=== PATIENT | male | born 1950 | race Caucasian/White ===

== ENCOUNTER 2020-10-25 07:12 | Inpatient (IN) | payer OTHER, MEDICARE, SELFPAY ==
[2020-10-25] VITALS (11 sets, daily range): BP systolic 107–147; BP diastolic 69–76; PULSE 81–145; RESP 16–32; TEMP 36.2–37; O2SAT 92–99; BMI 30.8; BMI 29.6
--- NOTE | 2020-10-25 07:25 | CT_ITS ---
STUDY: CT SCAN UPPER EXTREMITY RIGHT REASON FOR EXAM: Male, 70 years old. Patient presents with a history of a dog bite 90s about. Now there is evidence of redness and warmth to touch. Drainage. RADIATION DOSAGE (If Supplied By Facility): CTDIvol = ( 24.58 ) mGy, DLP = ( 2824.99 ) mGycm. Individualized dose optimization techniques were used for this CT.? TECHNIQUE: Multiple axial tomographic images were obtained of the distal arm and forearm following intravenous injection of 100 mL of ISOVUE-300. Sagittal and coronal images were obtained as well. COMPARISON: None. FINDINGS: There is evidence of the thickening of the skin overlying the posterior aspect of the distal humerus. No focal fluid collection or abscess is seen. There is also evidence of a mild degree of skin thickening involving the right forearm. The underlying bony structures are unremarkable. CT/Extremity Upper WITH Contrast IMPRESSION: Skin thickening overlying the distal posterior aspect of the humerus. Soft tissue swelling overlying the proximal right forearm. Electronically Signed: Gómez Phelps MD at 9:02 EDT , Service support ,
--- NOTE | 2020-10-25 07:42 | EDS_ITS ---
HPI History of Present Illness Chief Complaint: Bite Narrative Narrative: Patient presenting for evaluation due to complications from dog bite. Patient states that he was breaking up a fight between his dogs around 9 days ago and suffered bite wounds to his right forearm. Patient states that he has been trying to do generalized normal wound care, but has been developing spreading redness, increased pain, purulent drainage, and subjective fevers and sweats. Pain is moderate. Patient states that pain is mainly with palpation not necessarily with range of motion of the wrist and hand. Patient states that his tetanus status is likely not up-to-date. Review of systems otherwise n egative. [facility] Medical History Depression Diabetes Hypertension Home Medications amlodipine 10 mg PO DAILY 10/25/20 [History Last Taken Unknown] furosemide [Lasix] 40 mg PO BID 10/25/20 [History Last Taken Unknown] glipizide 10 mg PO DAILY 10/25/20 [History Last Taken Unknown] metoprolol succinate 200 mg PO DAILY 10/25/20 [History Last Taken Unknown] niacin 1,000 mg PO QHS 10/25/20 [History Last Taken Unknown] omeprazole 20 mg PO DAILY 10/25/20 [History Last Taken Unknown] paroxetine HCl [Paxil] 40 mg PO DAILY 10/25/20 [History Last Taken Unknown] pentoxifylline 400 mg PO TID 10/25/20 [History Last Taken Unknown] Allergy/AdvReac Type Severity Reaction Status Date / Time No Known Allergies Allergy Verified 10/25/20 07:14 Social History Smoking Status: Unknown if ever smoked ROS [facility] ED Constitutional Constitutional ED: Reports chills and subjective; Denies fever(s) ENT ENT ED: Denies rhinorrhea Cardiovascular Cardiovascular: Denies chest pain Respiratory/Chest Respiratory/Chest: Denies cough or dyspnea Gastrointestinal Gastrointestinal: Denies abdominal pain, diarrhea, nausea or vomiting Genitourinary Genitourinary ED: Denies dysuria or hematuria Musculoskeletal Musculoskeletal: Denies back pain Integumentary Reports abscess and rash Neurologic Neurologic: Denies paresthesias or weakness Psychiatric Psychiatric: Denies depression Endocrine Endocrinology: Denies fatigue Allergic/Immunologic Allergic/Immunologic ED: Denies urticaria EXAM Physical Exam Const Vital Signs: 10/25/20 07:13 Temperature 97.1 F L Temperature Source Temporal Pulse Rate 85 Respiratory Rate 16 Blood Pressure 107/71 Blood Pressure Mean 83 Pulse Ox 99 Oxygen Delivery Method Room Air Positive well nourished and well developed General Appearance ED: well developed and NAD HEENT Reports moist mucous membranes normocephalic and atraumatic Eyes EOMs intact bilaterally Neck no lymphadenopathy, supple and no JVD Chest Wall inspection of chest normal Resp normal respiratory effort and clear to auscultation bilaterally Cardio regular rate, regular rhythm, no murmurs and peripheral pulses 2+ throughout GI normal to inspection, nondistended, normoactive bowel sounds and non-distended Back/Spine normal to inspection Extremity Extremity Narrative: Examination of the patient's right forearm shows multiple proximal abrasions. More distally there are what appear to be some healing lacerations. Over the area of the ulnar styloid there is a eschar with purulent drainage. There is tenderness to palpation. There is no pain with short arc range of motion of the wrist, normal range of motion of the fingers. Normal pulses. Normal capillary refill. Normal sensation. General Extremety ED: Negative for tenderness Neuro oriented x3 and no sensory deficits noted Sensorium / Orientation: alert Motor Exam: strength 5/5 throughout Psych mental status grossly normal Skin no rashes or lesions noted Trauma: abrasion and laceration MDM MDM MDM Narrative Medical decision making narrative: Patient presented secondary to an infected bite wound on his right forearm secondary to a dog bite a little over a week ag o. Patient was reporting constitutional symptoms, he is also diabetic work-up was obtained. Patient was noted to have a leukocytosis of 18.2. He was empirically started on Unasyn. He was given morphine for pain control. Patient was noted to be somewhat hypokalemic at 2.8 he was given oral potassium replacement. Patient does not have pathologic elevation of his CPK or lactic acid. I performed a CT which does not show any discrete abscess formation but does show the patient's cellulitis. Patient does not seem to have a presentation that would be consistent with a septic joint. I do believe that the patient's infection is severe enough that he requires admission. Patient will be discussed with the hospitalist. Lab Data Attestation: I reviewed the patient's lab results. Discharge Plan Triage Chief Complaint: Bite ED Provider: Matt Anne Dx/Rx/DC Orders Clinical Impression: Dog bite, Cellulitis of forearm, right, History of diabetes mellitus, Hypokalemia Prescriptions: No Action furosemide [Lasix] 40 mg Tablet 40 mg PO BID RF: 0 metoprolol succinate 200 mg Tablet Extended Release 24 Hr 200 mg PO DAILY RF: 0 glipizide 10 mg Tablet 10 mg PO DAILY RF: 0 pentoxifylline 400 mg Tablet Extended Release 400 mg PO TID RF: 0 amlodipine 10 mg Tablet 10 mg PO DAILY RF: 0 omeprazole 20 mg Capsule,Delayed Release(Dr/Ec) 20 mg PO DAILY RF: 0 paroxetine HCl [Paxil] 40 mg Tablet 40 mg PO DAILY RF: 0 niacin 1,000 mg Tablet Extended Release 1,000 mg PO QHS RF: 0 [facility] [facility]errals[facility] [Primary Care Provider] -
[2020-10-25] MEDS: Diphth,Pertuss(Acell),Tet Vac 0.5 ML Vial IM (07:53)
[2020-10-25] MEDS: Morphine 4 MG/ML Syringe IV (07:53)
[2020-10-25] MEDS: Ondansetron 4 MG/2 ML Vial IV (07:53)
[2020-10-25 08:09] LABS: Absolute Lymphocyte Count 0.86 X10^3/uL (0.83-4.51); Absolute Neutrophil Count 15.5 X10^3/uL (2.0-7.7); Basophil# 0.04 X10^3/uL; Basophil% 0.2 % (0-1); Eosinophil# 0.05 X10^3/uL; Eosinophils% 0.3 % (0-5); Hematocrit 42.7 % (40-54); Hemoglobin 14.8 g/dL (13.0-16.5); Lymphocyte # 0.86 X10^3/ul (0.83-4.51); Lymphocyte % 4.7 % (19-41); Mean Corp Hgb Conc 34.7 g/dL (32-36); Mean Corpuscular Hgb 31.4 pg (27.0-32.0); Mean Corpuscular Volume 90.7 fL (80-94); Mean Platelet Vol. 9.4 fl (6.2-12.0); Monocyte# 1.47 X10^3/uL; Monocyte% 8.1 % (0-10); NRBC Flagged by Analyzer 0 % (0-5); Neutrophil % 85.3 % (47-70); Platelet Count 252 K/mm3 (150-450); RBC Distribution Width CV 12.4 % (11.6-14.6); RBC Distribution Width SD 41.4 fl (35.1-43.9); Red Blood Count 4.71 M/mm3 (4.6-6.2); White Blood Count 18.2 K/mm3 (4.4-11.0)
--- NOTE | 2020-10-25 08:10 | ED.RN ---
NOTIFIED KAYLYN ROSE PT NEEDS TO BE ADMITTED. ALL PAPERWORK WILL BE FAXED
[2020-10-25 08:11] LABS: ALB/GLOB Ratio 0.5 RATIO (0.9-2.4); AST(SGOT) 34 U/L (15-37); Alanine Aminotransfer ALT/SGPT 24 U/L (16-61); Albumin, Serum 2.5 g/dL (3.2-5.0); Alkaline Phosphatase 189 U/L (45-117); Anion Gap 10 (5-15); BUN 28 mg/dL (7-18); BUN/Creat Ratio 17.1 RATIO (10-20); CPK Total, Creatine Kinase 83 U/L (39-308); Calcium,Total 8.7 mg/dL (8.5-10.1); Chloride 100 mmol/L (98-107); Creatinine, Serum 1.64 mg/dL (0.70-1.30); EST Glomerular Filtration Rate 45 mL/min (>60); Est Glom Filt Rate - Afr Amer 54 mL/min (>60); Estimated Creatinine Clearance 44.51 ml/min; Globulin 4.6 g/dL (2.2-4.2); Glucose 186 mg/dL (74-106); Potassium 2.8 mmol/L (3.5-5.1); Protein, Total 7.1 g/dL (6.4-8.2); Sodium Level 133 mmol/L (136-145)
[2020-10-25 08:25] LABS: Lactic Acid 1.1 mmol/L (0.4-1.9)
[2020-10-25] MEDS: Potassium Chloride Oral Tablet 20 MEQ 60 MEQ PO (08:53)
--- NOTE | 2020-10-25 09:36 | HP.PCM.HOS_ITS ---
HPI - General HPI Narrative DIANA SNYDER, is a 70 M with a PMH as outlined who was admitted via the ED on 10/25/2020 with a complaint of dog bite. He was breaking up a fight between his dogs ~ 9 days prior to admission and suffered bite wounds to his right forearm; he develped worsening redness, increased pain and purulent drainage and subjective fevers and sweats; he had pain with palpation but had good range of motion. Review of systems is otherwise negative. vitals showed temperature of 97.1F, [place] of 85, BP of 107/71 and RR of 16. CBC shwoed wbc of 18.2, with Hb of 14.8 and platelets of 252. Chemistry showed sodium of 133 and K of 2.8 and Cr of 1.64. CT of the RUE showed skin thickening of the skin overlying the posterior aspect of the distal humerus with no focal fluid collection or abscess seen. He is being admitted to be managed for cellulitis of the RUE due to dog bite. [facility] Medical History Depression Diabetes Hypertension Home Medications amlodipine 10 mg PO DAILY 10/25/20 [History Last Taken Unknown] furosemide [Lasix] 40 mg PO BID 10/25/20 [History Last Taken Unknown] glipizide 10 mg PO DAILY 10/25/20 [History Last Taken Unknown] metoprolol succinate 200 mg PO DAILY 10/25/20 [History Last Taken Unknown] niacin 1,000 mg PO QHS 10/25/20 [History Last Taken Unknown] omeprazole 20 mg PO DAILY 10/25/20 [History Last Taken Unknown] paroxetine HCl [Paxil] 40 mg PO DAILY 10/25/20 [History Last Taken Unknown] pentoxifylline 400 mg PO TID 10/25/20 [History Last Taken Unknown] Allergy/AdvReac Type Severity Reaction Status Date / Time No Known Allergies Allergy Verified 10/25/20 07:14 Social History Smoking Status: Unknown if ever smoked ROS Constitutional Constitutional: Denies anorexia, change in weight, chills, fatigue, fever(s), malaise or weakness Eyes Eyes: Denies double vision or erythema ENT HEENT: Denies dysphagia, nasal congestion or nasal discharge Cardiovascular Cardiovascular: Denies chest pain, dyspnea on exertion, edema, lightheadedness, orthopnea, palpitations, paroxysmal nocturnal dyspnea or rapid heart rate Respiratory/Chest Respiratory/Chest: Denies cough, dyspnea, shortness of breath at rest or shortness of breath with exertion Gastrointestinal Gastrointestinal: Denies abdominal pain, constipation, diarrhea, nausea or vomiting Genitourinary Genitourinary: Denies dysuria, urinary frequency or urinary hesitancy Musculoskeletal Musculoskeletal: Reports other Details: pain, redness and swelling over RUE forearm ; Denies arthralgias, back pain, joint pain, joint stiffness, joint swelling or myalgias Neurologic Neurologic: Denies abnormal gait or focal weakness Psychiatric Psychiatric: Denies anxiety or depression Vital Signs Vital Signs Vital Signs: 10/25/20 07:13 10/25/20 08:55 Temperature 97.1 F L Temperature Source Temporal Pulse Rate 85 81 Respiratory Rate 16 16 Blood Pressure 107/71 119/72 Blood Pressure Mean 83 87 Pulse Ox 99 99 Oxygen Delivery Method Room Air Room Air Weight Weight: 215 lb Body Mass Index (BMI) 30.8 Physical Exam Const alert, oriented x3 and no apparent distress General Appearance: cooperative HEENT normocephalic, head/scalp atraumatic, hearing grossly normal bilaterally and moist oral mucous membranes Eyes PERRL, EOMs intact bilaterally and conjunctivae normal Neck no lymphadenopathy, supple and no JVD Resp normal respiratory effort, no retractions, no use of accessory muscles and clear to auscultation bilaterally Cardio regular rate, regular rhythm, S1 normal heart sound, S2 normal heart sound and no murmurs GI normal to inspection, nondistended, normoactive bowel sounds, soft to palpation, non-tender and non-distended Extremity Extremity Narrative: RUE has redness, healing lacerations and eschar with purulent drainage; tender to palpation. Normal range of movements Peripheral Pulses: Yes pulses 2+ throughout Skin Skin Narrative: as under extremity narrative Neuro oriented x3 and moves all extremities Sensorium / Orientation: awake and alert Psych affect normal Results Lab / Micro Data Result Diagrams: 10/25/20 07:35 10/25/20 07:35 Labs: Laboratory Results - last 24 hr 10/25/20 10/25/20 10/25/20 07:35 07:35 07:35 WBC 18.2 H RBC 4.71 Hgb 14.8 Hct 42.7 MCV 90.7 MCH 31.4 MCHC 34.7 RDW Std Deviation 41.4 RDW Coeff of Marquis 12.4 Plt Count 252 MPV 9.4 Immature Gran % (Auto) 1.400 H Neut % (Auto) 85.3 H Lymph % (Auto) 4.7 L [place] % (Auto) 8.1 Eos % (Auto) 0.3 Baso % (Auto) 0.2 Absolute Neuts (auto) 15.5 H Absolute Lymphs (auto) 0.86 Nucleated RBC % 0 Sodium 133 L Potassium 2.8 L Chloride 100 Carbon Dioxide 23.0 Anion Gap 10 BUN 28 H Creatinine 1.64 H Estim Creat Clear Calc 44.51 Est GFR (MDRD) Af Amer 54 L Est GFR (MDRD) Non-Af 45 L BUN/Creatinine Ratio 17.1 Glucose 186 H Lactic Acid 1.1 Calcium 8.7 Total Bilirubin 0.40 AST 34 ALT 24 Alkaline Phosphatase 189 H Total Creatine Kinase 83 Total Protein 7.1 Albumin 2.5 L Globulin 4.6 H Albumin/Globulin Ratio 0.5 L Radiology Impression Upper Extremity CT 10/25/20 07:25 IMPRESSION: Skin thickening overlying the distal posterior aspect of the humerus. Soft tissue swelling overlying the proximal right forearm. Electronically Signed: Gómez Phelps MD at 9:02 EDT , Service support , Assessment & Plan Assessment/Plan (1) Dog bite: (2) Cellulitis of forearm, right: (3) Hypokalemia: PLAN: #RUE cellulitis due to dog bite * admit to med surg * started on IV unasyn, will continue * get blood and wound cultures * consult wound care * #Hypokalemia: K is 2.8. Will replace and trend. Check magnesium #Type 2 diabetes mellitus * on glipizide 10mg daily. ISS. Accuchecks ACHS * #Hypertension; on metoprolol and furosemide DVT prophylaxis: lovenox COde status: full code Charges/Coding Visit Charges Inpatient E&M: 85321 Init Hosp L3
[2020-10-25] MEDS: Morphine 2 MG/ML Syringe IV ×4 (11:51→21:17)
[2020-10-25] MEDS: 0.9% Saline Lock 10 ML Syringe IV ×6 (11:52→21:00)
[2020-10-25 12:06] LABS: Bedside Glucose 204 mg/dL (70-110)
--- NOTE | 2020-10-25 12:19 | NURSING ---
wound photo: right wrist
--- NOTE | 2020-10-25 12:20 | NURSING ---
wound photo: right arm
[2020-10-25] MEDS: Potassium Chloride 10mEq/100mL 10 MEQ/100 ML IV.SOLN. 100 MEQ IV BOLUS ×4 (12:24→19:33)
[2020-10-25] MEDS: Insulin Lispro 100 UNIT/ML INSULN.PEN SC (13:41)
[2020-10-25] MEDS: Pentoxifylline 400 MG Tablet PO ×2 (13:43→21:17)
--- NOTE | 2020-10-25 15:28 | CHAPLAIN ---
Type of Pastoral Visit _x__ Initial Visit ___ Follow-up Visit ___ On-call Visit ___ General Patient Visit ___ Spiritual Assessment ___ Family Conference ___ Bereavement ___ Rapid Response ___ Code Blue ___ Other (describe below) Pastoral Care Referral From _x__ Patient ___ Family ___ Nurse ___ Physician ___ Licensed Bondsman ___ Milk Pickup Driver ___ Other (describe below) Sacrament/Intervention _x__ Active listening ___ Anointing ___ Sabianist ___ Bereavement ___ Communion _x__ Allison exploration ___ _x__ Life review _x__ Prayer ___ Reconciliation ___ Sacrament of Sick _x__ Supportive presence ___ Wedding ___ Other (describe below) Pastoral Comments
[2020-10-25 16:05] LABS: M R Staph aureus DNA By PCR Negative (Negative); Probe Check PASS; Specimen Processing Control PASS; Staph aureus DNA By PCR NEGATIVE (Negative)
[2020-10-25 16:16] LABS: Bedside Glucose 117 mg/dL (70-110)
[2020-10-25] MEDS: Acetaminophen 325 MG Tablet 650 MG PO (16:27)
--- NOTE | 2020-10-25 17:42 | EKG12_ITS ---
Test Reason : AM EKG Blood Pressure : / mmHG Vent. Rate : 079 BPM Atrial Rate : 079 BPM P-R Int : 210 ms QRS Dur : 130 ms QT Int : 420 ms P-R-T Axes : 040 016 011 degrees QTc Int : 481 ms Sinus rhythm with 1st degree A-V block with occasional Premature ventricular complexes and Premature atrial complexes Non-specific intra-ventricular conduction block Inferior infarct , age undetermined Abnormal ECG When compared with ECG of 25-OCT-2020 19:56, MANUAL COMPARISON REQUIRED, DATA IS UNCONFIRMED Confirmed by NIYAH MORA, NEREYDA ([id number]), news editor CAMILLE SULLIVAN ([id number]) on 10/26/2020 1:28:03 PM Referred By: KIMBERLY Confirmed By:NEREYDA LINDER MD
--- NOTE | 2020-10-25 17:44 | NURSING ---
talked w/ Dr. Hyde aWare shes is asking for Dr. Ruiz to come evaluate patient. updated on tachycardia, symptoms, blood glucose,vitals aWaiting EKG results.
[2020-10-25 18:05] LABS: Bedside Glucose 93 mg/dL (70-110)
--- NOTE | 2020-10-25 19:16 | RAD_ITS ---
INDICATION: Dyspnea EXAMINATION/TECHNIQUE: X-RAY - XR Chest 1 View COMPARISON: None. FINDINGS: Slight increase in interstitial markings. Tortuous and calcified thoracic aorta. The heart is not enlarged. Median sternotomy wires present. Left lateral pleural thickening/scarring. Elevation of the left hemidiaphragm. No acute osseous abnormalities. RAD/Chest 1 View (Portable) IMPRESSION: Slight increase in interstitial markings could represent infection and/or edema. Elevation of the left hemidiaphragm with left lateral pleural thickening/scarring. Electronically Signed: Juan Freeman MD at 19:48 EDT Tel , Service support ,
[2020-10-25 19:18] LABS: D-Dimer Quantitative (DVT/PE) 1.24 FEU/ug/m (0.27-0.49)
--- NOTE | 2020-10-25 19:24 | PCM.HOSP.N ---
Hospitalist Note Patient with increased RR, tachycardia. EKG, trop, D-dimer as well as IVF ordered per Dr. Ruiz. D-dimer mildly elevated, but had contrast with imaging on current day of presentation thus will initiate heparin drip, obtain coags, plan CTA chest in AM. Will additionally obtain CXR now and ABG to be cautious. Continued on BSA with CT extremity reviewed, will repeat Lactic acid to be cautious as presentation may be secondary to his current infectious state.
[2020-10-25] MEDS: 0.9% Normal Saline 1,000 ML 100 ML IV (19:31)
--- NOTE | 2020-10-25 19:46 | NURSING ---
report called to Sandra CORONEL in pcu, the receiving
[2020-10-25 19:49] LABS: Troponin-I HS 405.2 pg/mL (3.0-78.5)
--- NOTE | 2020-10-25 19:50 | EKG12_ITS ---
Test Reason : DYSRHYTHMIA Blood Pressure : / mmHG Vent. Rate : 108 BPM Atrial Rate : 108 BPM P-R Int : 212 ms QRS Dur : 122 ms QT Int : 342 ms P-R-T Axes : 048 020 -68 degrees QTc Int : 458 ms Sinus tachycardia with 1st degree A-V block Non-specific intra-ventricular conduction delay T wave abnormality, consider inferior lateral ischemia Abnormal ECG Confirmed by JANA MORA, DEANNA ([id number]), publishing editor CAMILLE SULLIVAN ([id number]) on 10/27/2020 8:33:53 AM Referred By: FEDERICO Confirmed By:DEANNA BATES MD
[2020-10-25] MEDS: Furosemide 100 MG/10 ML Vial 60 MG IV (19:52)
--- NOTE | 2020-10-25 19:52 | NURSING ---
Update given to Viry, stated to her Sandra would be his nurse and she can call PCU any time to get an update.
--- NOTE | 2020-10-25 19:53 | NURSING ---
UPDATED ON TROPONINS. AwARE OF HER ENTERING ORDERS FOR REPEAT EKG NOW, CVS AwARE. PASSED ON TO PCU CHARGE NURSE THIS WELL ORDERS WILL BE FOR HEPARIN, GETTING LASIX X1 NOW, ADDING ECHO, SENSATIVIES SERIES, AND STAT ASPIRIN. LUAN CHARGE NURSE AWARE
--- NOTE | 2020-10-25 20:01 | NURSING ---
PHOTOS OF PREVIOUS AND THIS STAT EKG SENT TO DR. CABALLERO
--- NOTE | 2020-10-25 20:03 | NURSING ---
IMAGES OF EKGS FORWARDED TO DR. BATES AT DR. PATRICIO REQUEST
--- NOTE | 2020-10-25 20:20 | NURSING ---
1999 transferred pt to 108 to [facility]
[2020-10-25] MEDS: Aspirin 325 MG Tablet PO (20:21)
[2020-10-25 20:32] LABS: International Normalized Ratio 1.2; Prothrombin Time (Protime)PT. 14.2 SECONDS (11.7-14.9)
[2020-10-25 20:39] LABS: Magnesium 1.8 mg/dL (1.6-2.6)
[2020-10-25 20:40] LABS: Allen Test Positive; Base Excess -7 mmol/L (-2 to +2); Bicarbonate 17.6 mmol/L (22-26); Blood Gas Specimen Type ART; FI02 21; O2 Delivery Device Room Air; PO2 67 mmHG (75-100); SITE L Radial; SO2 94 % (95-99); Total Carbon Dioxide 19 mmol/L; pCO2 28.2 mmHg (35-45)
[2020-10-25] MEDS: HEPARIN/D5w 25,000 UNITS 25,000 UNITS/250 ML IV.SOLN. 14 UNITS IV (20:40)
[2020-10-25] MEDS: Heparin Injection (Vial) 5,000 UNIT/ML VIAL 7500 UNIT IV (20:42)
[2020-10-25 20:55] LABS: BNP,B-Type NATRIURETIC PEPTIDE 665.7 pg/mL (0-100)
[2020-10-25] MEDS: Ipratropium/Albuterol Sulfate 3 ML AMPUL.NEB INHALATION (21:28)
[2020-10-25 21:30] LABS: Lactic Acid 1.2 mmol/L (0.4-1.9)
[2020-10-25 21:52] LABS: Amphetamine Urine VISTA NEGATIVE (<1000 ng/mL); Barbiturate Urine VISTA NEGATIVE (< 200 ng/mL); Benzodiazepine Urine VISTA NEGATIVE (< 200 ng/mL); Cocaine Urine VISTA NEGATIVE (< 300 ng/mL); Ecstacy Urine VISTA NEGATIVE (< 500 ng/mL); Methadone Urine VISTA NEGATIVE (< 300 ng/mL); PCP Urine VISTA NEGATIVE (< 25 ng/mL); THC Urine VISTA POSITIVE (< 50 ng/mL); Vista UDS pH Range 5
[2020-10-26] VITALS (17 sets, daily range): BP systolic 97–144; BP diastolic 49–81; PULSE 75–137; RESP 15–24; TEMP 36.4–37.2; O2SAT 91–96
[2020-10-26 00:56] LABS: Bedside Glucose 121 mg/dL (70-110)
[2020-10-26 01:07] LABS: Troponin-I HS 519.5 pg/mL (3.0-78.5)
[2020-10-26 02:55] LABS: Absolute Lymphocyte Count 0.63 X10^3/uL (0.83-4.51); Absolute Neutrophil Count 15.8 X10^3/uL (2.0-7.7); Basophil# 0.06 X10^3/uL; Basophil% 0.3 % (0-1); Eosinophil# 1.19 X10^3/uL; Eosinophils% 6.2 % (0-5); Hematocrit 37.4 % (40-54); Hemoglobin 12.9 g/dL (13.0-16.5); Lymphocyte # 0.63 X10^3/ul (0.83-4.51); Lymphocyte % 3.3 % (19-41); Mean Corp Hgb Conc 34.5 g/dL (32-36); Mean Corpuscular Hgb 31.7 pg (27.0-32.0); Mean Corpuscular Volume 91.9 fL (80-94); Mean Platelet Vol. 8.7 fl (6.2-12.0); Monocyte# 1.39 X10^3/uL; Monocyte% 7.2 % (0-10); NRBC Flagged by Analyzer 0 % (0-5); Neutrophil # 15.82 X10^3/uL (2.7-7.7); POSITIVE MORPHOLOGY YES; Platelet Count 253 K/mm3 (150-450); RBC Distribution Width CV 12.6 % (11.6-14.6); RBC Distribution Width SD 42.7 fl (35.1-43.9); Red Blood Count 4.07 M/mm3 (4.6-6.2); White Blood Count 19.3 K/mm3 (4.4-11.0)
[2020-10-26 02:58] LABS: Differential Indicated SCAN CRITERIA MET
[2020-10-26 03:05] LABS: Partial Thromboplast Time 79.6 Seconds (24.1-36.2)
[2020-10-26 03:20] LABS: Anion Gap 14 (5-15); BUN 26 mg/dL (7-18); BUN/Creat Ratio 17.4 RATIO (10-20); Calcium,Total 7.6 mg/dL (8.5-10.1); Chloride 101 mmol/L (98-107); Creatinine, Serum 1.49 mg/dL (0.70-1.30); EST Glomerular Filtration Rate 50 mL/min (>60); Est Glom Filt Rate - Afr Amer 60 mL/min (>60); Estimated Creatinine Clearance 48.99 ml/min; Glucose 182 mg/dL (74-106); Potassium 3.7 mmol/L (3.5-5.1); Sodium Level 135 mmol/L (136-145)
[2020-10-26] MEDS: Morphine 2 MG/ML Syringe IV ×4 (05:12→22:37)
[2020-10-26] MEDS: Pentoxifylline 400 MG Tablet PO ×3 (05:17→21:32)
[2020-10-26] MEDS: 0.9% Saline Lock 10 ML Syringe IV ×3 (05:38→22:40)
--- NOTE | 2020-10-26 05:55 | ECHOCS_ITS ---
Reason For Study: CAD/ASHD Procedure This was a 2D Doppler, Color Flow transthoracic echocardiogram. Technically difficult study, patient in pain and unable to hold still for testing. Contrast injection performed. The study was technically difficult. Contrast injection was performed. Exam performed portable in patient room. Left Ventricle Normal LV size. Moderate concentric left ventricular hypertrophy. Based upon the 2D echocardiographic and contrast enhanced images obtained there appears to be grossly normal left ventricular size, wall motion, and systolic function. The estimated ejection fraction is 55 %. Right Ventricle Normal RV size. Normal systolic function. Atria The left atrium is mildly enlarged. Normal right atrium. No doppler evidence for ASD. Mitral Valve There is no mitral annular calcification. Mild diffuse mitral valve thickening. The mitral valve chordae are thickened and/or calcified. Mild (1+) mitral valve insufficiency. Tricuspid Valve Normal tricuspid valve. Trivial tricuspid valve insufficiency. Unable to estimate RV systolic pressure/pulmonary artery pressure due to technically difficult study. Aortic Valve Trisinus/trileaflet aortic valve. Mild diffuse aortic valve thickening. Moderate focal aortic valve calcification. Aortic valve sclerosis/mild aortic valve stenosis. Pulmonic Valve The pulmonic valve is not well visualized. Mild (1+) pulmonic valve insufficiency. Great Vessels The aortic root is not well visualized. Pericardium/Pleural No pericardial effusion. Medication Diluted definity 4ml given slow IV push to enhance endocardial definition. MMode/2D Measurements & Calculations LVIDd: 5.5 cm IVSd: 1.5 cm LVOT diam: 2.0 cm LVIDs: 4.5 cm LVPWd: 1.5 cm FS: 18.5 % LVOT area: 3.2 cm2 LA dimension: 4.5 cm LAV(MOD-sp4): 71.5 ml LA A4 area: 21.7 cm2 RA A4 area: 18.7 cm2 Time Measurements MV dec time: 0.17 sec Doppler Measurements & Calculations MV E max nic: 118.5 cm/sec Lat Peak E' Nic: 5.2 cm/sec Med Peak E' Nic: 3.9 cm/sec MV A max nic: 64.2 cm/sec E/E' lat: 22.7 E/E' med: 30.1 MV E/A: 1.8 MV V2 max: 132.0 cm/sec MV P1/2t max nic: 132.0 cm/sec Ao V2 max: 144.9 cm/sec MV max P.0 mmHg MV P1/2t: 40.1 msec Ao max P.4 mmHg MV V2 mean: 57.5 cm/sec MV dec slope: 965.2 cm/sec2 Ao V2 mean: 102.2 cm/sec MV mean P.7 mmHg Ao mean P.6 mmHg MV V2 VTI: 22.2 cm MVA(P1/2t): 5.5 cm2 Ao V2 VTI: 29.2 cm MVA(VTI): 2.8 cm2 REZA(I,D): 2.1 cm2 REZA(V,D): 2.0 cm2 LV V1 max: 91.7 cm/sec SV(LVOT): 61.0 ml PA V2 max: 87.6 cm/sec LV V1 max P.4 mmHg LV V1 mean P.8 mmHg LV V1 mean: 63.9 cm/sec LV V1 VTI: 19.0 cm ECHO/Echo Complete W/ Contrast Interpretation Summary The study was technically difficult. Contrast injection was performed. Based upon the 2D echocardiographic and contrast enhanced images obtained there appears to be grossly normal left ventricular size, wall motion, and systolic function. The estimated ejection fraction is 55 %. Moderate concentric left ventricular hypertrophy. The left atrium is mildly enlarged. Mild diffuse mitral valve thickening. The mitral valve chordae are thickened and/or calcified. Mild (1+) mitral valve insufficiency. Trivial tricuspid valve insufficiency. Aortic valve sclerosis/mild aortic valve stenosis. Mild (1+) pulmonic valve insufficiency. Unable to estimate RV systolic pressure/pulmonary artery pressure due to techni ann difficult study. Transmitral diastolic flow velocities suggest diastolic dysfunction (pseudonorm al pattern). Ordering Physician: Benita Shaver Referring Physician: [facility] Performed By: Antione Tate RCS
--- NOTE | 2020-10-26 05:55 | EKG12_ITS ---
Test Reason : TACHYCARDIA Blood Pressure : / mmHG Vent. Rate : 120 BPM Atrial Rate : 120 BPM P-R Int : 204 ms QRS Dur : 126 ms QT Int : 302 ms P-R-T Axes : 034 028 -68 degrees QTc Int : 426 ms Sinus rhythm with PVC's Non-specific intra-ventricular conduction block T wave abnormality, consider inferolateral ischemia Abnormal ECG Confirmed by JANA MORA, DEANNA ([id number]), editorial intern CAMILLE SULLIVAN ([id number]) on 10/27/2020 8:35:32 AM Referred By: KIMBERLY Confirmed By:DEANNA BATES MD
--- NOTE | 2020-10-26 05:55 | CT_ITS ---
STUDY: CTA CHEST REASON FOR EXAM: Male, 70 years old. Suspected pulmonary embolus. Dogbite to right forearm. Cellulitis. RADIATION DOSAGE (If Supplied By Facility): CTDIvol = ( 13.85 ) mGy, DLP = ( 540.65 ) mGycm TECHNIQUE: The examination was performed with the intravenous administration of IV 100mL Isovue-370. Post-processing of the angiographic images was performed, with multiplanar reformation and maximum intensity projections.. Individualized dose optimization techniques were used for this CT. COMPARISON: Chest x-ray October 25, 2020. FINDINGS: Normal enhancement of the main pulmonary artery and right and left pulmonary arteries. Normal enhancement of the bilateral peripheral pulmonary arteries. There is no demonstrated pulmonary embolism. Scattered atherosclerotic calcification of the thoracic aorta. There is no demonstrated aortic dissection. Mild cardiomegaly. Coronary artery calcifications. No pericardial effusion. Sternal wires. Normal mediastinum. Normal hilar regions. Normal visualized trachea and bronchi. Small bilateral pleural effusions right greater than left. Left lower lobe subsegmental atelectasis. No pneumothorax. Normal chest wall structures. Mild anterior wedging of mid thoracic spine which appears old. Degenerative changes of the thoracic spine. Minimal cholelithiasis. CT/CTA Chest W/WO Contrast IMPRESSION: No pulmonary embolus or thoracic aortic dissection. Mild cardiomegaly. Coronary artery calcifications. Small bilateral pleural effusions. Minimal cholelithiasis. Electronically Signed: Papito Patel MD at 7:09 EDT , Service support ,
[2020-10-26] MEDS: Acetaminophen 325 MG Tablet 650 MG PO (06:01)
[2020-10-26] MEDS: Insulin Lispro 100 UNIT/ML INSULN.PEN SC ×4 (06:38→21:32)
[2020-10-26] MEDS: glipiZIDE 10 MG Tablet PO (06:38)
[2020-10-26 06:45] LABS: Bedside Glucose 195 mg/dL (70-110)
--- NOTE | 2020-10-26 08:51 | CON.PCM.CA_ITS ---
Assessment & Plan Assessment/Plan (1) Abnormal cardiac enzyme level: PLAN: The patient does have abnormal cardiac enzymes. The etiology is unclear at this time whether this is truly related to an underlying primary cardiovascular event such as a type I non-ST segment elevation VA versus a secondary cardiovascular event such as a type II non-ST segment elevation VA secondary to noncardiovascular issues including his underlying acute infectious disease related issue. At the present time he appears to be without ongoing acute symptoms or hemodynamic instability. He will continue to be monitored. An attempt will be made to retrieve his [facility] records for continuity of care. He will be having an echocardiogram to assess his left ventricular wall motion and systolic function. He will continue medical therapy as deemed appropriate in the interim. Depending upon his clinical course he may or may not need further cardiac diagnostic studies in the way of noninvasive or invasive studies, etc. (2) CAD (coronary artery disease): QUALIFIERS: Coronary Disease-Associated Artery/Lesion type: cheesh-na artery [place] vs. transplanted heart: cheesh-na heart PLAN: He does have a history of CAD. The details are unknown. At the present time he will continue evaluation care as noted above. (3) S/P CABG (coronary artery bypass graft): PLAN: He does have a history of a remote CABG at a young age. This was performed through the [facility] system. An attempt is being made to locate his [facility] records for continuity of care. (4) HLD (hyperlipidemia): QUALIFIERS: Hyperlipidemia type: unspecified Qualified Code(s): E78.5 - Hyperlipidemia, unspecified PLAN: He will continue risk factor evaluation and care as deemed appr opriate. (5) Benign essential HTN: PLAN: He should continue medical therapy with adjustment as needed. (6) History of diabetes mellitus: PLAN: He will continue evaluation care per internal medicine. (7) Cellulitis of forearm, right: PLAN: He was diagnosed with a right upper extremity cellulitis. He will continue evaluation care per internal medicine. Addt'l Comments The above was discussed and reviewed with the patient. He was agreeable to this approach. This note was generated using a voice recognition system and there may be incorrect words, spelling or punctuation that were not noted when reviewing the office note prior to saving. HPI Consult Data Date of Consult: 10/26/20 HPI Narrative HPI Narrative: DIANA SNYDER, is a 70 year old white male who presents for cardiovascular consultation based upon concerns of a history of CAD, CABG, hyperlipidemia, hypertension, superimposed upon diabetes mellitus, now undergoing evaluation for right upper extremity animal bite with associated cellulitis, who is been found to have abnormal high-sensitivity troponin I levels. He states his previous cardiovascular evaluation and therapy occurred at the [facility] center in [place] when he was approximately 56 years old. He states he has been followed via the [facility] since that time but does not recall undergoing additional cardiovascular testing. He states he takes his medications. He denies any recent episodes of chest discomfort or difficulty breathing. There has been no obvious orthopnea or PND or peripheral pitting edema. He denies near syncope or syncope. He notes that recently he was in an altercation with his dogs. He ended up with a dog bite to the right forearm. He presented to the hospital and was diagnosed with cellulitis. He was placed in the hospital for further evaluation care including antibiotic therapy. As part of his evaluation he did undergo a CT scan of the upper extremity. Following his evaluation initiation of therapy he states he felt somewhat short of breath. He was evaluated by the internal medicine staff. There was concern of potential excess volume and he was treated with IV diuretic therapy. During that time a high-sensitivity troponin I level was obtained which was reported as abnormal. It has trended up. He had ECGs performed which demonstrated sinus rhythm with a nonspecific IVCD with PVCs with nonspecific T wave [id number] myocardial ischemia as well as an inferior VA pattern of indeterminate age cannot be excluded. He had a chest x-ray performed which suggested the possibility of increased pulmonary vascularity. His [facility] cardiovascular records are unavailable for review. At the present time he states that he does not have any ongoing chest discomfort. He notes his sensation of shortness of breath and dyspnea past. He slept in the supine position without any difficulty breathing. He denies any other acute symptoms or adverse events. He states that he has not yet establ ished follow-up care with the [facility] in [place]. [facility] Medical History (Updated 10/26/20 @ 09:[address] Jaren Tejada MD) Abnormal cardiac enzyme level Benign essential HTN CAD (coronary artery disease) Chronic pain Congestive heart failure (CHF) Depression Diabetes HLD (hyperlipidemia) Hypertension Myocardial infarct Substance abuse Home Medications amlodipine 10 mg PO DAILY 10/25/20 [History Last Taken Unknown] furosemide [Lasix] 40 mg PO BID 10/25/20 [History Last Taken Unknown] glipizide 10 mg PO DAILY 10/25/20 [History Last Taken Unknown] metoprolol succinate 200 mg PO DAILY 10/25/20 [History Last Taken Unknown] niacin 1,000 mg PO QHS 10/25/20 [History Last Taken Unknown] omeprazole 20 mg PO DAILY 10/25/20 [History Last Taken Unknown] paroxetine HCl [Paxil] 40 mg PO DAILY 10/25/20 [History Last Taken Unknown] pentoxifylline 400 mg PO TID 10/25/20 [History Last Taken Unknown] Allergy/AdvReac Type Severity Reaction Status Date / Time No Known Allergies Allergy Verified 10/25/20 07:14 Family History (Updated 10/26/20 @ 08:[address] Jaren Tejada MD) Brother CAD (coronary artery disease) Age of CAD diagnosis: 50s Surgical History (Updated 10/26/20 @ 08:[address] Jaren Tejada MD) History of appendectomy Hx of CABG S/P CABG (coronary artery bypass graft) Social History (Updated 10/26/20 @ 08:[address] Jaren Tejada MD) Smoking Status: Former smoker how long ago did patient quit smoking: approximately 15 years ago ROS Constitutional Constitutional: Reports as per HPI Eyes Eyes: Reports as per HPI ENT HEENT: Reports as per HPI Cardiovascular Cardiovascular: Reports dyspnea Respiratory/Chest Respiratory/Chest: Reports dyspnea Gastrointestinal Gastrointestinal: Reports as per HPI Genitourinary Genitourinary: Reports as per HPI Musculoskeletal Musculoskeletal: Reports as per HPI Integumentary Integumentary: Reports as per HPI Neurologic Neurologic: Reports as per HPI Physical Exam Const alert, oriented x3 and no apparent distress Orientation / Consciousness: awake HEENT normocephalic, head/scalp atraumatic and hearing grossly normal bilaterally Eyes PERRL and EOMs intact bilaterally Neck full ROM, supple and no JVD Chest Chest: midline sternotomy incision Resp clear to auscultation bilaterally Cardio regular rate, regular rhythm, S1 normal heart sound and S2 normal heart sound GI normal to inspection, nondistended, normoactive bowel sounds Extremity Extremity Narrative: Right forearm: Currently in an Alfa wrap Neuro oriented x3, moves all extremities, no focal motor deficits and no sensory deficits noted Psych mental status grossly normal Procedure Criteria Type of Procedure Procedure Type: Elective Elective Risks - COVID COVID Risk Discussion: The surgeon/proceduralist and patient have discussed in detail the risk of exposure to and/or potential harm posed by the COVID-19 virus with having a surgery/procedure at this time versus the risk of delaying the surgery/procedure. It is not possible to know either the risk of delaying the surgery or procedure or chance of getting an infection with perfect accuracy, but a joint decision was made between the patient and the surgeon/proceduralist to proceed at this time with the scheduled surgery/procedure as indicated on the consent form. Objective Data Vital Signs: Vital Signs Temp Pulse Resp BP Pulse Ox 97.9 F 80 18 113/50 L 95 10/26/20 02:12 10/26/20 07:10 10/26/20 02:12 10/26/20 02:12 10/26/20 07:56 Oxygen Flow Rate (L/min) 2 Oxygen Delivery Method Room Air Weight: 206 lb 9.17 oz Body Mass Index (BMI) 29.6 Intake & Output: Intake and Output for Last 24 Hours 10/24/20 10/25/20 10/26/20 23:59 23:59 23:59 Intake Total 1154.33 / 1154.33 509.17 / 509.17 Output Total 400 / 400 425 / 425 Balance 754.33 / 754.33 84.17 / 84.17 Lab / Micro Data Result Diagrams: 10/26/20 02:45 10/26/20 02:45 Labs: Laboratory Results - last 24 hr 10/25/20 10/25/20 10/25/20 07:35 07:45 11:33 WBC RBC Hgb Hct MCV MCH MCHC RDW Std Deviation RDW Coeff of Marquis Plt Count MPV Immature Gran % (Auto) Neut % (Auto) Lymph % (Auto) Grand % (Auto) Eos % (Auto) Baso % (Auto) Absolute Neuts (auto) Absolute Lymphs (auto) Nucleated RBC % PT INR APTT D-Dimer Quant (PE/DVT) Sodium Potassium Chloride Carbon Dioxide Anion Gap BUN Creatinine Estim Creat Clear Calc Est GFR (MDRD) Af Amer Est GFR (MDRD) Non-Af BUN/Creatinine Ratio Glucose Lactic Acid Calcium Magnesium 2.0 Troponin I High Sens B-Natriuretic Peptide 665.7 H Urine Opiates Screen Urine Methadone Screen Ur Barbiturates Screen Ur Phencyclidine Scrn Ur Amphetamines Screen U Methamphetamin-MDMA U Benzodiazepines Scrn Urine Cocaine Screen U Cannabinoids Screen Ur Drug Screen Comment S.aureus Protein A PCR MRSA (PCR) POC Glucose 204 H 10/25/20 10/25/20 10/25/20 11:55 16:07 17:35 WBC RBC Hgb Hct MCV MCH MCHC RDW Std Deviation RDW Coeff of Marquis Plt Count MPV Immature Gran % (Auto) Neut % (Auto) Lymph % (Auto) Grand % (Auto) Eos % (Auto) Baso % (Auto) Absolute Neuts (auto) Absolute Lymphs (auto) Nucleated RBC % PT INR APTT D-Dimer Quant (PE/DVT) Sodium Potassium Chloride Carbon Dioxide Anion Gap BUN Creatinine Estim Creat Clear Calc Est GFR (MDRD) Af Amer Est GFR (MDRD) Non-Af BUN/Creatinine Ratio Glucose Lactic Acid Calcium Magnesium Troponin I High Sens B-Natriuretic Peptide Urine Opiates Screen Urine Methadone Screen Ur Barbiturates Screen Ur Phencyclidine Scrn Ur Amphetamines Screen U Methamphetamin-MDMA U Benzodiazepines Scrn Urine Cocaine Screen U Cannabinoids Screen Ur Drug Screen Comment S.aureus Protein A PCR NEGATIVE MRSA (PCR) Negative POC Glucose 117 H 93 10/25/20 10/25/20 10/25/20 18:22 18:22 18:22 WBC RBC Hgb Hct MCV MCH MCHC RDW Std Deviation RDW Coeff of Marquis Plt Count MPV Immature Gran % (Auto) Neut % (Auto) Lymph % (Auto) Grand % (Auto) Eos % (Auto) Baso % (Auto) Absolute Neuts (auto) Absolute Lymphs (auto) Nucleated RBC % PT 14.2 INR 1.2 APTT 48.0 H D-Dimer Quant (PE/DVT) 1.24 H* Sodium Potassium Chloride Carbon Dioxide Anion Gap BUN Creatinine Estim Creat Clear Calc Est GFR (MDRD) Af Amer Est GFR (MDRD) Non-Af BUN/Creatinine Ratio Glucose Lactic Acid Calcium Magnesium Troponin I High Sens 405.2 H* B-Natriuretic Peptide Urine Opiates Screen Urine Methadone Screen Ur Barbiturates Screen Ur Phencyclidine Scrn Ur Amphetamines Screen U Methamphetamin-MDMA U Benzodiazepines Scrn Urine Cocaine Screen U Cannabinoids Screen Ur Drug Screen Comment S.aureus Protein A PCR MRSA (PCR) POC Glucose 10/25/20 10/25/20 10/25/20 18:22 20:50 20:50 WBC RBC Hgb Hct MCV MCH MCHC RDW Std Deviation RDW Coeff of Marquis Plt Count MPV Immature Gran % (Auto) Neut % (Auto) Lymph % (Auto) Grand % (Auto) Eos % (Auto) Baso % (Auto) Absolute Neuts (auto) Absolute Lymphs (auto) Nucleated RBC % PT INR APTT D-Dimer Quant (PE/DVT) Sodium Potassium Chloride Carbon Dioxide Anion Gap BUN Creatinine Estim Creat Clear Calc Est GFR (MDRD) Af Amer Est GFR (MDRD) Non-Af BUN/Creatinine Ratio Glucose Lactic Acid 1.2 Calcium Magnesium 1.8 Troponin I High Sens 429.0 H* B-Natriuretic Peptide Urine Opiates Screen Urine Methadone Screen Ur Barbiturates Screen Ur Phencyclidine Scrn Ur Amphetamines Screen U Methamphetamin-MDMA U Benzodiazepines Scrn Urine Cocaine Screen U Cannabinoids Screen Ur Drug Screen Comment S.aureus Protein A PCR MRSA (PCR) POC Glucose 10/25/20 10/25/20 10/26/20 21:24 21:30 00:20 WBC RBC Hgb Hct MCV MCH MCHC RDW Std Deviation RDW Coeff of Marquis Plt Count MPV Immature Gran % (Auto) Neut % (Auto) Lymph % (Auto) Grand % (Auto) Eos % (Auto) Baso % (Auto) Absolute Neuts (auto) Absolute Lymphs (auto) Nucleated RBC % PT INR APTT D-Dimer Quant (PE/DVT) Sodium Potassium Chloride Carbon Dioxide Anion Gap BUN Creatinine Estim Creat Clear Calc Est GFR (MDRD) Af Amer Est GFR (MDRD) Non-Af BUN/Creatinine Ratio Glucose Lactic Acid Calcium Magnesium Troponin I High Sens 519.5 H* B-Natriuretic Peptide Urine Opiates Screen POSITIVE H Urine Methadone Screen NEGATIVE Ur Barbiturates Screen NEGATIVE Ur Phencyclidine Scrn NEGATIVE Ur Amphetamines Screen NEGATIVE U Methamphetamin-MDMA NEGATIVE U Benzodiazepines Scrn NEGATIVE Urine Cocaine Screen NEGATIVE U Cannabinoids Screen POSITIVE H Ur Drug Screen Comment S.aureus Protein A PCR MRSA (PCR) POC Glucose 121 H 10/26/20 10/26/20 10/26/20 02:45 02:45 02:45 WBC 19.3 H RBC 4.07 L Hgb 12.9 L Hct 37.4 L MCV 91.9 MCH 31.7 MCHC 34.5 RDW Std Deviation 42.7 RDW Coeff of Marquis 12.6 Plt Count 253 MPV 8.7 Immature Gran % (Auto) 1.000 H Neut % (Auto) 82.0 H Lymph % (Auto) 3.3 L Grand % (Auto) 7.2 Eos % (Auto) 6.2 H Baso % (Auto) 0.3 Absolute Neuts (auto) 15.8 H Absolute Lymphs (auto) 0.63 L Nucleated RBC % 0 PT INR APTT 79.6 H D-Dimer Quant (PE/DVT) Sodium 135 L Potassium 3.7 Chloride 101 Carbon Dioxide 20.0 L Anion Gap 14 BUN 26 H Creatinine 1.49 H Estim Creat Clear Calc 48.99 Est GFR (MDRD) Af Amer 60 Est GFR (MDRD) Non-Af 50 L BUN/Creatinine Ratio 17.4 Glucose 182 H Lactic Acid Calcium 7.6 L Magnesium Troponin I High Sens B-Natriuretic Peptide Urine Opiates Screen Urine Methadone Screen Ur Barbiturates Screen Ur Phencyclidine Scrn Ur Amphetamines Screen U Methamphetamin-MDMA U Benzodiazepines Scrn Urine Cocaine Screen U Cannabinoids Screen Ur Drug Screen Comment S.aureus Protein A PCR MRSA (PCR) POC Glucose 10/26/20 06:36 WBC RBC Hgb Hct MCV MCH MCHC RDW Std Deviation RDW Coeff of Marquis Plt Count MPV Immature Gran % (Auto) Neut % (Auto) Lymph % (Auto) Grand % (Auto) Eos % (Auto) Baso % (Auto) Absolute Neuts (auto) Absolute Lymphs (auto) Nucleated RBC % PT INR APTT D-Dimer Quant (PE/DVT) Sodium Potassium Chloride Carbon Dioxide Anion Gap BUN Creatinine Estim Creat Clear Calc Est GFR (MDRD) Af Amer Est GFR (MDRD) Non-Af BUN/Creatinine Ratio Glucose Lactic Acid Calcium Magnesium Troponin I High Sens B-Natriuretic Peptide Urine Opiates Screen Urine Methadone Screen Ur Barbiturates Screen Ur Phencyclidine Scrn Ur Amphetamines Screen U Methamphetamin-MDMA U Benzodiazepines Scrn Urine Cocaine Screen U Cannabinoids Screen Ur Drug Screen Comment S.aureus Protein A PCR MRSA (PCR) POC Glucose 195 H ABG Data ABG results: ABG 10/25/20 20:37 Specimen Type ART Sample Site L Radial pH 7.40 Bicarbonate Actual 17.6 L Total CO2 19 Base Excess -7 L O2 Saturation 94 L O2 % 21 ABG pCO2 28.2 L ABG pO2 67 L Vasquez Test Positive O2 Delivery Device Room Air Cardiology Labs/Tests 10/25/20 07:35: B-Natriuretic Peptide 665.7 H 10/25/20 07:45: Magnesium 2.0 10/25/20 18:22: D-Dimer Quant (PE/DVT) 1.24 H* 10/25/20 18:22: PT 14.2, INR 1.2, APTT 48.0 H 10/25/20 18:22: Magnesium 1.8 10/25/20 20:37: pH 7.40, Bicarbonate Actual 17.6 L, Base Excess -7 L, O2 Saturation 94 L, ABG pCO2 28.2 L, ABG pO2 67 L, Vasquez Test Positive 10/25/20 20:50: Lactic Acid 1.2 10/26/20 02:45: WBC 19.3 H, RBC 4.07 L, Hgb 12.9 L, Hct 37.4 L, MCV 91.9, MCH 31.7, MCHC 34.5, Plt Count 253, MPV 8.7, Immature Gran % (Auto) 1.000 H, Neut % (Auto) 82.0 H, Lymph % (Auto) 3.3 L, Grand % (Auto) 7.2, Eos % (Auto) 6.2 H, Baso % (Auto) 0.3, Absolute Neuts (auto) 15.8 H, Nucleated RBC % 0 10/26/20 02:45: Sodium 135 L, Potassium 3.7, Chloride 101, Carbon Dioxide 20.0 L , Anion Gap 14, BUN 26 H, Creatinine 1.49 H, Est GFR (MDRD) Af Amer 60, Est GFR (MDRD) Non-Af 50 L, BUN/Creatinine Ratio 17.4, Glucose 182 H, Calcium 7.6 L 10/26/20 02:45: APTT 79.6 H Rhythm: Sinus rhythm EKG: As noted above ECHO: Pending Radiography Diagnostic Testing: Radiology Impression Upper Extremity CT 10/25/20 07:25 IMPRESSION: Skin thickening overlying the distal posterior aspect of the humerus. Soft tissue swelling overlying the proximal right forearm. Electronically Signed: Gómez Phelps MD at 9:02 EDT , Service support , Chest X-Ray 10/25/20 19:16 IMPRESSION: Slight increase in interstitial markings could represent infection and/or edema. Elevation of the left hemidiaphragm with left lateral pleural thickening/scarring. Electronically Signed: Juan Freeman MD at 19:48 EDT Tel , Service support , Chest CTA 10/26/20 05:55 IMPRESSION: No pulmonary embolus or thoracic aortic dissection. Mild cardiomegaly. Coronary artery calcifications. Small bilateral pleural effusions. Minimal cholelithiasis. Electronically Signed: Papito Patel MD at 7:09 EDT , Service support ,
[2020-10-26 09:33] LABS: Partial Thromboplast Time 54.3 Seconds (24.1-36.2)
--- NOTE | 2020-10-26 10:22 | CASEMGMT ---
HOMER YOUSIF assessment: Face to Face with patient for initial transition planning/care coordination assessment. HOMER YOUSIF introduced self and role at [facility], pt voices understanding and consents to assessment. Pt is sitting up in chair in no distress. Pt's sig other is at bedside. Pt is A/Ox4 and answers all questions appropriately. Care providers, pharmacy, and demographics verified. Presentation: Pt c/o dog bite 9 days ago with redness, swelling, pain Admitting dx: Cellulitis RUE, hypokalemia PCP: KAYLYN Galvan-pt has not seen them yet as he recently moved from [place] Specialists: No current specialists in [place]. Preferred Pharmacy: [facility] Insurance: [facility] A/B Prescription Benefit: [facility] A[facility]B Living Will/HPOA: Pt states does not have LW/HPOA and declines AD info. LNOK: Viry Goff, sig other Living Arrangements: Pt states lives with sig other in 1 story home with no steps in and states no concerns at home. Pt is independent with ADL's. Transportation: Pt states sig other drives and states no transportation concerns. DME/HHC: Pt states no current DME or need for any. Pt states no hx of HHC or SNF. Pt states no concerns with going home at time of discharge. Pt is retired. Pt states does not smoke cigarettes or drink ETOH. Pt states no further concerns/needs. CM to follow for any further discharge planning/needs. Advised pt to ask for CM if any further questions/concerns/needs arise, voices understanding. Pt Goal: Home Plan[place] HOMER YOUSIF
--- NOTE | 2020-10-26 10:47 | NURSING ---
In to reassess the right arm. removed the EMMANUEL wrap and dressing. minimal drainage noted on the old dressing. pt still quite painful and not able to move the wrist much at all. there is moderate edema and redness noted. was able to express a moderate amount of purulent drainage from the right lateral wrist/lower forearm. there is an area of fluctuance noted medially, but unable to express drainage from this site. Discussed pt with Dr Hyde who plans to consult Dr William. dressing reapplied as ordered. pt tolerated well. will continue to monitor closely.
[2020-10-26] MEDS: Furosemide 40 MG/4 ML Vial IV ×3 (10:58→19:05)
[2020-10-26] MEDS: Aspirin 81 MG TAB.CHEW PO (10:58)
[2020-10-26] MEDS: amLODIPine 10 MG Tablet PO (10:59)
[2020-10-26] MEDS: Paroxetine 20 MG Tablet 40 MG PO (10:59)
[2020-10-26] MEDS: Pantoprazole Sodium 20 MG Tablet PO (11:00)
[2020-10-26] MEDS: Metoprolol(XL)Succ 200 MG Tablet PO (11:00)
[2020-10-26 11:10] LABS: Bedside Glucose 168 mg/dL (70-110)
[2020-10-26] MEDS: Heparin Injection (Vial) 5,000 UNIT/ML VIAL IV (11:13)
--- NOTE | 2020-10-26 11:18 | PN.HOSP_ITS ---
Subjective Subjective Patient seen and examined. He still complains of pain in his right upper extremity at the site of the cellulitis though he said he is able to make a better fist today. Of note, patient became acutely tachycardic and tachypneic yesterday and so had to be transferred to the PCU. Troponins done were elevated in the 400s and D-dimer was also elevated. He was started on heparin drip and has had a CTA of the chest done this morning which was negative for PE. 2D echo is pending. Review of symptoms otherwise negative. He is also being diuresed with IV Lasix. WBC has trended down to 19. Objective Data Objective Data Vital Signs: Vital Signs Temp Pulse Resp BP Pulse Ox 97.6 F L 81 16 117/72 93 10/26/20 08:52 10/26/20 11:00 10/26/20 08:52 10/26/20 08:52 10/26/20 08:52 Oxygen Flow Rate (L/min) 2 Oxygen Delivery Method Room Air Weight: 206 lb 9.17 oz Body Mass Index (BMI) 29.6 Intake & Output: Intake and Output for Last 24 Hours 10/24/20 10/25/20 10/26/20 23:59 23:59 23:59 Intake Total 1154.33 / 1154.33 628.40 / 628.40 Output Total 400 / 400 425 / 425 Balance 754.33 / 754.33 203.40 / 203.40 Lab / Micro Data Result Diagrams: 10/26/20 02:45 10/26/20 02:45 Labs: Laboratory Results - last 24 hr 10/25/20 10/25/20 10/25/20 07:35 11:33 11:55 WBC RBC Hgb Hct MCV MCH MCHC RDW Std Deviation RDW Coeff of Marquis Plt Count MPV Immature Gran % (Auto) Neut % (Auto) Lymph % (Auto) [place] % (Auto) Eos % (Auto) Baso % (Auto) Absolute Neuts (auto) Absolute Lymphs (auto) Nucleated RBC % PT INR APTT D-Dimer Quant (PE/DVT) Sodium Potassium Chloride Carbon Dioxide Anion Gap BUN Creatinine Estim Creat Clear Calc Est GFR (MDRD) Af Amer Est GFR (MDRD) Non-Af BUN/Creatinine Ratio Glucose Lactic Acid Calcium Magnesium Troponin I High Sens B-Natriuretic Peptide 665.7 H Urine Opiates Screen Urine Methadone Screen Ur Barbiturates Screen Ur Phencyclidine Scrn Ur Amphetamines Screen U Methamphetamin-MDMA U Benzodiazepines Scrn Urine Cocaine Screen U Cannabinoids Screen Ur Drug Screen Comment S.aureus Protein A PCR NEGATIVE MRSA (PCR) Negative POC Glucose 204 H 10/25/20 10/25/20 10/25/20 16:07 17:35 18:22 WBC RBC Hgb Hct MCV MCH MCHC RDW Std Deviation RDW Coeff of Marquis Plt Count MPV Immature Gran % (Auto) Neut % (Auto) Lymph % (Auto) [place] % (Auto) Eos % (Auto) Baso % (Auto) Absolute Neuts (auto) Absolute Lymphs (auto) Nucleated RBC % PT INR APTT D-Dimer Quant (PE/DVT) Sodium Potassium Chloride Carbon Dioxide Anion Gap BUN Creatinine Estim Creat Clear Calc Est GFR (MDRD) Af Amer Est GFR (MDRD) Non-Af BUN/Creatinine Ratio Glucose Lactic Acid Calcium Magnesium Troponin I High Sens 405.2 H* B-Natriuretic Peptide Urine Opiates Screen Urine Methadone Screen Ur Barbiturates Screen Ur Phencyclidine Scrn Ur Amphetamines Screen U Methamphetamin-MDMA U Benzodiazepines Scrn Urine Cocaine Screen U Cannabinoids Screen Ur Drug Screen Comment S.aureus Protein A PCR MRSA (PCR) POC Glucose 117 H 93 10/25/20 10/25/20 10/25/20 18:22 18:22 18:22 WBC RBC Hgb Hct MCV MCH MCHC RDW Std Deviation RDW Coeff of Marquis Plt Count MPV Immature Gran % (Auto) Neut % (Auto) Lymph % (Auto) [place] % (Auto) Eos % (Auto) Baso % (Auto) Absolute Neuts (auto) Absolute Lymphs (auto) Nucleated RBC % PT 14.2 INR 1.2 APTT 48.0 H D-Dimer Quant (PE/DVT) 1.24 H* Sodium Potassium Chloride Carbon Dioxide Anion Gap BUN Creatinine Estim Creat Clear Calc Est GFR (MDRD) Af Amer Est GFR (MDRD) Non-Af BUN/Creatinine Ratio Glucose Lactic Acid Calcium Magnesium 1.8 Troponin I High Sens B-Natriuretic Peptide Urine Opiates Screen Urine Methadone Screen Ur Barbiturates Screen Ur Phencyclidine Scrn Ur Amphetamines Screen U Methamphetamin-MDMA U Benzodiazepines Scrn Urine Cocaine Screen U Cannabinoids Screen Ur Drug Screen Comment S.aureus Protein A PCR MRSA (PCR) POC Glucose 10/25/20 10/25/20 10/25/20 20:50 20:50 21:24 WBC RBC Hgb Hct MCV MCH MCHC RDW Std Deviation RDW Coeff of Marquis Plt Count MPV Immature Gran % (Auto) Neut % (Auto) Lymph % (Auto) [place] % (Auto) Eos % (Auto) Baso % (Auto) Absolute Neuts (auto) Absolute Lymphs (auto) Nucleated RBC % PT INR APTT D-Dimer Quant (PE/DVT) Sodium Potassium Chloride Carbon Dioxide Anion Gap BUN Creatinine Estim Creat Clear Calc Est GFR (MDRD) Af Amer Est GFR (MDRD) Non-Af BUN/Creatinine Ratio Glucose Lactic Acid 1.2 Calcium Magnesium Troponin I High Sens 429.0 H* B-Natriuretic Peptide Urine Opiates Screen Urine Methadone Screen Ur Barbiturates Screen Ur Phencyclidine Scrn Ur Amphetamines Screen U Methamphetamin-MDMA U Benzodiazepines Scrn Urine Cocaine Screen U Cannabinoids Screen Ur Drug Screen Comment S.aureus Protein A PCR MRSA (PCR) POC Glucose 121 H 10/25/20 10/26/20 10/26/20 21:30 00:20 02:45 WBC 19.3 H RBC 4.07 L Hgb 12.9 L Hct 37.4 L MCV 91.9 MCH 31.7 MCHC 34.5 RDW Std Deviation 42.7 RDW Coeff of Marquis 12.6 Plt Count 253 MPV 8.7 Immature Gran % (Auto) 1.000 H Neut % (Auto) 82.0 H Lymph % (Auto) 3.3 L [place] % (Auto) 7.2 Eos % (Auto) 6.2 H Baso % (Auto) 0.3 Absolute Neuts (auto) 15.8 H Absolute Lymphs (auto) 0.63 L Nucleated RBC % 0 PT INR APTT D-Dimer Quant (PE/DVT) Sodium Potassium Chloride Carbon Dioxide Anion Gap BUN Creatinine Estim Creat Clear Calc Est GFR (MDRD) Af Amer Est GFR (MDRD) Non-Af BUN/Creatinine Ratio Glucose Lactic Acid Calcium Magnesium Troponin I High Sens 519.5 H* B-Natriuretic Peptide Urine Opiates Screen POSITIVE H Urine Methadone Screen NEGATIVE Ur Barbiturates Screen NEGATIVE Ur Phencyclidine Scrn NEGATIVE Ur Amphetamines Screen NEGATIVE U Methamphetamin-MDMA NEGATIVE U Benzodiazepines Scrn NEGATIVE Urine Cocaine Screen NEGATIVE U Cannabinoids Screen POSITIVE H Ur Drug Screen Comment S.aureus Protein A PCR MRSA (PCR) POC Glucose 10/26/20 10/26/20 10/26/20 02:45 02:45 06:36 WBC RBC Hgb Hct MCV MCH MCHC RDW Std Deviation RDW Coeff of Marquis Plt Count MPV Immature Gran % (Auto) Neut % (Auto) Lymph % (Auto) [place] % (Auto) Eos % (Auto) Baso % (Auto) Absolute Neuts (auto) Absolute Lymphs (auto) Nucleated RBC % PT INR APTT 79.6 H D-Dimer Quant (PE/DVT) Sodium 135 L Potassium 3.7 Chloride 101 Carbon Dioxide 20.0 L Anion Gap 14 BUN 26 H Creatinine 1.49 H Estim Creat Clear Calc 48.99 Est GFR (MDRD) Af Amer 60 Est GFR (MDRD) Non-Af 50 L BUN/Creatinine Ratio 17.4 Glucose 182 H Lactic Acid Calcium 7.6 L Magnesium Troponin I High Sens B-Natriuretic Peptide Urine Opiates Screen Urine Methadone Screen Ur Barbiturates Screen Ur Phencyclidine Scrn Ur Amphetamines Screen U Methamphetamin-MDMA U Benzodiazepines Scrn Urine Cocaine Screen U Cannabinoids Screen Ur Drug Screen Comment S.aureus Protein A PCR MRSA (PCR) POC Glucose 195 H 10/26/20 10/26/20 09:00 11:04 WBC RBC Hgb Hct MCV MCH MCHC RDW Std Deviation RDW Coeff of Marquis Plt Count MPV Immature Gran % (Auto) Neut % (Auto) Lymph % (Auto) [place] % (Auto) Eos % (Auto) Baso % (Auto) Absolute Neuts (auto) Absolute Lymphs (auto) Nucleated RBC % PT INR APTT 54.3 H D-Dimer Quant (PE/DVT) Sodium Potassium Chloride Carbon Dioxide Anion Gap BUN Creatinine Estim Creat Clear Calc Est GFR (MDRD) Af Amer Est GFR (MDRD) Non-Af BUN/Creatinine Ratio Glucose Lactic Acid Calcium Magnesium Troponin I High Sens B-Natriuretic Peptide Urine Opiates Screen Urine Methadone Screen Ur Barbiturates Screen Ur Phencyclidine Scrn Ur Amphetamines Screen U Methamphetamin-MDMA U Benzodiazepines Scrn Urine Cocaine Screen U Cannabinoids Screen Ur Drug Screen Comment S.aureus Protein A PCR MRSA (PCR) POC Glucose 168 H ABG Data ABG results: ABG 10/25/20 20:37 Specimen Type ART Sample Site L Radial pH 7.40 Bicarbonate Actual 17.6 L Total CO2 19 Base Excess -7 L O2 Saturation 94 L O2 % 21 ABG pCO2 28.2 L ABG pO2 67 L Vasquez Test Positive O2 Delivery Device Room Air Radiography Diagnostic Testing: Radiology Impression Chest X-Ray 10/25/20 19:16 IMPRESSION: Slight increase in interstitial markings could represent infection and/or edema. Elevation of the left hemidiaphragm with left lateral pleural thickening/scarring. Electronically Signed: Juan Freeman MD at 19:48 EDT Tel , Service support , Chest CTA 10/26/20 05:55 IMPRESSION: No pulmonary embolus or thoracic aortic dissection. Mild cardiomegaly. Coronary artery calcifications. Small bilateral pleural effusions. Minimal cholelithiasis. Electronically Signed: Papito Patel MD at 7:09 EDT , Service support , Physical Exam Const alert, oriented x3 and no apparent distress General Appearance: cooperative Exam Limitations: no limitations HEENT normocephalic, head/scalp atraumatic, hearing grossly normal bilaterally and moist oral mucous membranes Head and Scalp: normocephalic Eyes PERRL, EOMs intact bilaterally and conjunctivae normal Neck no lymphadenopathy, supple and no JVD Resp Resp Narrative: Diminished breath sounds bibasilarly. No wheezes or crackles. On room air. Cardio regular rate, regular rhythm, S1 normal heart sound, S2 normal heart sound and no murmurs GI normal to inspection, nondistended, normoactive bowel sounds, soft to palpation, non-tender and non-distended Extremity Extremity Narrative: RUE wrapped in bandage; able to make a fist. Peripheral Pulses: Yes pulses 2+ throughout Skin Skin Narrative: as under extremity narrative Neuro oriented x3 and moves all extremities Sensorium / Orientation: awake and alert Psych affect normal Assessment & Plan Assessment/Plan (1) Dog bite: (2) Cellulitis of forearm, right: (3) Hypokalemia: PLAN: #nonstemi * Patient became acutely short of breath and tachycardic yesterday. BNP was elevated at over 600 and high-sensitivity troponin was also elevated at over 40 currently. * Currently on heparin drip. On high intensity statin and aspirin. * Cardiology consulted. 2D echo pending. * #Acute heart failure of unknown EF * BNP was over 600. * Been diuresed with IV Lasix. 2D echo pending. * Monitor intake and output. Fluid restriction 1500 cc daily. * #Elevated D-dimer: CTA is negative for PE. #RUE cellulitis due to dog bite * on IV unasyn. Pain is improving, and he is able to make a fist now * consult plastic surgery as patient appears to have an abscess over the cellulitic area also * started on IV unasyn, will continue * get blood and wound cultures * consult wound care * #Hypokalemia: resolved. K is 3.7 today. #Type 2 diabetes mellitus * on glipizide 10mg daily. ISS. Accuchisabelles ACHS * #Hypertension; on metoprolol and furosemide DVT prophylaxis: lovenox Code status: full code Charges/Coding Visit Charges Inpatient E&M: 28077 Subs Hosp L3
[2020-10-26 12:44] LABS: Troponin-I HS 1101.7 pg/mL (3.0-78.5)
[2020-10-26 13:47] LABS: Troponin-I HS 994.6 pg/mL (3.0-78.5)
[2020-10-26] MEDS: HEPARIN/D5w 25,000 UNITS 25,000 UNITS/250 ML IV.SOLN. 15 UNITS IV (14:54)
--- NOTE | 2020-10-26 15:09 | CON.PCM_ITS ---
Assessment & Plan Assessment/Plan (1) Dog bite: (2) Open wound of right forearm due to dog bite: (3) Open wound of right wrist due to dog bite: (4) Cellulitis of forearm, right: (5) Abscess of right forearm: (6) Abscess of skin of right wrist: (7) Diabetes: (8) Former smoker: PLAN: CT RUE reviewed. Patient has infected dog bite wounds with associated purulent drainage right forearm and wrist. Continue IV Unasyn for these infected dog bite wounds right forearm and wrist. Recommended to the patient to proceed with operative intervention with surgical preparation of these multiple dog bite wounds with incision and drainage and excisional debridement. Tissue will be sent to Pathology for analysis and to Microbiology for culture. A positive culture will necessitate antibiotic therapy. If the dog bite infection extends down to the wrist joint, then a partial ostectomy for osteomyelitis will be done. Will leave the wounds open and proceed with postoperative wound care with the VAC or daily Silver dressing changes. After surgery will encourage range of motion exercises to minimize stiffness. If necessary can set up OT for evaluation for range of motion exercises, strengthening, and edema management. Complicating his course are cardiorespiratory issues with increased troponins. I talked to Dr. Tejada from Cardiology who is [facility]. Based on those records, he is considering a nuclear stress test or a catheterization. Initially I was going to proceed with surgery tomorrow but will hold off until Saturday to allow the Cardiology evaluation to continue. Also to help decrease cardiac risk for the surgery, we can proceed with a Domenica Block instead of general anesthesia. Patient was informed of the risks and complications of the procedure including alternatives to surgery. These were discussed with the patient personally. Patient voices understanding and wishes to proceed. With his diabetes mellitus, infections can have increased severity. After the surgery, if he develops suboptimal healing that may require revision surgery in the future, his HgbA1c will need to be less than 8. After discharge, [facility]. We discussed the current risks associated with COVID-19. While it is understood that there is a community spread of COVID-19, the risk of lm COVID-19 while at [facility] ([facility]) is very low; however, the risk cannot be completely mitigated because of the community spread of the disease. We discussed in detail the risk of exposure to and/or potential harm posed by the COVID-19 virus with having a surgery/procedure at this time versus the risk of delaying the surgery/procedure. It is not possible to know either the risk of delaying the surgery or procedure or chance of getting an infection with perfect accuracy, but a joint decision was made to proceed at this time with the scheduled surgery/procedure as indicated on the consent form. Patient was notified that we will need to comply with any screening or testing [facility] wishes to perform or that surgery may be delayed for any positive results. COVID Risk Discussion: The surgeon/proceduralist and patient have discussed in detail the risk of exposure to and/or potential harm posed by the COVID-19 virus with having a surgery/procedure at this time versus the risk of delaying the surgery/procedure.? It is not possible to know either the risk of delaying the surgery or procedure or chance of getting an infection with perfect accuracy, but a joint decision was made between the patient and the surgeon/proceduralist to proceed at this time with the scheduled surgery/procedure as indicated on the consent form. HPI Consult Data Date of Consult: 10/26/20 Attending Care Provider: Dr. Evi Hyde MD RN PL[facility]MA [facility]ENTER: Dr. William. HPI Narrative Reason for Consultation: Dog bite infection right forearm and wrist. HPI Narrative: DIANA SNYDER, is a 70 M with a history of diabetes mellitus was admitted via the ED on 10/25/2020 with increasing redness, pain, swelling, and purulent drainage from a recent dog bite to his right forearm and wrist. The dog was his own that he has had for several years. He was breaking up a fight between his dogs 10 days prior to admission and suffered bite wounds to his right forearm and wrist. Initial WBC was 18.2. Today it is 19.3. He was started on Unasyn. CT of the RUE was done. It showed evidence of the thickening of the skin overlying the posterior aspect of the distal humerus. No focal fluid collection or abscess is seen. There is also evidence of a mild degree of skin thickening involving the right forearm. The underlying bony structures are unremarkable. Also during this admission, he developed some cardiorespiratory issues with an elevated troponin and is being evaluated by Cardiology. I was asked to evaluate this patient for surgical options for treatment. [facility] Medical History Abnormal cardiac enzyme level Abscess of right forearm Abscess of skin of right wrist Atrial fibrillation Benign essential HTN CAD (coronary artery disease) Cellulitis of forearm, right CHF (congestive heart failure) Chronic pain Congestive heart failure (CHF) Depression Diabetes Former smoker HLD (hyperlipidemia) Hypertension Myocardial infarct Open wound of right forearm due to dog bite Open wound of right wrist due to dog bite Substance abuse Home Medications amlodipine 10 mg PO DAILY 10/25/20 [History Last Taken Unknown] furosemide [Lasix] 40 mg PO BID 10/25/20 [History Last Taken Unknown] glipizide 10 mg PO DAILY 10/25/20 [History Last Taken Unknown] metoprolol succinate 200 mg PO DAILY 10/25/20 [History Last Taken Unknown] niacin 1,000 mg PO QHS 10/25/20 [History Last Taken Unknown] omeprazole 20 mg PO DAILY 10/25/20 [History Last Taken Unknown] paroxetine HCl [Paxil] 40 mg PO DAILY 10/25/20 [History Last Taken Unknown] pentoxifylline 400 mg PO TID 10/25/20 [History Last Taken Unknown] Allergy/AdvReac Type Severity Reaction Status Date / Time No Known Allergies Allergy Verified 10/25/20 07:14 Family History Brother CAD (coronary artery disease) Age of CAD diagnosis: 50s Surgical History History of appendectomy Hx of CABG S/P CABG (coronary artery bypass graft) Social History Smoking Status: Former smoker how long ago did patient quit smoking: approximately 15 years ago ROS ROS Narrative REVIEW OF SYSTEMS General - Denies fever, fatigue, and weight loss. Eyes - Denies cataracts and glaucoma. ENT - Denies nasal congestion and sore throat. Endocrine - Denies excessive thirst and urination. Skin - Denies suspicious lesions and skin cancer. Musculoskeletal - Denies joint pain, joint stiffness, weakness of muscles and joints, back pain, and arthritis. Neuro - Denies headaches. Cardiovascular - Denies chest pain, fatigue, and shortness of breath with exertion. Psych - Denies anxiety and depression. Respiratory - Denies chronic cough and shortness of breath. Gastrointestinal - Denies nausea, vomiting, diarrhea, and constipation. Hematologic - Denies abnormal bruising and bleeding. Genitourinary - Denies hematuria and urinary frequency. Physical Exam Narrative PHYSICAL EXAMINATION General - Alert and Oriented HEENT - PERRL. EOMI. Throat is clear. Neck - Supple and nontender. No cervical adenopathy. Lungs - Clear to auscultation. Heart - Regular rate and rhythm. Abdomen - Soft and nondistended. Extremities - FROM left upper extremity. There are multiple dog bite wounds right forearm and wrist with associated redness and swelling and tenderness to palpation and some purulent drainage. He is able to flex and extend his fingers but not all the way secondary to pain and swelling. He has tenderness to wrist extension and flexion. There are dog bite wounds on the dorsal aspect mid right forearm and distal ulnar aspect right forearm. There are dog bite wounds cluster on the dorsal ulnar aspect right wrist. No axillary adenopathy. Radial pulses are palpable. Neuro - CN II-XII grossly intact. Psych - Normal mood and affect. Lab / Micro Data Attestation: I reviewed the patient's lab results. Result Diagrams: 10/27/20 05:50 10/27/20 05:50 Labs: Laboratory Results - last 24 hr 10/25/20 10/25/20 10/25/20 07:35 11:55 16:07 WBC RBC Hgb Hct MCV MCH MCHC RDW Std Deviation RDW Coeff of Marquis Plt Count MPV Immature Gran % (Auto) Neut % (Auto) Lymph % (Auto) [place] % (Auto) Eos % (Auto) Baso % (Auto) Absolute Neuts (auto) Absolute Lymphs (auto) Nucleated RBC % PT INR APTT D-Dimer Quant (PE/DVT) Sodium Potassium Chloride Carbon Dioxide Anion Gap BUN Creatinine Estim Creat Clear Calc Est GFR (MDRD) Af Amer Est GFR (MDRD) Non-Af BUN/Creatinine Ratio Glucose Lactic Acid Calcium Magnesium Troponin I High Sens B-Natriuretic Peptide 665.7 H Urine Opiates Screen Urine Methadone Screen Ur Barbiturates Screen Ur Phencyclidine Scrn Ur Amphetamines Screen U Methamphetamin-MDMA U Benzodiazepines Scrn Urine Cocaine Screen U Cannabinoids Screen Ur Drug Screen Comment S.aureus Protein A PCR NEGATIVE MRSA (PCR) Negative POC Glucose 117 H 10/25/20 10/25/20 10/25/20 17:35 18:22 18:22 WBC RBC Hgb Hct MCV MCH MCHC RDW Std Deviation RDW Coeff of Marquis Plt Count MPV Immature Gran % (Auto) Neut % (Auto) Lymph % (Auto) [place] % (Auto) Eos % (Auto) Baso % (Auto) Absolute Neuts (auto) Absolute Lymphs (auto) Nucleated RBC % PT INR APTT D-Dimer Quant (PE/DVT) 1.24 H* Sodium Potassium Chloride Carbon Dioxide Anion Gap BUN Creatinine Estim Creat Clear Calc Est GFR (MDRD) Af Amer Est GFR (MDRD) Non-Af BUN/Creatinine Ratio Glucose Lactic Acid Calcium Magnesium Troponin I High Sens 405.2 H* B-Natriuretic Peptide Urine Opiates Screen Urine Methadone Screen Ur Barbiturates Screen Ur Phencyclidine Scrn Ur Amphetamines Screen U Methamphetamin-MDMA U Benzodiazepines Scrn Urine Cocaine Screen U Cannabinoids Screen Ur Drug Screen Comment S.aureus Protein A PCR MRSA (PCR) POC Glucose 93 10/25/20 10/25/20 10/25/20 18:22 18:22 20:50 WBC RBC Hgb Hct MCV MCH MCHC RDW Std Deviation RDW Coeff of Marquis Plt Count MPV Immature Gran % (Auto) Neut % (Auto) Lymph % (Auto) [place] % (Auto) Eos % (Auto) Baso % (Auto) Absolute Neuts (auto) Absolute Lymphs (auto) Nucleated RBC % PT 14.2 INR 1.2 APTT 48.0 H D-Dimer Quant (PE/DVT) Sodium Potassium Chloride Carbon Dioxide Anion Gap BUN Creatinine Estim Creat Clear Calc Est GFR (MDRD) Af Amer Est GFR (MDRD) Non-Af BUN/Creatinine Ratio Glucose Lactic Acid 1.2 Calcium Magnesium 1.8 Troponin I High Sens B-Natriuretic Peptide Urine Opiates Screen Urine Methadone Screen Ur Barbiturates Screen Ur Phencyclidine Scrn Ur Amphetamines Screen U Methamphetamin-MDMA U Benzodiazepines Scrn Urine Cocaine Screen U Cannabinoids Screen Ur Drug Screen Comment S.aureus Protein A PCR MRSA (PCR) POC Glucose 10/25/20 10/25/20 10/25/20 20:50 21:24 21:30 WBC RBC Hgb Hct MCV MCH MCHC RDW Std Deviation RDW Coeff of Marquis Plt Count MPV Immature Gran % (Auto) Neut % (Auto) Lymph % (Auto) [place] % (Auto) Eos % (Auto) Baso % (Auto) Absolute Neuts (auto) Absolute Lymphs (auto) Nucleated RBC % PT INR APTT D-Dimer Quant (PE/DVT) Sodium Potassium Chloride Carbon Dioxide Anion Gap BUN Creatinine Estim Creat Clear Calc Est GFR (MDRD) Af Amer Est GFR (MDRD) Non-Af BUN/Creatinine Ratio Glucose Lactic Acid Calcium Magnesium Troponin I High Sens 429.0 H* B-Natriuretic Peptide Urine Opiates Screen POSITIVE H Urine Methadone Screen NEGATIVE Ur Barbiturates Screen NEGATIVE Ur Phencyclidine Scrn NEGATIVE Ur Amphetamines Screen NEGATIVE U Methamphetamin-MDMA NEGATIVE U Benzodiazepines Scrn NEGATIVE Urine Cocaine Screen NEGATIVE U Cannabinoids Screen POSITIVE H Ur Drug Screen Comment S.aureus Protein A PCR MRSA (PCR) POC Glucose 121 H 10/26/20 10/26/20 10/26/20 00:20 02:45 02:45 WBC 19.3 H RBC 4.07 L Hgb 12.9 L Hct 37.4 L MCV 91.9 MCH 31.7 MCHC 34.5 RDW Std Deviation 42.7 RDW Coeff of Marquis 12.6 Plt Count 253 MPV 8.7 Immature Gran % (Auto) 1.000 H Neut % (Auto) 82.0 H Lymph % (Auto) 3.3 L [place] % (Auto) 7.2 Eos % (Auto) 6.2 H Baso % (Auto) 0.3 Absolute Neuts (auto) 15.8 H Absolute Lymphs (auto) 0.63 L Nucleated RBC % 0 PT INR APTT D-Dimer Quant (PE/DVT) Sodium 135 L Potassium 3.7 Chloride 101 Carbon Dioxide 20.0 L Anion Gap 14 BUN 26 H Creatinine 1.49 H Estim Creat Clear Calc 48.99 Est GFR (MDRD) Af Amer 60 Est GFR (MDRD) Non-Af 50 L BUN/Creatinine Ratio 17.4 Glucose 182 H Lactic Acid Calcium 7.6 L Magnesium Troponin I High Sens 519.5 H* B-Natriuretic Peptide Urine Opiates Screen Urine Methadone Screen Ur Barbiturates Screen Ur Phencyclidine Scrn Ur Amphetamines Screen U Methamphetamin-MDMA U Benzodiazepines Scrn Urine Cocaine Screen U Cannabinoids Screen Ur Drug Screen Comment S.aureus Protein A PCR MRSA (PCR) POC Glucose 10/26/20 10/26/20 10/26/20 02:45 06:36 09:00 WBC RBC Hgb Hct MCV MCH MCHC RDW Std Deviation RDW Coeff of Marquis Plt Count MPV Immature Gran % (Auto) Neut % (Auto) Lymph % (Auto) [place] % (Auto) Eos % (Auto) Baso % (Auto) Absolute Neuts (auto) Absolute Lymphs (auto) Nucleated RBC % PT INR APTT 79.6 H 54.3 H D-Dimer Quant (PE/DVT) Sodium Potassium Chloride Carbon Dioxide Anion Gap BUN Creatinine Estim Creat Clear Calc Est GFR (MDRD) Af Amer Est GFR (MDRD) Non-Af BUN/Creatinine Ratio Glucose Lactic Acid Calcium Magnesium Troponin I High Sens B-Natriuretic Peptide Urine Opiates Screen Urine Methadone Screen Ur Barbiturates Screen Ur Phencyclidine Scrn Ur Amphetamines Screen U Methamphetamin-MDMA U Benzodiazepines Scrn Urine Cocaine Screen U Cannabinoids Screen Ur Drug Screen Comment S.aureus Protein A PCR MRSA (PCR) POC Glucose 195 H 10/26/20 10/26/20 10/26/20 11:04 12:03 13:21 WBC RBC Hgb Hct MCV MCH MCHC RDW Std Deviation RDW Coeff of Marquis Plt Count MPV Immature Gran % (Auto) Neut % (Auto) Lymph % (Auto) [place] % (Auto) Eos % (Auto) Baso % (Auto) Absolute Neuts (auto) Absolute Lymphs (auto) Nucleated RBC % PT INR APTT D-Dimer Quant (PE/DVT) Sodium Potassium Chloride Carbon Dioxide Anion Gap BUN Creatinine Estim Creat Clear Calc Est GFR (MDRD) Af Amer Est GFR (MDRD) Non-Af BUN/Creatinine Ratio Glucose Lactic Acid Calcium Magnesium Troponin I High Sens 1101.7 H* 994.6 H* B-Natriuretic Peptide Urine Opiates Screen Urine Methadone Screen Ur Barbiturates Screen Ur Phencyclidine Scrn Ur Amphetamines Screen U Methamphetamin-MDMA U Benzodiazepines Scrn Urine Cocaine Screen U Cannabinoids Screen Ur Drug Screen Comment S.aureus Protein A PCR MRSA (PCR) POC Glucose 168 H Micro: Microbiology 10/25/20 07:30 Gram Stain - Final Bite - Arm Wound Culture - Preliminary Gram negative cocco bacillus ABG Data ABG results: ABG 10/25/20 20:37 Specimen Type ART Sample Site L Radial pH 7.40 Bicarbonate Actual 17.6 L Total CO2 19 Base Excess -7 L O2 Saturation 94 L O2 % 21 ABG pCO2 28.2 L ABG pO2 67 L Vasquez Test Positive O2 Delivery Device Room Air Radiology Impression Chest X-Ray 10/25/20 19:16 IMPRESSION: Slight increase in interstitial markings could represent infection and/or edema. Elevation of the left hemidiaphragm with left lateral pleural thickening/scarring. Electronically Signed: Juan Freeman MD at 19:48 EDT Tel , Service support , CT/Extremity Upper WITH Contrast FINDINGS: There is evidence of the thickening of the skin overlying the posterior aspect of the distal humerus. No focal fluid collection or abscess is seen. There is also evidence of a mild degree of skin thickening involving the right forearm. The underlying bony structures are unremarkable. IMPRESSION: Skin thickening overlying the distal posterior aspect of the humerus. Soft tissue swelling overlying the proximal right forearm. Electronically Signed: Gómez Phelps MD at 9:02 EDT , Service support , Chest CTA 10/26/20 05:55 IMPRESSION: No pulmonary embolus or thoracic aortic dissection. Mild cardiomegaly. Coronary artery calcifications. Small bilateral pleural effusions. Minimal cholelithiasis. Electronically Signed: Papito Patel MD at 7:09 EDT , Service support , Charges/Coding Visit Charges Inpatient E&M: 01709 Init Hosp L2 (ICD-10 - W54.0xxA, S51.851A, S61.551A, L03.113, L02.413, E11.9, Z87.891)
[2020-10-26 16:25] LABS: Magnesium 1.9 mg/dL (1.6-2.6)
[2020-10-26 16:31] LABS: Troponin-I HS 984.8 pg/mL (3.0-78.5)
[2020-10-26 16:46] LABS: Bedside Glucose 217 mg/dL (70-110)
[2020-10-26 17:58] LABS: Partial Thromboplast Time 57.1 Seconds (24.1-36.2)
[2020-10-26] MEDS: Ipratropium/Albuterol Sulfate 3 ML AMPUL.NEB INHALATION ×2 (18:45→22:49)
[2020-10-26 21:34] LABS: Troponin-I HS 494.5 pg/mL (3.0-78.5)
[2020-10-26 21:55] LABS: Bedside Glucose 235 mg/dL (70-110)
[2020-10-27] VITALS (38 sets, daily range): BP systolic 85–148; BP diastolic 28–104; PULSE 77–120; RESP 16–30; TEMP 36.7–37.2; O2SAT 92–100
--- NOTE | 2020-10-27 05:00 | EKG12_ITS ---
Test Reason : AM EKG Blood Pressure : / mmHG Vent. Rate : 109 BPM Atrial Rate : 105 BPM P-R Int : 000 ms QRS Dur : 130 ms QT Int : 350 ms P-R-T Axes : 000 015 258 degrees QTc Int : 471 ms Atrial fibrillation with premature ventricular or aberrantly conducted complexes Non-specific intra-ventricular conduction block T wave abnormality, consider inferior ischemia Abnormal ECG When compared with ECG of 26-OCT-2020 05:01, Atrial fibrillation has replaced Sinus rhythm Confirmed by JUAN MORA, JUAN ANTONIO ([id number]), photo editor CAMILLE SULLIVAN ([id number]) on 10/27/2020 12:57:33 PM Referred By: KIMBERLY Confirmed By:RICKEY MARTINEZ MD
[2020-10-27] MEDS: Aspirin 81 MG TAB.CHEW PO (05:52)
[2020-10-27 06:06] LABS: Absolute Lymphocyte Count 0.84 X10^3/uL (0.83-4.51); Absolute Neutrophil Count 13.6 X10^3/uL (2.0-7.7); Basophil# 0.08 X10^3/uL; Basophil% 0.5 % (0-1); Hematocrit 44.5 % (40-54); Hemoglobin 14.6 g/dL (13.0-16.5); Lymphocyte # 0.84 X10^3/ul (0.83-4.51); Lymphocyte % 5.3 % (19-41); Mean Corp Hgb Conc 32.8 g/dL (32-36); Mean Corpuscular Hgb 31.3 pg (27.0-32.0); Mean Corpuscular Volume 95.5 fL (80-94); Mean Platelet Vol. 8.6 fl (6.2-12.0); Monocyte# 1.16 X10^3/uL; Monocyte% 7.3 % (0-10); NRBC Flagged by Analyzer 0 % (0-5); Neutrophil # 13.57 X10^3/uL (2.7-7.7); Neutrophil % 85.8 % (47-70); Platelet Count 282 K/mm3 (150-450); RBC Distribution Width CV 12.8 % (11.6-14.6); RBC Distribution Width SD 45.1 fl (35.1-43.9); Red Blood Count 4.66 M/mm3 (4.6-6.2); White Blood Count 15.8 K/mm3 (4.4-11.0)
[2020-10-27 06:25] LABS: Partial Thromboplast Time 37.2 Seconds (24.1-36.2)
[2020-10-27 06:40] LABS: Anion Gap 11 (5-15); BUN 26 mg/dL (7-18); BUN/Creat Ratio 16.2 RATIO (10-20); Calcium,Total 8.4 mg/dL (8.5-10.1); Chloride 101 mmol/L (98-107); EST Glomerular Filtration Rate 46 mL/min (>60); Est Glom Filt Rate - Afr Amer 56 mL/min (>60); Estimated Creatinine Clearance 45.63 ml/min; Glucose 210 mg/dL (74-106); Potassium 3.3 mmol/L (3.5-5.1); Sodium Level 134 mmol/L (136-145)
[2020-10-27 06:45] LABS: Bedside Glucose 210 mg/dL (70-110)
[2020-10-27] MEDS: amLODIPine 10 MG Tablet PO (06:47)
[2020-10-27] MEDS: Metoprolol(XL)Succ 200 MG Tablet PO (06:47)
[2020-10-27] MEDS: Morphine 2 MG/ML Syringe IV ×3 (06:53→21:14)
[2020-10-27] MEDS: Amiodarone 360 MG in Dextrose 5% Viaflo Bag 192.8 ML 33.3 MG CONT INF (07:06)
--- NOTE | 2020-10-27 07:30 | NURSING ---
to scientific laboratory supervisor per bed, friend @ bedside
--- NOTE | 2020-10-27 07:37 | PN.CARD_ITS ---
Subjective Subjective The patient states he felt somewhat more short of breath yesterday evening. After he received additional IV diuretics and an aerosol treatment his breathing improved. He reported resting comfortably through the night. Earlier this morning on cardiac parts sales advisor he was noted to develop atrial fibrillation. He does not report sensing any change in his rate or rhythm. Objective Data Vital Signs: Vital Signs Temp Pulse Resp BP Pulse Ox 98.7 F 104 H 16 123/104 H 96 10/27/20 02:13 10/27/20 07:34 10/27/20 02:13 10/27/20 07:06 10/27/20 02:13 Oxygen Flow Rate (L/min) 2 Oxygen Delivery Method Nasal Cannula Weight: 206 lb 9.17 oz Body Mass Index (BMI) 29.6 Intake & Output: Intake and Output for Last 24 Hours 10/25/20 10/26/20 10/27/20 23:59 23:59 23:59 Intake Total 1154.33 / 1154.33 1658.00 / 1658.00 512.25 / 512.25 Output Total 400 / 400 1075 / 1675 900 / 900 Balance 754.33 / 754.33 583.00 / -17.00 -387.75 / -387.75 Lab / Micro Data Result Diagrams: 10/27/20 05:50 10/27/20 05:50 Labs: Laboratory Results - last 24 hr 10/26/20 10/26/20 10/26/20 09:00 11:04 12:03 WBC RBC Hgb Hct MCV MCH MCHC RDW Std Deviation RDW Coeff of [place]quis Plt Count MPV Immature Gran % (Auto) Neut % (Auto) Lymph % (Auto) [place] % (Auto) Eos % (Auto) Baso % (Auto) Absolute Neuts (auto) Absolute Lymphs (auto) Nucleated RBC % APTT 54.3 H Sodium Potassium Chloride Carbon Dioxide Anion Gap BUN Creatinine Estim Creat Clear Calc Est GFR (MDRD) Af Amer Est GFR (MDRD) Non-Af BUN/Creatinine Ratio Glucose Calcium Magnesium Troponin I High Sens 1101.7 H* POC Glucose 168 H 10/26/20 10/26/20 10/26/20 13:21 15:44 16:23 WBC RBC Hgb Hct MCV MCH MCHC RDW Std Deviation RDW Coeff of [place] Plt Count MPV Immature Gran % (Auto) Neut % (Auto) Lymph % (Auto) [place] % (Auto) Eos % (Auto) Baso % (Auto) Absolute Neuts (auto) Absolute Lymphs (auto) Nucleated RBC % APTT Sodium Potassium Chloride Carbon Dioxide Anion Gap BUN Creatinine Estim Creat Clear Calc Est GFR (MDRD) Af Amer Est GFR (MDRD) Non-Af BUN/Creatinine Ratio Glucose Calcium Magnesium Troponin I High Sens 994.6 H* 984.8 H* POC Glucose 217 H 10/26/20 10/26/20 10/26/20 17:20 20:00 21:30 WBC RBC Hgb Hct MCV MCH MCHC RDW Std Deviation RDW Coeff of [place]quis Plt Count MPV Immature Gran % (Auto) Neut % (Auto) Lymph % (Auto) [place] % (Auto) Eos % (Auto) Baso % (Auto) Absolute Neuts (auto) Absolute Lymphs (auto) Nucleated RBC % APTT 57.1 H Sodium Potassium Chloride Carbon Dioxide Anion Gap BUN Creatinine Estim Creat Clear Calc Est GFR (MDRD) Af Amer Est GFR (MDRD) Non-Af BUN/Creatinine Ratio Glucose Calcium Magnesium Troponin I High Sens 494.5 H* POC Glucose 235 H 10/26/20 10/26/20 10/27/20 23:20 Unknown 05:50 WBC 15.8 H RBC 4.66 Hgb 14.6 Hct 44.5 MCV 95.5 H MCH 31.3 MCHC 32.8 RDW Std Deviation 45.1 H RDW Coeff of Marquis 12.8 Plt Count 282 MPV 8.6 Immature Gran % (Auto) 1.100 H Neut % (Auto) 85.8 H Lymph % (Auto) 5.3 L [place] % (Auto) 7.3 Eos % (Auto) 0.0 Baso % (Auto) 0.5 Absolute Neuts (auto) 13.6 H Absolute Lymphs (auto) 0.84 Nucleated RBC % 0 APTT 55.0 H Sodium Potassium Chloride Carbon Dioxide Anion Gap BUN Creatinine Estim Creat Clear Calc Est GFR (MDRD) Af Amer Est GFR (MDRD) Non-Af BUN/Creatinine Ratio Glucose Calcium Magnesium 1.9 Troponin I High Sens POC Glucose 10/27/20 10/27/20 10/27/20 05:50 05:50 06:35 WBC RBC Hgb Hct MCV MCH MCHC RDW Std Deviation RDW Coeff of [place]quis Plt Count MPV Immature Gran % (Auto) Neut % (Auto) Lymph % (Auto) [place] % (Auto) Eos % (Auto) Baso % (Auto) Absolute Neuts (auto) Absolute Lymphs (auto) Nucleated RBC % APTT 37.2 H Sodium 134 L Potassium 3.3 L Chloride 101 Carbon Dioxide 22.0 Anion Gap 11 BUN 26 H Creatinine 1.60 H Estim Creat Clear Calc 45.63 Est GFR (MDRD) Af Amer 56 L Est GFR (MDRD) Non-Af 46 L BUN/Creatinine Ratio 16.2 Glucose 210 H Calcium 8.4 L Magnesium Troponin I High Sens POC Glucose 210 H Micro: Microbiology 10/25/20 07:30 Bite - Arm Gram Stain - Final 10/25/20 07:30 Bite - Arm Wound Culture - Preliminary Gram negative cocco bacillus Cardiology Labs/Tests 10/26/20 09:00: APTT 54.3 H 10/26/20 17:20: APTT 57.1 H 10/26/20 23:20: APTT 55.0 H 10/26/20 : Magnesium 1.9 10/27/20 05:50: WBC 15.8 H, RBC 4.66, Hgb 14.6, Hct 44.5, MCV 95.5 H, MCH 31.3, MCHC 32.8, Plt Count 282, MPV 8.6, Immature Gran % (Auto) 1.100 H, Neut % (Auto) 85.8 H, Lymph % (Auto) 5.3 L, [place] % (Auto) 7.3, Eos % (Auto) 0.0, Baso % (Auto) 0.5, Absolute Neuts (auto) 13.6 H, Nucleated RBC % 0 10/27/20 05:50: Sodium 134 L, Potassium 3.3 L, Chloride 101, Carbon Dioxide 22.0, Anion Gap 11, BUN 26 H, Creatinine 1.60 H, Est GFR (MDRD) Af Amer 56 L, Est GFR (MDRD) Non-Af 46 L, BUN/Creatinine Ratio 16.2, Glucose 210 H, Calcium 8.4 L 10/27/20 05:50: APTT 37.2 H Rhythm: Atrial fibrillation EKG: Atrial fibrillation; PVCs: Nonspecific IVCD; inferior my of indeterminate age cannot be excluded; T wave abnormality: Consider myocardial ischemia: Inferior Cardiac Cath: [facility]: 05-21-2005 Per the information received it appears the patient has a history of CAD demonstrating high-grade stenosis in the LAD system, LCx system, and occlusion of the RCA system, and a THRASHER graft to the LAD, and SVG to OM1, and an SVG to OM 2. CT Surgery: [facility]: 2005: THRASHER to LAD SVG to OM1 SVG to OM 2 Physical Exam Const alert, oriented x3 and no apparent distress Orientation / Consciousness: awake HEENT normocephalic, head/scalp atraumatic and hearing grossly normal bilaterally Eyes PERRL and EOMs intact bilaterally Neck full ROM, supple and no JVD Chest Chest: midline sternotomy incision Resp clear to auscultation bilaterally Cardio S1 normal heart sound and S2 normal heart sound Rhythm: abnormal rhythm irregularly irregular GI normal to inspection, nondistended, normoactive bowel sounds Extremity Extremity Narrative: Right forearm: Currently in an Alfa wrap Neuro oriented x3, moves all extremities, no focal motor deficits and no sensory deficits noted Psych mental status grossly normal Assessment & Plan Assessment/Plan (1) Abnormal cardiac enzyme level: PLAN: The patient does have abnormal cardiac enzymes. The etiology is unclear at this time whether this is truly related to an underlying primary cardiovascular event such as a type I non-ST segment elevation AK versus a secondary cardiovascular event such as a type II non-ST segment elevation AK secondary to noncardiovascular issues including his underlying acute infectious disease related issue. At the present time he appears to be without ongoing acute symptoms or hemodynamic instability. He will continue to be monitored. His [facility] records were received and reviewed. He did have an echocardiogram performed as previously noted. It was a technica lly difficult study. He appeared to have grossly normal left ventricular wall motion and systolic function. Based upon his clinical course and the need for upcoming right upper extremity surgery per Dr. William is been recommended the patient be considered for further definitive evaluation of his coronary/graft anatomy with a diagnostic cardiac catheterization. The procedure and risks were discussed with him. He was agreeable to this approach. (2) CAD (coronary artery disease): QUALIFIERS: Coronary Disease-Associated Artery/Lesion type: wr[place] artery [place] vs. transplanted heart: wrangell heart PLAN: He does have a history of CAD. The details are as per his [facility] report. At the present time he will continue evaluation care as noted above. (3) S/P CABG (coronary artery bypass graft): PLAN: He does have a history of a remote CABG at a young age. This was performed through the [facility] system. It appears he received a THRASHER to the LAD, and SVG to OM1, and an SVG to OM 2. 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 Based upon his [facility] studies and his current studies there is concern that this may be systolic mediated. He does appear to be improved with medical adjustment including diuresis. (5) Atrial fibrillation: QUALIFIERS: Atrial fibrillation type: unspecified Qualified Co de(s): I48.91 - Unspecified atrial fibrillation PLAN: The patient has demonstrated findings compatible with atrial fibrillation. He will need to continue rate control therapy, and be considered for an attempt at regaining sinus rhythm with antiarrhythmic therapy such as IV amiodarone, and continue anticoagulant therapy as deemed appropriate in and around the time of his other cardiac and noncardiac procedures. (6) HLD (hyperlipidemia): QUALIFIERS: Hyperlipidemia type: unspecified Qualified Code(s): E78.5 - Hyperlipidemia, unspecified PLAN: He will continue risk factor evaluation and care as deemed appropriate. (7) Benign essential HTN: PLAN: He should continue medical therapy with adjustment as needed. (8) Cellulitis of forearm, right: PLAN: He was diagnosed with a right upper extremity cellulitis. He will continue evaluation care per internal medicine. He has also been evaluated by Dr. William of plastic surgery. Based upon a telephone conversation with Dr. William he is recommended right upper extremity/forearm surgery to assist with his infectious disease process. In anticipation for that the patient will continue cardiovascular evaluation care as described above. (9) History of diabetes mellitus: PLAN: He will continue evaluation care per internal medicine. Addt'l Comments The above was discussed and reviewed with the patient. He was agreeable to this approach. This note was generated using a voice recognition system and there may be incorrect words, spelling or punctuation that were not noted when reviewing the office note prior to saving. Procedure Criteria Type of Procedure Procedure Type: Elective Elective Risks - COVID COVID Risk Discussion: The surgeon/proceduralist and patient have discussed in detail the risk of exposure to and/or potential harm posed by the COVID-19 virus with having a surgery/procedure at this time versus the risk of delaying the surgery/procedure. It is not possible to know either the risk of delaying the surgery or procedure or chance of getting an infection with perfect accuracy, but a joint decision was made between the patient and the surgeon/proceduralist to proceed at this time with the scheduled surgery/procedure as indicated on the consent form.
--- NOTE | 2020-10-27 09:19 | CL.D_ITS ---
Patient Name: DIANA SNYDER Study Date: 10/27/2020 Performing: Jaren Tejada MD Ht: 70.07 inches 178 cm : 1950 Wt: 207.23 lbs 94 kg Age: 70 Gender: male BSA: 2.12 PROCEDURE(S) PERFORMED [id number]/COR/LV/CABG CLINICAL PROFILE AND INDICATIONS Indications: Suspected CAD, Pre-Operative Evaluation Heart Failure: NYHA Class: 3, Newly Diagnosed: No, Heart Failure Type: Systolic Stress/Imaging Stress/Image Study Performed: No Angina Classification Anginal Classification w/in 2 Weeks: Anginal Equivalent Dyspnea CAD Presentations: Other: dyspnea Non-STEMI. CONCLUSIONS Elevated Left Ventricular End Diastolic Pressure Segmented LV systolic dysfunction- Mild to Moderate LVEF: by LV gram 40 % [place] Multivessel CAD THRASHER to LAD: patent SVG to OM1: occluded SVG to OM2: occluded Left to Right collateral flow Left to Left collateral flow RECOMMENDATIONS Risk factor modification Medical therapy Case discussed / reviewed with Dr. Mireles of interventional cardiology DESCRIPTION OF PROCEDURE The patient arrived to the procedure lab. The risks and benefits of the procedure as well as a full d escription of our services here and current unavailability of surgical backup were fully explained to the patient and/or their significant other prior to the catheterization. The Timeout was completed, verifying the correct patient and procedure. The patient's procedural site was prepped and draped in the usual fashion. Local anesthetic was given subcutaneously to right groin region with Lidocaine 2%. Using a modified Seldinger technique, arterial access was obtained via the right femoral artery, a 4 Fr sheath was inserted Left Coronary Artery selective angiography was performed in multiple views us ing a 4 Fr. JL5 catheter. Right Coronary Artery selective angiography was then performed in multiple views using a 4 Fr. 3DRC catheter. Left internal mammary artery graft to the LAD selective angiograph y was performed in multiple views using a 4 Fr. JR4 catheter. Left internal mammary artery graft to the LAD selective angiography was performed in multiple views using a 4 Fr. 3DRC catheter. L eft Ventriculography was performed in CONCEPCION projection using a 4 Fr. Pigtail catheter. LV to AO pullbac k pressures were then recorded.The arterial sheath was pulled and manual compression applied until he mostasis is achieved. CORONARY ANGIOGRAPHY DOMINANCE: Right Dominant LEFT HEART ASSESSMENT Left Ventricular Ejection Fraction: by LV Gram 40 % Inferior Basal Akinesis. Inferior Mid Hypokinesis - Severe. Inferior Apical Hypokinesis - Severe Elevated Left Ventricular End Diastolic Pressure LVEDP: 27 mmHg LEFT MAIN: Mild luminal irregularities, distal: 50 % Stenosis LEFT ANTERIOR DESCENDING ARTERY: PROX LAD: Moderate calcification, diffuse: 50 - 75 % Stenosis MID LAD: is occluded DISTAL LAD: small caliber vessel: subtotally occluded DIAGONAL 1: Proximal - small caliber vessel: diffuse: 85 % Stenosis DIAGONAL 2: Proximal - is occluded with the remainder of the vessel being a small caliber vessel and filling partially by left to left collateral flow CIRCUMFLEX ARTERY: PROX CIRC: Mild calcification, diffuse: 85 % Stenosis MID CIRC: is occluded DISTAL CIRC: filling late and partially from left to left collateral flow RIGHT CORONARY ARTERY: PROX RCA: is occluded DISTAL RCA: fills late and partially from left to right collateral flow GRAFTS: THRASHER graft to the Mid LAD is patent Saphenous Vein graft to the 1st OM is totally occluded Saphenous Vein graft to the 2nd OM is totally occluded COLLATERAL FLOW: Collateral flow from Left to Right Collateral flow from Left to Left AORTIC ROOT: Angiographically normal COMPLICATIONS No Complications PROCEDURE MEDICATIONS Versed 1 mg IV Fentanyl 50 mcg IV Oxygen: 2 L/min via nasal cannula Amiodarone drip when entering the operations label clerk. ^FreeText^ @ 10/27/2020 07:34:57 SUMMARY OF HEMODYNAMIC DATA Time AIR REST ECG 07:33:52 AO 117/81 (98) SA 07:54:05 LV 141/0, 32 08:42:58 LV 143/-4, 27 08:43:04 LV 142/2, 33 08:44:12 LV 140/0, 27 08:44:18 LVp 139/-2, 26 08:44:22 AOp 145/77 (102) 08:44:28 RM AIR REST 09:10:41 Signed By Jaren Tejada MD On 10/27/2020 9:18:47 AM Jaren Tejada MD
[2020-10-27] MEDS: 0.9% Normal Saline 1,000 ML 75 ML IV (10:01)
[2020-10-27 11:05] LABS: Bedside Glucose 218 mg/dL (70-110)
[2020-10-27] MEDS: Ipratropium/Albuterol Sulfate 3 ML AMPUL.NEB INHALATION ×4 (11:09→21:49)
--- NOTE | 2020-10-27 11:16 | NURSING ---
wound photo: right lateral wrist/arm
--- NOTE | 2020-10-27 11:16 | NURSING ---
wound photo: right forearm
[2020-10-27] MEDS: glipiZIDE 10 MG Tablet PO (12:08)
[2020-10-27] MEDS: Insulin Lispro 100 UNIT/ML INSULN.PEN SC ×3 (12:08→21:34)
[2020-10-27] MEDS: Pentoxifylline 400 MG Tablet PO ×2 (12:08→21:33)
[2020-10-27] MEDS: Furosemide 40 MG/4 ML Vial IV ×2 (12:08→18:01)
[2020-10-27] MEDS: Pantoprazole Sodium 20 MG Tablet PO (12:08)
[2020-10-27] MEDS: Amiodarone 360 MG in Dextrose 5% Viaflo Bag 192.8 ML 16.7 MG CONT INF (14:09)
[2020-10-27 16:21] LABS: Bedside Glucose 240 mg/dL (70-110)
--- NOTE | 2020-10-27 17:19 | PN.HOSP_ITS ---
Subjective Subjective Patient seen and examined. He had no complaints and was resting calmly. Review of symptoms otherwise negative. He had cardiac cath today which showed elevated left ventricular end-diastolic pressure and mild to moderate left ventricular systolic dysfunction with EF of 40% and [place] multivessel CAD with THRASHER to the LAD patent and occluded grafts to of the obtuse marginal arteries with left to right collateral flows and left to left collateral flows. Plastic surgery is planning for debridement tomorrow. He has remained hemodynamically stable. WBC is down to 15.8. Objective Data Objective Data Vital Signs: Vital Signs Temp Pulse Resp BP Pulse Ox 98.7 F 100 16 119/57 L 94 10/27/20 02:13 10/27/20 14:09 10/27/20 14:00 10/27/20 14:09 10/27/20 14:00 Oxygen Flow Rate (L/min) 4 Oxygen Delivery Method Nasal Cannula Weight: 206 lb 9.17 oz Body Mass Index (BMI) 29.6 Intake & Output: Intake and Output for Last 24 Hours 10/25/20 10/26/20 10/27/20 23:59 23:59 23:59 Intake Total 1154.33 / 1154.33 1658.00 / 1658.00 1140.50 / 1140.50 Output Total 400 / 400 1075 / 1675 900 / 900 Balance 754.33 / 754.33 583.00 / -17.00 240.50 / 240.50 Lab / Micro Data Result Diagrams: 10/27/20 05:50 10/27/20 05:50 Labs: Laboratory Results - last 24 hr 10/26/20 10/26/20 10/26/20 17:20 20:00 21:30 WBC RBC Hgb Hct MCV MCH MCHC RDW Std Deviation RDW Coeff of Marquis Plt Count MPV Immature Gran % (Auto) Neut % (Auto) Lymph % (Auto) [place] % (Auto) Eos % (Auto) Baso % (Auto) Absolute Neuts (auto) Absolute Lymphs (auto) Nucleated RBC % APTT 57.1 H Sodium Potassium Chloride Carbon Dioxide Anion Gap BUN Creatinine Estim Creat Clear Calc Est GFR (MDRD) Af Amer Est GFR (MDRD) Non-Af BUN/Creatinine Ratio Glucose Calcium Troponin I High Sens 494.5 H* POC Glucose 235 H 10/26/20 10/27/20 10/27/20 23:20 05:50 05:50 WBC 15.8 H RBC 4.66 Hgb 14.6 Hct 44.5 MCV 95.5 H MCH 31.3 MCHC 32.8 RDW Std Deviation 45.1 H RDW Coeff of Marquis 12.8 Plt Count 282 MPV 8.6 Immature Gran % (Auto) 1.100 H Neut % (Auto) 85.8 H Lymph % (Auto) 5.3 L [place] % (Auto) 7.3 Eos % (Auto) 0.0 Baso % (Auto) 0.5 Absolute Neuts (auto) 13.6 H Absolute Lymphs (auto) 0.84 Nucleated RBC % 0 APTT 55.0 H Sodium 134 L Potassium 3.3 L Chloride 101 Carbon Dioxide 22.0 Anion Gap 11 BUN 26 H Creatinine 1.60 H Estim Creat Clear Calc 45.63 Est GFR (MDRD) Af Amer 56 L Est GFR (MDRD) Non-Af 46 L BUN/Creatinine Ratio 16.2 Glucose 210 H Calcium 8.4 L Troponin I High Sens POC Glucose 10/27/20 10/27/20 10/27/20 05:50 06:35 10:56 WBC RBC Hgb Hct MCV MCH MCHC RDW Std Deviation RDW Coeff of Marquis Plt Count MPV Immature Gran % (Auto) Neut % (Auto) Lymph % (Auto) [place] % (Auto) Eos % (Auto) Baso % (Auto) Absolute Neuts (auto) Absolute Lymphs (auto) Nucleated RBC % APTT 37.2 H Sodium Potassium Chloride Carbon Dioxide Anion Gap BUN Creatinine Estim Creat Clear Calc Est GFR (MDRD) Af Amer Est GFR (MDRD) Non-Af BUN/Creatinine Ratio Glucose Calcium Troponin I High Sens POC Glucose 210 H 218 H 10/27/20 16:13 WBC RBC Hgb Hct MCV MCH MCHC RDW Std Deviation RDW Coeff of Marquis Plt Count MPV Immature Gran % (Auto) Neut % (Auto) Lymph % (Auto) [place] % (Auto) Eos % (Auto) Baso % (Auto) Absolute Neuts (auto) Absolute Lymphs (auto) Nucleated RBC % APTT Sodium Potassium Chloride Carbon Dioxide Anion Gap BUN Creatinine Estim Creat Clear Calc Est GFR (MDRD) Af Amer Est GFR (MDRD) Non-Af BUN/Creatinine Ratio Glucose Calcium Troponin I High Sens POC Glucose 240 H Micro: Microbiology 10/25/20 07:30 Bite - Arm Gram Stain - Final 10/25/20 07:30 Bite - Arm Wound Culture - Preliminary Pasteurella canis Staphylococcus species 10/25/20 07:45 Blood Culture (Wb) - Left Wrist Blood Culture - Preliminary No growth in 48 hours. 10/25/20 07:35 Blood Culture (Wb) - Anticubital Left Blood Culture - Preliminary No growth in 48 hours. Physical Exam Const alert, oriented x3 and no apparent distress General Appearance: cooperative Exam Limitations: no limitations HEENT normocephalic, head/scalp atraumatic, hearing grossly normal bilaterally and m oist oral mucous membranes Head and Scalp: normocephalic Eyes PERRL, EOMs intact bilaterally and conjunctivae normal Neck no lymphadenopathy, supple and no JVD Resp Resp Narrative: Diminished breath sounds bibasilally. No wheezes or crackles. On room air. Cardio regular rate, regular rhythm, S1 normal heart sound, S2 normal heart sound and no murmurs GI normal to inspection, nondistended, normoactive bowel sounds, soft to palpation, non-tender and non-distended Extremity Extremity Narrative: RUE wrapped in bandage; able to make a fist. swelling of right hand has improved. Peripheral Pulses: Yes pulses 2+ throughout Skin Skin Narrative: as under extremity narrative Neuro oriented x3 and moves all extremities Sensorium / Orientation: awake and alert Psych affect normal Assessment & Plan Assessment/Plan (1) Dog bite: (2) Cellulitis of forearm, right: (3) Hypokalemia: PLAN: #nonstemi * s/p cardiac cath today which showed elevated left ventricular end-diastolic pressure and mild to moderate left ventricular systolic dysfunction with EF of 40% and [place] multivessel CAD with THRASHER to the LAD patent and occluded grafts to of the obtuse marginal arteries with left to right collateral flows and left to left collateral flows. * cardiology on board. medical management advised * 2D echo: EF of 55% * #Afib * patient noted to have developed afib on the telemetry early this morning * he was started on amiodarone drip * cardiology on board * on heparin drip * #Acute heart failure of unknown EF * BNP was over 600. * Been diuresed with IV Lasix. 2D echo pending. * Monitor intake and output. Fluid restriction 1500 cc daily. * #Elevated D-dimer: CTA is negative for PE. #RUE cellulitis due to dog bite * on IV unasyn. * plastic surgery on board * wound cultures growing Pasteurella amd Staphylococcus species. which is rare * blood cultures show no growth ovr 48 hours. * will switch antibiotics to IV cefazolin based on culture results. * wound care on board * for debridement by plastic surgery tomorrow * * * #Hypokalemia: resolved. K is 3.3 today. Will replace and trend. #Type 2 diabetes mellitus * on glipizide 10mg daily. ISS. Accuchecks ACHS * #CKD stage 3: Cr is 1.6/ Was 1.46 on admission, baseline not known. Will trend #Hypertension; on metoprolol and furosemide DVT prophylaxis: lovenox Code status: full code Charges/Coding Visit Charges Inpatient E&M: 34829 Subs Hosp L3
[2020-10-27] MEDS: Cefazolin 2 GM in 0.9% Normal Saline 100 ML IV (21:37)
[2020-10-27] MEDS: 0.9% Saline Lock 10 ML Syringe IV (21:38)
[2020-10-27 21:46] LABS: Bedside Glucose 246 mg/dL (70-110)
[2020-10-27] MEDS: LORazepam 0.5 MG Tablet PO (22:34)
[2020-10-28] VITALS (36 sets, daily range): BP systolic 91–154; BP diastolic 64–97; PULSE 90–130; RESP 16–38; TEMP 35.8–36.7; O2SAT 90–98; BMI 29.6
--- NOTE | 2020-10-28 01:41 | RAD_ITS ---
STUDY: X-RAY CHEST REASON FOR EXAM: Male, 70 years old. dyspnea TECHNIQUE: Single AP portable view of the chest. COMPARISON: 10/25/2020. FINDINGS: The lungs are underexpanded with mild bilateral pleural effusions, right larger than left. Right basilar consolidation which may indicate pneumonia. There is left mid upper lung field scarring. Midline sternotomy wires. Normal mediastinum and stephen. Normal visualized pulmonary arteries. There is atherosclerotic calcification of the aortic arch with tortuosity. There are diffuse degenerative changes of the visualized thoracic spine. There is degenerative osteoarthritis of the bilateral shoulders. There is no demonstrated abnormality of the visualized soft tissue structures of the upper abdomen. RAD/Chest 1 View (Portable) IMPRESSION: Bilateral pleural effusions, right larger than left and new in the interval on the right. Right lower lobe patchy densities concerning for pneumonia. Clinical correlation recommended. Electronically Signed: Lawanda Rosario MD at 2:50 EDT , Service support ,
[2020-10-28] MEDS: Amiodarone 360 MG in Dextrose 5% Viaflo Bag 192.8 ML 16.7 MG CONT INF (02:04)
[2020-10-28] MEDS: 0.9% Saline Lock 10 ML Syringe IV ×5 (02:57→22:07)
[2020-10-28] MEDS: Metoprolol Tartrate 5 MG/5 ML Vial IV ×2 (02:57→05:06)
[2020-10-28] MEDS: Furosemide 40 MG/4 ML Vial IV ×3 (03:55→09:23)
[2020-10-28 04:45] LABS: Absolute Neutrophil Count 22.5 X10^3/uL (2.0-7.7); Basophil# 0.09 X10^3/uL; Basophil% 0.4 % (0-1); Hematocrit 40.1 % (40-54); Hemoglobin 13.8 g/dL (13.0-16.5); Lymphocyte % 1.2 % (19-41); Mean Corp Hgb Conc 34.4 g/dL (32-36); Mean Corpuscular Hgb 31.1 pg (27.0-32.0); Mean Corpuscular Volume 90.3 fL (80-94); Mean Platelet Vol. 8.6 fl (6.2-12.0); Monocyte# 1.33 X10^3/uL; Monocyte% 5.4 % (0-10); NRBC Flagged by Analyzer 0 % (0-5); Neutrophil # 22.47 X10^3/uL (2.7-7.7); Neutrophil % 91.3 % (47-70); POSITIVE DIFFERENTIAL YES; Platelet Count 323 K/mm3 (150-450); RBC Distribution Width CV 12.3 % (11.6-14.6); RBC Distribution Width SD 40.9 fl (35.1-43.9); Red Blood Count 4.44 M/mm3 (4.6-6.2); White Blood Count 24.6 K/mm3 (4.4-11.0)
[2020-10-28 05:03] LABS: Differential Indicated SCAN CRITERIA MET
[2020-10-28 05:06] LABS: Anion Gap 12 (5-15); BUN 31 mg/dL (7-18); BUN/Creat Ratio 18.2 RATIO (10-20); Calcium,Total 8.6 mg/dL (8.5-10.1); Chloride 99 mmol/L (98-107); EST Glomerular Filtration Rate 43 mL/min (>60); Est Glom Filt Rate - Afr Amer 52 mL/min (>60); Estimated Creatinine Clearance 42.94 ml/min; Glucose 270 mg/dL (74-106); Sodium Level 133 mmol/L (136-145)
[2020-10-28] MEDS: Cefazolin 2 GM in 0.9% Normal Saline 100 ML IV ×2 (05:13→14:46)
--- NOTE | 2020-10-28 05:55 | EKG12_ITS ---
Test Reason : AM EKG Blood Pressure : / mmHG Vent. Rate : 105 BPM Atrial Rate : 102 BPM P-R Int : 000 ms QRS Dur : 130 ms QT Int : 364 ms P-R-T Axes : 000 -02 215 degrees QTc Int : 481 ms Atrial fibrillation Non-specific intra-ventricular conduction block T wave abnormality, consider inferior ischemia Abnormal ECG When compared with ECG of 27-OCT-2020 05:46, No significant change was found Confirmed by NIYAH MORA, NEREYDA ([id number]), film editor supervisor ESA CUEVAS ([id number]) on 11/02/2020 2:29:53 PM Referred By: KIMBERLY Confirmed By:NEREYDA LINDER MD
[2020-10-28 06:35] LABS: Bedside Glucose 258 mg/dL (70-110)
[2020-10-28] MEDS: Potassium Chloride Oral Tablet 20 MEQ 60 MEQ PO (08:09)
[2020-10-28] MEDS: Aspirin 81 MG TAB.CHEW PO (08:09)
[2020-10-28] MEDS: Metoprolol(XL)Succ 200 MG Tablet PO (08:10)
[2020-10-28] MEDS: Paroxetine 20 MG Tablet 40 MG PO (08:10)
[2020-10-28] MEDS: Pantoprazole Sodium 20 MG Tablet PO (08:10)
--- NOTE | 2020-10-28 08:15 | PN.CARD_ITS ---
Subjective Subjective The patient is awake and alert. He denies any ongoing chest discomfort. He states he has chronic shortness of breath and dyspnea which is waxed and waned. He denies any ongoing palpitations or rapid rates. Objective Data Vital Signs: Vital Signs Temp Pulse Resp BP Pulse Ox 97.6 F L 100 26 H 151/93 H 96 10/28/20 06:00 10/28/20 08:10 10/28/20 06:00 10/28/20 06:00 10/28/20 06:00 Oxygen Flow Rate (L/min) 6 Oxygen Delivery Method Nasal Cannula Weight: 206 lb 9.17 oz Body Mass Index (BMI) 29.6 Intake & Output: Intake and Output for Last 24 Hours 10/26/20 10/27/20 10/28/20 23:59 23:59 23:59 Intake Total 1658.00 / 1658.00 2176.80 / 2193.50 276.90 / 276.90 Output Total 1075 / 1675 1750 / 1750 250 / 250 Balance 583.00 / -17.00 426.80 / 443.50 26.90 / 26.90 Lab / Micro Data Result Diagrams: 10/28/20 04:30 10/28/20 04:30 Labs: Laboratory Results - last 24 hr 10/27/20 10/27/20 10/27/20 10:56 16:13 21:30 WBC RBC Hgb Hct MCV MCH MCHC RDW Std Deviation RDW Coeff of Marquis Plt Count MPV Immature Gran % (Auto) Neut % (Auto) Lymph % (Auto) [place] % (Auto) Eos % (Auto) Baso % (Auto) Absolute Neuts (auto) Absolute Lymphs (auto) Nucleated RBC % Sodium Potassium Chloride Carbon Dioxide Anion Gap BUN Creatinine Estim Creat Clear Calc Est GFR (MDRD) Af Amer Est GFR (MDRD) Non-Af BUN/Creatinine Ratio Glucose Calcium POC Glucose 218 H 240 H 246 H 10/28/20 10/28/20 10/28/20 04:30 04:30 06:33 WBC 24.6 H RBC 4.44 L Hgb 13.8 Hct 40.1 MCV 90.3 D MCH 31.1 MCHC 34.4 RDW Std Deviation 40.9 RDW Coeff of [place]quis 12.3 Plt Count 323 MPV 8.6 Immature Gran % (Auto) 1.700 H Neut % (Auto) 91.3 H Lymph % (Auto) 1.2 L [place] % (Auto) 5.4 Eos % (Auto) 0.0 Baso % (Auto) 0.4 Absolute Neuts (auto) 22.5 H Absolute Lymphs (auto) 0.30 L Nucleated RBC % 0 Sodium 133 L Potassium 3.0 L Chloride 99 Carbon Dioxide 22.0 Anion Gap 12 BUN 31 H Creatinine 1.70 H Estim Creat Clear Calc 42.94 Est GFR (MDRD) Af Amer 52 L Est GFR (MDRD) Non-Af 43 L BUN/Creatinine Ratio 18.2 Glucose 270 H Calcium 8.6 POC Glucose 258 H Micro: Microbiology 10/25/20 07:30 Bite - Arm Gram Stain - Final 10/25/20 07:30 Bite - Arm Wound Culture - Preliminary Pasteurella canis Staphylococcus species 10/27/20 18:00 Mucosa - Nose SARS-CoV-2 Antigen (Rapid) - Final 10/25/20 07:45 Blood Culture (Wb) - Left Wrist Blood Culture - Preliminary No growth in 48 hours. 10/25/20 07:35 Blood Culture (Wb) - Anticubital Left Blood Culture - Preliminary No growth in 48 hours. Cardiology Labs/Tests 10/28/20 04:30: WBC 24.6 H, RBC 4.44 L, Hgb 13.8, Hct 40.1, MCV 90.3 D, MCH 31.1, MCHC 34.4, Plt Count 323, MPV 8.6, Immature Gran % (Auto) 1.700 H, Neut % (Auto) 91.3 H, Lymph % (Auto) 1.2 L, [place] % (Auto) 5.4, Eos % (Auto) 0.0, Baso % (Auto) 0.4, Absolute Neuts (auto) 22.5 H, Nucleated RBC % 0 10/28/20 04:30: Sodium 133 L, Potassium 3.0 L, Chloride 99, Carbon Dioxide 22.0, Anion Gap 12, BUN 31 H, Creatinine 1.70 H, Est GFR (MDRD) Af Amer 52 L, Est GFR (MDRD) Non-Af 43 L, BUN/Creatinine Ratio 18.2, Glucose 270 H, Calcium 8.6 Rhythm: Sinus rhythm with episodes of paroxysmal atrial fibrillation Cardiac Cath: CONCLUSIONS Elevated Left Ventricular End Diastolic Pressure Segmented LV systolic dysfunction- Mild to Moderate LVEF: by LV gram 40 % [place] Multivessel CAD THRASHER to LAD: patent SVG to OM1: occluded SVG to OM2: occluded Left to Right collateral flow Left to Left collateral flow RECOMMENDATIONS Risk factor modification Medical therapy Case discussed / reviewed with Dr. Mireles of interventional cardiology DESCRIPTION OF PROCEDURE The patient arrived to the procedure lab. The risks and benefits of the procedu re as well as a full description of our services here and current unavailability of surgical backup were fully explained to the patient and/or their significant other prior to the catheterization. The Timeout was completed, verifying the correct patient and procedure. The patient's procedural site was prepped and draped in the usual fashion. Local anesthetic was given subcutaneously to right groin region with Lidocaine 2%. Using a modified Seldinger technique, arterial access was obtained via the right femoral artery, a 4Fr sheath was inserted Left Coronary Artery selective angiography was performed in multiple views using a 4 Fr. JL5 catheter. Right Coronary Artery selective angiography was then performed in multiple views using a 4 Fr. 3DRC catheter. Left internal mammary artery graft to the LAD selective angiography was performed in multiple views using a 4 Fr. JR4 catheter. Left internal mammary artery graft to the LAD selective angiography was performed in multiple views using a 4 Fr. 3DRC catheter. Left Ventriculography was performed in [place]CE[place]ION projection using a 4 Fr. Pigtail catheter. LV to AO pullback pressures were then recorded.The arterial sheath was pulled and manual compression applied until hemostasis is achieved. CORONARY ANGIOGRAPHY DOMINANCE: Right Dominant LEFT HEART ASSESSMENT Left Ventricular Ejection Fraction: by LV Gram 40 % Inferior Basal Akinesis. Inferior Mid Hypokinesis - Severe. Inferior Apical Hypokinesis - Severe Elevated Left Ventricular End Diastolic Pressure LVEDP: 27 mmHg LEFT MAIN: Mild luminal irregularities, distal: 50 % Stenosis LEFT ANTERIOR DESCENDING ARTERY: PROX LAD: Moderate calcification, diffuse: 50 - 75 % Stenosis MID LAD: is occluded DISTAL LAD: small caliber vessel: subtotally occluded DIAGONAL 1: Proximal - small caliber vessel: diffuse: 85 % Stenosis DIAGONAL 2: Proximal - is occluded with the remainder of the vessel being a small caliber vessel and filling partially by left to left collateral flow CIRCUMFLEX ARTERY: PROX CIRC: Mild calcification, diffuse: 85 % Stenosis MID CIRC: is occluded DISTAL CIRC: filling late and partially from left to left collateral flow RIGHT CORONARY ARTERY: PROX RCA: is occluded DISTAL RCA: fills late and partially from left to right collateral flow GRAFTS: THRASHER graft to the Mid LAD is patent Saphenous Vein graft to the 1st OM is totally occluded Saphenous Vein graft to the 2nd OM is totally occluded COLLATERAL FLOW: Collateral flow from Left to Right Collateral flow from Left to Left AORTIC ROOT: Angiographically normal Radiography Diagnostic Testing: Radiology Impression Chest X-Ray 10/28/20 01:41 IMPRESSION: Bilateral pleural effusions, right larger than left and new in the interval on the right. Right lower lobe patchy densities concerning for pneumonia. Clinical correlation recommended. Electronically Signed: Lawanda Rosario MD at 2:50 EDT , Service support , Physical Exam Const alert, oriented x3 and no apparent distress Orientation / Consciousness: awake HEENT normocephalic, head/scalp atraumatic and hearing grossly normal bilaterally Eyes PERRL and EOMs intact bilaterally Neck full ROM, supple and no JVD Chest Chest: midline sternotomy incision Resp Auscultation: diminished lung sounds bilateral lower (minimal) Cardio regular rate, S1 normal heart sound and S2 normal heart sound GI normal to inspection, nondistended, normoactive bowel sounds Extremity Extremity Narrative: Right forearm: Currently in an Alfa wrap Peripheral Pulses: Yes femoral pulses present right 2+ Neuro oriented x3, moves all extremities, no focal motor deficits and no sensory deficits noted Psych mental status grossly normal Assessment & Plan Assessment/Plan (1) Abnormal cardiac enzyme level: PLAN: The patient does have abnormal cardiac enzymes. At the present time, based upon the patient's cardiovascular evaluation, it appears his cardiac enzymes are compatible with a non-STEMI considered a type II event secondary to supply demand mismatch. He will continue medical management. (2) CAD (coronary artery disease): QUALIFIERS: Coronary Disease-Associated Artery/Lesion type: [place] artery [place] vs. transplanted heart: [place] heart PLAN: He does have a history of CAD. The details are as per his [facility] report. His cardiac catheterization is as noted. He does have diffuse [place] vessel disease as well as a patent THRASHER to the LAD system and an occluded SVG to OM1 a nd an occluded SVG to OM 2. He was not thought to be a candidate for additional percutaneous or surgical based revascularization therapy. He will continue medical management. (3) S/P CABG (coronary artery bypass graft): PLAN: He does have a history of a remote CABG at a young age. This was performed through the [facility] system. It appears he received a THRASHER to the LAD, and SVG to OM1, and an SVG to OM 2. As noted above, based upon his cardiac catheterization report, his THRASHER to the LAD is patent however his SVG to OM1 and his SVG to OM 2 are occluded. (4) CHF (congestive heart failure): QUALIFIERS: Heart failure type: systolic Heart failure chronicity: acute on chronic Qualified Code(s): I50.23 - Acute on chronic syst olic (congestive) heart failure PLAN: The patient has demonstrated findings potentially compatible with CHF secondary to ischemic mediated cardiomyopathy. Based upon his [facility] studies and his cardiac catheterization findings this would appear to be acute on chronic systolic mediated CHF. He does appear to be improved with medical adjustment including diuresis. (5) Atrial fibrillation: QUALIFIERS: Atrial fibrillation type: unspecified Qualified Code(s): I48.91 - Unspecified atrial fibrillation PLAN: The patient has demonstrated findings compatible with atrial fibrillation. At the present time he will continue rate control therapy, antiarrhythmic therapy, and when he is able he should be considered for systemic oral anticoagulant therapy. (6) HLD (hyperlipidemia): QUALIFIERS: Hyperlipidemia type: unspecified Qualified Code(s): E78.5 - Hyperlipidemia, unspecified PLAN: He will continue risk factor evaluation and care as deemed appropriate. (7) Benign essential HTN: PLAN: He should continue medical therapy with adjustment as needed. (8) Cellulitis of forearm, right: PLAN: He was diagnosed with a right upper extremity cellulitis. He will continue evaluation care per internal medicine. He has also been evaluated by Dr. William of plastic surgery. Based upon a telephone conversation with Dr. William he is recommended right upper extremity/forearm surgery to assist with his infectious disease process. He should have close monitoring of his cardiac rate, rhythm, and blood pressure during and following his surgical procedure. An attempt should be made to avoid significant fluctuations in his vital signs as well as to avoid IV volume overload during and following his procedure. (9) History of diabetes mellitus: PLAN: He will continue evaluation care per internal medicine. Addt'l Comments The above information has been discussed with the patient and previously conveyed to Dr. Hyde and Dr. William. This note was generated using a voice recognition system and there may be incorrect words, spelling or punctuation that were not noted when reviewing the office note prior to saving.
[2020-10-28 08:37] LABS: Hemoglobin A1c 7.7 % (3.8-5.6)
--- NOTE | 2020-10-28 09:35 | CPS ---
Called to give pt PRN aerosol rx. Upon entering pt's room and doing pt's assessment it was determined that the aerosol rx not be given. Pt's HR was 128 and BS were diminished and clear. Pt's nurse was informed of the above.
--- NOTE | 2020-10-28 10:53 | CASEMGMT ---
This RN CM received message to call from Reanna at [facility] and message left for Reanna to call this RN CM back. SStaten RN CM
[2020-10-28 10:56] LABS: Bedside Glucose 267 mg/dL (70-110)
[2020-10-28] MEDS: Insulin Lispro 100 UNIT/ML INSULN.PEN SC ×3 (10:58→21:47)
[2020-10-28 12:04] LABS: Potassium 3.3 mmol/L (3.5-5.1)
--- NOTE | 2020-10-28 12:04 | NURSING ---
Pt going for surgery today. left wrap and dressing in place to the right arm. pt appears quite SOB today.
--- NOTE | 2020-10-28 12:04 | NURSING ---
pt transferred to PACU on monitor, report given [id number] to SENIOR TRAINER.
--- NOTE | 2020-10-28 12:23 | PN.HOSP_ITS ---
Subjective Subjective Patient seen and examined. Complaint of feeling more short of breath this morning. He was being given another dose of Lasix this morning. Patient has been refusing his breathing treatments. Heart rate was also up today. Objective Data Objective Data Vital Signs: Vital Signs Temp Pulse Resp BP Pulse Ox 98.0 F 122 H 18 129/93 H 98 10/28/20 11:00 10/28/20 12:07 10/28/20 12:07 10/28/20 12:07 10/28/20 12:07 Oxygen Flow Rate (L/min) 5 Oxygen Delivery Method Nasal Cannula Weight: 206 lb 9.17 oz Body Mass Index (BMI) 29.6 Intake & Output: Intake and Output for Last 24 Hours 10/26/20 10/27/20 10/28/20 23:59 23:59 23:59 Intake Total 1658.00 / 1658.00 2176.80 / 2193.50 276.90 / 276.90 Output Total 1075 / 1675 1750 / 1750 750 / 750 Balance 583.00 / -17.00 426.80 / 443.50 -473.10 / -473.10 Lab / Micro Data Result Diagrams: 10/28/20 04:30 10/28/20 11:47 Labs: Laboratory Results - last 24 hr 10/27/20 10/27/20 10/28/20 16:13 21:30 04:30 WBC 24.6 H RBC 4.44 L Hgb 13.8 Hct 40.1 MCV 90.3 D MCH 31.1 MCHC 34.4 RDW Std Deviation 40.9 RDW Coeff of Marquis 12.3 Plt Count 323 MPV 8.6 Immature Gran % (Auto) 1.700 H Neut % (Auto) 91.3 H Lymph % (Auto) 1.2 L [place] % (Auto) 5.4 Eos % (Auto) 0.0 Baso % (Auto) 0.4 Absolute Neuts (auto) 22.5 H Absolute Lymphs (auto) 0.30 L Nucleated RBC % 0 Sodium Potassium Chloride Carbon Dioxide Anion Gap BUN Creatinine Estim Creat Clear Calc Est GFR (MDRD) Af Amer Est GFR (MDRD) Non-Af BUN/Creatinine Ratio Glucose Hemoglobin A1c Calcium POC Glucose 240 H 246 H 10/28/20 10/28/20 10/28/20 04:30 04:30 06:33 WBC RBC Hgb Hct MCV MCH MCHC RDW Std Deviation RDW Coeff of Marquis Plt Count MPV Immature Gran % (Auto) Neut % (Auto) Lymph % (Auto) [place] % (Auto) Eos % (Auto) Baso % (Auto) Absolute Neuts (auto) Absolute Lymphs (auto) Nucleated RBC % Sodium 133 L Potassium 3.0 L Chloride 99 Carbon Dioxide 22.0 Anion Gap 12 BUN 31 H Creatinine 1.70 H Estim Creat Clear Calc 42.94 Est GFR (MDRD) Af Amer 52 L Est GFR (MDRD) Non-Af 43 L BUN/Creatinine Ratio 18.2 Glucose 270 H Hemoglobin A1c 7.7 H Calcium 8.6 POC Glucose 258 H 10/28/20 10/28/20 10:50 11:47 WBC RBC Hgb Hct MCV MCH MCHC RDW Std Deviation RDW Coeff of Marquis Plt Count MPV Immature Gran % (Auto) Neut % (Auto) Lymph % (Auto) [place] % (Auto) Eos % (Auto) Baso % (Auto) Absolute Neuts (auto) Absolute Lymphs (auto) Nucleated RBC % Sodium Potassium 3.3 L Chloride Carbon Dioxide Anion Gap BUN Creatinine Estim Creat Clear Calc Est GFR (MDRD) Af Amer Est GFR (MDRD) Non-Af BUN/Creatinine Ratio Glucose Hemoglobin A1c Calcium POC Glucose 267 H Micro: Microbiology 10/25/20 07:30 Bite - Arm Gram Stain - Final 10/25/20 07:30 Bite - Arm Wound Culture - Preliminary Pasteurella canis Staphylococcus species 10/27/20 18:00 Mucosa - Nose SARS-CoV-2 Antigen (Rapid) - Final 10/25/20 07:45 Blood Culture (Wb) - Left Wrist Blood Culture - Preliminary No growth in 48 hours. 10/25/20 07:35 Blood Culture (Wb) - Anticubital Left Blood Culture - Preliminary No growth in 48 hours. Radiography Diagnostic Testing: Radiology Impression Chest X-Ray 10/28/20 01:41 IMPRESSION: Bilateral pleural effusions, right larger than left and new in the interval on the right. Right lower lobe patchy densities concerning for pneumonia. Clinical correlation recommended. Electronically Signed: Lawanda Rosario MD at 2:50 EDT , Service support , Physical Exam Const alert, oriented x3 and no apparent distress General Appearance: cooperative Exam Limitations: no limitations HEENT normocephalic, head/scalp atraumatic, hearing grossly normal bilaterally and moist oral mucous membranes Head and Scalp: normocephalic Eyes PERRL, EOMs intact bilaterally and conjunctivae normal Neck no lymphadenopathy, supple and no JVD Resp Resp Narrative: Diminished breath sounds bibasilally. No wheezes or crackles. On 5L of oxygen Cardio regular rate, regular rhythm, S1 normal heart sound, S2 normal heart sound and no murmurs GI normal to inspection, nondistended, normoactive bowel sounds, soft to palpation, non-tender and non-distended Extremity Extremity Narrative: RUE wrapped in bandage Skin Skin Narrative: as under extremity narrative Neuro oriented x3 and moves all extremities Sensorium / Orientation: awake and alert Psych affect normal Assessment & Plan Assessment/Plan (1) Dog bite: (2) Cellulitis of forearm, right: (3) Hypokalemia: PLAN: #nonstemi * s/p cardiac cath which showed elevated left ventricular end-diastolic pressure and mild to moderate left ventricular systolic dysfunction with EF of 40% and [place] multivessel CAD with THRASHER to the LAD patent and occluded grafts to of the obtuse marginal arteries with left to right collateral flows and left to left collateral flows. * cardiology on board. medical management advised * 2D echo: EF of 55% * * #Afib * still remains tachycardic * per cardiology, to be weaned off amiodarone drip and transitioned to PO amiodarone today * on heparin drip * Cardiology on board. * #Acute heart failure with reduced EF * BNP was over 600. * Been diuresed with IV Lasix. 2D echo pending. * Cardiac cath showed EF of 40% * Monitor intake and output. Fluid restriction 1500 cc daily. * Patient counseled to use his breathing treatments as needed. * #Acute respiratory failure due to heart failure non-STEMI * As above. Patient currently on 5 L of oxygen. Titrate oxygen to maintain saturation above 90%. * On breathing treatments of bronchodilators. #RUE cellulitis due to dog bite * on IV cefazolin. * plastic surgery on board * wound cultures growing Pasteurella amd Staphylococcus species. which is rare * blood cultures show no growth ovr 48 hours. * wound care on board * for debridement by plastic surgery today * wbc elevated today at 24.6 * * #Hypokalemia: resolved. K is 3.3 today. Will replace and trend. #Type 2 diabetes mellitus * on glipizide 10mg daily. ISS. Accuchecks ACHS * #CKD stage 3: Cr is 1.6/ Was 1.46 on admission, baseline not known. Will trend #Hypertension; on metoprolol and furosemide DVT prophylaxis: lovenox Code status: full code Charges/Coding Visit Charges Inpatient E&M: 69403 Subs Hosp L3
--- NOTE | 2020-10-28 12:30 | DEB_PTH ---
PATIENT: DIANA SNYDER LOC: ICU U#:[id number] AGE/SX: 70/M ROOM: ICU06 RE10/25/[address]: Dr. Alberto Zheng DO : 1950 BED: 1 DIS: 11/12/2020 SPEC #: [id number] RECD: 11/01/20 08:04 STATUS: CAROLINE RE #: [id number] JAIRO: 10/28/20 12:[address]: Diana William DEPT: SURGICAL PATHOLOGY RECD BY: Jillian Cramer ENTERED: 11/01/20 08:35 SP TYPE: MIKKI TISS OTHR DR: MD Dr. Jakub Roberson MD Dr. Nana Yaa Koram, MD Dr. Nicholas F Kotsonis, MD Dr. Paul Moodispaw, MD [facility] Tissues: Soft tissues, NOS Procedures: Surgery Specimen Level IV Comments: @ Ordering doctor for SUIII edited from to @ by JI at 11/01/20 0951 @ Submitting doctor edited from to @ by SANDEROD at 11/01/20 0951 HEADER OPERATION: Incision, drainage, debridement, dog bite infection, forearm PRE-OP DIAGNOSIS: Dog bite, open wound right forearm and wrist, Cellulitis right forearm TISSUE SUBMITTED: Infected debrided tissue right arm MICROSCOPIC DIAGNOSIS Skin and tissue of right arm, excision: Ulceration with associated acute and chronic inflammation, granulation and abscess formation. AM:kayla 11/02/2020 MICROSCOPIC DESCRIPTION Slides are reviewed. GROSS DESCRIPTION Received in fixative is one container labeled with the patient's name and designated infected tissue right arm. The specimen consists of multiple irregular fragments of light cobian skin and soft tissue that in aggregate measure 6 x 5 x 0.5 cm. Rn Appeals sections are submitted in two cassettes. / AM:kayla 11/01/20 TC:2 CPT: 10899
[2020-10-28] MEDS: Lidocaine 1% /Epi 1:100 (20ml) 20 ML Vial (14:06)
--- NOTE | 2020-10-28 14:15 | OP.PCM_ITS ---
Report of Operation Date of Procedure: 10/28/20 Pre-Operative Diagnosis: (1) Dog bite: (2) Open wound of right forearm due to dog bite: (3) Open wound of right wrist due to dog bite: (4) Cellulitis of forearm, right: (5) Abscess of right forearm: (6) Abscess of skin of right wrist: (7) Diabetes: Post-Operative Diagnosis: (1) Dog bite: (2) Open wound of right forearm due to dog bite: (3) Open wound of right wrist due to dog bite: (4) Cellulitis of forearm, right: (5) Necrotizing abscess of right forearm: (6) Necrotizing abscess of skin of right wrist: (7) Diabetes (8) Suppurative extensor tenosynovitis compartment II right wrist (extensor carpi radialis longus tendon and extensor carpi radialis brevis tendon). (9) Suppurative extensor tenosynovitis compartment III right wrist (extensor pollicis longus tendon). (10) Deep necrotizing abscess Parona space right forearm. Surgery/Procedure Performed:: 1. Surgical preparation dorsal aspect right forearm, volar aspect right forearm, and dorsal ulnar aspect right wrist with incision and drainage and excisional debridement dog bite wound infection abscess with involvement of Parona space. 2. Extensor tenosynovectomy for suppurative tenosynovitis compartment II right wrist (extensor carpi radialis longus tendon and extensor carpi radialis brevis tendon). 3. Extensor tenosynovectomy for suppurative tenosynovitis compartment III right wrist (extensor pollicis longus tendon). Description of Surgical Findings:: DIANA SNYDER, is a 70 M with a history of diabetes mellitus was admitted via the ED on 10/25/2020 with increasing redness, pain, swelling, and purulent drainage from a recent dog bite to his right forearm and wrist. The dog was his own that he has had for several years. He was breaking up a fight between his dogs 10 days prior to admission and suffered bite wounds to his right forearm and wrist. Initial WBC was 18.2. He was started on Unasyn. CT of the RUE was done. It showed evidence of the thickening of the skin overlying the posterior aspect of the distal humerus. No focal fluid collection or abscess is seen. There is also evidence of a mild degree of skin thickening involving the right forearm. The underlying bony structures are unremarkable. Also during this admission, he developed some cardiorespiratory issues with an elevated troponin and is being evaluated by Cardiology. I was asked to evaluate this patient for surgical options for treatment. Patient was informed of the risks and complications of the procedure including alternatives to surgery. These were discussed with the patient personally. Patient voices understanding and wishes to proceed. Some of the risks and complications that were discussed included but were not inclusive of failure to diagnose including symptom relief, pain, infection, numbness, stiffness, loss of digit, RSD (CRPS), need for further surgery, contracture, and wound healing problems. Total tourniquet time - 55 minutes. Size of wound dorsal aspect right forearm extending onto wrist - 17 x 4.5 cm. Size of wound volar aspect right forearm - 12.5 x 3 cm. Size of wound dorsal ulnar aspect right wrist - 5.5 x 2 cm. Surgeon: Diana William sales project manager: None Type of Anesthesia: Block,[place] Specimen's removed: Dog bite wound infection abscess right forearm and wrist to Pathology and Microbiology. Drains: None. Estimated Blood Loss (mL): 50. Description of Procedure: Patient was taken to OR in supine position and was given IV sedation. The right upper extremity was prepped and draped in the usual fashion. SCD's were placed for DVT prophylaxis. Perioperative anti biotics were given intravenously. Due to breathing problems, his head was elevated during the procedure, and a Domenica Block was administered. The tourniquet was elevated to 250 mmHg. Under loupe magnification, I proceeded with incision and drainage of the dog bite wound on the mid dorsal forearm. Copious pus was seen. It was brownish in color and very malodorous. It was surrounding the muscles and tendons, mostly involving compartment II and compartment III. Further dissection deep to the muscle encountered more pus in the deep space of Parona between the flexor tendons and the pronator q uadratus muscle. A lot of fat necrosis was seen which was excised and debrided. Purulent exudate covered the muscles and tendons and a curette was used to excise and debride the exudate. The muscles and tendons looked more viable after the debridement. The overlying skin on the mid dorsal forearm was compromised from the pressure from the abscess and the skin surrounding the dog bite was excised and debrided. I extended the wound in a zig zag fashion both proximally toward the antecubital area and distally toward the wrist. I stopped extending the wound when no more pus was seen in the wound. Because the pus extended deep toward the volar surface, a counter incision was made in a longitudinal zig zag fashion. The volar forearm muscles looked viable. I then address the dog bite wound on the dorsal ulnar wrist. There was some necrotic skin that was excised and debrided. A lot of fat necrosis was seen. This area communicated with the longitudinal dorsal wound and any fat necrosis was excised and debrided. There did not appear to be involvement of the wrist joint as the underlying fascia and compartment (extensor carpi ulnaris) appeared viable without evidence of purulence. There was evidence of suppurative extensor tenosynovitis involving the extensor carpi radialis longus and extensor carpi radialis brevis in compartment II and the extensor pollicis longus in compartment III. Extensor tenosynovectomy was performed on these tendons of compartment II and III. I incised the dorsal retinaculum over these compartments and some pus was seen. I extensively irrigated both compartments with saline until clear. Some of the dorsal retinaculum appeared nonviable and was debrided. I then copiously irrigated all three wounds (dorsal forearm, volar forearm, and dorsal ulnar at the wrist) with saline in a pulsatile fashion. I used 3000 ml saline. The tourniquet was released after 55 minutes. Some bleeding was seen on the muscle that was cauterized. The muscles appeared much improved after the saline irrigation and the release of the tourniquet. No active bleeding was noted. The skin showed good vascularization extending to the fingers. After the saline irrigation, no further evidence of purulence was seen at this time. I infiltrated xylocaine and epinephrine into the wounds for postoperative pain relief. The size of the wound dorsal aspect right forearm extending onto wrist was 17 x 4.5 cm. The size of the wound volar aspect right forearm was 12.5 x 3 cm. The size of the wound dorsal ulnar aspect right wrist was 5.5 x 2 cm. The wounds were dressed with Betadine and Kerlix followed by dry Kerlix gauze and ABD pads followed by compression javier wrap. Due to the extensive and infiltrative nature of this infection, I anticipate periodic returns to the operating room for further incision and drainage and irrigation of the wounds. After discharge, he will need intensive OT for range of motion exercises, strengthening and edema management. Patient tolerated the procedure well and was sent to PACU in satisfactory condition. Patient will be sent upstairs for continued postop care. Initially he will need IV analgesia for the dressing changes. Due to the very strong odor and the brownish color of the pus and surrounding necrotizing process, will broaden his antibiotics to include anaerobic coverage with Zosyn. Grafts/Implants Used: None. Complications None. Admit VTE Documentation VTE Present on Admission: No VTE Mechan Device Prophylaxis: SCD's VTE Pharm Prophylaxis ordered?: Yes Addendum Addendum: Surgery Charges CPT - 23417 ICD-10 - W54.0xxA, S61.551A, S51.851A, M71.031, L02.413, M65.831, M79.89, E11.9, Z87.891 29666 W54.0xxA, M71.031, L02.413, M79.89, M65.831, S61.551A, S51.851A, E11.9, Z87.891 [id number] W54.0xxA, M65.831, M71.031, L02.413, M79.89, S61.551A, S51.851A, E11.9, Z87.891 [id number] W54.0xxA, M65.831, M71.031, L02.413, M79.89, S61.551A, S51.851A, E11.9, Z87.891
[2020-10-28] MEDS: Ipratropium/Albuterol Sulfate 3 ML AMPUL.NEB INHALATION (14:41)
[2020-10-28] MEDS: 0.9% Normal Saline 1,000 ML 15 ML IV (14:46)
[2020-10-28] MEDS: Amiodarone 200 MG Tablet PO ×2 (15:55→21:44)
[2020-10-28] MEDS: Pentoxifylline 400 MG Tablet PO ×2 (15:56→21:44)
[2020-10-28 16:20] LABS: Bedside Glucose 198 mg/dL (70-110)
[2020-10-28] MEDS: Morphine 2 MG/ML Syringe IV (16:34)
--- NOTE | 2020-10-28 19:20 | NURSING ---
called into patient room by respiratory therapist, concerned for right arm. Right surgical dressing saturated in sanguineous fluid, on to pillow case and gown, pt in pain 10/10, facial grimacing, grasping site, restless, moves all 5 digits on right hand, good circulation noted, right hand is edematous. Rupertoam notified, will change pain med order. Stewart notified- see physician notification.
[2020-10-28] MEDS: HYDROmorphone 1 MG/ML Syringe IV ×2 (19:33→22:06)
--- NOTE | 2020-10-28 19:48 | NURSING ---
in room with ros Escobedo RN. Medicated for pain, EMMANUEL wrap loosened, applied ABD and kerlex around right arm, elevated on 2 pillows, report given to HOMER Escobedo.
[2020-10-28 20:27] LABS: Hematocrit 40.2 % (40-54); Hemoglobin 14.1 g/dL (13.0-16.5)
[2020-10-28 22:11] LABS: Lactic Acid 1.5 mmol/L (0.4-1.9)
--- NOTE | 2020-10-28 23:09 | PCM.PN.BLA ---
Progress Note Came in to see patient because of concerns about some oozing from the operative dressing. He was resting comfortably. He was afebrile. BP 131/85. Pulse 93. Recent postoperative Hgb was 14.1. On exam, there was some blood staining on the volar aspect of the dressing. The outer dressing was removed and replaced with dry Kerlix. The operative Betadine dressing was left intact. No active bleeding was noted. Continue compression dressing. Continue right upper extremity elevation. Recheck Hgb in the morning. Will do a Betadine dressing change in the morning.
[2020-10-28 23:46] LABS: Bedside Glucose 265 mg/dL (70-110)
[2020-10-29] VITALS (24 sets, daily range): BP systolic 103–135; BP diastolic 69–85; PULSE 83–96; RESP 16–28; TEMP 35.8–36.9; O2SAT 95–99
[2020-10-29] MEDS: HYDROmorphone 1 MG/ML Syringe IV ×6 (02:21→22:12)
[2020-10-29] MEDS: 0.9% Saline Lock 10 ML Syringe IV ×6 (02:22→22:21)
[2020-10-29] MEDS: Amiodarone 200 MG Tablet PO ×3 (05:32→22:08)
[2020-10-29] MEDS: Pentoxifylline 400 MG Tablet PO ×3 (05:32→22:08)
[2020-10-29 06:14] LABS: Absolute Lymphocyte Count 0.76 X10^3/uL (0.83-4.51); Absolute Neutrophil Count 24.2 X10^3/uL (2.0-7.7); Basophil# 0.07 X10^3/uL; Basophil% 0.3 % (0-1); Hematocrit 38.4 % (40-54); Hemoglobin 13.1 g/dL (13.0-16.5); Lymphocyte # 0.76 X10^3/ul (0.83-4.51); Lymphocyte % 2.8 % (19-41); Mean Corp Hgb Conc 34.1 g/dL (32-36); Mean Corpuscular Hgb 31.4 pg (27.0-32.0); Mean Corpuscular Volume 92.1 fL (80-94); Mean Platelet Vol. 8.8 fl (6.2-12.0); Monocyte# 1.98 X10^3/uL; Monocyte% 7.2 % (0-10); NRBC Flagged by Analyzer 0 % (0-5); Neutrophil # 24.18 X10^3/uL (2.7-7.7); Neutrophil % 87.9 % (47-70); POSITIVE DIFFERENTIAL YES; Platelet Count 327 K/mm3 (150-450); RBC Distribution Width CV 12.6 % (11.6-14.6); RBC Distribution Width SD 42.5 fl (35.1-43.9); Red Blood Count 4.17 M/mm3 (4.6-6.2); White Blood Count 27.5 K/mm3 (4.4-11.0)
[2020-10-29 06:17] LABS: Differential Indicated SCAN CRITERIA MET
[2020-10-29 06:37] LABS: Anion Gap 9 (5-15); BUN 28 mg/dL (7-18); BUN/Creat Ratio 16.5 RATIO (10-20); Calcium,Total 8.6 mg/dL (8.5-10.1); Chloride 100 mmol/L (98-107); EST Glomerular Filtration Rate 43 mL/min (>60); Est Glom Filt Rate - Afr Amer 52 mL/min (>60); Estimated Creatinine Clearance 42.94 ml/min; Glucose 157 mg/dL (74-106); Potassium 3.8 mmol/L (3.5-5.1); Prealbumin 8.8 mg/dL (20.0-40.0); Sodium Level 135 mmol/L (136-145)
[2020-10-29] MEDS: glipiZIDE 10 MG Tablet PO (06:37)
[2020-10-29] MEDS: Insulin Lispro 100 UNIT/ML INSULN.PEN SC ×4 (06:37→22:11)
[2020-10-29 06:45] LABS: Bedside Glucose 181 mg/dL (70-110)
[2020-10-29] MEDS: Ipratropium/Albuterol Sulfate 3 ML AMPUL.NEB INHALATION ×4 (07:04→19:05)
[2020-10-29] MEDS: Paroxetine 20 MG Tablet 40 MG PO (09:13)
[2020-10-29] MEDS: amLODIPine 10 MG Tablet PO (09:14)
[2020-10-29] MEDS: Metoprolol(XL)Succ 200 MG Tablet PO (09:14)
[2020-10-29] MEDS: Aspirin 81 MG TAB.CHEW PO (09:14)
[2020-10-29] MEDS: Furosemide 40 MG/4 ML Vial IV (09:14)
[2020-10-29] MEDS: Pantoprazole Sodium 20 MG Tablet PO (09:15)
--- NOTE | 2020-10-29 09:28 | PN.SURG_ITS ---
Subjective Subjective Postop #1 Patient is resting comfortably in the chair. A Betadine dressing was done today which was quite painful. Objective Data Objective Data Vital Signs: Vital Signs Temp Pulse Resp BP Pulse Ox 97.4 F L 87 20 H 124/75 H 97 10/29/20 09:02 10/29/20 09:14 10/29/20 09:02 10/29/20 09:02 10/29/20 09:02 Oxygen Flow Rate (L/min) 3 Oxygen Delivery Method Nasal Cannula Weight: 206 lb 9.17 oz Body Mass Index (BMI) 29.6 Intake & Output: Intake and Output for Last 24 Hours 10/27/20 10/28/20 10/29/20 23:59 23:59 23:59 Intake Total 2176.80 / 2193.50 802.21 / 802.21 170 / 170 Output Total 1750 / 1750 1150 / 1150 325 / 325 Balance 426.80 / 443.50 -347.79 / -347.79 -155 / -155 Lab / Micro Data Attestation: I reviewed the patient's lab results. Result Diagrams: 10/30/20 04:55 10/30/20 04:55 Labs: Laboratory Results - last 24 hr 10/28/20 10/28/20 10/28/20 10:50 11:47 16:15 WBC RBC Hgb Hct MCV MCH MCHC RDW Std Deviation RDW Coeff of Marquis Plt Count MPV Immature Gran % (Auto) Neut % (Auto) Lymph % (Auto) [place] % (Auto) Eos % (Auto) Baso % (Auto) Absolute Neuts (auto) Absolute Lymphs (auto) Nucleated RBC % Diff Path Review Sodium Potassium 3.3 L Chloride Carbon Dioxide Anion Gap BUN Creatinine Estim Creat Clear Calc Est GFR (MDRD) Af Amer Est GFR (MDRD) Non-Af BUN/Creatinine Ratio Glucose Lactic Acid Calcium Prealbumin POC Glucose 267 H 198 H 10/28/20 10/28/20 10/28/20 20:13 21:35 21:46 WBC RBC Hgb 14.1 Hct 40.2 MCV MCH MCHC RDW Std Deviation RDW Coeff of Marquis Plt Count MPV Immature Gran % (Auto) Neut % (Auto) Lymph % (Auto) [place]lor % (Auto) Eos % (Auto) Baso % (Auto) Absolute Neuts (auto) Absolute Lymphs (auto) Nucleated RBC % Diff Path Review Sodium Potassium Chloride Carbon Dioxide Anion Gap BUN Creatinine Estim Creat Clear Calc Est GFR (MDRD) Af Amer Est GFR (MDRD) Non-Af BUN/Creatinine Ratio Glucose Lactic Acid 1.5 Calcium Prealbumin POC Glucose 265 H 10/29/20 10/29/20 10/29/20 05:38 05:38 06:34 WBC 27.5 H RBC 4.17 L Hgb 13.1 Hct 38.4 L MCV 92.1 MCH 31.4 MCHC 34.1 RDW Std Deviation 42.5 RDW Coeff of Marquis 12.6 Plt Count 327 MPV 8.8 Immature Gran % (Auto) 1.800 H Neut % (Auto) 87.9 H Lymph % (Auto) 2.8 L [place]lor % (Auto) 7.2 Eos % (Auto) 0.0 Baso % (Auto) 0.3 Absolute Neuts (auto) 24.2 H Absolute Lymphs (auto) 0.76 L Nucleated RBC % 0 [address] Review May foll Sodium 135 L Potassium 3.8 Chloride 100 Carbon Dioxide 26.0 Anion Gap 9 BUN 28 H Creatinine 1.70 H Estim Creat Clear Calc 42.94 Est GFR (MDRD) Af Amer 52 L Est GFR (MDRD) Non-Af 43 L BUN/Creatinine Ratio 16.5 Glucose 157 H Lactic Acid Calcium 8.6 Prealbumin 8.8 L POC Glucose 181 H Micro: Microbiology 10/25/20 07:30 Bite - Arm Gram Stain - Final 10/25/20 07:30 Bite - Arm Wound Culture - Preliminary Pasteurella canis Staphylococcus species 10/27/20 18:00 Mucosa - Nose SARS-CoV-2 Antigen (Rapid) - Final 10/25/20 07:45 Blood Culture (Wb) - Left Wrist Blood Culture - Preliminary No growth in 48 hours. 10/25/20 07:35 Blood Culture (Wb) - Anticubital Left Blood Culture - Preliminary No growth in 48 hours. Radiography Diagnostic Testing: Radiology Impression Echocardiogram 10/26/20 05:55 Interpretation Summary The study was technically difficult. Contrast injection was performed. Based upon the 2D echocardiographic and contrast enhanced images obtained there appears to be grossly normal left ventricular size, wall motion, and systolic function. The estimated ejection fraction is 55 %. Moderate concentric left ventricular hypertrophy. The left atrium is mildly enlarged. Mild diffuse mitral valve thickening. The mitral valve chordae are thickened and/or calcified. Mild (1+) mitral valve insufficiency. Trivial tricuspid valve insufficiency. Aortic valve sclerosis/mild aortic valve stenosis. Mild (1+) pulmonic valve insufficiency. Unable to estimate RV systolic pressure/pulmonary artery pressure due to technically difficult study. Transmitral diastolic flow velocities suggest diastolic dysfunction (pseudonormal pattern). Ordering Physician: Benita Shaver Referring Physician: [facility] Performed By: Antione Tate RCS Physical Exam Narrative PHYSICAL EXAMINATION General - Alert and Oriented. HEENT - PERRL. EOMI. Extremities - FROM left upper extremity. No axillary adenopathy. Radial pulses are palpable. Right forearm and wrist wounds are stable. No active bleeding noted. Muscles are viable. No evidence of persistent purulent drainage noted. Mild finger swelling. The wounds are tender to palpation. The Betadine dressing change was quite painful. Neuro - CN II-XII grossly intact. Psych - Normal mood and affect. Assessment & Plan Assessment/Plan (1) Dog bite: (2) Abscess of skin of right wrist: (3) Abscess of bursa of right forearm: (4) Extensor tenosynovitis of right wrist: (5) Diabetes: (6) Former smoker: (7) Open wound of right forearm due to dog bite: (8) Open wound of right wrist due to dog bite: PLAN: Betadine dressing change was quite painful. Wounds were clean with no further evidence of purulence. Muscles appear viable. No active bleeding seen. There was dried blood on the dressing. Hgb is 13.1. Patient is on Zosyn. Operative cultures are pending. Will add Neurontin for the burning nerve pain. There is exposed irritated muscle. Will add Valium as needed for muscle spasm. Will add a Duragesic Patch to aid in pain control. The dressing changes will be difficult at home initially. Discussed with the patient about going to an ECF for short term until the dressing changes can be tolerated at home. He was in agreement. Prealbumin was 8.8. Encourage nutritional supplementation with protein to help the healing process. Encourage range of motion exercises to minimize stiffness. He is at risk for developing stiffness. Will need OT after discharge for range of motion exercises, strengthening, and edema management.
[2020-10-29] MEDS: Gabapentin 300 MG Capsule PO ×2 (11:44→17:11)
[2020-10-29 12:31] LABS: Bedside Glucose 155 mg/dL (70-110)
--- NOTE | 2020-10-29 13:22 | PN.HOSP_ITS ---
Subjective Subjective Feels little better today, arm is still sore and it was just recently dressed by plastic surgery. Objective Data Objective Data Vital Signs: Vital Signs Temp Pulse Resp BP Pulse Ox 97.6 F L 89 24 H 127/84 H 98 10/29/20 11:40 10/29/20 11:40 10/29/20 11:40 10/29/20 11:40 10/29/20 11:40 Oxygen Flow Rate (L/min) 2 Oxygen Delivery Method Nasal Cannula Weight: 206 lb 9.17 oz Body Mass Index (BMI) 29.6 Intake & Output: Intake and Output for Last 24 Hours 10/28/20 10/29/20 10/30/20 03:59 03:59 03:59 Intake Total 1946.63 / 1963.05 785.13 / 785.13 410 / 410 Output Total 1150 / 1150 1150 / 1150 825 / 825 Balance 796.63 / 813.05 -364.87 / -364.87 -415 / -415 Lab / Micro Data Result Diagrams: 10/29/20 05:38 10/29/20 05:38 Labs: Laboratory Results - last 24 hr 10/28/20 10/28/20 10/28/20 16:15 20:13 21:35 WBC RBC Hgb 14.1 Hct 40.2 MCV MCH MCHC RDW Std Deviation RDW Coeff of Marquis Plt Count MPV Immature Gran % (Auto) Neut % (Auto) Lymph % (Auto) [place] % (Auto) Eos % (Auto) Baso % (Auto) Absolute Neuts (auto) Absolute Lymphs (auto) Nucleated RBC % Diff Path Review Sodium Potassium Chloride Carbon Dioxide Anion Gap BUN Creatinine Estim Creat Clear Calc Est GFR (MDRD) Af Amer Est GFR (MDRD) Non-Af BUN/Creatinine Ratio Glucose Lactic Acid 1.5 Calcium Prealbumin POC Glucose 198 H 10/28/20 10/29/20 10/29/20 21:46 05:38 05:38 WBC 27.5 H RBC 4.17 L Hgb 13.1 Hct 38.4 L MCV 92.1 MCH 31.4 MCHC 34.1 RDW Std Deviation 42.5 RDW Coeff of Marquis 12.6 Plt Count 327 MPV 8.8 Immature Gran % (Auto) 1.800 H Neut % (Auto) 87.9 H Lymph % (Auto) 2.8 L [place] % (Auto) 7.2 Eos % (Auto) 0.0 Baso % (Auto) 0.3 Absolute Neuts (auto) 24.2 H Absolute Lymphs (auto) 0.76 L Nucleated RBC % [address] Review May foll Sodium 135 L Potassium 3.8 Chloride 100 Carbon Dioxide 26.0 Anion Gap 9 BUN 28 H Creatinine 1.70 H Estim Creat Clear Calc 42.94 Est GFR (MDRD) Af Amer 52 L Est GFR (MDRD) Non-Af 43 L BUN/Creatinine Ratio 16.5 Glucose 157 H Lactic Acid Calcium 8.6 Prealbumin 8.8 L POC Glucose 265 H 10/29/20 10/29/20 06:34 11:35 WBC RBC Hgb Hct MCV MCH MCHC RDW Std Deviation RDW Coeff of Marquis Plt Count MPV Immature Gran % (Auto) Neut % (Auto) Lymph % (Auto) [place] % (Auto) Eos % (Auto) Baso % (Auto) Absolute Neuts (auto) Absolute Lymphs (auto) Nucleated RBC % Diff Path Review Sodium Potassium Chloride Carbon Dioxide Anion Gap BUN Creatinine Estim Creat Clear Calc Est GFR (MDRD) Af Amer Est GFR (MDRD) Non-Af BUN/Creatinine Ratio Glucose Lactic Acid Calcium Prealbumin POC Glucose 181 H 155 H Micro: Microbiology 10/28/20 14:20 Tissue - Arm Gram Stain - Final 10/28/20 14:20 Tissue - Arm Wound Culture - Preliminary No growth-Final to follow 10/25/20 07:30 Bite - Arm Gram Stain - Final 10/25/20 07:30 Bite - Arm Wound Culture - Preliminary Pasteurella canis Staphylococcus species 10/27/20 18:00 Mucosa - Nose SARS-CoV-2 Antigen (Rapid) - Final 10/25/20 07:45 Blood Culture (Wb) - Left Wrist Blood Culture - Preliminary No growth in 48 hours. 10/25/20 07:35 Blood Culture (Wb) - Anticubital Left Blood Culture - Preliminary No growth in 48 hours. Physical Exam Const alert, oriented x3 and no apparent distress General Appearance: cooperative Exam Limitations: no limitations HEENT normocephalic and moist oral mucous membranes Eyes PERRL, EOMs intact bilaterally and conjunctivae normal Neck supple and no JVD Resp normal respiratory effort, no retractions, no use of accessory muscles and clear to auscultation bilaterally Resp Narrative: Diminished breath sounds bibasilally. No wheezes or crackles. On 5L of oxygen Auscultation: diminished lung sounds; Negative for crackles, rales, rhonchi or wheezes Cardio regular rate, regular rhythm, S1 normal heart sound, S2 normal heart sound and no murmurs GI soft to palpation, non-tender and non-distended; Negative for hepatosplenomegaly Extremity no clubbing, cyanosis or edema Extremity Narrative: RUE wrapped in bandage Skin Skin Narrative: Right upper extremity wrapped Neuro no focal motor deficits and no sensory deficits noted Sensorium / Orientation: awake and alert Psych affect normal Appearance: appropriate Assessment & Plan Assessment/Plan (1) Dog bite: (2) Cellulitis of forearm, right: (3) Hypokalemia: PLAN: #nonstemi * s/p cardiac cath which showed elevated left ventricular end-diastolic pressure and mild to moderate left ventricular systolic dysfunction with EF of 40% and [place] multivessel CAD with THRASHER to the LAD patent and occluded grafts to of the obtuse marginal arteries with left to right collateral flows and left to left collateral flows. * cardiology on board. medical management advised * 2D echo: EF of 55% * 10/29/2020: Remains stable #Afib * still remains tachycardic * per cardiology, to be weaned off amiodarone drip and transitioned to PO a miodarone today * on heparin drip * Cardiology on board. * 10/29/2020: With A. fib continue with beta-blockers and amiodarone was been transitioned to p.o. #Acute heart failure with reduced EF * BNP was over 600. * Been diuresed with IV Lasix. 2D echo pending. * Cardiac cath showed EF of 40% * Monitor intake and output. Fluid restriction 1500 cc daily. * Patient counseled to use his breathing treatments as needed. * 10/29/2020: Down to 2 to 3 L nasal cannula continue with fluid restriction #Acute respiratory failure due to heart failure non-STEMI * As above. Patient currently on 5 L of oxygen. Titrate oxygen to maintain saturation above 90%. * On breathing treatments of bronchodilators. #RUE cellulitis due to dog bite * on IV cefazolin. * plastic surgery on board * wound cultures growing Pasteurella amd Staphylococcus species. which is rare * blood cultures show no growth ovr 48 hours. * wound care on board * for debridement by plastic surgery today * wbc elevated today at 24.6 * 10/29/2020: For some reason was discontinued from his Ancef and placed on Zosyn however his white count continued to climb therefore we will do both in consult infectious disease on Saturday #Hypokalemia: resolved. K is 3.3 today. Will replace and trend. #Type 2 diabetes mellitus * on glipizide 10mg daily. ISS. Accuchecks ACHS * #CKD stage 3: Cr is 1.7/ Was 1.46 on admission, baseline not known. Will trend #Hypertension; on metoprolol and furosemide DVT: SCDs Charges/Coding Visit Charges Inpatient E&M: 75184 Subs Hosp L2
--- NOTE | 2020-10-29 14:49 | PN.CARD_ITS ---
Subjective Subjective Seen today and discussed cardiac care plan with the nursing staff No symptoms of chest pain reported Objective Data Vital Signs: Vital Signs Temp Pulse Resp BP Pulse Ox 97.6 F L 89 24 H 127/84 H 98 10/29/20 11:40 10/29/20 11:40 10/29/20 11:40 10/29/20 11:40 10/29/20 11:40 Oxygen Flow Rate (L/min) 2 Oxygen Delivery Method Nasal Cannula Weight: 206 lb 9.17 oz Body Mass Index (BMI) 29.6 Intake & Output: Intake and Output for Last 24 Hours 10/27/20 10/28/20 10/29/20 23:59 23:59 23:59 Intake Total 2176.80 / 2193.50 802.21 / 802.21 460 / 460 Output Total 1750 / 1750 1150 / 1150 825 / 825 Balance 426.80 / 443.50 -347.79 / -347.79 -365 / -365 Lab / Micro Data Result Diagrams: 10/29/20 05:38 10/29/20 05:38 Labs: Laboratory Results - last 24 hr 10/28/20 10/28/20 10/28/20 16:15 20:13 21:35 WBC RBC Hgb 14.1 Hct 40.2 MCV MCH MCHC RDW Std Deviation RDW Coeff of Marquis Plt Count MPV Immature Gran % (Auto) Neut % (Auto) Lymph % (Auto) [place] % (Auto) Eos % (Auto) Baso % (Auto) Absolute Neuts (auto) Absolute Lymphs (auto) Nucleated RBC % Diff Path Review Sodium Potassium Chloride Carbon Dioxide Anion Gap BUN Creatinine Estim Creat Clear Calc Est GFR (MDRD) Af Amer Est GFR (MDRD) Non-Af BUN/Creatinine Ratio Glucose Lactic Acid 1.5 Calcium Prealbumin POC Glucose 198 H 10/28/20 10/29/20 10/29/20 21:46 05:38 05:38 WBC 27.5 H RBC 4.17 L Hgb 13.1 Hct 38.4 L MCV 92.1 MCH 31.4 MCHC 34.1 RDW Std Deviation 42.5 RDW Coeff of Marquis 12.6 Plt Count 327 MPV 8.8 Immature Gran % (Auto) 1.800 H Neut % (Auto) 87.9 H Lymph % (Auto) 2.8 L [place] % (Auto) 7.2 Eos % (Auto) 0.0 Baso % (Auto) 0.3 Absolute Neuts (auto) 24.2 H Absolute Lymphs (auto) 0.76 L Nucleated RBC % 0 Diff Path Review May foll Sodium 135 L Potassium 3.8 Chloride 100 Carbon Dioxide 26.0 Anion Gap 9 BUN 28 H Creatinine 1.70 H Estim Creat Clear Calc 42.94 Est GFR (MDRD) Af Amer 52 L Est GFR (MDRD) Non-Af 43 L BUN/Creatinine Ratio 16.5 Glucose 157 H Lactic Acid Calcium 8.6 Prealbumin 8.8 L POC Glucose 265 H 10/29/20 10/29/20 06:34 11:35 WBC RBC Hgb Hct MCV MCH MCHC RDW Std Deviation RDW Coeff of Marquis Plt Count MPV Immature Gran % (Auto) Neut % (Auto) Lymph % (Auto) [place] % (Auto) Eos % (Auto) Baso % (Auto) Absolute Neuts (auto) Absolute Lymphs (auto) Nucleated RBC % Diff Path Review Sodium Potassium Chloride Carbon Dioxide Anion Gap BUN Creatinine Estim Creat Clear Calc Est GFR (MDRD) Af Amer Est GFR (MDRD) Non-Af BUN/Creatinine Ratio Glucose Lactic Acid Calcium Prealbumin POC Glucose 181 H 155 H Micro: Microbiology 10/28/20 14:20 Tissue - Arm Gram Stain - Final 10/28/20 14:20 Tissue - Arm Wound Culture - Preliminary No growth-Final to follow 10/25/20 07:30 Bite - Arm Gram Stain - Final 10/25/20 07:30 Bite - Arm Wound Culture - Preliminary Pasteurella canis Staphylococcus species 10/27/20 18:00 Mucosa - Nose SARS-CoV-2 Antigen (Rapid) - Final 10/25/20 07:45 Blood Culture (Wb) - Left Wrist Blood Culture - Preliminary No growth in 48 hours. 10/25/20 07:35 Blood Culture (Wb) - Anticubital Left Blood Culture - Preliminary No growth in 48 hours. Cardiology Labs/Tests 10/28/20 20:13: Hgb 14.1, Hct 40.2 10/28/20 21:35: Lactic Acid 1.5 10/29/20 05:38: WBC 27.5 H, RBC 4.17 L, Hgb 13.1, Hct 38.4 L, MCV 92.1, MCH 31.4, MCHC 34.1, Plt Count 327, MPV 8.8, Immature Gran % (Auto) 1.800 H, Neut % (Auto) 87.9 H, Lymph % (Auto) 2.8 L, [place] % (Auto) 7.2, Eos % (Auto) 0.0, Baso % (Auto) 0.3, Absolute Neuts (auto) 24.2 H, Nucleated RBC % 0 10/29/20 05:38: Sodium 135 L, Potassium 3.8, Chloride 100, Carbon Dioxide 26.0, Anion Gap 9, BUN 28 H, Creatinine 1.70 H, Est GFR (MDRD) Af Amer 52 L, Est GFR ( MDRD) Non-Af 43 L, BUN/Creatinine Ratio 16.5, Glucose 157 H, Calcium 8.6 Rhythm normal sinus rhythm Physical Exam Narrative Alert orientated Cardiac rhythm on telemetry normal sinus rhythm Cardiac examination S1-S2 regular no murmur Chest examination clear to auscultation. Assessment & Plan Assessment/Plan (1) Extensor tenosynovitis of right wrist: (2) Abscess of bursa of right forearm: (3) Atherosclerotic heart disease of [place] coronary artery without angina pectoris: PLAN: 70-year-old patient who have a cellulitis of the right forearm with the dog bite Patient had coronary atherosclerosis with coronary artery bypass surgery Underwent cardiac catheterization by his primary workers compensation examiner Dr. Tejada Which revealed severe [place] coronary atherosclerosis with patent THRASHER to LAD, occluded SVG to OM1 and occluded SVG to OM 2 and [id number] collateral With reduced ejection fraction by cardiac catheterization from 40% currently on medical treatment As well patient had paroxysmal atrial fibrillation converted to normal sinus rhythm and currently on amiodarone p.o. as well as a beta-alma delia He had cellulitis and bleeding at the right forearm and he is not on any anticoagulation due to risk of bleed and We will continue to monitor and follow-up clinically and will discuss the need of anticoagulation to prevent stroke as he is a very high risk patient This can be set up once there is no current indication of bleeding. (4) Cellulitis of forearm, right: (5) CHF (congestive heart failure): QUALIFIERS: Heart failure type: systolic Heart failure chronicity: acute on chronic Qualified Code(s): I50.23 - Acute on chronic systolic (congestive) heart failure (6) Atrial fibrillation: QUALIFIERS: Atrial fibrillation type: unspecified Qualified Code(s): I48.91 - Unspecified atrial fibrillation (7) S/P CABG (coronary artery bypass graft): (8) Dog bite: (9) History of diabetes mellitus: (10) Hypokalemia:
[2020-10-29] MEDS: Cefazolin 2 GM in 0.9% Normal Saline 100 ML IV ×2 (17:00→22:09)
[2020-10-29 17:16] LABS: Bedside Glucose 208 mg/dL (70-110)
--- NOTE | 2020-10-29 17:23 | PN_ITS ---
Progress Note Came in to see patient because of concerns about oozing from the operative dressing. He was resting comfortably. He was afebrile. BP 115/76. Pulse 88. Hgb this morning was 13.1. On exam, there was some blood staining on the volar aspect and dorsal ulnar aspect of the dressing. The dressing was removed. More tolerated than earlier in the day. No active bleeding was seen. The areas of blood staining were clotted. Redressed with Betadine dressing and Kerlix gauze followed by dry Kerlix gauze and ABD pads and javier wrap compression. Continue right upper extremity elevation. Recheck Hgb daily. Will continue to monitor. Anticipate some blood staining on the dressing because of the patient being on a heparin drip for his atrial fibri llation.. Thus far no active bleeding seen during the dressing changes.
[2020-10-29 22:40] LABS: Bedside Glucose 206 mg/dL (70-110)
[2020-10-30] VITALS (16 sets, daily range): BP systolic 97–131; BP diastolic 49–87; PULSE 79–107; RESP 16–20; TEMP 36.6–36.8; O2SAT 96–100
[2020-10-30] MEDS: HYDROmorphone 1 MG/ML Syringe IV ×7 (02:25→22:03)
[2020-10-30] MEDS: 0.9% Saline Lock 10 ML Syringe IV ×7 (02:28→22:03)
[2020-10-30] MEDS: Cefazolin 2 GM in 0.9% Normal Saline 100 ML IV ×3 (05:20→22:03)
[2020-10-30] MEDS: Amiodarone 200 MG Tablet PO ×3 (05:20→22:01)
[2020-10-30] MEDS: Pentoxifylline 400 MG Tablet PO ×3 (05:20→22:01)
[2020-10-30 05:51] LABS: Absolute Lymphocyte Count 0.87 X10^3/uL (0.83-4.51); Absolute Neutrophil Count 20.4 X10^3/uL (2.0-7.7); Basophil# 0.05 X10^3/uL; Basophil% 0.2 % (0-1); Eosinophil# 0.04 X10^3/uL; Eosinophils% 0.2 % (0-5); Hematocrit 29.5 % (40-54); Hemoglobin 9.9 g/dL (13.0-16.5); Lymphocyte # 0.87 X10^3/ul (0.83-4.51); Lymphocyte % 3.7 % (19-41); Mean Corp Hgb Conc 33.6 g/dL (32-36); Mean Corpuscular Volume 92.5 fL (80-94); Mean Platelet Vol. 9.1 fl (6.2-12.0); Monocyte# 1.49 X10^3/uL; Monocyte% 6.4 % (0-10); NRBC Flagged by Analyzer 0 % (0-5); Neutrophil # 20.44 X10^3/uL (2.7-7.7); Neutrophil % 87.6 % (47-70); POSITIVE DIFFERENTIAL YES; Platelet Count 269 K/mm3 (150-450); RBC Distribution Width CV 12.6 % (11.6-14.6); RBC Distribution Width SD 42.3 fl (35.1-43.9); Red Blood Count 3.19 M/mm3 (4.6-6.2); White Blood Count 23.3 K/mm3 (4.4-11.0)
[2020-10-30 06:08] LABS: Differential Indicated SCAN CRITERIA MET
[2020-10-30 06:26] LABS: Anion Gap 11 (5-15); BUN 31 mg/dL (7-18); Calcium,Total 8.1 mg/dL (8.5-10.1); Chloride 101 mmol/L (98-107); Creatinine, Serum 1.63 mg/dL (0.70-1.30); EST Glomerular Filtration Rate 45 mL/min (>60); Est Glom Filt Rate - Afr Amer 54 mL/min (>60); Estimated Creatinine Clearance 44.79 ml/min; Glucose 191 mg/dL (74-106); Potassium 3.4 mmol/L (3.5-5.1); Sodium Level 137 mmol/L (136-145)
[2020-10-30] MEDS: Insulin Lispro 100 UNIT/ML INSULN.PEN SC ×4 (06:34→22:02)
[2020-10-30 06:41] LABS: Bedside Glucose 177 mg/dL (70-110)
[2020-10-30] MEDS: Ipratropium/Albuterol Sulfate 3 ML AMPUL.NEB INHALATION ×4 (06:53→18:46)
[2020-10-30] MEDS: amLODIPine 10 MG Tablet PO (10:18)
[2020-10-30] MEDS: Pantoprazole Sodium 20 MG Tablet PO (10:18)
[2020-10-30] MEDS: Metoprolol(XL)Succ 200 MG Tablet PO (10:18)
[2020-10-30] MEDS: Aspirin 81 MG TAB.CHEW PO (10:19)
[2020-10-30] MEDS: Paroxetine 20 MG Tablet 40 MG PO (10:19)
[2020-10-30] MEDS: Furosemide 40 MG/4 ML Vial IV (10:20)
[2020-10-30] MEDS: Gabapentin 300 MG Capsule PO ×3 (10:24→17:21)
--- NOTE | 2020-10-30 10:45 | PN.HOSP_ITS ---
Subjective Subjective See paper chart for billing and note Objective Data Objective Data Vital Signs: Vital Signs Temp Pulse Resp BP Pulse Ox 98.3 F 85 20 H 118/75 100 10/30/20 10:00 10/30/20 10:18 10/30/20 10:00 10/30/20 10:00 10/30/20 10:00 Oxygen Flow Rate (L/min) 2 Oxygen Delivery Method Nasal Cannula Weight: 206 lb 9.17 oz Body Mass Index (BMI) 29.6 Intake & Output: Intake and Output for Last 24 Hours 10/29/20 10/30/20 10/31/20 03:59 03:59 03:59 Intake Total 785.13 / 785.13 970 / 970 110 / 110 Output Total 1150 / 1150 825 / 825 Balance -364.87 / -364.87 145 / 145 110 / 110 Lab / Micro Data Result Diagrams: 10/30/20 15:30 10/30/20 04:55 Labs: Laboratory Results - last 24 hr 10/29/20 10/29/20 10/29/20 11:35 17:02 21:46 WBC RBC Hgb Hct MCV MCH MCHC RDW Std Deviation RDW Coeff of Marquis Plt Count MPV Immature Gran % (Auto) Neut % (Auto) Lymph % (Auto) [place] % (Auto) Eos % (Auto) Baso % (Auto) Absolute Neuts (auto) Absolute Lymphs (auto) Nucleated RBC % Sodium Potassium Chloride Carbon Dioxide Anion Gap BUN Creatinine Estim Creat Clear Calc Est GFR (MDRD) Af Amer Est GFR (MDRD) Non-Af BUN/Creatinine Ratio Glucose Calcium POC Glucose 155 H 208 H 206 H 10/30/20 10/30/20 10/30/20 04:55 04:55 06:30 WBC 23.3 H RBC 3.19 L Hgb 9.9 L Hct 29.5 L MCV 92.5 MCH 31.0 MCHC 33.6 RDW Std Deviation 42.3 RDW Coeff of Marquis 12.6 Plt Count 269 MPV 9.1 Immature Gran % (Auto) 1.900 H Neut % (Auto) 87.6 H Lymph % (Auto) 3.7 L [place] % (Auto) 6.4 Eos % (Auto) 0.2 Baso % (Auto) 0.2 Absolute Neuts (auto) 20.4 H Absolute Lymphs (auto) 0.87 Nucleated RBC % 0 Sodium 137 Potassium 3.4 L Chloride 101 Carbon Dioxide 25.0 Anion Gap 11 BUN 31 H Creatinine 1.63 H Estim Creat Clear Calc 44.79 Est GFR (MDRD) Af Amer 54 L Est GFR (MDRD) Non-Af 45 L BUN/Creatinine Ratio 19.0 Glucose 191 H Calcium 8.1 L POC Glucose 177 H Micro: Microbiology 10/28/20 14:20 Tissue - Arm Gram Stain - Final 10/28/20 14:20 Tissue - Arm Wound Culture - Preliminary No growth-Final to follow 10/28/20 14:20 Tissue - Arm Anaerobic Culture - Preliminary Checking for anaerobes, further studies to follow. 10/25/20 07:35 Blood Culture (Wb) - Anticubital Left Blood Culture - Final No growth in 5 days. 10/25/20 07:45 Blood Culture (Wb) - Left Wrist Blood Culture - Final No growth in 5 days. 10/25/20 07:30 Bite - Arm Gram Stain - Final 10/25/20 07:30 Bite - Arm Wound Culture - Final Pasteurella canis Staphylococcus aureus 10/27/20 18:00 Mucosa - Nose SARS-CoV-2 Antigen (Rapid) - Final
[2020-10-30 12:40] LABS: Bedside Glucose 211 mg/dL (70-110)
[2020-10-30 15:41] LABS: Hematocrit 25.5 % (40-54); Hemoglobin 8.7 g/dL (13.0-16.5)
[2020-10-30 17:56] LABS: Bedside Glucose 216 mg/dL (70-110)
[2020-10-30] MEDS: Potassium Chloride Oral Tablet 20 MEQ 40 MEQ PO (18:54)
--- NOTE | 2020-10-30 19:48 | PCM.PN.SRG ---
Subjective Subjective Postop #2 Patient is resting comfortably. Tolerating the dressing change a little easier. Still very painful. Still needs IV analgesia. Blood staining on the dressing stable. No active bleeding seen with the dressing change. Objective Data Objective Data Vital Signs: Vital Signs Temp Pulse Resp BP Pulse Ox 97.8 F 100 20 H 97/49 L 97 10/30/20 19:11 10/30/20 19:11 10/30/20 19:11 10/30/20 19:11 10/30/20 19:11 Oxygen Flow Rate (L/min) 2 Oxygen Delivery Method Room Air Weight: 206 lb 9.17 oz Body Mass Index (BMI) 29.6 Intake & Output: Intake and Output for Last 24 Hours 10/28/20 10/29/20 10/30/20 23:59 23:59 23:59 Intake Total 802.21 / 802.21 970 / 970 850 / 850 Output Total 1150 / 1150 825 / 825 600 / 600 Balance -347.79 / -347.79 145 / 145 250 / 250 Lab / Micro Data Attestation: I reviewed the patient's lab results. Result Diagrams: 10/31/20 05:24 10/31/20 05:24 Labs: Laboratory Results - last 24 hr 10/29/20 10/30/20 10/30/20 21:46 04:55 04:55 WBC 23.3 H RBC 3.19 L Hgb 9.9 L Hct 29.5 L MCV 92.5 MCH 31.0 MCHC 33.6 RDW Std Deviation 42.3 RDW Coeff of Marquis 12.6 Plt Count 269 MPV 9.1 Immature Gran % (Auto) 1.900 H Neut % (Auto) 87.6 H Lymph % (Auto) 3.7 L [place] % (Auto) 6.4 Eos % (Auto) 0.2 Baso % (Auto) 0.2 Absolute Neuts (auto) 20.4 H Absolute Lymphs (auto) 0.87 Nucleated RBC % 0 Sodium 137 Potassium 3.4 L Chloride 101 Carbon Dioxide 25.0 Anion Gap 11 BUN 31 H Creatinine 1.63 H Estim Creat Clear Calc 44.79 Est GFR (MDRD) Af Amer 54 L Est GFR (MDRD) Non-Af 45 L BUN/Creatinine Ratio 19.0 Glucose 191 H Calcium 8.1 L POC Glucose 206 H 10/30/20 10/30/20 10/30/20 06:30 12:32 15:30 WBC RBC Hgb 8.7 L Hct 25.5 L MCV MCH MCHC RDW Std Deviation RDW Coeff of Marquis Plt Count MPV Immature Gran % (Auto) Neut % (Auto) Lymph % (Auto) [place] % (Auto) Eos % (Auto) Baso % (Auto) Absolute Neuts (auto) Absolute Lymphs (auto) Nucleated RBC % Sodium Potassium Chloride Carbon Dioxide Anion Gap BUN Creatinine Estim Creat Clear Calc Est GFR (MDRD) Af Amer Est GFR (MDRD) Non-Af BUN/Creatinine Ratio Glucose Calcium POC Glucose 177 H 211 H 10/30/20 17:18 WBC RBC Hgb Hct MCV MCH MCHC RDW Std Deviation RDW Coeff of Marquis Plt Count MPV Immature Gran % (Auto) Neut % (Auto) Lymph % (Auto) [place] % (Auto) Eos % (Auto) Baso % (Auto) Absolute Neuts (auto) Absolute Lymphs (auto) Nucleated RBC % Sodium Potassium Chloride Carbon Dioxide Anion Gap BUN Creatinine Estim Creat Clear Calc Est GFR (MDRD) Af Amer Est GFR (MDRD) Non-Af BUN/Creatinine Ratio Glucose Calcium POC Glucose 216 H Micro: Microbiology 10/28/20 14:20 Tissue - Arm Gram Stain - Final 10/28/20 14:20 Tissue - Arm Wound Culture - Preliminary No growth-Final to follow 10/28/20 14:20 Tissue - Arm Anaerobic Culture - Preliminary Checking for anaerobes, further studies to follow. 10/25/20 07:35 Blood Culture (Wb) - Anticubital Left Blood Culture - Final No growth in 5 days. 10/25/20 07:45 Blood Culture (Wb) - Left Wrist Blood Culture - Final No growth in 5 days. 10/25/20 07:30 Bite - Arm Gram Stain - Final 10/25/20 07:30 Bite - Arm Wound Culture - Final Pasteurella canis Staphylococcus aureus 10/27/20 18:00 Mucosa - Nose SARS-CoV-2 Antigen (Rapid) - Final Physical Exam Narrative General - Alert and Oriented. HEENT - PERRL. EOMI. Extremities - FROM left upper extremity. No axillary adenopathy. Radial pulses are palpable. Right forearm and wrist wounds are stable. No active bleeding noted. Muscles are viable. No evidence of persistent purulent drainage noted. Mild finger swelling. The wounds are tender to palpation. The Betadine dressing change was was a little better but still painful. He still needs IV analgesia. Neuro - CN II-XII grossly intact. Psych - Normal mood and affect. Assessment & Plan Assessment/Plan (1) Dog bite: (2) Abscess of bursa of right forearm: (3) Abscess of skin of right wrist: (4) Extensor tenosynovitis of right wrist: (5) Open wound of right forearm due to dog bite: (6) Open wound of right wrist due to dog bite: (7) Diabetes: (8) Former smoker: PLAN: Betadine dressing change was a little easier but still painful. Still needs IV analgesia. Wounds were clean with no further evidence of purulence. Muscles appear viable. No active bleeding seen. There was dried blood on the dressing. Hgb was 9.9 in the morning and 8.7 in the afternoon. He has acute postoperative anemia from expected blood loss. From the dressing changes, I anticipate approximately half a unit since surgery. Patient is also on a heparin drip for his atrial fibrillation. Patient is on Zosyn. Operative cultures are pending. The dressing changes will be difficult at home initially. Discussed with the patient about going to an ECF for short term until the dressing changes can be tolerated at home. He was in agreement. Prealbumin was 8.8. Encourage nutritional supplementation with protein to help the healing process. Encourage range of motion exercises to minimize stiffness. He is at risk for developing stiffness. Will need OT after discharge for range of motion exercises, strengthening, and edema management. His WBC is slowly coming down. Would benefit from another incision and drainage and irrigation of his wounds on Saturday unless the WBC continues to improve.
[2020-10-30 22:21] LABS: Bedside Glucose 273 mg/dL (70-110)
[2020-10-31] VITALS (16 sets, daily range): BP systolic 80–125; BP diastolic 50–104; PULSE 66–112; RESP 16–20; TEMP 35.6–36.9; O2SAT 90–96
[2020-10-31] MEDS: HYDROmorphone 1 MG/ML Syringe IV ×6 (02:45→18:19)
[2020-10-31] MEDS: 0.9% Saline Lock 10 ML Syringe IV ×7 (02:46→18:20)
[2020-10-31 05:49] LABS: Absolute Lymphocyte Count 1.13 X10^3/uL (0.83-4.51); Absolute Neutrophil Count 17.4 X10^3/uL (2.0-7.7); Basophil# 0.04 X10^3/uL; Basophil% 0.2 % (0-1); Eosinophil# 0.09 X10^3/uL; Eosinophils% 0.4 % (0-5); Hematocrit 25.4 % (40-54); Hemoglobin 8.6 g/dL (13.0-16.5); Lymphocyte # 1.13 X10^3/ul (0.83-4.51); Lymphocyte % 5.5 % (19-41); Mean Corp Hgb Conc 33.9 g/dL (32-36); Mean Corpuscular Hgb 31.3 pg (27.0-32.0); Mean Corpuscular Volume 92.4 fL (80-94); Mean Platelet Vol. 9.1 fl (6.2-12.0); Monocyte# 1.31 X10^3/uL; Monocyte% 6.4 % (0-10); NRBC Flagged by Analyzer 0 % (0-5); Neutrophil # 17.39 X10^3/uL (2.7-7.7); Neutrophil % 85.4 % (47-70); Platelet Count 304 K/mm3 (150-450); RBC Distribution Width SD 43.2 fl (35.1-43.9); Red Blood Count 2.75 M/mm3 (4.6-6.2); White Blood Count 20.4 K/mm3 (4.4-11.0)
[2020-10-31 06:13] LABS: Anion Gap 11 (5-15); BUN 33 mg/dL (7-18); Calcium,Total 7.9 mg/dL (8.5-10.1); Chloride 103 mmol/L (98-107); Creatinine, Serum 1.83 mg/dL (0.70-1.30); EST Glomerular Filtration Rate 39 mL/min (>60); Est Glom Filt Rate - Afr Amer 48 mL/min (>60); Estimated Creatinine Clearance 39.89 ml/min; Glucose 207 mg/dL (74-106); Potassium 3.3 mmol/L (3.5-5.1); Sodium Level 137 mmol/L (136-145)
[2020-10-31] MEDS: Amiodarone 200 MG Tablet PO ×3 (06:13→22:19)
[2020-10-31] MEDS: Pentoxifylline 400 MG Tablet PO ×3 (06:13→21:26)
[2020-10-31] MEDS: Cefazolin 2 GM in 0.9% Normal Saline 100 ML IV ×3 (06:13→21:21)
[2020-10-31] MEDS: Insulin Lispro 100 UNIT/ML INSULN.PEN SC ×4 (06:24→21:21)
[2020-10-31 06:35] LABS: Bedside Glucose 217 mg/dL (70-110)
[2020-10-31] MEDS: Ipratropium/Albuterol Sulfate 3 ML AMPUL.NEB INHALATION ×4 (07:01→20:23)
[2020-10-31] MEDS: Paroxetine 20 MG Tablet 40 MG PO (09:17)
[2020-10-31] MEDS: Pantoprazole Sodium 20 MG Tablet PO (09:17)
[2020-10-31] MEDS: Metoprolol(XL)Succ 200 MG Tablet PO (09:17)
[2020-10-31] MEDS: amLODIPine 10 MG Tablet PO (09:17)
[2020-10-31] MEDS: Aspirin 81 MG TAB.CHEW PO (09:17)
[2020-10-31] MEDS: Gabapentin 300 MG Capsule PO ×3 (09:17→16:45)
[2020-10-31] MEDS: Acetaminophen 325 MG Tablet 650 MG PO ×3 (09:18→21:48)
[2020-10-31] MEDS: Iron Polysaccharide Complex 150 MG CAPSULE PO (10:49)
--- NOTE | 2020-10-31 11:41 | PN_ITS ---
Progress Note Doing well, no issues overnight. It does appear that the bleeding from his arm has stopped and he is feeling much better with the addition of Ancef to his Zosyn. Assessment/Plan (1) Dog bite: (2) Cellulitis of forearm, right: (3) Hypokalemia: PLAN: #nonstemi s/p cardiac cath which showed elevated left ventricular end-diastolic pressure and mild to moderate left ventricular systolic dysfunction with EF of 40% and nez perce multivessel CAD with THRASHER to the LAD patent and occluded grafts to of the obtuse marginal arteries with left to right collateral flows and left to left collateral flows. cardiology on board. medical management advised 2D echo: EF of 55% 10/29/2020: Remains stable #Afib still remains tachycardic per cardiology, to be weaned off amiodarone drip and transitioned to PO amiodarone today on heparin drip Cardiology on board. 10/29/2020: With A. fib continue with beta-blockers and amiodarone was been transitioned to p.o. 10/31/2020: Remains stable #Acute heart failure with reduced EF BNP was over 600. Been diuresed with IV Lasix. 2D echo pending. Cardiac cath showed EF of 40% Monitor intake and output. Fluid restriction 1500 cc daily. Patient counseled to use his breathing treatments as needed. 10/29/2020: Down to 2 to 3 L nasal cannula continue with fluid restriction 10/31/2020: Oxygen stable on room air continue with fluid restriction and Lasix #Acute respiratory failure due to heart failure non-STEMI As above. Patient currently on 5 L of oxygen. Titrate oxygen to maintain saturation above 90%. On breathing treatments of bronchodilators. #RUE cellulitis due to dog bite on IV cefazolin. plastic surgery on board wound cultures growing Pasteurella amd Staphylococcus species. which is rare blood cultures show no growth ovr 48 hours. wound care on board for debridement by plastic surgery today wbc elevated today at 24.6 10/29/2020: For some reason was discontinued from his Ancef and placed on Zosyn however his white count continued to climb therefore we will do both in consult infectious disease on Saturday10/31/2020: White count is improving now that he is on Ancef and Zosyn, will plan for ID tomorrow. He did have significant blood loss from a hemoglobin of 13.1- 9.9 down to 8.7 yesterday. It does appear to have been stabilized with reinforce dressings. #Type 2 diabetes mellitus on glipizide 10mg daily. ISSJen LOPEZ #CKD stage 3: Cr is 1.7/ Was 1.46 on admission, baseline not known. Will trend 10/31/2020: Creatinine up to 1.83, will continue with Lasix and monitor closely if continues to rise we will discontinue his Lasix #Hypertension; on metoprolol and furosemide DVT: SCDs Physical Exam Const alert, oriented x3 and no apparent distress General Appearance: cooperative HEENT normocephalic and moist oral mucous membranes Eyes PERRL, EOMs intact bilaterally and conjunctivae normal Neck supple and no JVD Resp normal respiratory effort, normal air movement, no retractions, no use of accessory muscles and clear to auscultation bilaterally Auscultation: Negative for crackles, rales, rhonchi or wheezes Cardio regular rate, regular rhythm, S1 normal heart sound, S2 normal heart sound and no murmurs GI soft to palpation, non-tender and non-distended; Negative for hepatosplenomegaly Extremity no clubbing, cyanosis or edema Extremity Narrative: RUE wrapped in bandage Skin no rashes or lesions noted Neuro no focal motor deficits and no sensory deficits noted Psych affect normal Appearance: appropriate Visit Charges Inpatient E&M: 31180 Subs Hosp L2
--- NOTE | 2020-10-31 11:43 | PCM.PN.SRG ---
Subjective Subjective Postop #3 Patient is resting comfortably. Betadine dressing change slightly better but still painful. Still needs IV analgesia. Minimal blood staining seen on the dressing. Objective Data Objective Data Vital Signs: Vital Signs Temp Pulse Resp BP Pulse Ox 96.1 F L 90 18 111/72 91 10/31/20 09:15 10/31/20 11:03 10/31/20 11:03 10/31/20 10:55 10/31/20 11:03 Oxygen Flow Rate (L/min) 2 Oxygen Delivery Method Room Air Weight: 206 lb 9.17 oz Body Mass Index (BMI) 29.6 Intake & Output: Intake and Output for Last 24 Hours 10/29/20 10/30/20 10/31/20 23:59 23:59 23:59 Intake Total 970 / 970 1360 / 1360 410 / 410 Output Total 825 / 825 600 / 600 Balance 145 / 145 760 / 760 410 / 410 Lab / Micro Data Attestation: I reviewed the patient's lab results. Result Diagrams: 10/31/20 05:24 10/31/20 05:24 Labs: Laboratory Results - last 24 hr 10/30/20 10/30/20 10/30/20 12:32 15:30 17:18 WBC RBC Hgb 8.7 L Hct 25.5 L MCV MCH MCHC RDW Std Deviation RDW Coeff of Marquis Plt Count MPV Immature Gran % (Auto) Neut % (Auto) Lymph % (Auto) [place] % (Auto) Eos % (Auto) Baso % (Auto) Absolute Neuts (auto) Absolute Lymphs (auto) Nucleated RBC % Sodium Potassium Chloride Carbon Dioxide Anion Gap BUN Creatinine Estim Creat Clear Calc Est GFR (MDRD) Af Amer Est GFR (MDRD) Non-Af BUN/Creatinine Ratio Glucose Calcium POC Glucose 211 H 216 H 10/30/20 10/31/20 10/31/20 21:57 05:24 05:24 WBC 20.4 H RBC 2.75 L Hgb 8.6 L Hct 25.4 L MCV 92.4 MCH 31.3 MCHC 33.9 RDW Std Deviation 43.2 RDW Coeff of Marquis 13.0 Plt Count 304 MPV 9.1 Immature Gran % (Auto) 2.100 H Neut % (Auto) 85.4 H Lymph % (Auto) 5.5 L [place] % (Auto) 6.4 Eos % (Auto) 0.4 Baso % (Auto) 0.2 Absolute Neuts (auto) 17.4 H Absolute Lymphs (auto) 1.13 Nucleated RBC % 0 Sodium 137 Potassium 3.3 L Chloride 103 Carbon Dioxide 23.0 Anion Gap 11 BUN 33 H Creatinine 1.83 H Estim Creat Clear Calc 39.89 Est GFR (MDRD) Af Amer 48 L Est GFR (MDRD) Non-Af 39 L BUN/Creatinine Ratio 18.0 Glucose 207 H Calcium 7.9 L POC Glucose 273 H 10/31/20 06:22 WBC RBC Hgb Hct MCV MCH MCHC RDW Std Deviation RDW Coeff of Marquis Plt Count MPV Immature Gran % (Auto) Neut % (Auto) Lymph % (Auto) [place] % (Auto) Eos % (Auto) Baso % (Auto) Absolute Neuts (auto) Absolute Lymphs (auto) Nucleated RBC % Sodium Potassium Chloride Carbon Dioxide Anion Gap BUN Creatinine Estim Creat Clear Calc Est GFR (MDRD) Af Amer Est GFR (MDRD) Non-Af BUN/Creatinine Ratio Glucose Calcium POC Glucose 217 H Micro: Microbiology 10/28/20 14:20 Tissue - Arm Gram Stain - Final 10/28/20 14:20 Tissue - Arm Wound Culture - Preliminary No growth-Final to follow 10/28/20 14:20 Tissue - Arm Anaerobic Culture - Preliminary Checking for anaerobes, further studies to follow. 10/25/20 07:35 Blood Culture (Wb) - Anticubital Left Blood Culture - Final No growth in 5 days. 10/25/20 07:45 Blood Culture (Wb) - Left Wrist Blood Culture - Final No growth in 5 days. 10/25/20 07:30 Bite - Arm Gram Stain - Final 10/25/20 07:30 Bite - Arm Wound Culture - Final Pasteurella canis Staphylococcus aureus 10/27/20 18:00 Mucosa - Nose SARS-CoV-2 Antigen (Rapid) - Final Physical Exam Narrative General - Alert and Oriented. HEENT - PERRL. EOMI. Extremities - FROM left upper extremity. No axillary adenopathy. Radial pulses are palpable. Right forearm and wrist wounds are stable. No active bleeding noted. Muscles are viable. No evidence of persistent purulent drainage noted. Mild finger swelling. The wounds are tender to palpation. The Betadine dressing change was was a little better but still painful. He still needs IV analgesia. Neuro - CN II-XII grossly intact. Psych - Normal mood and affect. Assessment & Plan Assessment/Plan (1) Dog bite: (2) Abscess of bursa of right forearm: (3) Abscess of skin of right wrist: (4) Extensor tenosynovitis of right wrist: (5) Open wound of right forearm due to dog bite: (6) Open wound of right wrist due to dog bite: (7) Diabetes: (8) Former smoker: PLAN: Betadine dressing change was a little easier but still painful. Still needs IV analgesia. Wounds were clean with no further evidence of purulence. Muscles appear viable. No active bleeding seen. There was minimal dried blood on the dressing. Hgb was 8.6 this morning and yesterday it was 8.7. Iron supplementation was started. He has acute postoperative anemia from expected blood loss. From the dressing changes, I anticipate approximately half a unit since surgery. Patient is also on a heparin drip for his atrial fibrillation. Patient is on Zosyn. Operative cultures are pending. The dressing changes will be difficult at home initially. Discussed with the patient about going to an ECF for short term until the dressing changes can be tolerated at home. He was in agreement. Prealbumin was 8.8. Encourage nutritional supplementation with protein to help the healing process. Encourage range of motion exercises to minimize stiffness. He is at risk for developing stiffness. Will need OT after discharge for range of motion exercises, strengthening, and edema management. Instructed the patient on range of motion exercises. He will start with flexing the MP joints as close to 90 degrees as possible. He will have to use his other hand to assist in this endeavor. Told him it will take several days to improve. His WBC is slowly coming down. It has gone from 27 down to 20. Would benefit from another incision and drainage and irrigation of his wounds tomorrow. WBC continues to improve, but would like to see it continue to drop into the teens. Another I&D and irrigation should help the healing process.
[2020-10-31 12:25] LABS: Bedside Glucose 221 mg/dL (70-110)
--- NOTE | 2020-10-31 14:24 | PN.CARD_ITS ---
Subjective Subjective The patient is awake, alert. He states he is feeling better overall. He has no new acute complaints of chest discomfort or difficulty breathing. He notes at this time his main concern is his right upper extremity. Objective Data Vital Signs: Vital Signs Temp Pulse Resp BP Pulse Ox 96.1 F L 90 18 111/72 91 10/31/20 09:15 10/31/20 11:03 10/31/20 11:03 10/31/20 10:55 10/31/20 11:03 Oxygen Flow Rate (L/min) 2 Oxygen Delivery Method Room Air Weight: 206 lb 9.17 oz Body Mass Index (BMI) 29.6 Intake & Output: Intake and Output for Last 24 Hours 10/29/20 10/30/20 10/31/20 23:59 23:59 23:59 Intake Total 970 / 970 1360 / 1360 910 / 910 Output Total 825 / 825 600 / 600 325 / 325 Balance 145 / 145 760 / 760 585 / 585 Lab / Micro Data Result Diagrams: 10/31/20 05:24 10/31/20 05:24 Labs: Laboratory Results - last 24 hr 10/30/20 10/30/20 10/30/20 15:30 17:18 21:57 WBC RBC Hgb 8.7 L Hct 25.5 L MCV MCH MCHC RDW Std Deviation RDW Coeff of Marquis Plt Count MPV Immature Gran % (Auto) Neut % (Auto) Lymph % (Auto) [place] % (Auto) Eos % (Auto) Baso % (Auto) Absolute Neuts (auto) Absolute Lymphs (auto) Nucleated RBC % Sodium Potassium Chloride Carbon Dioxide Anion Gap BUN Creatinine Estim Creat Clear Calc Est GFR (MDRD) Af Amer Est GFR (MDRD) Non-Af BUN/Creatinine Ratio Glucose Calcium POC Glucose 216 H 273 H 10/31/20 10/31/20 10/31/20 05:24 05:24 06:22 WBC 20.4 H RBC 2.75 L Hgb 8.6 L Hct 25.4 L MCV 92.4 MCH 31.3 MCHC 33.9 RDW Std Deviation 43.2 RDW Coeff of Marquis 13.0 Plt Count 304 MPV 9.1 Immature Gran % (Auto) 2.100 H Neut % (Auto) 85.4 H Lymph % (Auto) 5.5 L [place] % (Auto) 6.4 Eos % (Auto) 0.4 Baso % (Auto) 0.2 Absolute Neuts (auto) 17.4 H Absolute Lymphs (auto) 1.13 Nucleated RBC % 0 Sodium 137 Potassium 3.3 L Chloride 103 Carbon Dioxide 23.0 Anion Gap 11 BUN 33 H Creatinine 1.83 H Estim Creat Clear Calc 39.89 Est GFR (MDRD) Af Amer 48 L Est GFR (MDRD) Non-Af 39 L BUN/Creatinine Ratio 18.0 Glucose 207 H Calcium 7.9 L POC Glucose 217 H 10/31/20 11:59 WBC RBC Hgb Hct MCV MCH MCHC RDW Std Deviation RDW Coeff of Marquis Plt Count MPV Immature Gran % (Auto) Neut % (Auto) Lymph % (Auto) [place] % (Auto) Eos % (Auto) Baso % (Auto) Absolute Neuts (auto) Absolute Lymphs (auto) Nucleated RBC % Sodium Potassium Chloride Carbon Dioxide Anion Gap BUN Creatinine Estim Creat Clear Calc Est GFR (MDRD) Af Amer Est GFR (MDRD) Non-Af BUN/Creatinine Ratio Glucose Calcium POC Glucose 221 H Micro: Microbiology 10/28/20 14:20 Tissue - Arm Gram Stain - Final 10/28/20 14:20 Tissue - Arm Wound Culture - Preliminary No growth-Final to follow 10/28/20 14:20 Tissue - Arm Anaerobic Culture - Preliminary Checking for anaerobes, further studies to follow. 10/25/20 07:35 Blood Culture (Wb) - Anticubital Left Blood Culture - Final No growth in 5 days. 10/25/20 07:45 Blood Culture (Wb) - Left Wrist Blood Culture - Final No growth in 5 days. 10/25/20 07:30 Bite - Arm Gram Stain - Final 10/25/20 07:30 Bite - Arm Wound Culture - Final Pasteurella canis Staphylococcus aureus 10/27/20 18:00 Mucosa - Nose SARS-CoV-2 Antigen (Rapid) - Final Cardiology Labs/Tests 10/30/20 15:30: Hgb 8.7 L, Hct 25.5 L 10/31/20 05:24: WBC 20.4 H, RBC 2.75 L, Hgb 8.6 L, Hct 25.4 L, MCV 92.4, MCH 31.3, MCHC 33.9, Plt Count 304, MPV 9.1, Immature Gran % (Auto) 2.100 H, Neut % (Auto) 85.4 H, Lymph % (Auto) 5.5 L, [place] % (Auto) 6.4, Eos % (Auto) 0.4, Baso % (Auto) 0.2, Absolute Neuts (auto) 17.4 H, Nucleated RBC % 0 10/31/20 05:24: Sodium 137, Potassium 3.3 L, Chloride 103, Carbon Dioxide 23.0, Anion Gap 11, BUN 33 H, Creatinine 1.83 H, Est GFR (MDRD) Af Amer 48 L, Est GFR (MDRD) Non-Af 39 L, BUN/Creatinine Ratio 18.0, Glucose 207 H, Calcium 7.9 L Rhythm: Atrial fibrillation Physical Exam Const alert, oriented x3 and no apparent distress Orientation / Consciousness: awake HEENT normocephalic, head/scalp atraumatic and hearing grossly normal bilaterally Eyes PERRL, EOMs intact bilaterally and conjunctivae normal Neck no JVD Chest Chest: midline sternotomy incision Resp clear to auscultation bilaterally Cardio Rhythm: abnormal rhythm irregularly irregular Heart Sounds: S1 normal and S2 normal GI normal to inspection, nondistended, normoactive bowel sounds Extremity no pedal edema Extremity Narrative: Right upper extremity: Positive surgical dressing/Alfa wrap Psych mental status grossly normal
[2020-10-31 16:51] LABS: Bedside Glucose 216 mg/dL (70-110)
--- NOTE | 2020-10-31 22:00 | NURSING ---
Addendum entered by Cindy Lin 10/31/20 22:53: PT BP was 70/40, retook for 80/50, then 95/59. 02 on RA was 84%, placed on 3L NC. 96%. This nurse stepped out to get tylenol for pt, returned to room around 2 minutes later, had fixed stare, looking at ceiling, required sternal rub for stimulation. Came to and looked at nurse. Has confusion. Notified Dr. Buchanan. Recevied orders to DC valium and dilaudid. Fentanyl patch is on patients left arm. Gave tylenol to manage pain. Placed on stepdown monitor to monitor VS Q15 minutes. Afib on the tele monitor. Original Note: PT BP was 70/40, retook for 80/50, then 95/59. 02 on RA was 84%, placed on 3L NC. 96%. This nurse stepped out to get tylenol for pt, returned to room around 2 minutes later, has fixed stare at ceiling,
--- NOTE | 2020-10-31 22:07 | PN_ITS ---
Progress Note Nurse reports hypotension and drowsiness and requiring sternal rub for stimulation. Patient on a fentanyl; gabapentin; diazepam and Dilaudid. We di scontinue diazepam and Dilaudid at this time. Amiodarone PO for A. fib continued.
[2020-10-31 22:30] LABS: Bedside Glucose 287 mg/dL (70-110)
--- NOTE | 2020-10-31 22:40 | NURSING ---
Gave amiodarone 200 mg as scheduled per Dr. Buchanan
--- NOTE | 2020-10-31 22:59 | PCM.PN.BLA ---
Progress Note Due to persistence hypertension we will give normal saline 500 mL bolus. Of note patient had diagnosis of acute on chronic heart failure. We will stop metoprolol; Lasix and p.o. fentanyl at this time. Check CBC and lactic acid. Continue current antibiotics.
--- NOTE | 2020-10-31 23:15 | NURSING ---
Fentanyl patch removed per orders
[2020-11-01] VITALS (35 sets, daily range): BP systolic 89–125; BP diastolic 56–97; PULSE 69–109; RESP 15–24; TEMP 36.1–36.6; O2SAT 93–100; BMI 29.6
--- NOTE | 2020-11-01 | ABS_PTH ---
PATIENT: DIANA SNYDER LOC: ICU U#:[id number] AGE/SX: 70/M ROOM: ICU06 RE10/25/[address]: Dr. Alberto Zheng DO : 1950 BED: 1 DIS: 11/12/2020 SPEC #: [id number] RECD: 11/02/20 07:21 STATUS: CAROLINE REQ #: [id number] JAIRO: 11/01/20 00:[address]: Diana William DEPT: SURGICAL PATHOLOGY RECD BY: Wilder Márquez ENTERED: 11/02/20 09:04 SP TYPE: Abscess OTHR DR: MD Dr. Jakub Roberson MD Dr. Nana Yaa Koram, MD Dr. Nicholas F Kotsonis, MD Dr. Paul Moodispaw, MD [facility] Tissues: Forearm, NOS Procedures: Surgery Specimen Level III Comments: @ Ordering doctor for SUIII edited from to @ by JI at 11/02/20 1308 @ Submitting doctor edited from to @ by RGOOD at 11/02/20 1308 HEADER OPERATION: Incision, drainage, irrigation, dog bite abscess, forearm PRE-OP DIAGNOSIS: Cellulitis of RUE, hypokalemia TISSUE SUBMITTED: Tissue right forearm MICROSCOPIC DIAGNOSIS Tissue of right forearm, biopsy: Acute and chronic inflammation, fat necrosis, fibrosis and abscess formation. AM:kayla 11/03/2020 MICROSCOPIC DESCRIPTION Slides are reviewed. GROSS DESCRIPTION Received in fixative is one container labeled with the patient's name and designated tissue right upper extremity forearm. The specimen consists of multiple irregular fragments of light to dark cobian soft tissue that in aggregate measure 5.5 x 2.5 x 0.2 cm. The specimen is totally submitted in two cassettes. / AM:kayla 11/02/20 TC:2 CPT: 13984
[2020-11-01 00:13] LABS: Absolute Lymphocyte Count 1.31 X10^3/uL (0.83-4.51); Absolute Neutrophil Count 16.8 X10^3/uL (2.0-7.7); Basophil# 0.03 X10^3/uL; Basophil% 0.1 % (0-1); Eosinophil# 0.21 X10^3/uL; Hematocrit 22.3 % (40-54); Hemoglobin 7.7 g/dL (13.0-16.5); Lymphocyte # 1.31 X10^3/ul (0.83-4.51); Lymphocyte % 6.5 % (19-41); Mean Corp Hgb Conc 34.5 g/dL (32-36); Mean Corpuscular Hgb 32.1 pg (27.0-32.0); Mean Corpuscular Volume 92.9 fL (80-94); Mean Platelet Vol. 9.2 fl (6.2-12.0); Monocyte# 1.27 X10^3/uL; Monocyte% 6.3 % (0-10); NRBC Flagged by Analyzer 0 % (0-5); Neutrophil # 16.78 X10^3/uL (2.7-7.7); Neutrophil % 82.9 % (47-70); Platelet Count 317 K/mm3 (150-450); RBC Distribution Width SD 43.8 fl (35.1-43.9); White Blood Count 20.3 K/mm3 (4.4-11.0)
--- NOTE | 2020-11-01 00:23 | NURSING ---
Dr. Buchanan aware of hemoglobin 7.7. In to see patient at this time. NNO
[2020-11-01 00:33] LABS: Lactic Acid 2.4 mmol/L (0.4-1.9)
[2020-11-01 03:21] LABS: Reflex Lactate? Y
[2020-11-01] MEDS: Acetaminophen 325 MG Tablet 650 MG PO ×2 (03:50→12:28)
[2020-11-01 04:03] LABS: Absolute Lymphocyte Count 1.24 X10^3/uL (0.83-4.51); Absolute Neutrophil Count 18.5 X10^3/uL (2.0-7.7); Basophil# 0.07 X10^3/uL; Basophil% 0.3 % (0-1); Eosinophil# 0.22 X10^3/uL; Hematocrit 23.9 % (40-54); Lymphocyte # 1.24 X10^3/ul (0.83-4.51); Lymphocyte % 5.6 % (19-41); Mean Corp Hgb Conc 33.5 g/dL (32-36); Mean Corpuscular Hgb 31.7 pg (27.0-32.0); Mean Corpuscular Volume 94.8 fL (80-94); Mean Platelet Vol. 9.3 fl (6.2-12.0); Monocyte# 1.15 X10^3/uL; Monocyte% 5.2 % (0-10); NRBC Flagged by Analyzer 0 % (0-5); Neutrophil % 84.2 % (47-70); Platelet Count 336 K/mm3 (150-450); RBC Distribution Width SD 44.5 fl (35.1-43.9); Red Blood Count 2.52 M/mm3 (4.6-6.2)
[2020-11-01 04:22] LABS: Anion Gap 10 (5-15); BUN 37 mg/dL (7-18); Calcium,Total 7.9 mg/dL (8.5-10.1); Chloride 104 mmol/L (98-107); Creatinine, Serum 2.06 mg/dL (0.70-1.30); EST Glomerular Filtration Rate 34 mL/min (>60); Est Glom Filt Rate - Afr Amer 41 mL/min (>60); Estimated Creatinine Clearance 35.44 ml/min; Glucose 149 mg/dL (74-106); Potassium 3.3 mmol/L (3.5-5.1); Sodium Level 137 mmol/L (136-145)
[2020-11-01 04:25] LABS: Lactic Acid 1.6 mmol/L (0.4-1.9)
[2020-11-01] MEDS: Cefazolin 2 GM in 0.9% Normal Saline 100 ML IV (05:20)
[2020-11-01] MEDS: Amiodarone 200 MG Tablet PO ×2 (06:38→21:20)
[2020-11-01] MEDS: Pentoxifylline 400 MG Tablet PO ×2 (06:38→21:20)
[2020-11-01] MEDS: Insulin Lispro 100 UNIT/ML INSULN.PEN SC ×3 (06:38→21:19)
[2020-11-01 06:46] LABS: Bedside Glucose 183 mg/dL (70-110)
--- NOTE | 2020-11-01 06:49 | NURSING ---
Pt blood pressure remains soft. On step down monitor, cycling every [address] Buchanan aware of VS and hg of 8.0, WBC of 22.0. NNO
[2020-11-01] MEDS: Ipratropium/Albuterol Sulfate 3 ML AMPUL.NEB INHALATION ×3 (07:08→18:38)
--- NOTE | 2020-11-01 08:16 | PN.CARD_ITS ---
Subjective Subjective The patient is awake and alert. He denies ongoing chest discomfort or difficulty breathing at this time. He states his main concern continues to revolve around his right upper extremity. Objective Data Vital Signs: Vital Signs Temp Pulse Resp BP Pulse Ox 97.8 F 74 22 H 100/66 97 11/01/20 07:03 11/01/20 07:06 11/01/20 07:03 11/01/20 07:03 11/01/20 07:03 Oxygen Flow Rate (L/min) 4 Oxygen Delivery Method Nasal Cannula Weight: 206 lb 9.17 oz Body Mass Index (BMI) 29.6 Intake & Output: Intake and Output for Last 24 Hours 10/30/20 10/31/20 11/01/20 23:59 23:59 23:59 Intake Total 1360 / 1360 1780 / 1780 660 / 660 Output Total 600 / 600 765 / 765 375 / 375 Balance 760 / 760 1015 / 1015 285 / 285 Lab / Micro Data Result Diagrams: 11/01/20 03:30 11/01/20 03:30 Labs: Laboratory Results - last 24 hr 10/31/20 10/31/20 10/31/20 11:59 16:43 21:20 WBC RBC Hgb Hct MCV MCH MCHC RDW Std Deviation RDW Coeff of Marquis Plt Count MPV Immature Gran % (Auto) Neut % (Auto) Lymph % (Auto) [place] % (Auto) Eos % (Auto) Baso % (Auto) Absolute Neuts (auto) Absolute Lymphs (auto) Nucleated RBC % Sodium Potassium Chloride Carbon Dioxide Anion Gap BUN Creatinine Estim Creat Clear Calc Est GFR (MDRD) Af Amer Est GFR (MDRD) Non-Af BUN/Creatinine Ratio Glucose Lactic Acid Calcium POC Glucose 221 H 216 H 287 H 10/31/20 10/31/20 11/01/20 23:15 23:15 03:30 WBC 20.3 H 22.0 H RBC 2.40 L 2.52 L Hgb 7.7 L 8.0 L Hct 22.3 L 23.9 L MCV 92.9 94.8 H MCH 32.1 H 31.7 MCHC 34.5 33.5 RDW Std Deviation 43.8 44.5 H RDW Coeff of Marquis 13.0 13.0 Plt Count 317 336 MPV 9.2 9.3 Immature Gran % (Auto) 3.200 H 3.700 H Neut % (Auto) 82.9 H 84.2 H Lymph % (Auto) 6.5 L 5.6 L [place] % (Auto) 6.3 5.2 Eos % (Auto) 1.0 1.0 Baso % (Auto) 0.1 0.3 Absolute Neuts (auto) 16.8 H 18.5 H Absolute Lymphs (auto) 1.31 1.24 Nucleated RBC % 0 0 Sodium Potassium Chloride Carbon Dioxide Anion Gap BUN Creatinine Estim Creat Clear Calc Est GFR (MDRD) Af Amer Est GFR (MDRD) Non-Af BUN/Creatinine Ratio Glucose Lactic Acid 2.4 H* Calcium POC Glucose 11/01/20 11/01/20 11/01/20 03:30 03:30 06:37 WBC RBC Hgb Hct MCV MCH MCHC RDW Std Deviation RDW Coeff of Marquis Plt Count MPV Immature Gran % (Auto) Neut % (Auto) Lymph % (Auto) [place] % (Auto) Eos % (Auto) Baso % (Auto) Absolute Neuts (auto) Absolute Lymphs (auto) Nucleated RBC % Sodium 137 Potassium 3.3 L Chloride 104 Carbon Dioxide 23.0 Anion Gap 10 BUN 37 H Creatinine 2.06 H Estim Creat Clear Calc 35.44 Est GFR (MDRD) Af Amer 41 L Est GFR (MDRD) Non-Af 34 L BUN/Creatinine Ratio 18.0 Glucose 149 H Lactic Acid 1.6 Calcium 7.9 L POC Glucose 183 H Micro: Microbiology 10/28/20 14:20 Tissue - Arm Gram Stain - Final 10/28/20 14:20 Tissue - Arm Wound Culture - Preliminary No growth-Final to follow 10/28/20 14:20 Tissue - Arm Anaerobic Culture - Preliminary Checking for anaerobes, further studies to follow. 10/25/20 07:35 Blood Culture (Wb) - Anticubital Left Blood Culture - Final No growth in 5 days. 10/25/20 07:45 Blood Culture (Wb) - Left Wrist Blood Culture - Final No growth in 5 days. 10/25/20 07:30 Bite - Arm Gram Stain - Final 10/25/20 07:30 Bite - Arm Wound Culture - Final Pasteurella canis Staphylococcus aureus 10/27/20 18:00 Mucosa - Nose SARS-CoV-2 Antigen (Rapid) - Final Cardiology Labs/Tests 10/31/20 23:15: WBC 20.3 H, RBC 2.40 L, Hgb 7.7 L, Hct 22.3 L, MCV 92.9, MCH 32.1 H, MCHC 34.5, Plt Count 317, MPV 9.2, Immature Gran % (Auto) 3.200 H, Neut % (Auto) 82.9 H, Lymph % (Auto) 6.5 L, [place] % (Auto) 6.3, Eos % (Auto) 1.0, Baso % (Auto) 0.1, Absolute Neuts (auto) 16.8 H, Nucleated RBC % 0 10/31/20 23:15: Lactic Acid 2.4 H* 11/01/20 03:30: WBC 22.0 H, RBC 2.52 L, Hgb 8.0 L, Hct 23.9 L, MCV 94.8 H, MCH 31.7, MCHC 33.5, Plt Count 336, MPV 9.3, Immature Gran % (Auto) 3.700 H, Neut % (Auto) 84.2 H, Lymph % (Auto) 5.6 L, [place] % (Auto) 5.2, Eos % (Auto) 1.0, Baso % (Auto) 0.3, Absolute Neuts (auto) 18.5 H, Nucleated RBC % 0 11/01/20 03:30: Sodium 137, Potassium 3.3 L, Chloride 104, Carbon Dioxide 23.0, Anion Gap 10, BUN 37 H, Creatinine 2.06 H, Est GFR (MDRD) Af Amer 41 L, Est GFR (MDRD) Non-Af 34 L, BUN/Creatinine Ratio 18.0, Glucose 149 H, Calcium 7.9 L 11/01/20 03:30: Lactic Acid 1.6 Rhythm: Sinus rhythm Physical Exam Const alert, oriented x3 and no apparent distress Orientation / Consciousness: awake HEENT normocephalic, head/scalp atraumatic and hearing grossly normal bilaterally Eyes PERRL, EOMs intact bilaterally and conjunctivae normal Neck full ROM, supple and no JVD Chest Chest: midline sternotomy incision Resp clear to auscultation bilaterally Cardio regular rate, S1 normal heart sound and S2 normal heart sound Rhythm: abnormal rhythm irregularly irregular Heart Sounds: S1 normal and S2 normal GI normal to inspection, nondistended, normoactive bowel sounds Extremity no pedal edema Extremity Narrative: Right upper extremity: Positive surgical dressing and Alfa wrap Neuro oriented x3, moves all extremities, no focal motor deficits and no sensory deficits noted Psych mental status grossly normal Assessment & Plan Assessment/Plan (1) Atherosclerotic heart disease of [place] coronary artery without angina pectoris: PLAN: At the present time the patient appears to be without any acute symptoms or adverse events. He will continue medical management with adjustment as needed. As noted before he is not considered a candidate for further percutaneous or surgical based revascularization therapy. (2) S/P CABG (coronary artery bypass graft): PLAN: The patient did undergo evaluation in the cardiac catheterization laboratory as previously noted. He has extensive [place] vessel disease with a patent THRASHER to the LAD and an occluded SVG to OM1 and SVG to OM 2. He will continue medical management. (3) CHF (congestive heart failure): QUALIFIERS: Heart failure type: systolic Heart failure chronicity: acute on chronic Qualified Code(s): I50.23 - Acute on chronic systolic (congestive) heart failure PLAN: The patient does have findings compatible with an underlying ischemic mediated cardiomyopathy based upon his left ventriculogram with an estimated LVEF 40%. At the present time he does not appear to have acute on chronic systolic CHF mediated symptoms. He will need to continue to be monitored especially now that his diuretic therapy is on hold for any obvious recurrence of volume overload. (4) Atrial fibrillation: QUALIFIERS: Atrial fibrillation type: unspecified Qualified Code(s): I48.91 - Unspecified atrial fibrillation PLAN: The patient's cardiac rate and rhythm will be monitored. He will continue rate control therapy as tolerated (presently on hold secondary to concerns of low blood pressure), antiarrhythmic therapy, and eventually when stable from his right upper extremity surgical site anticoagulant therapy. (5) HLD (hyperlipidemia): QUALIFIERS: Hyperlipidemia type: unspecified Qualified Code(s): E78.5 - Hyperlipidemia, unspecified PLAN: The patient should continue risk factor evaluation care as tolerated. (6) Benign essential HTN: PLAN: The patient's blood pressure has been noted to be low recently. His medications have been adjusted. He did receive some additional IV fluids. His blood pressure will need to be monitored with further adjustment of his medications as deemed appropriate. Of note he also has to be monitored, not only from changes in his cardiovascular meds for any obvious evidence, based upon his infectious disease issues, of an underlying sepsis event. (7) Hypokalemia: PLAN: His electrolytes will need to be followed and supplemented medical Cris. (8) Cellulitis of forearm, right: PLAN: He has been requested to have further evaluation with infectious disease consultation and he may be having additional cold based procedures today as well. Addt'l Comments The above was discussed and reviewed with the patient. Thank you for allowing me to participate in the care of your patient. Please don't hesitate to call if any issues arise.
[2020-11-01] MEDS: 0.9% Normal Saline 1,000 ML 75 ML IV (08:30)
[2020-11-01] MEDS: Potassium Chloride Oral Tablet 20 MEQ 40 MEQ PO (08:36)
[2020-11-01] MEDS: Iron Polysaccharide Complex 150 MG CAPSULE PO (08:36)
[2020-11-01] MEDS: Pantoprazole Sodium 20 MG Tablet PO (08:37)
[2020-11-01] MEDS: Paroxetine 20 MG Tablet 40 MG PO (08:37)
--- NOTE | 2020-11-01 09:50 | PCM.PN.HOSP ---
Subjective Subjective Says that he is doing well today, still has some arm pain. Overnight he did have an unresponsive episode that did require him being sternal rub and his blood pressures have been soft. He did have a repeat hemoglobin of 7.7 which did correct 8.0 however he has dropped from 13 around the day of admission this is all losses due to his arm surgery. Objective Data Objective Data Vital Signs: Vital Signs Temp Pulse Resp BP Pulse Ox 97.4 F L 72 22 H 104/56 L 98 11/01/20 08:00 11/01/20 08:00 11/01/20 08:00 11/01/20 08:00 11/01/20 08:00 Oxygen Flow Rate (L/min) 2 Oxygen Delivery Method Nasal Cannula Weight: 206 lb 9.17 oz Body Mass Index (BMI) 29.6 Intake & Output: Intake and Output for Last 24 Hours 10/31/20 11/01/20 11/02/20 03:59 03:59 03:59 Intake Total 1360 / 1360 2280 / 2280 110 / 110 Output Total 600 / 600 765 / 765 375 / 375 Balance 760 / 760 1515 / 1515 -265 / -265 Lab / Micro Data Result Diagrams: 11/01/20 03:30 11/01/20 03:30 Labs: Laboratory Results - last 24 hr 10/31/20 10/31/20 10/31/20 11:59 16:43 21:20 WBC RBC Hgb Hct MCV MCH MCHC RDW Std Deviation RDW Coeff of Marquis Plt Count MPV Immature Gran % (Auto) Neut % (Auto) Lymph % (Auto) [place] % (Auto) Eos % (Auto) Baso % (Auto) Absolute Neuts (auto) Absolute Lymphs (auto) Nucleated RBC % Sodium Potassium Chloride Carbon Dioxide Anion Gap BUN Creatinine Estim Creat Clear Calc Est GFR (MDRD) Af Amer Est GFR (MDRD) Non-Af BUN/Creatinine Ratio Glucose Lactic Acid Calcium POC Glucose 221 H 216 H 287 H 10/31/20 10/31/20 11/01/20 23:15 23:15 03:30 WBC 20.3 H 22.0 H RBC 2.40 L 2.52 L Hgb 7.7 L 8.0 L Hct 22.3 L 23.9 L MCV 92.9 94.8 H MCH 32.1 H 31.7 MCHC 34.5 33.5 RDW Std Deviation 43.8 44.5 H RDW Coeff of Marquis 13.0 13.0 Plt Count 317 336 MPV 9.2 9.3 Immature Gran % (Auto) 3.200 H 3.700 H Neut % (Auto) 82.9 H 84.2 H Lymph % (Auto) 6.5 L 5.6 L [place] % (Auto) 6.3 5.2 Eos % (Auto) 1.0 1.0 Baso % (Auto) 0.1 0.3 Absolute Neuts (auto) 16.8 H 18.5 H Absolute Lymphs (auto) 1.31 1.24 Nucleated RBC % 0 0 Sodium Potassium Chloride Carbon Dioxide Anion Gap BUN Creatinine Estim Creat Clear Calc Est GFR (MDRD) Af Amer Est GFR (MDRD) Non-Af BUN/Creatinine Ratio Glucose Lactic Acid 2.4 H* Calcium POC Glucose 11/01/20 11/01/20 11/01/20 03:30 03:30 06:37 WBC RBC Hgb Hct MCV MCH MCHC RDW Std Deviation RDW Coeff of Marquis Plt Count MPV Immature Gran % (Auto) Neut % (Auto) Lymph % (Auto) [place] % (Auto) Eos % (Auto) Baso % (Auto) Absolute Neuts (auto) Absolute Lymphs (auto) Nucleated RBC % Sodium 137 Potassium 3.3 L Chloride 104 Carbon Dioxide 23.0 Anion Gap 10 BUN 37 H Creatinine 2.06 H Estim Creat Clear Calc 35.44 Est GFR (MDRD) Af Amer 41 L Est GFR (MDRD) Non-Af 34 L BUN/Creatinine Ratio 18.0 Glucose 149 H Lactic Acid 1.6 Calcium 7.9 L POC Glucose 183 H Micro: Microbiology 10/28/20 14:20 Tissue - Arm Gram Stain - Final 10/28/20 14:20 Tissue - Arm Wound Culture - Final No growth aerobically. 10/28/20 14:20 Tissue - Arm Anaerobic Culture - Preliminary Checking for anaerobes, further studies to follow. 10/25/20 07:35 Blood Culture (Wb) - Anticubital Left Blood Culture - Final No growth in 5 days. 10/25/20 07:45 Blood Culture (Wb) - Left Wrist Blood Culture - Final No growth in 5 days. 10/25/20 07:30 Bite - Arm Gram Stain - Final 10/25/20 07:30 Bite - Arm Wound Culture - Final Pasteurella canis Staphylococcus aureus 10/27/20 18:00 Mucosa - Nose SARS-CoV-2 Antigen (Rapid) - Final Physical Exam Const alert, oriented x3 and no apparent distress General Appearance: cooperative Exam Limitations: no limitations HEENT normocephalic and moist oral mucous membranes Eyes PERRL, EOMs intact bilaterally and conjunctivae normal Neck supple and no JVD Resp normal respiratory effort, normal air movement, no retractions, no use of accessory muscles and clear to auscultation bilaterally Resp Narrative: Diminished breath sounds bibasilally. No wheezes or crackles. On 5L of oxygen Auscultation: diminished lung sounds; Negative for crackles, rales, rhonchi or wheezes Cardio regular rate, regular rhythm, S1 normal heart sound, S2 normal heart sound and no murmurs GI soft to palpation, non-tender and non-distended; Negative for hepatosplenomegaly Extremity no clubbing, cyanosis or edema Extremity Narrative: RUE wrapped in bandage Skin no rashes or lesions noted Skin Narrative: Right upper extremity wrapped Neuro no focal motor deficits and no sensory deficits noted Psych affect normal Appearance: appropriate Assessment & Plan Assessment/Plan (1) Dog bite: QUALIFIERS: Encounter type: initial encounter Qualified Code(s): W54.0XXA - Bitten by dog, initial encounter (2) Cellulitis of forearm, right: (3) Open wound of right wrist due to dog bite: (4) Non-STEMI (non-ST elevated myocardial infarction): (5) CHF (congestive heart failure): QUALIFIERS: Heart failure type: systolic Heart failure chronicity: acute on chronic Qualified Code(s): I50.23 - Acute on chronic systolic (congestive) heart failure (6) Acute respiratory failure: QUALIFIERS: Respiratory failure complication: hypoxia Qualified Code(s): J96.01 - Acute respiratory failure with hypoxia (7) Acute blood loss anemia: PLAN: #nonstemi s/p cardiac cath which showed elevated left ventricular end-diastolic pressure and mild to moderate left ventricular systolic dysfunction with EF of 40% and [place] multivessel CAD with THRASHER to the LAD patent and occluded grafts to of the obtuse marginal arteries with left to right collateral flows and left to left collateral flows. cardiology on board. medical management advised 2D echo: EF of 55% 10/29/2020: Remains stable #Afib still remains tachycardic per cardiology, to be weaned off amiodarone drip and transitioned to PO amiodarone today on heparin drip Cardiology on board. 10/29/2020: With A. fib continue with beta-blockers and amiodarone was been transitioned to p.o. 10/31/2020: Remains stable 11/01/2020: He did have an unresponsive episode as well as hypotension overnight. He was given some IV fluids likely due to his acute blood loss anemia, will be transfused 2 units and may need to be given Lasix in between. Metoprolol and Lasix have been discontinued #Acute heart failure with reduced EF BNP was over 600. Been diuresed with IV Lasix. 2D echo pending. Cardiac cath showed EF of 40% Monitor intake and output. Fluid restriction 1500 cc daily. Patient counseled to use his breathing treatments as needed. 10/29/2020: Down to 2 to 3 L nasal cannula continue with fluid restriction 10/31/2020: Oxygen stable on room air continue with fluid restriction and Lasix 11/01/2020: Lasix has been discontinued secondary to his worsening creatinine as well as his unresponsive episode and hypotension overnight. #Acute respiratory failure due to heart failure non-STEMI As above. Patient currently on 5 L of oxygen. Titrate oxygen to maintain saturation above 90%. On breathing treatments of bronchodilators. #RUE cellulitis due to dog bite/acute blood loss anemia on IV cefazolin. plastic surgery on board wound cultures growing Pasteurella amd Staphylococcus species. which is rare blood cultures show no growth ovr 48 hours. wound care on board for debridement by plastic surgery today wbc elevated today at 24.6 10/29/2020: For some reason was discontinued from his Ancef and placed on Zosyn however his white count continued to climb therefore we will do both in consult infectious disease on Saturday10/31/2020: White count is improving now that he is on Ancef and Zosyn, will plan for ID tomorrow. He did have significant blood loss from a hemoglobin of 13.1-9.9 down to 8.7 yesterday. It does appear to have been stabilized with reinforce dressings. 11/01/2020: Hemoglobin is continued to drop down to 7.7 overnight. We will transfuse 2 units given his cardiac history as well as the fact that he needs surgery today. #Type 2 diabetes mellitus on glipizide 10mg daily. ISS. Accjaciel MARCANOS #CKD stage 3a: Cr is 1.7/ Was 1.46 on admission, baseline not known. Will trend 10/31/2020: Creatinine up to 1.83, will continue with Lasix and monitor closely if continues to rise we will discontinue his Lasix 11/01/2020: Creatinine jumped to over 2, his Ancef dose was decreased by 50% this is potentially due to his acute blood loss anemia which will be transfused. #Hypertension; on metoprolol and furosemide Charges/Coding Visit Charges Inpatient E&M: 05550 Subs Hosp L2
[2020-11-01 11:10] LABS: Bedside Glucose 155 mg/dL (70-110)
[2020-11-01 12:07] LABS: Pathologist Review Reviewed
[2020-11-01] MEDS: Lidocaine 1%/Epi 1:200 (30ml) 30 ML AMPUL (16:10)
--- NOTE | 2020-11-01 16:30 | OP.PCM_ITS ---
Report of Operation Date of Procedure: 11/01/20 Pre-Operative Diagnosis: (1) Dog bite: (2) Open wound of right forearm due to dog bite: (3) Open wound of right wrist due to dog bite: (4) Necrotizing abscess of right forearm: (5) Necrotizing abscess of skin of right wrist: (6) Suppurative extensor tenosynovitis compartment II right wrist (extensor carpi radialis longus tendon and extensor carpi radialis brevis tendon). (7) Suppurative extensor tenosynovitis compartment III right wrist (extensor pollicis longus tendon). (8) Deep necrotizing abscess Parona space right forearm. (9) Diabetes mellitus. Post-Operative Diagnosis: (1) Dog bite: (2) Open wound of right forearm due to dog bite: (3) Open wound of right wrist due to dog bite: (4) Necrotizing abscess of right forearm: (5) Necrotizing abscess of skin of right wrist: (6) Extensor tenosynovitis compartment I right wrist (abductor pollicis longus tendon and extensor pollicis brevis tendon). (7) Extensor tenoysnovitis compartment right wrist (extensor carpi ulnaris tendon). (8) Suppurative extensor tenosynovitis compartment II right wrist (extensor carpi radialis longus tendon and extensor carpi radialis brevis tendon). (9) Suppurative extensor tenosynovitis compartment III right wrist (extensor pollicis longus tendon). (10) Deep necrotizing abscess Parona space right forearm. (11) Diabetes mellitus. Surgery/Procedure Performed:: 1. Incision and drainage and excisional debridement and irrigation dog bite wound infection abscess with involvement of Parona space right forearm. 2. Extensor tenosynovectomy for tenosynovitis compartment I right wrist (abductor pollicis longus tendon and extensor pollicis brevis tendon) 3. Extensor tenosynovectomy for tenosynovitis compartment right wrist (extensor carpi ulnaris tendon). Description of Surgical Findings:: DIANA SNYDER, is a 70 M with a history of diabetes mellitus was admitted via the ED on 10/25/2020 with increasing redness, pain, swelling, and purulent drainage from a recent dog bite to his right forearm and wrist. The dog was his own that he has had for several years. He was breaking up a fight between his dogs 10 days prior to admission and suffered bite wounds to his right forearm and wrist. He went to surgery on 10/28/20 where he underwent surgical preparation dorsal aspect right forearm, volar aspect right forearm, and dorsal ulnar aspect right wrist with incision and drainage and excisional debridement dog bite wound infection abscess with involvement of Parona space and extensor tenosynovectomy for suppurative tenosynovitis compartment II right wrist (extensor carpi radialis longus tendon and extensor carpi radialis brevis tendon) and extensor tenosynovectomy for suppurative tenosynovitis compartment III right wrist (extensor pollicis longus tendon). Postoperatively he had increased pain with the daily dressing changes. His WBC slowly decreased from 27 down to 20. This morning it increased to 22. Further operative intervention was recommended with incision and drainage and debridement of the right forearm dog bite wound abscesses. He also needed PRBC today because of a Hgb drop over the last several days from 13 down to 8. Patient was informed of the risks and complications of the procedure including alternatives to surgery. These were discussed with the patient personally. Patient voices understanding and wishes to proceed. Some of the risks and complications that were discussed included but were not inclusive of failure to diagnose including symptom relief, pain, infection, numbness, stiffness, loss of digit, RSD (CRPS), need for further surgery, contracture, and wound healing problems. Total tourniquet time - 3 minutes. Surgeon: Diana William monogram technician: None Type of Anesthesia: Local MAC (xylocaine with epinephrine and IV sedation.) Specimen's removed: Dog bite abscess right forearm extending to wrist to P athology and Microbiology. Drains: None. Estimated Blood Loss (mL): 50. Description of Procedure: Patient was taken to OR in supine position and was given IV sedation. The right upper extremity was prepped and draped in the usual fashion. SCD's were placed for DVT prophylaxis. Perioperative antibiotics were given intravenously. Due to breathing problems, his head was elevated during the procedure. A tourniquet was placed on the right arm. There was some brownish color to the ECRL and ECRB tendons. There was some nonviable muscle involving the APL and EPB muscle. I used a curette and sharply excised and debrided the nonviable tissue. Good muscular bleeding was noted. I noted some brownish fluid at the wrist involving compartment I (abductor pollicis longus tendon and extensor pollicis brevis tendon). I extended the incision onto the wrist and incised the dorsal retinaculum to compartment I and copiously irrigated the tendon sheaths until clear. The volar wound shows good healing and viable muscle. The dorsal ulnar wound shows some darkened tissue at the level of the dorsal retinaculum to compartment (extensor carpi ulnaris tendon). I sharply excised and debrided the nonviable tissue and some brownish fluid was noted at the wrist involving compartment . I incised the dorsal r etinaculum to compartment and copiously irrigated the tendon sheath until clear. I manually explored the dorsal forearm wound down into the space of Parona as well as ulnarly to the extensor digitorum communis muscle. There was no more evidence of purulence noted. I then copiously irrigated out the forearm wounds with saline in a pulsatile fashion using 3000 ml saline. The brownish color to the ECRL and ECRB tendons improved suggesting the discoloration was related to the Betadine dressings. The exposed muscles are pink and viable after the irrigation. I infiltrated the wound with xylocaine with epinephrine to help with postoperative pain relief. There was some oozing from the muscles that were controlled with electrocautery and gauze compression. No active arterial bleeding was noted. Tissue that was excised and debrided was sent to Pathology for analysis and to Microbiology for culture. The wounds were dressed with Mepitel nonadherent dressing in the space of Parona followed by Betadine and Kerlix followed by dry Kerlix gauze and ABD pads followed by compression javier wrap. The tourniquet was elevated for 3 minutes during the application of the dressing. Due to the extensive and infiltrative nature of this infection, I anticipate periodic returns to the operating room for further incision and drainage and irrigation of the wounds. I will tentatively schedule him for another incision and drainage and irrigation procedure later in the week. After discharge, he will need intensive OT for range of motion exercises, strengthening and edema management. Patient tolerated the procedure well and was sent to PACU in satisfactory condition. Patient will be sent upstairs for continued postop care. Tomorrow will start Dhruv's dressing changes. Grafts/Implants Used: None. Complications None. Admit VTE Documentation VTE Present on Admission: No (has been on heparin drip for atrial fibrillation.) VTE Mechan Device Prophylaxis: SCD's VTE Pharm Prophylaxis ordered?: Yes Addendum Addendum: Surgery Charges CPT - 38101-00 ICD-10 - W54.0xxA, M71.031, L02.413, M79.89, M65.831, S61.551A, S51.851A, E11.9, Z87.891 [id number] W54.0xxA, M65.831, M71.031, L02.413, M79.89, S61.551A, S51.851A, E11.9, Z87.891 [id number] W54.0xxA, M65.831, M71.031, L02.413, M79.89, S61.551A, S51.851A, E11.9, Z87.891
[2020-11-01 18:10] LABS: Bedside Glucose 161 mg/dL (70-110)
[2020-11-01] MEDS: Cefazolin 1 GM/50 ML BAG IV (21:02)
[2020-11-01] MEDS: 0.9% Saline Lock 10 ML Syringe IV (21:19)
[2020-11-01 22:16] LABS: Bedside Glucose 173 mg/dL (70-110)
[2020-11-02] VITALS (15 sets, daily range): BP systolic 113–131; BP diastolic 69–78; PULSE 77–91; RESP 15–20; TEMP 36.6–36.9; O2SAT 93–97; BMI 29.6
[2020-11-02] MEDS: Cefazolin 1 GM/50 ML BAG IV (05:00)
[2020-11-02] MEDS: Pentoxifylline 400 MG Tablet PO ×3 (06:19→21:30)
[2020-11-02] MEDS: Amiodarone 200 MG Tablet PO ×3 (06:19→21:31)
[2020-11-02] MEDS: Insulin Lispro 100 UNIT/ML INSULN.PEN SC ×4 (06:23→21:38)
[2020-11-02 06:45] LABS: Bedside Glucose 171 mg/dL (70-110)
[2020-11-02] MEDS: Ipratropium/Albuterol Sulfate 3 ML AMPUL.NEB INHALATION ×4 (07:03→19:02)
[2020-11-02 07:05] LABS: Absolute Lymphocyte Count 1.19 X10^3/uL (0.83-4.51); Absolute Neutrophil Count 19.3 X10^3/uL (2.0-7.7); Basophil% 0.4 % (0-1); Eosinophil# 0.13 X10^3/uL; Eosinophils% 0.6 % (0-5); Hematocrit 27.5 % (40-54); Hemoglobin 9.4 g/dL (13.0-16.5); Lymphocyte # 1.19 X10^3/ul (0.83-4.51); Lymphocyte % 5.2 % (19-41); Mean Corp Hgb Conc 34.2 g/dL (32-36); Mean Corpuscular Hgb 31.3 pg (27.0-32.0); Mean Corpuscular Volume 91.7 fL (80-94); Mean Platelet Vol. 8.8 fl (6.2-12.0); Monocyte# 1.18 X10^3/uL; Monocyte% 5.2 % (0-10); NRBC Flagged by Analyzer 0.1 % (0-5); Neutrophil # 19.26 X10^3/uL (2.7-7.7); Neutrophil % 84.9 % (47-70); Platelet Count 372 K/mm3 (150-450); RBC Distribution Width CV 13.7 % (11.6-14.6); RBC Distribution Width SD 45.2 fl (35.1-43.9); White Blood Count 22.7 K/mm3 (4.4-11.0)
[2020-11-02 07:45] LABS: Anion Gap 10 (5-15); BUN 33 mg/dL (7-18); BUN/Creat Ratio 17.8 RATIO (10-20); Calcium,Total 7.9 mg/dL (8.5-10.1); Chloride 106 mmol/L (98-107); Creatinine, Serum 1.85 mg/dL (0.70-1.30); EST Glomerular Filtration Rate 39 mL/min (>60); Est Glom Filt Rate - Afr Amer 47 mL/min (>60); Estimated Creatinine Clearance 39.46 ml/min; Glucose 72 mg/dL (74-106); Potassium 3.7 mmol/L (3.5-5.1); Sodium Level 137 mmol/L (136-145)
--- NOTE | 2020-11-02 08:35 | PN.CARD_ITS ---
Subjective Subjective The patient appears to be resting comfortably. He has had no new cardiac complaints since his additional surgical procedure. Objective Data Vital Signs: Vital Signs Temp Pulse Resp BP Pulse Ox 97.8 F 84 20 H 121/69 H 95 11/02/20 08:10 11/02/20 08:10 11/02/20 08:10 11/02/20 08:10 11/02/20 08:10 Oxygen Flow Rate (L/min) 2 Oxygen Delivery Method Room Air Weight: 206 lb 9.17 oz Body Mass Index (BMI) 29.6 Intake & Output: Intake and Output for Last 24 Hours 10/31/20 11/01/20 11/02/20 23:59 23:59 23:59 Intake Total 1780 / 1780 1838.75 / 1838.75 286.25 / 286.25 Output Total 765 / 765 375 / 600 525 / 525 Balance 1015 / 1015 1463.75 / 1238.75 -238.75 / -238.75 Lab / Micro Data Result Diagrams: 11/02/20 05:50 11/02/20 05:50 Labs: Laboratory Results - last 24 hr 10/29/20 11/01/20 11/01/20 05:38 10:01 11:04 WBC RBC Hgb Hct MCV MCH MCHC RDW Std Deviation RDW Coeff of Marquis Plt Count MPV Immature Gran % (Auto) Neut % (Auto) Lymph % (Auto) [place] % (Auto) Eos % (Auto) Baso % (Auto) Absolute Neuts (auto) Absolute Lymphs (auto) Nucleated RBC % Diff Path Review Reviewed Sodium Potassium Chloride Carbon Dioxide Anion Gap BUN Creatinine Estim Creat Clear Calc Est GFR (MDRD) Af Amer Est GFR (MDRD) Non-Af BUN/Creatinine Ratio Glucose Calcium POC Glucose 155 H Blood Type O POSITIVE Antibody Screen NEGATIVE Crossmatch See Detail 11/01/20 11/01/20 11/02/20 18:03 21:18 05:50 WBC 22.7 H RBC 3.00 L Hgb 9.4 L Hct 27.5 L MCV 91.7 MCH 31.3 MCHC 34.2 RDW Std Deviation 45.2 H RDW Coeff of Marquis 13.7 Plt Count 372 MPV 8.8 Immature Gran % (Auto) 3.700 H Neut % (Auto) 84.9 H Lymph % (Auto) 5.2 L [place] % (Auto) 5.2 Eos % (Auto) 0.6 Baso % (Auto) 0.4 Absolute Neuts (auto) 19.3 H Absolute Lymphs (auto) 1.19 Nucleated RBC % 0.1 [address] Review Sodium Potassium Chloride Carbon Dioxide Anion Gap BUN Creatinine Estim Creat Clear Calc Est GFR (MDRD) Af Amer Est GFR (MDRD) Non-Af BUN/Creatinine Ratio Glucose Calcium POC Glucose 161 H 173 H Blood Type Antibody Screen Crossmatch 11/02/20 11/02/20 05:50 06:22 WBC RBC Hgb Hct MCV MCH MCHC RDW Std Deviation RDW Coeff of Marquis Plt Count MPV Immature Gran % (Auto) Neut % (Auto) Lymph % (Auto) [place] % (Auto) Eos % (Auto) Baso % (Auto) Absolute Neuts (auto) Absolute Lymphs (auto) Nucleated RBC % Diff Path Review Sodium 137 Potassium 3.7 Chloride 106 Carbon Dioxide 21.0 Anion Gap 10 BUN 33 H Creatinine 1.85 H Estim Creat Clear Calc 39.46 Est GFR (MDRD) Af Amer 47 L Est GFR (MDRD) Non-Af 39 L BUN/Creatinine Ratio 17.8 Glucose 72 L Calcium 7.9 L POC Glucose 171 H Blood Type Antibody Screen Crossmatch Micro: Microbiology 10/28/20 14:20 Tissue - Arm Gram Stain - Final 10/28/20 14:20 Tissue - Arm Wound Culture - Final No growth aerobically. 10/28/20 14:20 Tissue - Arm Anaerobic Culture - Preliminary Checking for anaerobes, further studies to follow. 10/25/20 07:35 Blood Culture (Wb) - Anticubital Left Blood Culture - Final No growth in 5 days. 10/25/20 07:45 Blood Culture (Wb) - Left Wrist Blood Culture - Final No growth in 5 days. 10/25/20 07:30 Bite - Arm Gram Stain - Final 10/25/20 07:30 Bite - Arm Wound Culture - Final Pasteurella canis Staphylococcus aureus 10/27/20 18:00 Mucosa - Nose SARS-CoV-2 Antigen (Rapid) - Final Cardiology Labs/Tests 11/02/20 05:50: WBC 22.7 H, RBC 3.00 L, Hgb 9.4 L, Hct 27.5 L, MCV 91.7, MCH 31.3, MCHC 34.2, Plt Count 372, MPV 8.8, Immature Gran % (Auto) 3.700 H, Neut % (Auto) 84.9 H, Lymph % (Auto) 5.2 L, [place] % (Auto) 5.2, Eos % (Auto) 0.6, Baso % (Auto) 0.4, Absolute Neuts (auto) 19.3 H, Nucleated RBC % 0.1 11/02/20 05:50: Sodium 137, Potassium 3.7, Chloride 106, Carbon Dioxide 21.0, Anion Gap 10, BUN 33 H, Creatinine 1.85 H, Est GFR (MDRD) Af Amer 47 L, Est GFR (MDRD) Non-Af 39 L, BUN/Creatinine Ratio 17.8, Glucose 72 L, Calcium 7.9 L Rhythm: Atrial fibrillation Physical Exam Const alert, oriented x3 and no apparent distress Orientation / Consciousness: awake HEENT normocephalic, head/scalp atraumatic and hearing grossly normal bilaterally Eyes PERRL, EOMs intact bilaterally and conjunctivae normal Neck full ROM, supple and no JVD Chest Chest: midline sternotomy incision Resp clear to auscultation bilaterally Auscultation: diminished lung sounds bilateral lower (minimal) Cardio S1 normal heart sound and S2 normal heart sound Rhythm: abnormal rhythm irregularly irregular Heart Sounds: S1 normal and S2 normal GI normal to inspection, nondistended, normoactive bowel sounds Extremity no pedal edema Extremity Narrative: Right upper extremity: Positive surgical dressing and Alfa wrap Neuro oriented x3, moves all extremities, no focal motor deficits and no sensory deficits noted Psych mental status grossly normal Assessment & Plan Assessment/Plan (1) Atherosclerotic heart disease of [place] coronary artery without angina pec toris: PLAN: At the present time the patient appears to be without any acute symptoms or adverse events. He will continue medical management with adjustment as needed. This will include an attempt at restarting beta-blockers at a low dose. As noted before he is not considered a candidate for further percutaneous or surgical based revascularization therapy. (2) S/P CABG (coronary artery bypass graft): PLAN: The patient did undergo evaluation in the cardiac catheterization laboratory as previously noted. He has extensive [place] vessel disease with a patent THRASHER to the LAD and an occluded SVG to OM1 and SVG to OM 2. He will continue medical management. (3) CHF (congestive heart failure): QUALIFIERS: Heart failure type: systolic Heart failure chronicity: acute on chronic Qualified Code(s): I50.23 - Acute on chronic systolic (congestive) heart failure PLAN: The patient does have findings compatible with an underlying ischemic mediated cardiomyopathy based upon his left ventriculogram with an estimated LVEF 40%. At the present time he does not appear to have acute on chronic systolic CHF mediated symptoms. He will need to continue to be monitored especially now that his diuretic therapy is on hold for any obvious recurrence of volume overload. (4) Atrial fibrillation: QUALIFIERS: Atrial fibrillation type: unspecified Qualified Code(s): I48.91 - Unspecified atrial fibrillation PLAN: The patient's cardiac rate and rhythm will be monitored. He will continue rate control therapy as tolerated, antiarrhythmic therapy, and eventually when stable from his right upper extremity surgical site anticoagulant therapy. (5) HLD (hyperlipidemia): QUALIFIERS: Hyperlipidemia type: unspecified Qualified Code(s): E78.5 - Hyperlipidemia, unspecified PLAN: The patient should continue risk factor evaluation care as tolerated. (6) Benign essential HTN: PLAN: The patient's blood pressure does appear to be somewhat improved. He will continue medical management. Hopefully this will allow him to restart his beta-alma delia therapy. (7) Hypokalemia: PLAN: His electrolytes will need to be followed and supplemented accordingly. (8) Cellulitis of forearm, right: PLAN: He will continue further evaluation care per internal medicine, infectious disease, and plastic surgery. Addt'l Comments This note was generated using a voice recognition system and there may be incorrect words, spelling or punctuation that were not noted when reviewing the office note prior to saving.
--- NOTE | 2020-11-02 08:47 | CASEMGMT ---
SW attempted to speak w/pt, pt states he was given 15 minutes to sleep, declined speaking to SW at this time. SW will go back later this morning to speak w/pt about SNF placement. CARLOS Ly
[2020-11-02] MEDS: HYDROmorphone 1 MG/ML Syringe IV ×3 (09:29→17:31)
[2020-11-02] MEDS: 0.9% Saline Lock 10 ML Syringe IV (09:30)
[2020-11-02] MEDS: Aspirin 81 MG TAB.CHEW PO (09:34)
[2020-11-02] MEDS: Pantoprazole Sodium 20 MG Tablet PO (09:34)
[2020-11-02] MEDS: Metoprolol Tartrate 25 MG Tablet PO ×2 (09:35→21:31)
[2020-11-02] MEDS: Paroxetine 20 MG Tablet 40 MG PO (09:35)
[2020-11-02] MEDS: amLODIPine 10 MG Tablet PO (09:36)
[2020-11-02] MEDS: Iron Polysaccharide Complex 150 MG CAPSULE PO (09:36)
[2020-11-02] MEDS: Gabapentin 300 MG Capsule PO ×2 (09:40→17:34)
--- NOTE | 2020-11-02 10:23 | CASEMGMT ---
Palliative screening tool completed and pt does not qualify for palliative referral. SStarnaldo CORONEL CM
--- NOTE | 2020-11-02 11:32 | CASEMGMT ---
Addendum entered by Rosalva Lambert 11/02/20 13:14: SW spoke w/[facility], they would be able to take pt. SW spoke w/Dr. William, he states pt will need about 2 weeks of IV antibiotics. He also states pt will not be ready for discharge until the weekend. SW spoke w/pt in room, reviewed discharge plan. SW provided to pt a list of [facility]ci facilities in pt's preferred geographic area, complete w/quality and resource use data. Pt is agreeable to TCU at discharge. SW also explained Medicare coverage, pt does not plan to be in TCU longer than 3 weeks. As per pt, he is very painful at present and is agreeable to SW reviewing discharge plan w/significant other. SW called significant other Viry Goff. SW explained that pt can go to TCU at discharge. SW explained that pt will be covered at 100% for days 1-20, and starting day 21 he would have a copay. AMBER explained that [facility] does not cover this copay. AMBER did let Viry know if pt would need longer than 20 days, they may want to look into applying for Medicaid as a secondary, however TCU does not take Medicaid. AMBER did explain that other facilities in the community do take Medicaid as a secondary however. Viry states understanding. Pt has not been vaccinated for COVID. AMBER explained pt will be quarantined in his room, however she may be able to visit him in his room. Viry states understanding. Plan: TCU at discharge. CARLOS Ly Addendum entered by Rosalva Lambert 11/02/20 12:03: AMBER received message back from AMBER Torres at the [facility]. Pt is not service connected, and is not yet established at the [facility]. Pt has an appt to get established on 11/14/20 at 1:30pm. CARLOS Ly Original Note: [facility] to inquire if [facility] is service [facility]. Pt is still asleep. As per pt's RN, pt's has mentioned pt wanting to go to TCU. AMBER called TCU and left a message regarding referral. SW will continue to follow. CARLOS Ly
--- NOTE | 2020-11-02 12:28 | PCM.CONS.GEN ---
Assessment & Plan Assessment/Plan (1) Abscess of right forearm: PLAN: Complicated right arm infection after multiple dog bites that occurred roughly 2 weeks ago. Patient has undergone 2 formal surgical debridement. Based on the microbiology data, we will treat with Unasyn 3 g IV every 6 hours and continue local wound care. Patient is scheduled to go back to the operating room later this week as per the surgeon. HPI Consult Data Date of Consult: 11/02/20 HPI Narrative HPI Narrative: DIANA SNYDER, is a 70 M who presents on October 25 with a complicated right arm infection from multiple dog bites. Patient initially had a dog bite roughly 1 week prior to coming to the hospital. Patient does have underlying diabetes mellitus and chronic renal disease, during his hospitalization patient underwent surgical debridement of the right arm on October 28 as well as November 01. Operative notes reviewed, microbiology data also reviewed. Currently on parenteral antibiotic therapy in a form of cefazolin and Zosyn. Patient denies any significant cardiopulmonary distress. No gastrointestinal symptoms he is otherwise hemodynamically stable. He does have a persistent leukocytosis. [facility] Medical History (Updated 11/01/20 @ 09:[address] Vno Ruiz MD) Abnormal cardiac enzyme level Abscess of bursa of right forearm Abscess of right forearm Abscess of skin of right wrist Atherosclerotic heart disease of [place] coronary artery without angina pectoris Atrial fibrillation Benign essential HTN CAD (coronary artery disease) Cellulitis of forearm, right CHF (congestive heart failure) Chronic pain Congestive heart failure (CHF) Depression Diabetes Extensor tenosynovitis of right wrist Former smoker History of left heart catheterization (LHC) (~10/27/20) HLD (hyperlipidemia) Hypertension Myocardial infarct Open wound of right forearm due to dog bite Open wound of right wrist due to dog bite Substance abuse Home Medications amlodipine 10 mg PO DAILY 10/25/20 [History Last Taken Unknown] furosemide [Lasix] 40 mg PO BID 10/25/20 [History Last Taken Unknown] glipizide 10 mg PO DAILY 10/25/20 [History Last Taken Unknown] metoprolol succinate 200 mg PO DAILY 10/25/20 [History Last Taken Unknown] niacin 1,000 mg PO QHS 10/25/20 [History Last Taken Unknown] omeprazole 20 mg PO DAILY 10/25/20 [History Last Taken Unknown] paroxetine HCl [Paxil] 40 mg PO DAILY 10/25/20 [History Last Taken Unknown] pentoxifylline 400 mg PO TID 10/25/20 [History Last Taken Unknown] Allergy/AdvReac Type Severity Reaction Status Date / Time No Known Allergies Allergy Verified 10/25/20 07:14 Family History Brother CAD (coronary artery disease) Age of CAD diagnosis: 50s Surgical History History of appendectomy Hx of CABG S/P CABG (coronary artery bypass graft) Social History Smoking Status: Former smoker how long ago did patient quit smoking: approximately 15 years ago ROS ROS Narrative As stated in history of present illness others negative Physical Exam Narrative Patient is alert and responsive in no acute distress, lungs are clear heart exam S1-S2 abdomen is obese but soft. Right arm examined with the general surgeon at the bedside. There is extensive debridement with exposed tendon and muscle tissue. Lab / Micro Data Result Diagrams: 11/02/20 05:50 11/02/20 05:50 Labs: Laboratory Results - last 24 hr 11/01/20 11/01/20 11/01/20 10:01 18:03 21:18 WBC RBC Hgb Hct MCV MCH MCHC RDW Std Deviation RDW Coeff of Marquis Plt Count MPV Immature Gran % (Auto) Neut % (Auto) Lymph % (Auto) [place] % (Auto) Eos % (Auto) Baso % (Auto) Absolute Neuts (auto) Absolute Lymphs (auto) Nucleated RBC % Sodium Potassium Chloride Carbon Dioxide Anion Gap BUN Creatinine Estim Creat Clear Calc Est GFR (MDRD) Af Amer Est GFR (MDRD) Non-Af BUN/Creatinine Ratio Glucose Calcium POC Glucose 161 H 173 H Blood Type O POSITIVE Antibody Screen NEGATIVE Crossmatch See Detail 11/02/20 11/02/20 11/02/20 05:50 05:50 06:22 WBC 22.7 H RBC 3.00 L Hgb 9.4 L Hct 27.5 L MCV 91.7 MCH 31.3 MCHC 34.2 RDW Std Deviation 45.2 H RDW Coeff of Marquis 13.7 Plt Count 372 MPV 8.8 Immature Gran % (Auto) 3.700 H Neut % (Auto) 84.9 H Lymph % (Auto) 5.2 L [place] % (Auto) 5.2 Eos % (Auto) 0.6 Baso % (Auto) 0.4 Absolute Neuts (auto) 19.3 H Absolute Lymphs (auto) 1.19 Nucleated RBC % 0.1 Sodium 137 Potassium 3.7 Chloride 106 Carbon Dioxide 21.0 Anion Gap 10 BUN 33 H Creatinine 1.85 H Estim Creat Clear Calc 39.46 Est GFR (MDRD) Af Amer 47 L Est GFR (MDRD) Non-Af 39 L BUN/Creatinine Ratio 17.8 Glucose 72 L Calcium 7.9 L POC Glucose 171 H Blood Type Antibody Screen Crossmatch Micro: Microbiology 11/01/20 Unknown Wound Culture - Preliminary Tissue - Arm Right No growth-Final to follow 10/28/20 14:20 Gram Stain - Final Tissue - Arm Wound Culture - Final No growth aerobically. Anaerobic Culture - Final Prevotella oralis
[2020-11-02] MEDS: DAKIN'S SOL HALF STRENGTH (=0.25%) 1 APPLIC TOPICAL (12:58)
[2020-11-02] MEDS: 0.9% Normal Saline 1,000 ML 75 ML IV (13:01)
--- NOTE | 2020-11-02 13:03 | PN.SURG_ITS ---
Subjective Subjective Postop #4 and #1 Patient is resting comfortably. Tolerating the dressing change a little easier. Still very painful. Still needs IV analgesia. Blood staining on the dressing stable. No active bleeding seen with the dressing change. Objective Data Objective Data Vital Signs: Vital Signs Temp Pulse Resp BP Pulse Ox 97.8 F 88 16 131/78 H 95 11/02/20 08:10 11/02/20 10:52 11/02/20 10:32 11/02/20 09:35 11/02/20 08:10 Oxygen Flow Rate (L/min) 2 Oxygen Delivery Method Room Air Weight: 206 lb 9.17 oz Body Mass Index (BMI) 29.6 Intake & Output: Intake and Output for Last 24 Hours 10/31/20 11/01/20 11/02/20 23:59 23:59 23:59 Intake Total 1780 / 1780 1838.75 / 1838.75 531.25 / 531.25 Output Total 765 / 765 375 / 600 525 / 525 Balance 1015 / 1015 1463.75 / 1238.75 6.25 / 6.25 Lab / Micro Data Attestation: I reviewed the patient's lab results. Result Diagrams: 11/02/20 05:50 11/02/20 05:50 Labs: Laboratory Results - last 24 hr 11/01/20 11/01/20 11/01/20 10:01 18:03 21:18 WBC RBC Hgb Hct MCV MCH MCHC RDW Std Deviation RDW Coeff of Marquis Plt Count MPV Immature Gran % (Auto) Neut % (Auto) Lymph % (Auto) [place] % (Auto) Eos % (Auto) Baso % (Auto) Absolute Neuts (auto) Absolute Lymphs (auto) Nucleated RBC % Sodium Potassium Chloride Carbon Dioxide Anion Gap BUN Creatinine Estim Creat Clear Calc Est GFR (MDRD) Af Amer Est GFR (MDRD) Non-Af BUN/Creatinine Ratio Glucose Calcium POC Glucose 161 H 173 H Blood Type O POSITIVE Antibody Screen NEGATIVE Crossmatch See Detail 11/02/20 11/02/20 11/02/20 05:50 05:50 06:22 WBC 22.7 H RBC 3.00 L Hgb 9.4 L Hct 27.5 L MCV 91.7 MCH 31.3 MCHC 34.2 RDW Std Deviation 45.2 H RDW Coeff of Marquis 13.7 Plt Count 372 MPV 8.8 Immature Gran % (Auto) 3.700 H Neut % (Auto) 84.9 H Lymph % (Auto) 5.2 L [place] % (Auto) 5.2 Eos % (Auto) 0.6 Baso % (Auto) 0.4 Absolute Neuts (auto) 19.3 H Absolute Lymphs (auto) 1.19 Nucleated RBC % 0.1 Sodium 137 Potassium 3.7 Chloride 106 Carbon Dioxide 21.0 Anion Gap 10 BUN 33 H Creatinine 1.85 H Estim Creat Clear Calc 39.46 Est GFR (MDRD) Af Amer 47 L Est GFR (MDRD) Non-Af 39 L BUN/Creatinine Ratio 17.8 Glucose 72 L Calcium 7.9 L POC Glucose 171 H Blood Type Antibody Screen Crossmatch Micro: Microbiology 11/01/20 Unknown Tissue - Arm Right Gram Stain - Final 11/01/20 Unknown Tissue - Arm Right Wound Culture - Preliminary No growth-Final to follow 10/28/20 14:20 Tissue - Arm Gram Stain - Final 10/28/20 14:20 Tissue - Arm Wound Culture - Final No growth aerobically. 10/28/20 14:20 Tissue - Arm Anaerobic Culture - Final Prevotella oralis 10/25/20 07:35 Blood Culture (Wb) - Anticubital Left Blood Culture - Final No growth in 5 days. 10/25/20 07:45 Blood Culture (Wb) - Left Wrist Blood Culture - Final No growth in 5 days. 10/25/20 07:30 Bite - Arm Gram Stain - Final 10/25/20 07:30 Bite - Arm Wound Culture - Final Pasteurella canis Staphylococcus aureus 10/27/20 18:00 Mucosa - Nose SARS-CoV-2 Antigen (Rapid) - Final Physical Exam Narrative General - Alert and Oriented. HEENT - PERRL. EOMI. Extremities - FROM left upper extremity. No axillary adenopathy. Radial pulses are palpable. Right forearm and wrist wounds are stable. No active bleeding noted. Blood staining on the operative dressing. Muscles are viable. No evidence of persistent purulent drainage noted. Mild finger swelling. The wounds are tender to palpation. The dressing change was a little better but still painful. He still needs IV analgesia. Changed the Betadine to Dakin's dressing changes. Neuro - CN II-XII grossly intact. Psych - Normal mood and affect. Assessment & Plan Assessment/Plan (1) Abscess of bursa of right forearm: (2) Dog bite: QUALIFIERS: Encounter type: initial encounter Qualified Code(s): W54.0XXA - Bitten by dog, initial encounter (3) Abscess of skin of right wrist: (4) Necrotizing soft tissue infection: (5) Extensor tenosynovitis of right wrist: (6) Open wound of right forearm due to dog bite: (7) Open wound of right wrist due to dog bite: (8) Acute blood loss anemia: (9) Diabetes: (10) Former smoker: PLAN: Dressing change was a little easier but still painful. Still needs IV analgesia. Changed the Betadine to Dakin's dressing change. Wounds were clean with no further evidence of purulence. Muscles appear viable. No active bleeding seen. The operative dressing was blood stained. Hgb was 9.4. Preop it was 8.0. He received PRBC yesterday. Iron supplementation was started. He has acute postoperative anemia from expected blood loss. From the dressing changes, I anticipate approximately half a unit since surgery. Patient was also on a heparin drip for his atrial fibrillation. Patient is on Zosyn. Operative cultures from yesterday are pending. Operative cultures from 10/28/20 was negative. The dressing changes will be difficult at home initially. Discussed with the patient about going to an ECF for short term until the dressing changes can be tolerated at home. He was in agreement. Prealbumin was 8.8. Encourage nutritional supplementation with protein to help the healing process. Encourage range of motion exercises to minimize stiffness. He is at risk for developing stiffness. Will need OT after discharge for range of motion exercises, strengthening, and edema management. Instructed the patient on range of motion exercises. He will start with flexing the MP joints as close to 90 degrees as possible. He will have to use his other hand to assist in this endeavor. Told him it will take several days to improve. His WBC is 22 after surgery. Anticipate it going into the teens, otherwise will need another incision and drainage and irrigation of his wounds which is tentatively scheduled for this Saturday to help the healing process.
[2020-11-02 13:06] LABS: Bedside Glucose 179 mg/dL (70-110)
--- NOTE | 2020-11-02 13:12 | PCM.PN.HOSP ---
Subjective Subjective Doing well, feels better after transfusions. Creatinine has improved from over 2 down to 1.85 today. Objective Data Objective Data Vital Signs: Vital Signs Temp Pulse Resp BP Pulse Ox 98.3 F 91 17 128/71 H 93 11/02/20 13:10 11/02/20 13:10 11/02/20 13:10 11/02/20 13:10 11/02/20 13:10 Oxygen Flow Rate (L/min) 2 Oxygen Delivery Method Room Air Weight: 206 lb 9.17 oz Body Mass Index (BMI) 29.6 Intake & Output: Intake and Output for Last 24 Hours 11/01/20 11/02/20 11/03/20 03:59 03:59 03:59 Intake Total 2280 / 2280 1338.75 / 1338.75 481.25 / 481.25 Output Total 765 / 765 600 / 600 300 / 300 Balance 1515 / 1515 738.75 / 738.75 181.25 / 181.25 Lab / Micro Data Result Diagrams: 11/02/20 05:50 11/02/20 05:50 Labs: Laboratory Results - last 24 hr 11/01/20 11/01/20 11/01/20 10:01 18:03 21:18 WBC RBC Hgb Hct MCV MCH MCHC RDW Std Deviation RDW Coeff of Marquis Plt Count MPV Immature Gran % (Auto) Neut % (Auto) Lymph % (Auto) [place] % (Auto) Eos % (Auto) Baso % (Auto) Absolute Neuts (auto) Absolute Lymphs (auto) Nucleated RBC % Sodium Potassium Chloride Carbon Dioxide Anion Gap BUN Creatinine Estim Creat Clear Calc Est GFR (MDRD) Af Amer Est GFR (MDRD) Non-Af BUN/Creatinine Ratio Glucose Calcium POC Glucose 161 H 173 H Blood Type O POSITIVE Antibody Screen NEGATIVE Crossmatch See Detail 11/02/20 11/02/20 11/02/20 05:50 05:50 06:22 WBC 22.7 H RBC 3.00 L Hgb 9.4 L Hct 27.5 L MCV 91.7 MCH 31.3 MCHC 34.2 RDW Std Deviation 45.2 H RDW Coeff of Marquis 13.7 Plt Count 372 MPV 8.8 Immature Gran % (Auto) 3.700 H Neut % (Auto) 84.9 H Lymph % (Auto) 5.2 L [place] % (Auto) 5.2 Eos % (Auto) 0.6 Baso % (Auto) 0.4 Absolute Neuts (auto) 19.3 H Absolute Lymphs (auto) 1.19 Nucleated RBC % 0.1 Sodium 137 Potassium 3.7 Chloride 106 Carbon Dioxide 21.0 Anion Gap 10 BUN 33 H Creatinine 1.85 H Estim Creat Clear Calc 39.46 Est GFR (MDRD) Af Amer 47 L Est GFR (MDRD) Non-Af 39 L BUN/Creatinine Ratio 17.8 Glucose 72 L Calcium 7.9 L POC Glucose 171 H Blood Type Antibody Screen Crossmatch 11/02/20 12:57 WBC RBC Hgb Hct MCV MCH MCHC RDW Std Deviation RDW Coeff of Marquis Plt Count MPV Immature Gran % (Auto) Neut % (Auto) Lymph % (Auto) [place] % (Auto) Eos % (Auto) Baso % (Auto) Absolute Neuts (auto) Absolute Lymphs (auto) Nucleated RBC % Sodium Potassium Chloride Carbon Dioxide Anion Gap BUN Creatinine Estim Creat Clear Calc Est GFR (MDRD) Af Amer Est GFR (MDRD) Non-Af BUN/Creatinine Ratio Glucose Calcium POC Glucose 179 H Blood Type Antibody Screen Crossmatch Micro: Microbiology 11/01/20 Unknown Tissue - Arm Right Gram Stain - Final 11/01/20 Unknown Tissue - Arm Right Wound Culture - Preliminary No growth-Final to follow 10/28/20 14:20 Tissue - Arm Gram Stain - Final 10/28/20 14:20 Tissue - Arm Wound Culture - Final No growth aerobically. 10/28/20 14:20 Tissue - Arm Anaerobic Culture - Final Prevotella oralis 10/25/20 07:35 Blood Culture (Wb) - Anticubital Left Blood Culture - Final No growth in 5 days. 10/25/20 07:45 Blood Culture (Wb) - Left Wrist Blood Culture - Final No growth in 5 days. 10/25/20 07:30 Bite - Arm Gram Stain - Final 10/25/20 07:30 Bite - Arm Wound Culture - Final Pasteurella canis Staphylococcus aureus 10/27/20 18:00 Mucosa - Nose SARS-CoV-2 Antigen (Rapid) - Final Physical Exam Const alert, oriented x3 and no apparent distress General Appearance: cooperative HEENT normocephalic and moist oral mucous membranes Eyes PERRL, EOMs intact bilaterally and conjunctivae normal Neck no lymphadenopathy, supple and no JVD Resp normal respiratory effort, normal air movement, no retractions, no use of accessory muscles and clear to auscultation bilaterally Auscultation: diminished lung sounds; Negative for crackles, rales, rhonchi or wheezes Cardio regular rate, regular rhythm, S1 normal heart sound, S2 normal heart sound and no murmurs GI soft to palpation, non-tender and non-distended; Negative for hepatosplenomegaly Extremity no clubbing, cyanosis or edema Skin no rashes or lesions noted Skin Narrative: Right upper extremity wrapped Neuro no focal motor deficits and no sensory deficits noted Psych Appearance: appropriate Mood & Affect: flat affect Assessment & Plan Assessment/Plan (1) Dog bite: QUALIFIERS: Encounter type: initial encounter Qualified Code(s): W54.0XXA - Bitten by dog, initial encounter (2) Cellulitis of forearm, right: (3) Open wound of right wrist due to dog bite: (4) Non-STEMI (non-ST elevated myocardial infarction): (5) CHF (congestive heart failure): QUALIFIERS: Heart failure type: systolic Heart failure chronicity: acute on chronic Qualified Code(s): I50.23 - Acute on chronic systolic (congestive) heart failure (6) Acute respiratory failure: QUALIFIERS: Respiratory failure complication: hypoxia Qualified Code(s): J96.01 - Acute respiratory failure with hypoxia (7) Acute blood loss anemia: PLAN: #nonstemi s/p cardiac cath which showed elevated left ventricular end-diastolic pressure and mild to moderate left ventricular systolic dysfunction with EF of 40% and [place] multivessel CAD with THRASHER to the LAD patent and occluded grafts to of the obtuse marginal arteries with left to right collateral flows and left to left collateral flows. cardiology on board. medical management advised 2D echo: EF of 55% 10/29/2020: Remains stable #Afib still remains tachycardic per cardiology, to be weaned off amiodarone drip and transitioned to PO amiodarone today on heparin drip Cardiology on board. 10/29/2020: With A. fib continue with beta-blockers and amiodarone was been transitioned to p.o. 10/31/2020: Remains stable 11/01/2020: He did have an unresponsive episode as well as hypotension overnight. He was given some IV fluids likely due to his acute blood loss anemia, will be transfused 2 units and may need to be given Lasix in between. Metoprolol and Lasix have been discontinued 11/02/2020: Metoprolol was added back to his regimen since he has been transfused #Acute heart failure with reduced EF/HTN BNP was over 600. Been diuresed with IV Lasix. 2D echo pending. Cardiac cath showed EF of 40% Monitor intake and output. Fluid restriction 1500 cc daily. Patient counseled to use his breathing treatments as needed. 10/29/2020: Down to 2 to 3 L nasal cannula continue with fluid restriction 10/31/2020: Oxygen stable on room air continue with fluid restriction and Lasix 11/01/2020: Lasix has been discontinued secondary to his worsening creatinine as well as his unresponsive episode and hypotension overnight. 11/01/2020: Continue to hold Lasix #Acute respiratory failure due to heart failure non-STEMI As above. Patient currently on 5 L of oxygen. Titrate oxygen to maintain saturation above 90%. On breathing treatments of bronchodilators. #RUE cellulitis due to dog bite/acute blood loss anemia on IV cefazolin. plastic surgery on board wound cultures growing Pasteurella amd Staphylococcus species. which is rare blood cultures show no growth ovr 48 hours. wound care on board for debridement by plastic surgery today wbc elevated today at 24.6 10/29/2020: For some reason was discontinued from his Ancef and placed on Zosyn however his white count continued to climb therefore we will do both in consult infectious disease on Saturday10/31/2020: White count is improving now that he is on Ancef and Zosyn, will plan for ID tomorrow. He did have significant blood loss from a hemoglobin of 13.1-9.9 down to 8.7 yesterday. It does appear to have been stabilized with reinforce dressings. 11/01/2020: Hemoglobin is continued to drop down to 7.7 overnight. We will transfuse 2 units given his cardiac history as well as the fact that he needs surgery today. 11/02/2020: Hemoglobin up to 9.4, will recheck in the morning. Infectious disease consulted and recommended transitioning to Unasyn #Type 2 diabetes mellitus on glipizide 10mg daily. ISS. Accuchecks ACHS #CKD stage 3a: Cr is 1.7/ Was 1.46 on admission, baseline not known. Will trend 10/31/2020: Creatinine up to 1.83, will continue with Lasix and monitor closely if continues to rise we will discontinue his Lasix 11/01/2020: Creatinine jumped to over 2, his Ancef dose was decreased by 50% this is potentially due to his acute blood loss anemia which will be transfused. 11/02/2020: We will continue to monitor renal function, creatinine has improved today. DVT: SCDs Charges/Coding Visit Charges Inpatient E&M: 00015 Subs Hosp L2
[2020-11-02 17:50] LABS: Bedside Glucose 244 mg/dL (70-110)
[2020-11-02 22:16] LABS: Bedside Glucose 213 mg/dL (70-110)
[2020-11-03] VITALS (26 sets, daily range): BP systolic 84–133; BP diastolic 42–104; PULSE 84–98; RESP 14–20; TEMP 36.3–37.1; O2SAT 95–100
[2020-11-03] MEDS: HYDROmorphone 1 MG/ML Syringe IV ×5 (01:24→21:45)
[2020-11-03] MEDS: 0.9% Normal Saline 1,000 ML 75 ML IV (04:41)
[2020-11-03 05:44] LABS: Absolute Lymphocyte Count 0.99 X10^3/uL (0.83-4.51); Absolute Neutrophil Count 16.7 X10^3/uL (2.0-7.7); Basophil# 0.05 X10^3/uL; Basophil% 0.3 % (0-1); Eosinophil# 0.18 X10^3/uL; Eosinophils% 0.9 % (0-5); Hemoglobin 7.7 g/dL (13.0-16.5); Lymphocyte # 0.99 X10^3/ul (0.83-4.51); Mean Corp Hgb Conc 33.5 g/dL (32-36); Mean Corpuscular Hgb 31.3 pg (27.0-32.0); Mean Corpuscular Volume 93.5 fL (80-94); Mean Platelet Vol. 8.8 fl (6.2-12.0); Monocyte# 1.17 X10^3/uL; Monocyte% 5.9 % (0-10); NRBC Flagged by Analyzer 0 % (0-5); Neutrophil # 16.67 X10^3/uL (2.7-7.7); Neutrophil % 84.5 % (47-70); Platelet Count 345 K/mm3 (150-450); Red Blood Count 2.46 M/mm3 (4.6-6.2); White Blood Count 19.7 K/mm3 (4.4-11.0)
[2020-11-03 06:11] LABS: Anion Gap 7 (5-15); BUN 28 mg/dL (7-18); BUN/Creat Ratio 16.6 RATIO (10-20); Calcium,Total 7.8 mg/dL (8.5-10.1); Chloride 108 mmol/L (98-107); Creatinine, Serum 1.69 mg/dL (0.70-1.30); EST Glomerular Filtration Rate 43 mL/min (>60); Est Glom Filt Rate - Afr Amer 52 mL/min (>60); Glucose 178 mg/dL (74-106); Potassium 3.6 mmol/L (3.5-5.1); Sodium Level 138 mmol/L (136-145)
[2020-11-03] MEDS: Amiodarone 200 MG Tablet PO ×3 (06:20→21:36)
[2020-11-03] MEDS: Pentoxifylline 400 MG Tablet PO ×3 (06:21→21:36)
[2020-11-03] MEDS: Ipratropium/Albuterol Sulfate 3 ML AMPUL.NEB INHALATION ×4 (06:41→19:54)
[2020-11-03 07:01] LABS: Bedside Glucose 173 mg/dL (70-110)
--- NOTE | 2020-11-03 08:07 | PCM.PN.CARD ---
Subjective Subjective The patient is awake and alert at this time. He denies ongoing chest discomfort or any acute respiratory related issues. Objective Data Vital Signs: Vital Signs Temp Pulse Resp BP Pulse Ox 97.5 F L 85 20 H 120/67 96 11/03/20 06:22 11/03/20 06:58 11/03/20 06:41 11/03/20 06:22 11/03/20 06:41 Oxygen Flow Rate (L/min) 2 Oxygen Delivery Method Room Air Weight: 206 lb 9.17 oz Body Mass Index (BMI) 29.6 Intake & Output: Intake and Output for Last 24 Hours 11/01/20 11/02/20 11/03/20 23:59 23:59 23:59 Intake Total 1838.75 / 1838.75 1913.25 / 1913.25 1324 / 1324 Output Total 375 / 600 1600 / 1600 250 / 250 Balance 1463.75 / 1238.75 313.25 / 313.25 1074 / 1074 Lab / Micro Data Result Diagrams: 11/03/20 05:16 11/03/20 05:16 Labs: Laboratory Results - last 24 hr 11/02/20 11/02/20 11/02/20 12:57 17:42 21:36 WBC RBC Hgb Hct MCV MCH MCHC RDW Std Deviation RDW Coeff of Marquis Plt Count MPV Immature Gran % (Auto) Neut % (Auto) Lymph % (Auto) [place] % (Auto) Eos % (Auto) Baso % (Auto) Absolute Neuts (auto) Absolute Lymphs (auto) Nucleated RBC % Sodium Potassium Chloride Carbon Dioxide Anion Gap BUN Creatinine Estim Creat Clear Calc Est GFR (MDRD) Af Amer Est GFR (MDRD) Non-Af BUN/Creatinine Ratio Glucose Calcium POC Glucose 179 H 244 H 213 H 11/03/20 11/03/20 11/03/20 05:16 05:16 06:49 WBC 19.7 H RBC 2.46 L Hgb 7.7 L Hct 23.0 L MCV 93.5 MCH 31.3 MCHC 33.5 RDW Std Deviation 47.0 H RDW Coeff of Marquis 14.0 Plt Count 345 MPV 8.8 Immature Gran % (Auto) 3.400 H Neut % (Auto) 84.5 H Lymph % (Auto) 5.0 L [place] % (Auto) 5.9 Eos % (Auto) 0.9 Baso % (Auto) 0.3 Absolute Neuts (auto) 16.7 H Absolute Lymphs (auto) 0.99 Nucleated RBC % 0 Sodium 138 Potassium 3.6 Chloride 108 H Carbon Dioxide 23.0 Anion Gap 7 BUN 28 H Creatinine 1.69 H Estim Creat Clear Calc 43.20 Est GFR (MDRD) Af Amer 52 L Est GFR (MDRD) Non-Af 43 L BUN/Creatinine Ratio 16.6 Glucose 178 H Calcium 7.8 L POC Glucose 173 H Micro: Microbiology 11/01/20 Unknown Tissue - Arm Right Gram Stain - Final 11/01/20 Unknown Tissue - Arm Right Wound Culture - Preliminary No growth-Final to follow 10/28/20 14:20 Tissue - Arm Gram Stain - Final 10/28/20 14:20 Tissue - Arm Wound Culture - Final No growth aerobically. 10/28/20 14:20 Tissue - Arm Anaerobic Culture - Final Prevotella oralis 10/25/20 07:35 Blood Culture (Wb) - Anticubital Left Blood Culture - Final No growth in 5 days. 10/25/20 07:45 Blood Culture (Wb) - Left Wrist Blood Culture - Final No growth in 5 days. 10/25/20 07:30 Bite - Arm Gram Stain - Final 10/25/20 07:30 Bite - Arm Wound Culture - Final Pasteurella canis Staphylococcus aureus 10/27/20 18:00 Mucosa - Nose SARS-CoV-2 Antigen (Rapid) - Final Cardiology Labs/Tests 11/03/20 05:16: WBC 19.7 H, RBC 2.46 L, Hgb 7.7 L, Hct 23.0 L, MCV 93.5, MCH 31.3, MCHC 33.5, Plt Count 345, MPV 8.8, Immature Gran % (Auto) 3.400 H, Neut % (Auto) 84.5 H, Lymph % (Auto) 5.0 L, [place] % (Auto) 5.9, Eos % (Auto) 0.9, Baso % (Auto) 0.3, Absolute Neuts (auto) 16.7 H, Nucleated RBC % 0 11/03/20 05:16: Sodium 138, Potassium 3.6, Chloride 108 H, Carbon Dioxide 23.0, Anion Gap 7, BUN 28 H, Creatinine 1.69 H, Est GFR (MDRD) Af Amer 52 L, Est GFR (MDRD) Non-Af 43 L, BUN/Creatinine Ratio 16.6, Glucose 178 H, Calcium 7.8 L Rhythm: Sinus rhythm with episodes of paroxysmal atrial fibrillation Physical Exam Const alert, oriented x3 and no apparent distress Orientation / Consciousness: awake HEENT normocephalic, head/scalp atraumatic and hearing grossly normal bilaterally Eyes PERRL, EOMs intact bilaterally and conjunctivae normal Neck full ROM, supple and no JVD Chest Chest: midline sternotomy incision Resp Auscultation: diminished lung sounds bilateral lower Cardio regular rate, S1 normal heart sound and S2 normal heart sound Heart Sounds: S1 normal and S2 normal GI normal to inspection, nondistended, normoactive bowel sounds Extremity no pedal edema Extremity Narrative: Right upper extremity: Positive surgical dressing and Alfa wrap Neuro oriented x3, moves all extremities, no focal motor deficits and no sensory deficits noted Psych mental status grossly normal Assessment & Plan Assessment/Plan (1) Atherosclerotic heart disease of [place] coronary artery without angina pectoris: PLAN: At the present time the patient appears to be without any acute symptoms or adverse events. He will continue medical management with adjustment as needed. His beta-alma delia has been reinitiated. He appears to be tolerating this at this time. Over time, depending upon his clinical course and his hemodynamics, consideration can be given to additional medical therapy with nitrates. As noted before he is not considered a candidate for further percutaneous or surgical based revascularization therapy. (2) S/P CABG (coronary artery bypass graft): PLAN: The patient did undergo evaluation in the cardiac catheterization laboratory as previously noted. He has extensive [place] vessel disease with a patent THRASHER to the LAD and an occluded SVG to OM1 and SVG to OM 2. He will continue medical management. (3) CHF (congestive heart failure): QUALIFIERS: Heart failure type: systolic Heart failure chronicity: acute on chronic Qualified Code(s): I50.23 - Acute on chronic systolic (congestive) heart failure PLAN: The patient does have findings compatible with an underlying ischemic mediated cardiomyopathy based upon his left ventriculogram with an estimated LVEF 40%. At the present time he does not appear to have acute on chronic systolic CHF mediated symptoms. However, there is concerned that he may begin to reaccumulate excess volume. Thus he is going be placed back on diuretic therapy starting with furosemide at a low dose which can be adjusted as needed. He will need follow-up of his electrolytes and renal function. (4) Atrial fibrillation: QUALIFIERS: Atrial fibrillation type: unspecified Qualified Code(s): I48.91 - Unspecified atrial fibrillation PLAN: The patient's cardiac rate and rhythm will be monitored. It appears he has had episodes, based upon his cardiac rhythm strips, of sinus rhythm and paroxysmal atrial fibrillation. He will continue rate control therapy as tolerated, antiarrhythmic therapy, and eventually when stable from his right upper extremity surgical site anticoagulant therapy (not on antiplatelet in the way of agents such as clopidogrel/Plavix or anticoagulant therapy at this time secondary to his right upper extremity surgical procedures). (5) HLD (hyperlipidemia): QUALIFIERS: Hyperlipidemia type: unspecified Qualified Code(s): E78.5 - Hyperlipidemia, unspecified PLAN: The patient should continue risk factor evaluation care as tolerated. (6) Benign essential HTN: PLAN: The patient's blood pressure does appear to be somewhat improved. He will continue medical management. Hopefully this will allow him to restart his beta-alma delia therapy. (7) Hypokalemia: PLAN: His electrolytes will need to be followed and supplemented accordingly. (8) Cellulitis of forearm, right: PLAN: He will continue further evaluation care per internal medicine, infectious disease, and plastic surgery. (9) Anemia: PLAN: The patient's hemoglobin has declined once again. This may be related to his surgical interventions, etc. He is not on antiplatelet therapy in the way of agent such as clopidogrel/Plavix or anticoagulant therapy in a systemic manner at this time. His H&H may need to be supplemented with additional PRBCs to assist with his O2 carrying capacity to assist with his cardiovascular status. Addt'l Comments The above was discussed and reviewed with the patient. This note was generated using a voice recognition system and there may be incorrect words, spelling or punctuation that were not noted when reviewing the office note prior to saving.
[2020-11-03 08:15] LABS: Hematocrit 23.4 % (40-54); Hemoglobin 7.8 g/dL (13.0-16.5)
[2020-11-03] MEDS: Gabapentin 300 MG Capsule PO ×2 (09:36→17:21)
[2020-11-03] MEDS: Pantoprazole Sodium 20 MG Tablet PO ×2 (09:36→21:36)
[2020-11-03] MEDS: Paroxetine 20 MG Tablet 40 MG PO (09:36)
[2020-11-03] MEDS: amLODIPine 10 MG Tablet PO (09:36)
[2020-11-03] MEDS: Aspirin 81 MG TAB.CHEW PO (09:37)
[2020-11-03] MEDS: Iron Polysaccharide Complex 150 MG CAPSULE PO (09:37)
[2020-11-03] MEDS: Furosemide 20 MG Tablet PO (09:45)
[2020-11-03] MEDS: Metoprolol Tartrate 25 MG Tablet PO ×2 (09:45→21:35)
--- NOTE | 2020-11-03 10:47 | PN.HOSP_ITS ---
Subjective Subjective Feels tired again today, hemoglobin went down to 7.7 recheck demonstrates his hemoglobin was accurate at 7.8 he will be transfused today again. Objective Data Objective Data Vital Signs: Vital Signs Temp Pulse Resp BP Pulse Ox 98 F 98 18 110/71 96 11/03/20 10:10 11/03/20 10:10 11/03/20 10:10 11/03/20 10:10 11/03/20 10:10 Oxygen Flow Rate (L/min) 2 Oxygen Delivery Method Room Air Weight: 206 lb 9.17 oz Body Mass Index (BMI) 29.6 Intake & Output: Intake and Output for Last 24 Hours 11/02/20 11/03/20 11/04/20 03:59 03:59 03:59 Intake Total 1338.75 / 1338.75 2975.25 / 2975.25 612 / 612 Output Total 600 / 600 1375 / 1375 250 / 250 Balance 738.75 / 738.75 1600.25 / 1600.25 362 / 362 Lab / Micro Data Result Diagrams: 11/03/20 08:06 11/03/20 05:16 Labs: Laboratory Results - last 24 hr 11/01/20 11/02/20 11/02/20 10:10 12:57 17:42 WBC RBC Hgb Hct MCV MCH MCHC RDW Std Deviation RDW Coeff of Marquis Plt Count MPV Immature Gran % (Auto) Neut % (Auto) Lymph % (Auto) [place] % (Auto) Eos % (Auto) Baso % (Auto) Absolute Neuts (auto) Absolute Lymphs (auto) Nucleated RBC % Sodium Potassium Chloride Carbon Dioxide Anion Gap BUN Creatinine Estim Creat Clear Calc Est GFR (MDRD) Af Amer Est GFR (MDRD) Non-Af BUN/Creatinine Ratio Glucose Calcium POC Glucose 179 H 244 H Crossmatch See Detail 11/02/20 11/03/20 11/03/20 21:36 05:16 05:16 WBC 19.7 H RBC 2.46 L Hgb 7.7 L Hct 23.0 L MCV 93.5 MCH 31.3 MCHC 33.5 RDW Std Deviation 47.0 H RDW Coeff of Marquis 14.0 Plt Count 345 MPV 8.8 Immature Gran % (Auto) 3.400 H Neut % (Auto) 84.5 H Lymph % (Auto) 5.0 L [place] % (Auto) 5.9 Eos % (Auto) 0.9 Baso % (Auto) 0.3 Absolute Neuts (auto) 16.7 H Absolute Lymphs (auto) 0.99 Nucleated RBC % 0 Sodium 138 Potassium 3.6 Chloride 108 H Carbon Dioxide 23.0 Anion Gap 7 BUN 28 H Creatinine 1.69 H Estim Creat Clear Calc 43.20 Est GFR (MDRD) Af Amer 52 L Est GFR (MDRD) Non-Af 43 L BUN/Creatinine Ratio 16.6 Glucose 178 H Calcium 7.8 L POC Glucose 213 H Crossmatch 11/03/20 11/03/20 06:49 08:06 WBC RBC Hgb 7.8 L Hct 23.4 L MCV MCH MCHC RDW Std Deviation RDW Coeff of Marquis Plt Count MPV Immature Gran % (Auto) Neut % (Auto) Lymph % (Auto) [place] % (Auto) Eos % (Auto) Baso % (Auto) Absolute Neuts (auto) Absolute Lymphs (auto) Nucleated RBC % Sodium Potassium Chloride Carbon Dioxide Anion Gap BUN Creatinine Estim Creat Clear Calc Est GFR (MDRD) Af Amer Est GFR (MDRD) Non-Af BUN/Creatinine Ratio Glucose Calcium POC Glucose 173 H Crossmatch Micro: Microbiology 11/01/20 Unknown Tissue - Arm Right Gram Stain - Final 11/01/20 Unknown Tissue - Arm Right Wound Culture - Preliminary No growth-Final to follow 10/28/20 14:20 Tissue - Arm Gram Stain - Final 10/28/20 14:20 Tissue - Arm Wound Culture - Final No growth aerobically. 10/28/20 14:20 Tissue - Arm Anaerobic Culture - Final Prevotella oralis 10/25/20 07:35 Blood Culture (Wb) - Anticubital Left Blood Culture - Final No growth in 5 days. 10/25/20 07:45 Blood Culture (Wb) - Left Wrist Blood Culture - Final No growth in 5 days. 10/25/20 07:30 Bite - Arm Gram Stain - Final 10/25/20 07:30 Bite - Arm Wound Culture - Final Pasteurella canis Staphylococcus aureus 10/27/20 18:00 Mucosa - Nose SARS-CoV-2 Antigen (Rapid) - Final Physical Exam Const alert, oriented x3 and no apparent distress General Appearance: cooperative HEENT normocephalic and moist oral mucous membranes Eyes PERRL, EOMs intact bilaterally and conjunctivae normal Neck no lymphadenopathy, supple and no JVD Resp normal respiratory effort, normal air movement, no retractions, no use of accessory muscles and clear to auscultation bilaterally Auscultation: diminished lung sounds; Negative for crackles, rales, rhonchi or wheezes Cardio regular rate, regular rhythm, S1 normal heart sound, S2 normal heart sound and no murmurs GI soft to palpation, non-tender and non-distended; Negative for hepatosplenomegaly Extremity no clubbing, cyanosis or edema Skin no rashes or lesions noted Skin Narrative: Right upper extremity wrapped, and reinforced Neuro no focal motor deficits and no sensory deficits noted Psych affect normal Appearance: appropriate Assessment & Plan Assessment/Plan (1) Dog bite: QUALIFIERS: Encounter type: initial encounter Qualified Code(s): W54.0XXA - Bitten by dog, initial encounter (2) Cellulitis of forearm, right: (3) Open wound of right wrist due to dog bite: (4) Non-STEMI (non-ST elevated myocardial infarction): (5) CHF (congestive heart failure): QUALIFIERS: Heart failure type: systolic Heart failure chronicity: acute on chronic Qualified Code(s): I50.23 - Acute on chronic systolic (congestive) heart failure (6) Acute respiratory failure: QUALIFIERS: Respiratory failure complication: hypoxia Qualified Code(s): J96.01 - Acute respiratory failure with hypoxia (7) Acute blood loss anemia: PLAN: #nonstemi s/p cardiac cath which showed elevated left ventricular end-diastolic pressure and mild to moderate left ventricular systolic dysfunction with EF of 40% and na tive multivessel CAD with THRASHER to the LAD patent and occluded grafts to of the obtuse marginal arteries with left to right collateral flows and left to left collateral flows. cardiology on board. medical management advised 2D echo: EF of 55% 10/29/2020: Remains stable #Afib still remains tachycardic per cardiology, to be weaned off amiodarone drip and transitioned to PO amiodarone today on heparin drip Cardiology on board. 10/29/2020: With A. fib continue with beta-blockers and amiodarone was been transitioned to p.o. 10/31/2020: Remains stable 11/01/2020: He did have an unresponsive episode as well as hypotension overnight. He was given some IV fluids likely due to his acute blood loss anemia, will be transfused 2 units and may need to be given Lasix in between. Metoprolol and Lasix have been discontinued 11/02/2020: Metoprolol was added back to his regimen since he has been transfused #Acute heart failure with reduced EF/HTN BNP was over 600. Been diuresed with IV Lasix. 2D echo pending. Cardiac cath showed EF of 40% Monitor intake and output. Fluid restriction 1500 cc daily. Patient counseled to use his breathing treatments as needed. 10/29/2020: Down to 2 to 3 L nasal cannula continue with fluid restriction 10/31/2020: Oxygen stable on room air continue with fluid restriction and Lasix 11/01/2020: Lasix has been discontinued secondary to his worsening creatinine as well as his unresponsive episode and hypotension overnight. 11/02/2020: Continue to hold Lasix 11/03/2020: With the improvement in his creatinine, his oral Lasix is restarted #Acute respiratory failure due to heart failure non-STEMI As above. Patient currently on 5 L of oxygen. Titrate oxygen to maintain saturation above 90%. On breathing treatments of bronchodilators. 11/03/2020: Respiratory failure has resolved, he is back on room air #RUE cellulitis due to dog bite/acute blood loss anemia on IV cefazolin. plastic surgery on board wound cultures growing Pasteurella amd Staphylococcus species. which is rare blood cultures show no growth ovr 48 hours. wound care on board for debridement by plastic surgery today wbc elevated today at 24.6 10/29/2020: For some reason was discontinued from his Ancef and placed on Zosyn however his white count continued to climb therefore we will do both in consult infectious disease on Saturday10/31/2020: White count is improving now that he is on Ancef and Zosyn, will plan for ID tomorrow. He did have significant blood loss from a hemoglobin of 13.1- 9.9 down to 8.7 yesterday. It does appear to have been stabilized with reinforce dressings. 11/01/2020: Hemoglobin is continued to drop down to 7.7 overnight. We will transfuse 2 units given his cardiac history as well as the fact that he needs surgery today. 11/02/2020: Hemoglobin up to 9.4, will recheck in the morning. Infectious disease consulted and recommended transitioning to Unasyn 11/03/2020: Hemoglobin dropped again we will transfuse 2 units, will also place a PICC line for easy access and and blood draws, Likely OR tomorrow #Type 2 diabetes mellitus on glipizide 10mg daily. ISS. Accuchecks ACHS 11/03/2020: Continue with sliding scale insulin, will place him on long-acting insulin for better control to assist with wound healing #CKD stage 3a: Cr is 1.7/ Was 1.46 on admission, baseline not known. Will trend 10/31/2020: Creatinine up to 1.83, will continue with Lasix and monitor closely if continues to rise we will discontinue his Lasix 11/01/2020: Creatinine jumped to over 2, his Ancef dose was decreased by 50% this is potentially due to his acute blood loss anemia which will be transfused. 11/02/2020: We will continue to monitor renal function, creatinine has improved today. DVT: SCDs
[2020-11-03] MEDS: Acetaminophen/Codeine #3 Tablet 1 TABLET PO ×3 (13:04→23:45)
[2020-11-03] MEDS: Furosemide 20 MG/2 ML VIAL IV (13:05)
[2020-11-03] MEDS: 0.9% Saline Lock 10 ML Syringe IV ×2 (15:28→15:40)
[2020-11-03 15:50] LABS: Bedside Glucose 178 mg/dL (70-110)
[2020-11-03] MEDS: Tamsulosin HCl 0.4 MG Capsule 0.8 MG PO (17:19)
[2020-11-03] MEDS: DAKIN'S SOL HALF STRENGTH (=0.25%) 1 APPLIC TOPICAL (17:42)
[2020-11-03] MEDS: Insulin Lispro 100 UNIT/ML INSULN.PEN SC ×2 (17:59→21:39)
[2020-11-03 18:16] LABS: Bedside Glucose 212 mg/dL (70-110)
--- NOTE | 2020-11-03 21:13 | PN.SURG_ITS ---
Subjective Subjective Postop #6 and #2 Patient is resting comfortably. Tolerating the dressing change a little easier. Still very painful. Still needs IV analgesia. Blood staining on the dressing stable. No active bleeding seen with the dressing change. Objective Data Objective Data Vital Signs: Vital Signs Temp Pulse Resp BP Pulse Ox 97.6 F L 93 16 97/79 95 11/03/20 20:39 11/03/20 20:39 11/03/20 20:39 11/03/20 20:39 11/03/20 20:39 Oxygen Flow Rate (L/min) 2 Oxygen Delivery Method Room Air Weight: 206 lb 9.17 oz Body Mass Index (BMI) 29.6 Intake & Output: Intake and Output for Last 24 Hours 11/01/20 11/02/20 11/03/20 23:59 23:59 23:59 Intake Total 1838.75 / 1838.75 1913.25 / 1913.25 3207.25 / 3207.25 Output Total 375 / 600 1600 / 1600 1150 / 1150 Balance 1463.75 / 1238.75 313.25 / 313.25 2057.25 / 2057.25 Lab / Micro Data Attestation: I reviewed the patient's lab results. Result Diagrams: 11/03/20 08:06 11/03/20 05:16 Labs: Laboratory Results - last 24 hr 11/01/20 11/02/20 11/03/20 10:10 21:36 05:16 WBC 19.7 H RBC 2.46 L Hgb 7.7 L Hct 23.0 L MCV 93.5 MCH 31.3 MCHC 33.5 RDW Std Deviation 47.0 H RDW Coeff of Marquis 14.0 Plt Count 345 MPV 8.8 Immature Gran % (Auto) 3.400 H Neut % (Auto) 84.5 H Lymph % (Auto) 5.0 L [place] % (Auto) 5.9 Eos % (Auto) 0.9 Baso % (Auto) 0.3 Absolute Neuts (auto) 16.7 H Absolute Lymphs (auto) 0.99 Nucleated RBC % 0 Sodium Potassium Chloride Carbon Dioxide Anion Gap BUN Creatinine Estim Creat Clear Calc Est GFR (MDRD) Af Amer Est GFR (MDRD) Non-Af BUN/Creatinine Ratio Glucose Calcium POC Glucose 213 H Crossmatch See Detail 11/03/20 11/03/20 11/03/20 05:16 06:49 08:06 WBC RBC Hgb 7.8 L Hct 23.4 L MCV MCH MCHC RDW Std Deviation RDW Coeff of Marquis Plt Count MPV Immature Gran % (Auto) Neut % (Auto) Lymph % (Auto) [place] % (Auto) Eos % (Auto) Baso % (Auto) Absolute Neuts (auto) Absolute Lymphs (auto) Nucleated RBC % Sodium 138 Potassium 3.6 Chloride 108 H Carbon Dioxide 23.0 Anion Gap 7 BUN 28 H Creatinine 1.69 H Estim Creat Clear Calc 43.20 Est GFR (MDRD) Af Amer 52 L Est GFR (MDRD) Non-Af 43 L BUN/Creatinine Ratio 16.6 Glucose 178 H Calcium 7.8 L POC Glucose 173 H Crossmatch 11/03/20 11/03/20 15:46 17:56 WBC RBC Hgb Hct MCV MCH MCHC RDW Std Deviation RDW Coeff of Marquis Plt Count MPV Immature Gran % (Auto) Neut % (Auto) Lymph % (Auto) [place] % (Auto) Eos % (Auto) Baso % (Auto) Absolute Neuts (auto) Absolute Lymphs (auto) Nucleated RBC % Sodium Potassium Chloride Carbon Dioxide Anion Gap BUN Creatinine Estim Creat Clear Calc Est GFR (MDRD) Af Amer Est GFR (MDRD) Non-Af BUN/Creatinine Ratio Glucose Calcium POC Glucose 178 H 212 H Crossmatch Micro: Microbiology 11/01/20 Unknown Tissue - Arm Right Gram Stain - Final 11/01/20 Unknown Tissue - Arm Right Wound Culture - Preliminary No growth-Final to follow 10/28/20 14:20 Tissue - Arm Gram Stain - Final 10/28/20 14:20 Tissue - Arm Wound Culture - Final No growth aerobically. 10/28/20 14:20 Tissue - Arm Anaerobic Culture - Final Prevotella oralis 10/25/20 07:35 Blood Culture (Wb) - Anticubital Left Blood Culture - Final No growth in 5 days. 10/25/20 07:45 Blood Culture (Wb) - Left Wrist Blood Culture - Final No growth in 5 days. 10/25/20 07:30 Bite - Arm Gram Stain - Final 10/25/20 07:30 Bite - Arm Wound Culture - Final Pasteurella canis Staphylococcus aureus 10/27/20 18:00 Mucosa - Nose SARS-CoV-2 Antigen (Rapid) - Final Physical Exam Narrative General - Alert and Oriented. HEENT - PERRL. EOMI. Extremities - FROM left upper extremity. No axillary adenopathy. Radial pulses are palpable. Right forearm and wrist wounds are stable. No active bleeding noted. Blood staining on the operative dressing. Muscles are viable. No evidence of persistent purulent drainage noted. Mild finger swelling. The wounds are tender to palpation. The dressing change was a little better but still painful. He still needs IV analgesia. Dakin's dressing change was painful. Able to passively flex the MP joints almost to 90 degrees at this time. Neuro - CN II-XII grossly intact. Psych - Normal mood and affect. Assessment & Plan Assessment/Plan (1) Dog bite: QUALIFIERS: Encounter type: initial encounter Qualified Code(s): W54.0XXA - Bitten by dog, initial encounter (2) Abscess of bursa of right forearm: (3) Extensor tenosynovitis of right wrist: (4) Necrotizing soft tissue infection: (5) Abscess of skin of right wrist: (6) Open wound of right forearm due to dog bite: (7) Open wound of right wrist due to dog bite: (8) Diabetes: (9) Acute blood loss anemia: (10) Former smoker: PLAN: Dressing change was a little easier but still painful. Still needs IV analgesia. Continue Dakin's dressing change. Wounds were clean with no further evidence of purulence. Muscles appear viable. No active bleeding seen. The operative dressing was blood stained. Hgb dropped to 7.8. He received PRBC today. Iron supplementation was started. He has acute postoperative anemia from expected blood loss. From the dressing changes, I anticipate approximately a unit since surgery. Patient was also on a heparin drip for his atrial fibrillation. Patient was on Zosyn. Infectious Diseases consulted. Changed antibiotics to Unasyn. A PICC line was placed today. Operative cultures from 11/01/20 surgery are pending thus far. Operative cultures from 10/28/20 showed Prevotella bivia. The dressing changes will be difficult at home initially. Discussed with the patient about going to an ECF for short term until the dressing changes can be tolerated at home. He was in agreement. TCU evaluation in process. Prealbumin was 8.8. Encourage nutritional supplementation with protein to help the healing process. Encourage range of motion exercises to minimize stiffness. He is at risk for developing stiffness. Will need OT after discharge for range of motion exercises, strengthening, and edema management. Instructed the patient on range of motion exercises. He will start with flexing the MP joints as close to 90 degrees as possible. He will have to use his other hand to assist in this endeavor. His MP joints almost flex to 90 degrees passively. Told him it will take several days to improve. His WBC has decreased to 19.7 after surgery. Anticipate it going lower into the teens. Will need another incision and drainage and irrigation of his wounds which is scheduled for tomorrow to help the healing process.
[2020-11-03] MEDS: Pravastatin 80 MG Tablet PO (21:35)
[2020-11-03 22:36] LABS: Bedside Glucose 207 mg/dL (70-110)
[2020-11-04] VITALS (24 sets, daily range): BP systolic 95–168; BP diastolic 61–89; PULSE 82–114; RESP 10–20; TEMP 36.2–36.3; O2SAT 97–99; BMI 29.6
[2020-11-04] MEDS: HYDROmorphone 1 MG/ML Syringe IV ×2 (04:11→18:02)
[2020-11-04] MEDS: 0.9% Normal Saline 1,000 ML 75 ML IV ×3 (04:31→21:20)
[2020-11-04 06:02] LABS: Absolute Lymphocyte Count 1.07 X10^3/uL (0.83-4.51); Absolute Neutrophil Count 12.8 X10^3/uL (2.0-7.7); Basophil# 0.09 X10^3/uL; Basophil% 0.6 % (0-1); Eosinophil# 0.11 X10^3/uL; Eosinophils% 0.7 % (0-5); Hematocrit 26.6 % (40-54); Hemoglobin 8.4 g/dL (13.0-16.5); Lymphocyte # 1.07 X10^3/ul (0.83-4.51); Lymphocyte % 6.7 % (19-41); Mean Corp Hgb Conc 31.6 g/dL (32-36); Mean Corpuscular Hgb 31.3 pg (27.0-32.0); Mean Corpuscular Volume 99.3 fL (80-94); Mean Platelet Vol. 8.7 fl (6.2-12.0); Monocyte# 1.12 X10^3/uL; NRBC Flagged by Analyzer 0.2 % (0-5); Neutrophil # 12.83 X10^3/uL (2.7-7.7); Neutrophil % 80.2 % (47-70); Platelet Count 258 K/mm3 (150-450); RBC Distribution Width CV 14.6 % (11.6-14.6); RBC Distribution Width SD 49.8 fl (35.1-43.9); Red Blood Count 2.68 M/mm3 (4.6-6.2)
[2020-11-04] MEDS: Pentoxifylline 400 MG Tablet PO ×3 (06:09→21:35)
[2020-11-04 06:38] LABS: Anion Gap 9 (5-15); BUN 25 mg/dL (7-18); BUN/Creat Ratio 16.3 RATIO (10-20); Calcium,Total 7.4 mg/dL (8.5-10.1); Chloride 109 mmol/L (98-107); Creatinine, Serum 1.53 mg/dL (0.70-1.30); EST Glomerular Filtration Rate 48 mL/min (>60); Est Glom Filt Rate - Afr Amer 58 mL/min (>60); Estimated Creatinine Clearance 47.71 ml/min; Glucose 183 mg/dL (74-106); Potassium 3.5 mmol/L (3.5-5.1); Sodium Level 138 mmol/L (136-145)
[2020-11-04 06:56] LABS: Bedside Glucose 188 mg/dL (70-110)
[2020-11-04] MEDS: Ipratropium/Albuterol Sulfate 3 ML AMPUL.NEB INHALATION ×3 (07:13→18:59)
--- NOTE | 2020-11-04 09:26 | PCM.PN.CARD ---
Subjective Subjective The patient appears to be resting comfortably from a cardiac standpoint with no new acute complaints of chest discomfort or difficulty breathing. Objective Data Vital Signs: Vital Signs Temp Pulse Resp BP Pulse Ox 97.4 F L 85 20 H 95/61 97 11/04/20 03:57 11/04/20 07:13 11/04/20 07:13 11/04/20 03:57 11/04/20 07:13 Oxygen Flow Rate (L/min) 2 Oxygen Delivery Method Room Air Weight: 206 lb 9.17 oz Body Mass Index (BMI) 29.6 Intake & Output: Intake and Output for Last 24 Hours 11/02/20 11/03/20 11/04/20 23:59 23:59 23:59 Intake Total 1913.25 / 1913.25 3319.25 / 3439.25 987.75 / 987.75 Output Total 1600 / 1600 1150 / 1150 550 / 550 Balance 313.25 / 313.25 2169.25 / 2289.25 437.75 / 437.75 Lab / Micro Data Result Diagrams: 11/04/20 05:30 11/04/20 05:30 Labs: Laboratory Results - last 24 hr 11/01/20 11/03/20 11/03/20 10:10 15:46 17:56 WBC RBC Hgb Hct MCV MCH MCHC RDW Std Deviation RDW Coeff of Marquis Plt Count MPV Immature Gran % (Auto) Neut % (Auto) Lymph % (Auto) [place] % (Auto) Eos % (Auto) Baso % (Auto) Absolute Neuts (auto) Absolute Lymphs (auto) Nucleated RBC % Sodium Potassium Chloride Carbon Dioxide Anion Gap BUN Creatinine Estim Creat Clear Calc Est GFR (MDRD) Af Amer Est GFR (MDRD) Non-Af BUN/Creatinine Ratio Glucose Calcium POC Glucose 178 H 212 H Crossmatch See Detail 11/03/20 11/04/20 11/04/20 21:38 05:30 05:30 WBC 16.0 H RBC 2.68 L Hgb 8.4 L Hct 26.6 L MCV 99.3 H D MCH 31.3 MCHC 31.6 L D RDW Std Deviation 49.8 H RDW Coeff of Marquis 14.6 Plt Count 258 MPV 8.7 Immature Gran % (Auto) 4.800 H Neut % (Auto) 80.2 H Lymph % (Auto) 6.7 L [place] % (Auto) 7.0 Eos % (Auto) 0.7 Baso % (Auto) 0.6 Absolute Neuts (auto) 12.8 H Absolute Lymphs (auto) 1.07 Nucleated RBC % 0.2 Sodium 138 Potassium 3.5 Chloride 109 H Carbon Dioxide 20.0 L Anion Gap 9 BUN 25 H Creatinine 1.53 H Estim Creat Clear Calc 47.71 Est GFR (MDRD) Af Amer 58 L Est GFR (MDRD) Non-Af 48 L BUN/Creatinine Ratio 16.3 Glucose 183 H Calcium 7.4 L POC Glucose 207 H Crossmatch 11/04/20 06:42 WBC RBC Hgb Hct MCV MCH MCHC RDW Std Deviation RDW Coeff of Marquis Plt Count MPV Immature Gran % (Auto) Neut % (Auto) Lymph % (Auto) [place] % (Auto) Eos % (Auto) Baso % (Auto) Absolute Neuts (auto) Absolute Lymphs (auto) Nucleated RBC % Sodium Potassium Chloride Carbon Dioxide Anion Gap BUN Creatinine Estim Creat Clear Calc Est GFR (MDRD) Af Amer Est GFR (MDRD) Non-Af BUN/Creatinine Ratio Glucose Calcium POC Glucose 188 H Crossmatch Micro: Microbiology 11/01/20 Unknown Tissue - Arm Right Gram Stain - Final 11/01/20 Unknown Tissue - Arm Right Wound Culture - Final No growth aerobically. 10/28/20 14:20 Tissue - Arm Gram Stain - Final 10/28/20 14:20 Tissue - Arm Wound Culture - Final No growth aerobically. 10/28/20 14:20 Tissue - Arm Anaerobic Culture - Final Prevotella oralis 10/25/20 07:35 Blood Culture (Wb) - Anticubital Left Blood Culture - Final No growth in 5 days. 10/25/20 07:45 Blood Culture (Wb) - Left Wrist Blood Culture - Final No growth in 5 days. 10/25/20 07:30 Bite - Arm Gram Stain - Final 10/25/20 07:30 Bite - Arm Wound Culture - Final Pasteurella canis Staphylococcus aureus 10/27/20 18:00 Mucosa - Nose SARS-CoV-2 Antigen (Rapid) - Final Cardiology Labs/Tests 11/04/20 05:30: Sodium 138, Potassium 3.5, Chloride 109 H, Carbon Dioxide 20.0 L, Anion Gap 9, BUN 25 H, Creatinine 1.53 H, Est GFR (MDRD) Af Amer 58 L, Est GFR (MDRD) Non-Af 48 L, BUN/Creatinine Ratio 16.3, Glucose 183 H, Calcium 7.4 L 11/04/20 05:30: WBC 16.0 H, RBC 2.68 L, Hgb 8.4 L, Hct 26.6 L, MCV 99.3 H D, MCH 31.3, MCHC 31.6 L D, Plt Count 258, MPV 8.7, Immature Gran % (Auto) 4.800 H, Neut % (Auto) 80.2 H, Lymph % (Auto) 6.7 L, [place] % (Auto) 7.0, Eos % (Auto) 0.7, Baso % (Auto) 0.6, Absolute Neuts (auto) 12.8 H, Nucleated RBC % 0.2 Rhythm: Episodes of sinus rhythm and PAF Physical Exam Const alert, oriented x3 and no apparent distress Orientation / Consciousness: awake HEENT normocephalic, head/scalp atraumatic and hearing grossly normal bilaterally Eyes PERRL, EOMs intact bilaterally and conjunctivae normal Neck full ROM, supple and no JVD Chest Chest: midline sternotomy incision Resp clear to auscultation bilaterally Cardio regular rate, S1 normal heart sound and S2 normal heart sound Rhythm: abnormal rhythm irregularly irregular Heart Sounds: S1 normal and S2 normal GI normal to inspection, nondistended, normoactive bowel sounds Extremity no pedal edema Extremity Narrative: Right upper extremity: Positive surgical dressing and Alfa wrap Neuro oriented x3, moves all extremities, no focal motor deficits and no sensory deficits noted Psych mental status grossly normal Assessment & Plan Assessment/Plan (1) Atherosclerotic heart disease of [place] coronary artery without angina pectoris: PLAN: At the present time the patient appears to be without any acute symptoms or adverse events. He will continue medical management with adjustment as needed. His beta-alma delia has been reinitiated. He appears to be tolerating this at this time. Over time, depending upon his clinical course and his hemodynamics, consideration can be given to additional medical therapy with nitrates. As noted before he is not considered a candidate for further percutaneous or surgical based revascularization therapy. (2) S/P CABG (coronary artery bypass graft): PLAN: The patient did undergo evaluation in the cardiac catheterization laboratory as previously noted. He has extensive [place] vessel disease with a patent THRASHER to the LAD and an occluded SVG to OM1 and SVG to OM 2. He will continue medical management. (3) CHF (congestive heart failure): QUALIFIERS: Heart failure type: systolic Heart failure chronicity: acute on chronic Qualified Code(s): I50.23 - Acute on chronic systolic (congestive) heart failure PLAN: The patient does have findings compatible with an underlying ischemic mediated cardiomyopathy based upon his left ventriculogram with an estimated LVEF 40%. At the present time he does not appear to have acute on chronic systolic CHF mediated symptoms. The patient was placed back on low-dose diuretic therapy. He will continue adjustment as needed. He will need follow-up of his electrolytes and renal function. (4) Atrial fibrillation: QUALIFIERS: Atrial fibrillation type: unspecified Qualified Code(s): I48.91 - Unspecified atrial fibrillation PLAN: The patient's cardiac rate and rhythm will be monitored. It appears he has had episodes, based upon his cardiac rhythm strips, of sinus rhythm and paroxysmal atrial fibrillation. He will continue rate control therapy as tolerated, antiarrhythmic therapy, and eventually when stable from his right upper extremity surgical site anticoagulant therapy (not on antiplatelet in the way of agents such as clopidogrel/Plavix or anticoagulant therapy at this time secondary to his right upper extremity surgical procedures). (5) HLD (hyperlipidemia): QUALIFIERS: Hyperlipidemia type: unspecified Qualified Code(s): E78.5 - Hyperlipidemia, unspecified PLAN: The patient should continue risk factor evaluation care as tolerated. (6) Benign essential HTN: PLAN: The patient's blood pressure is being followed. His medications can be readjusted as needed. (7) Hypokalemia: PLAN: His electrolytes will need to be followed and supplemented accordingly. (8) Cellulitis of forearm, right: PLAN: He will continue further evaluation care per internal medicine, infectious disease, and plastic surgery. (9) Anemia: PLAN: The patient has received additional PRBCs. His hemoglobin has increased somewhat. He is not on antiplatelet therapy in the way of agent such as clopidogrel/Plavix or anticoagulant therapy in a systemic manner at this time. His H&H may need to be supplemented with additional PRBCs to assist with his O2 carrying capacity to assist with his cardiovascular status. Addt'l Comments This note was generated using a voice recognition system and there may be incorrect words, spelling or punctuation that were not noted when reviewing the office note prior to saving.
--- NOTE | 2020-11-04 10:18 | PCM.PN.HOSP ---
Subjective Subjective Still feels tired, history is hemoglobin is 7.7 he was transfused 2 units and corrected to 8.4. White count is improved as well and plan for repeat surgery today. Objective Data Objective Data Vital Signs: Vital Signs Temp Pulse Resp BP Pulse Ox 97.2 F L 92 16 116/69 99 11/04/20 09:42 11/04/20 09:42 11/04/20 09:42 11/04/20 09:42 11/04/20 09:42 Oxygen Flow Rate (L/min) 2 Oxygen Delivery Method Room Air Weight: 206 lb 9.17 oz Body Mass Index (BMI) 29.6 Intake & Output: Intake and Output for Last 24 Hours 11/03/20 11/04/20 11/05/20 03:59 03:59 03:59 Intake Total 2975.25 / 2975.25 2439.25 / 2439.25 755.75 / 755.75 Output Total 1375 / 1375 1150 / 1150 550 / 550 Balance 1600.25 / 1600.25 1289.25 / 1289.25 205.75 / 205.75 Lab / Micro Data Result Diagrams: 11/04/20 05:30 11/04/20 05:30 Labs: Laboratory Results - last 24 hr 11/01/20 11/03/20 11/03/20 10:10 15:46 17:56 WBC RBC Hgb Hct MCV MCH MCHC RDW Std Deviation RDW Coeff of Marquis Plt Count MPV Immature Gran % (Auto) Neut % (Auto) Lymph % (Auto) [place] % (Auto) Eos % (Auto) Baso % (Auto) Absolute Neuts (auto) Absolute Lymphs (auto) Nucleated RBC % Sodium Potassium Chloride Carbon Dioxide Anion Gap BUN Creatinine Estim Creat Clear Calc Est GFR (MDRD) Af Amer Est GFR (MDRD) Non-Af BUN/Creatinine Ratio Glucose Calcium POC Glucose 178 H 212 H Crossmatch See Detail 11/03/20 11/04/20 11/04/20 21:38 05:30 05:30 WBC 16.0 H RBC 2.68 L Hgb 8.4 L Hct 26.6 L MCV 99.3 H D MCH 31.3 MCHC 31.6 L D RDW Std Deviation 49.8 H RDW Coeff of Marquis 14.6 Plt Count 258 MPV 8.7 Immature Gran % (Auto) 4.800 H Neut % (Auto) 80.2 H Lymph % (Auto) 6.7 L [place] % (Auto) 7.0 Eos % (Auto) 0.7 Baso % (Auto) 0.6 Absolute Neuts (auto) 12.8 H Absolute Lymphs (auto) 1.07 Nucleated RBC % 0.2 Sodium 138 Potassium 3.5 Chloride 109 H Carbon Dioxide 20.0 L Anion Gap 9 BUN 25 H Creatinine 1.53 H Estim Creat Clear Calc 47.71 Est GFR (MDRD) Af Amer 58 L Est GFR (MDRD) Non-Af 48 L BUN/Creatinine Ratio 16.3 Glucose 183 H Calcium 7.4 L POC Glucose 207 H Crossmatch 11/04/20 06:42 WBC RBC Hgb Hct MCV MCH MCHC RDW Std Deviation RDW Coeff of Marquis Plt Count MPV Immature Gran % (Auto) Neut % (Auto) Lymph % (Auto) [place] % (Auto) Eos % (Auto) Baso % (Auto) Absolute Neuts (auto) Absolute Lymphs (auto) Nucleated RBC % Sodium Potassium Chloride Carbon Dioxide Anion Gap BUN Creatinine Estim Creat Clear Calc Est GFR (MDRD) Af Amer Est GFR (MDRD) Non-Af BUN/Creatinine Ratio Glucose Calcium POC Glucose 188 H Crossmatch Micro: Microbiology 11/01/20 Unknown Tissue - Arm Right Gram Stain - Final 11/01/20 Unknown Tissue - Arm Right Wound Culture - Final No growth aerobically. 11/01/20 Unknown Tissue - Arm Right Anaerobic Culture - Preliminary No growth in 48 hours. 10/28/20 14:20 Tissue - Arm Gram Stain - Final 10/28/20 14:20 Tissue - Arm Wound Culture - Final No growth aerobically. 10/28/20 14:20 Tissue - Arm Anaerobic Culture - Final Prevotella oralis 10/25/20 07:35 Blood Culture (Wb) - Anticubital Left Blood Culture - Final No growth in 5 days. 10/25/20 07:45 Blood Culture (Wb) - Left Wrist Blood Culture - Final No growth in 5 days. 10/25/20 07:30 Bite - Arm Gram Stain - Final 10/25/20 07:30 Bite - Arm Wound Culture - Final Pasteurella canis Staphylococcus aureus 10/27/20 18:00 Mucosa - Nose SARS-CoV-2 Antigen (Rapid) - Final Physical Exam Const alert, oriented x3 and no apparent distress General Appearance: cooperative Exam Limitations: no limitations HEENT normocephalic and moist oral mucous membranes Eyes PERRL, EOMs intact bilaterally and conjunctivae normal Neck no lymphadenopathy, supple and no JVD Resp normal respiratory effort, normal air movement, no retractions, no use of accessory muscles and clear to auscultation bilaterally Auscultation: diminished lung sounds; Negative for crackles, rales, rhonchi or wheezes Cardio regular rate, regular rhythm, S1 normal heart sound, S2 normal heart sound and no murmurs GI soft to palpation, non-tender and non-distended; Negative for hepatosplenomegaly Extremity no clubbing, cyanosis or edema Extremity Narrative: RUE wrapped in bandage Skin no rashes or lesions noted Skin Narrative: Right upper extremity wrapped, and reinforced Neuro no focal motor deficits and no sensory deficits noted Psych affect normal Appearance: appropriate Assessment & Plan Assessment/Plan (1) Dog bite: QUALIFIERS: Encounter type: initial encounter Qualified Code(s): W54.0XXA - Bitten by dog, initial encounter (2) Cellulitis of forearm, right: (3) Open wound of right wrist due to dog bite: (4) Non-STEMI (non-ST elevated myocardial infarction): (5) CHF (congestive heart failure): QUALIFIERS: Heart failure type: systolic Heart failure chronicity: acute on chronic Qualified Code(s): I50.23 - Acute on chronic systolic (congestive) heart failure (6) Acute respiratory failure: QUALIFIERS: Respiratory failure complication: hypoxia Qualified Code(s): J96.01 - Acute respiratory failure with hypoxia (7) Acute blood loss anemia: PLAN: #nonstemi s/p cardiac cath which showed elevated left ventricular end-diastolic pressure and mild to moderate left ventricular systolic dysfunction with EF of 40% and [place] multivessel CAD with THRASHER to the LAD patent and occluded grafts to of the obtuse marginal arteries with left to right collateral flows and left to left collateral flows. cardiology on board. medical management advised 2D echo: EF of 55% 10/29/2020: Remains stable #Afib still remains tachycardic per cardiology, to be weaned off amiodarone drip and transitioned to PO amiodarone today on heparin drip Cardiology on board. 10/29/2020: With A. fib continue with beta-blockers and amiodarone was been transitioned to p.o. 10/31/2020: Remains stable 11/01/2020: He did have an unresponsive episode as well as hypotension overnight. He was given some IV fluids likely due to his acute blood loss anemia, will be transfused 2 units and may need to be given Lasix in between. Metoprolol and Lasix have been discontinued 11/02/2020: Metoprolol was added back to his regimen since he has been transfused 11/04/2020: Remains in A. fib however heart rate is controlled #Acute heart failure with reduced EF/HTN BNP was over 600. Been diuresed with IV Lasix. 2D echo pending. Cardiac cath showed EF of 40% Monitor intake and output. Fluid restriction 1500 cc daily. Patient counseled to use his breathing treatments as needed. 10/29/2020: Down to 2 to 3 L nasal cannula continue with fluid restriction 10/31/2020: Oxygen stable on room air continue with fluid restriction and Lasix 11/01/2020: Lasix has been discontinued secondary to his worsening creatinine as well as his unresponsive episode and hypotension overnight. 11/02/2020: Continue to hold Lasix 11/03/2020: With the improvement in his creatinine, his oral Lasix is restarted #Acute respiratory failure due to heart failure non-STEMI As above. Patient currently on 5 L of oxygen. Titrate oxygen to maintain saturation above 90%. On breathing treatments of bronchodilators. 11/03/2020: Respiratory failure has resolved, he is back on room air #RUE cellulitis due to dog bite/acute blood loss anemia on IV cefazolin. plastic surgery on board wound cultures growing Pasteurella amd Staphylococcus species. which is rare blood cultures show no growth ovr 48 hours. wound care on board for debridement by plastic surgery today wbc elevated today at 24.6 10/29/2020: For some reason was discontinued from his Ancef and placed on Zosyn however his white count continued to climb therefore we will do both in consult infectious disease on Saturday10/31/2020: White count is improving now that he is on Ancef and Zosyn, will plan for ID tomorrow. He did have significant blood loss from a hemoglobin of 13.1-9.9 down to 8.7 yesterday. It does appear to have been stabilized with reinforce dressings. 11/01/2020: Hemoglobin is continued to drop down to 7.7 overnight. We will transfuse 2 units given his cardiac history as well as the fact that he needs surgery today. 11/02/2020: Hemoglobin up to 9.4, will recheck in the morning. Infectious disease consulted and recommended transitioning to Unasyn 11/03/2020: Hemoglobin dropped again we will transfuse 2 units, will also place a PICC line for easy access and and blood draws, Likely OR tomorrow 11/04/2020: With all the transfusions and has had his hemoglobin continues to drop therefore today we'll plan for transfusion of 1 unit PRBCs as well as 1 unit of FFP to help with clotting. We'll repeat hemoglobin at around noon and treat accordingly. Leukocytosis continues to improve with the Unasyn #Type 2 diabetes mellitus on glipizide 10mg daily. ISS. Accuchecks ACHS 11/03/2020: Continue with sliding scale insulin, will place him on long-acting insulin for better control to assist with wound healing #CKD stage 3a: Cr is 1.7/ Was 1.46 on admission, baseline not known. Will trend 10/31/2020: Creatinine up to 1.83, will continue with Lasix and monitor closely if continues to rise we will discontinue his Lasix 11/01/2020: Creatinine jumped to over 2, his Ancef dose was decreased by 50% this is potentially due to his acute blood loss anemia which will be transfused. 11/02/2020: We will continue to monitor renal function, creatinine has improved today. DVT: SCDs Charges/Coding Visit Charges Inpatient E&M: 59922 Subs Hosp L2
--- NOTE | 2020-11-04 11:30 | ABS_PTH ---
PATIENT: DIANA SNYDER LOC: ICU U#:[id number] AGE/SX: 70/M ROOM: ICU06 RE10/25/[address]: Dr. Alberto Zheng DO : 1950 BED: 1 DIS: 11/12/2020 SPEC #: [id number] RECD: 11/04/20 14:12 STATUS: CAROLINE RERico #: [id number] JAIRO: 11/04/20 11:[address]: Diana William DEPT: SURGICAL PATHOLOGY RECD BY: Marily Mcgowan ENTERED: 11/06/20 17:13 SP TYPE: Abscess OTHR DR: MD Dr. Evi Cárdenas MD Dr. Nicholas F Kotsonis, MD Dr. Paul Moodispaw, MD [facility] Tissues: Skin of arm Procedures: Surgery Specimen Level IV HEADER OPERATION: I & D, irrigation dog bite forearm PRE-OP DIAGNOSIS: Dog bite; abscess of bursa right forearm; extensor tenosynovitis right wrist TISSUE SUBMITTED: Dog bite, wound abscess, right lower arm MICROSCOPIC DIAGNOSIS Soft tissue of right lower arm, biopsy: Fibromuscular tissue with acute inflammation and abscess formation. AM:kayla 11/08/2020 MICROSCOPIC DESCRIPTION Slides are reviewed. GROSS DESCRIPTION Received in fixative is one container labeled with the patient's name and designated dog bite, wound abscess, right lower arm. The specimen consists of multiple irregular fragments of cobian-brown soft tissue that in aggregate measure 3 x 2.5 x 0.3 cm. The entire specimen is submitted in one cassette. / MAI:kayla 11/07/20 TC:2 CPT: 80694
[2020-11-04] MEDS: Lidocaine 1%/Epi 1:200 (30ml) 30 ML AMPUL (12:20)
--- NOTE | 2020-11-04 12:33 | PCM.OPRPT ---
Report of Operation Date of Procedure: 11/04/20 Pre-Operative Diagnosis: (1) Dog bite: (2) Open wound of right forearm due to dog bite: (3) Open wound of right wrist due to dog bite: (4) Necrotizing abscess of right forearm: (5) Necrotizing abscess of skin of right wrist: (6) Extensor tenosynovitis compartment I right wrist (abductor pollicis longus tendon and extensor pollicis brevis tendon). (7) Extensor tenoysnovitis compartment right wrist (extensor carpi ulnaris tendon). (8) Suppurative extensor tenosynovitis compartment II right wrist (extensor carpi radialis longus tendon and extensor carpi radialis brevis tendon). (9) Suppurative extensor tenosynovitis compartment III right wrist (extensor pollicis longus tendon). (10) Deep necrotizing abscess Parona space right forearm. (11) Diabetes mellitus. Post-Operative Diagnosis: Same. Surgery/Procedure Performed:: Incision and drainage and excisional debridement and irrigation dog bite wound infection abscess with involvement of Parona space right forearm. Description of Surgical Findings:: DIANA SNYDER, is a 70 M with a history of diabetes mellitus was admitted via the ED on 10/25/2020 with increasing redness, pain, swelling, and purulent drainage from a recent dog bite to his right forearm and wrist. The dog was his own that he has had for several years. He was breaking up a fight between his dogs 10 days prior to admission and suffered bite wounds to his right forearm and wrist. He went to surgery on 10/28/20 where he underwent surgical preparation dorsal aspect right forearm, volar aspect right forearm, and dorsal ulnar aspect right wrist with incision and drainage and excisional debridement dog bite wound infection abscess with involvement of Parona space and extensor tenosynovectomy for suppurative tenosynovitis compartment II right wrist (extensor carpi radialis longus tendon and extensor carpi radialis brevis tendon) and extensor tenosynovectomy for suppurative tenosynovitis compartment III right wrist (extensor pollicis longus tendon). He had another incision and drainage and irrigation procedure done on 11/01/20. The WBC continued to drop as today it was 16.0. Because of the improvement noted in the WBC and improved appearance of the wound, will plan another incision and drainage and drainage procedure today.. Patient was informed of the risks and complications of the procedure including alternatives to surgery. These were discussed with the patient personally. Patient voices understanding and wishes to proceed. Some of the risks and complications that were discussed included but were not inclusive of failure to diagnose including symptom relief, pain, infection, numbness, stiffness, loss of digit, RSD (CRPS), need for further surgery, contracture, and wound healing problems. Surgeon: Diana William digital advertising specialist: None Type of Anesthesia: Local MAC (xylocaine with epinephrine and IV sedation.) Specimen's removed: Dog bite abscess right forearm to Pathology and Microbiology. Drains: None. Estimated Blood Loss (mL): 25. Description of Procedure: Patient was taken to OR in supine position and was given IV sedation. The right upper extremity was prepped and draped in the usual fashion. SCD's were placed for DVT prophylaxis. Perioperative antibiotics were given intravenously. Due to breathing problems, his head was elevated during the procedure. A tourniquet was placed on the right arm. The forearm wound tissue looks clean. Healthy muscle and tendon noted. There was some inflammatory exudate present in the wound and was excised and debrided using a curette. Good muscular bleeding was noted. The volar wound shows good healing and viable muscle. The dorsal ulnar wound shows no brownish fluid, just some inflammatory exudate. I manually explored the dorsal forearm wound down into the space of Parona as well as ulnarly to the extensor digitorum communis muscle. There was no more evidence of purulence noted. I then copiously irrigated out the forearm wounds with saline in a pulsatile fashion using 3000 ml saline. The tissue looked viable after the irrigation with no further clinical evidence of infection. I infiltrated the wound with xylocaine with epinephrine to help with postoperative pain relief. There was some oozing from the muscles that were controlled with electrocautery and gauze compression. No active arterial bleeding was noted. Tissue that was excised and debrided was sent to Pathology for analysis and to Microbiology for culture. The wounds were dressed with Kerlix gauze and Betadine followed by dry Kerlix gauze and ABD pads followed by compression javier wrap. No tourniquet was needed for this procedure, as no active bleeding was noted during the incision and drainage and excisional debridement. With improvement noted in the wounds, he may not need any further periodic returns to the operating room for further incision and drainage and irrigation of the wounds. After discharge, he will need intensive OT for range of motion exercises, strengthening and edema management. Patient tolerated the procedure well and was sent to PACU in satisfactory condition. Patient will be sent upstairs for continued postop care. Tomorrow will continue Dakin's dressing changes. Grafts/Implants Used: None. Complications None. Admit VTE Documentation VTE Present on Admission: No (has been on heparin drip for atrial fibrillation.) VTE Mechan Device Prophylaxis: SCD's VTE Pharm Prophylaxis ordered?: Yes Addendum Addendum: Surgery Charges CPT - 13112-57 ICD-10 - W54.0xxA, M71.031, L02.413, M79.89, M65.831, S61.551A, S51.851A, E11.9, Z87.891
[2020-11-04] MEDS: Paroxetine 20 MG Tablet 40 MG PO (14:10)
[2020-11-04] MEDS: Pantoprazole Sodium 20 MG Tablet PO ×2 (14:10→21:35)
[2020-11-04] MEDS: Aspirin 81 MG TAB.CHEW PO (14:11)
[2020-11-04] MEDS: Gabapentin 300 MG Capsule PO ×2 (14:11→17:03)
[2020-11-04] MEDS: Furosemide 20 MG Tablet PO (14:11)
[2020-11-04] MEDS: Metoprolol Tartrate 25 MG Tablet PO ×2 (14:11→21:36)
[2020-11-04] MEDS: Amiodarone 200 MG Tablet PO ×2 (14:11→21:36)
[2020-11-04] MEDS: Iron Polysaccharide Complex 150 MG CAPSULE PO (14:11)
[2020-11-04] MEDS: amLODIPine 10 MG Tablet PO (14:12)
[2020-11-04] MEDS: Insulin Lispro 100 UNIT/ML INSULN.PEN SC ×2 (14:33→17:03)
[2020-11-04] MEDS: Acetaminophen 325 MG Tablet 650 MG PO (14:33)
[2020-11-04 14:37] LABS: Hematocrit 25.3 % (40-54); Hemoglobin 8.3 g/dL (13.0-16.5)
[2020-11-04 14:41] LABS: Bedside Glucose 204 mg/dL (70-110)
[2020-11-04 17:10] LABS: Bedside Glucose 163 mg/dL (70-110)
[2020-11-04] MEDS: 0.9% Saline Lock 10 ML Syringe IV (18:02)
[2020-11-04] MEDS: Tamsulosin HCl 0.4 MG Capsule 0.8 MG PO (21:36)
[2020-11-04] MEDS: Pravastatin 80 MG Tablet PO (21:36)
[2020-11-04 22:00] LABS: Bedside Glucose 165 mg/dL (70-110)
[2020-11-05] VITALS (26 sets, daily range): BP systolic 91–127; BP diastolic 64–88; PULSE 84–112; RESP 16–35; TEMP 36.4–36.6; O2SAT 92–98; BMI 29.6
[2020-11-05] MEDS: 0.9% Saline Lock 10 ML Syringe IV ×2 (00:44→05:52)
[2020-11-05] MEDS: HYDROmorphone 1 MG/ML Syringe IV ×4 (00:44→21:08)
[2020-11-05] MEDS: Pentoxifylline 400 MG Tablet PO ×3 (05:53→21:06)
[2020-11-05] MEDS: Insulin Lispro 100 UNIT/ML INSULN.PEN SC ×4 (06:49→21:08)
[2020-11-05 06:55] LABS: Bedside Glucose 169 mg/dL (70-110)
[2020-11-05] MEDS: Ipratropium/Albuterol Sulfate 3 ML AMPUL.NEB INHALATION ×4 (07:11→18:59)
[2020-11-05] MEDS: Furosemide 20 MG Tablet PO (07:52)
[2020-11-05] MEDS: Iron Polysaccharide Complex 150 MG CAPSULE PO (07:53)
[2020-11-05] MEDS: amLODIPine 10 MG Tablet PO (07:53)
[2020-11-05] MEDS: Aspirin 81 MG TAB.CHEW PO (07:53)
[2020-11-05] MEDS: Pantoprazole Sodium 20 MG Tablet PO ×2 (07:53→21:06)
[2020-11-05] MEDS: Metoprolol Tartrate 25 MG Tablet PO ×2 (07:54→21:07)
[2020-11-05] MEDS: Gabapentin 300 MG Capsule PO ×2 (07:54→17:56)
[2020-11-05] MEDS: Paroxetine 20 MG Tablet 40 MG PO (07:55)
[2020-11-05] MEDS: Amiodarone 200 MG Tablet PO ×2 (07:56→21:07)
[2020-11-05] MEDS: DAKIN'S SOL HALF STRENGTH (=0.25%) 1 APPLIC TOPICAL (07:58)
[2020-11-05] MEDS: Acetaminophen/Codeine #3 Tablet 1 TABLET PO ×3 (08:08→23:56)
[2020-11-05 08:17] LABS: Absolute Lymphocyte Count 0.65 X10^3/uL (0.83-4.51); Absolute Neutrophil Count 11.3 X10^3/uL (2.0-7.7); Basophil# 0.03 X10^3/uL; Basophil% 0.2 % (0-1); Eosinophil# 0.09 X10^3/uL; Eosinophils% 0.7 % (0-5); Hematocrit 23.9 % (40-54); Hemoglobin 7.8 g/dL (13.0-16.5); Lymphocyte # 0.65 X10^3/ul (0.83-4.51); Lymphocyte % 4.9 % (19-41); Mean Corp Hgb Conc 32.6 g/dL (32-36); Mean Corpuscular Hgb 31.3 pg (27.0-32.0); NRBC Flagged by Analyzer 0 % (0-5); Neutrophil # 11.28 X10^3/uL (2.7-7.7); Neutrophil % 84.3 % (47-70); Platelet Count 249 K/mm3 (150-450); RBC Distribution Width CV 14.9 % (11.6-14.6); Red Blood Count 2.49 M/mm3 (4.6-6.2); White Blood Count 13.4 K/mm3 (4.4-11.0)
[2020-11-05 08:29] LABS: Anion Gap 7 (5-15); BUN 25 mg/dL (7-18); BUN/Creat Ratio 16.3 RATIO (10-20); Calcium,Total 7.9 mg/dL (8.5-10.1); Chloride 110 mmol/L (98-107); Creatinine, Serum 1.53 mg/dL (0.70-1.30); EST Glomerular Filtration Rate 48 mL/min (>60); Est Glom Filt Rate - Afr Amer 58 mL/min (>60); Estimated Creatinine Clearance 47.71 ml/min; Glucose 158 mg/dL (74-106); Potassium 3.9 mmol/L (3.5-5.1); Sodium Level 140 mmol/L (136-145)
--- NOTE | 2020-11-05 10:50 | PCM.PN.HOSP ---
Subjective Subjective Doing okay, feels little bit better today. Was given FFP yesterday however his hemoglobin was stable prior to surgery repeat this morning shows a hemoglobin of 7.8 and given his cardiac history he will be transfused again Objective Data Objective Data Vital Signs: Vital Signs Temp Pulse Resp BP Pulse Ox 97.9 F 98 18 111/72 92 11/05/20 08:09 11/05/20 08:09 11/05/20 08:09 11/05/20 08:09 11/05/20 08:09 Oxygen Flow Rate (L/min) 2 Oxygen Delivery Method Nasal Cannula Weight: 206 lb 9.17 oz Body Mass Index (BMI) 29.6 Intake & Output: Intake and Output for Last 24 Hours 11/04/20 11/05/20 11/06/20 03:59 03:59 03:59 Intake Total 2439.25 / 2439.25 3959.25 / 3959.25 642 / 642 Output Total 1150 / 1150 1170 / 1170 920 / 920 Balance 1289.25 / 1289.25 2789.25 / 2789.25 -278 / -278 Lab / Micro Data Result Diagrams: 11/05/20 08:00 11/05/20 08:00 Labs: Laboratory Results - last 24 hr 11/01/20 11/04/20 11/04/20 10:10 14:18 14:18 WBC RBC Hgb 8.3 L Hct 25.3 L MCV MCH MCHC RDW Std Deviation RDW Coeff of Marquis Plt Count MPV Immature Gran % (Auto) Neut % (Auto) Lymph % (Auto) Bartholomew % (Auto) Eos % (Auto) Baso % (Auto) Absolute Neuts (auto) Absolute Lymphs (auto) Nucleated RBC % Sodium Potassium Chloride Carbon Dioxide Anion Gap BUN Creatinine Estim Creat Clear Calc Est GFR (MDRD) Af Amer Est GFR (MDRD) Non-Af BUN/Creatinine Ratio Glucose Calcium POC Glucose Blood Type O POSITIVE Antibody Screen NEGATIVE Crossmatch See Detail See Detail 11/04/20 11/04/20 11/04/20 14:32 16:56 21:31 WBC RBC Hgb Hct MCV MCH MCHC RDW Std Deviation RDW Coeff of Marquis Plt Count MPV Immature Gran % (Auto) Neut % (Auto) Lymph % (Auto) [place]tholomew % (Auto) Eos % (Auto) Baso % (Auto) Absolute Neuts (auto) Absolute Lymphs (auto) Nucleated RBC % Sodium Potassium Chloride Carbon Dioxide Anion Gap BUN Creatinine Estim Creat Clear Calc Est GFR (MDRD) Af Amer Est GFR (MDRD) Non-Af BUN/Creatinine Ratio Glucose Calcium POC Glucose 204 H 163 H 165 H Blood Type Antibody Screen Crossmatch 11/05/20 11/05/20 11/05/20 06:48 08:00 08:00 WBC 13.4 H RBC 2.49 L Hgb 7.8 L Hct 23.9 L MCV 96.0 H MCH 31.3 MCHC 32.6 RDW Std Deviation 48.0 H RDW Coeff of Marquis 14.9 H Plt Count 249 MPV 9.0 Immature Gran % (Auto) 3.900 H Neut % (Auto) 84.3 H Lymph % (Auto) 4.9 L Bartholomew % (Auto) 6.0 Eos % (Auto) 0.7 Baso % (Auto) 0.2 Absolute Neuts (auto) 11.3 H Absolute Lymphs (auto) 0.65 L Nucleated RBC % 0 Sodium 140 Potassium 3.9 Chloride 110 H Carbon Dioxide 23.0 Anion Gap 7 BUN 25 H Creatinine 1.53 H Estim Creat Clear Calc 47.71 Est GFR (MDRD) Af Amer 58 L Est GFR (MDRD) Non-Af 48 L BUN/Creatinine Ratio 16.3 Glucose 158 H Calcium 7.9 L POC Glucose 169 H Blood Type Antibody Screen Crossmatch Micro: Microbiology 11/04/20 12:15 Tissue - Arm Right Gram Stain - Final 11/01/20 Unknown Tissue - Arm Right Gram Stain - Final 11/01/20 Unknown Tissue - Arm Right Wound Culture - Final No growth aerobically. 11/01/20 Unknown Tissue - Arm Right Anaerobic Culture - Preliminary No growth in 48 hours. 10/28/20 14:20 Tissue - Arm Gram Stain - Final 10/28/20 14:20 Tissue - Arm Wound Culture - Final No growth aerobically. 10/28/20 14:20 Tissue - Arm Anaerobic Culture - Final Prevotella oralis 10/25/20 07:35 Blood Culture (Wb) - Anticubital Left Blood Culture - Final No growth in 5 days. 10/25/20 07:45 Blood Culture (Wb) - Left Wrist Blood Culture - Final No growth in 5 days. 10/25/20 07:30 Bite - Arm Gram Stain - Final 10/25/20 07:30 Bite - Arm Wound Culture - Final Pasteurella canis Staphylococcus aureus 10/27/20 18:00 Mucosa - Nose SARS-CoV-2 Antigen (Rapid) - Final Physical Exam Const alert, oriented x3 and no apparent distress General Appearance: cooperative HEENT normocephalic and moist oral mucous membranes Eyes PERRL, EOMs intact bilaterally and conjunctivae normal Neck no lymphadenopathy, supple and no JVD Resp normal respiratory effort, normal air movement, no retractions, no use of accessory muscles and clear to auscultation bilaterally Auscultation: diminished lung sounds; Negative for crackles, rales, rhonchi or wheezes Cardio regular rate, regular rhythm, S1 normal heart sound, S2 normal heart sound and no murmurs GI soft to palpation, non-tender and non-distended; Negative for hepatosplenomegaly Extremity no clubbing, cyanosis or edema Extremity Narrative: RUE wrapped in bandage Skin no rashes or lesions noted Neuro no focal motor deficits and no sensory deficits noted Psych affect normal Appearance: appropriate Assessment & Plan Assessment/Plan (1) Dog bite: QUALIFIERS: Encounter type: initial encounter Qualified Code(s): W54.0XXA - Bitten by dog, initial encounter (2) Cellulitis of forearm, right: (3) Open wound of right wrist due to dog bite: (4) Non-STEMI (non-ST elevated myocardial infarction): (5) CHF (congestive heart failure): QUALIFIERS: Heart failure type: systolic Heart failure chronicity: acute on chronic Qualified Code(s): I50.23 - Acute on chronic systolic (congestive) heart failure (6) Acute respiratory failure: QUALIFIERS: Respiratory failure complication: hypoxia Qualified Code(s): J96.01 - Acute respiratory failure with hypoxia (7) Acute blood loss anemia: PLAN: #nonstemi s/p cardiac cath which showed elevated left ventricular end-diastolic pressure and mild to moderate left ventricular systolic dysfunction with EF of 40% and iroquois multivessel CAD with THRASHER to the LAD patent and occluded grafts to of the obtuse marginal arteries with left to right collateral flows and left to left collateral flows. cardiology on board. medical management advised 2D echo: EF of 55% 10/29/2020: Remains stable #Afib still remains tachycardic per cardiology, to be weaned off amiodarone drip and transitioned to PO amiodarone today on heparin drip Cardiology on board. 10/29/2020: With A. fib continue with beta-blockers and amiodarone was been transitioned to p.o. 10/31/2020: Remains stable 11/01/2020: He did have an unresponsive episode as well as hypotension overnight. He was given some IV fluids likely due to his acute blood loss anemia, will be transfused 2 units and may need to be given Lasix in between. Metoprolol and Lasix have been discontinued 11/02/2020: Metoprolol was added back to his regimen since he has been transfused 11/04/2020: Remains in A. fib however heart rate is controlled #Acute heart failure with reduced EF/HTN BNP was over 600. Been diuresed with IV Lasix. 2D echo pending. Cardiac cath showed EF of 40% Monitor intake and output. Fluid restriction 1500 cc daily. Patient counseled to use his breathing treatments as needed. 10/29/2020: Down to 2 to 3 L nasal cannula continue with fluid restriction 10/31/2020: Oxygen stable on room air continue with fluid restriction and Lasix 11/01/2020: Lasix has been discontinued secondary to his worsening creatinine as well as his unresponsive episode and hypotension overnight. 11/02/2020: Continue to hold Lasix 11/03/2020: With the improvement in his creatinine, his oral Lasix is restarted #Acute respiratory failure due to heart failure non-STEMI As above. Patient currently on 5 L of oxygen. Titrate oxygen to maintain saturation above 90%. On breathing treatments of bronchodilators. 11/03/2020: Respiratory failure has resolved, he is back on room air #RUE cellulitis due to dog bite/acute blood loss anemia on IV cefazolin. plastic surgery on board wound cultures growing Pasteurella amd Staphylococcus species. which is rare blood cultures show no growth ovr 48 hours. wound care on board for debridement by plastic surgery today wbc elevated today at 24.6 10/29/2020: For some reason was discontinued from his Ancef and placed on Zosyn however his white count continued to climb therefore we will do both in consult infectious disease on Saturday10/31/2020: White count is improving now that he is on Ancef and Zosyn, will plan for ID tomorrow. He did have significant blood loss from a hemoglobin of 13.1-9.9 down to 8.7 yesterday. It does appear to have been stabilized with reinforce dressings. 11/01/2020: Hemoglobin is continued to drop down to 7.7 overnight. We will transfuse 2 units given his cardiac history as well as the fact that he needs surgery today. 11/02/2020: Hemoglobin up to 9.4, will recheck in the morning. Infectious disease consulted and recommended transitioning to Unasyn 11/03/2020: Hemoglobin dropped again we will transfuse 2 units, will also place a PICC line for easy access and and blood draws, Likely OR tomorrow 11/04/2020: With all the transfusions and has had his hemoglobin continues to drop therefore today we'll plan for transfusion of 1 unit PRBCs as well as 1 unit of FFP to help with clotting. We'll repeat hemoglobin at around noon and treat accordingly. Leukocytosis continues to improve with the Unasyn 11/05/2020: Status post surgery yesterday. He did receive a unit of FFP and will be transfused 2 units today of PRBC secondary to a hemoglobin of 7.8 given his cardiac history. Hopefully this in the last surgical intervention he will need and we can allow him to start healing. White count is also improving significantly down to 13.4, continue with Unasyn. Appreciate infectious disease input and assistance. #Type 2 diabetes mellitus on glipizide 10mg daily. ISS. [facility] 11/03/2020: Continue with sliding scale insulin, will place him on long-acting insulin for better control to assist with wound healing #CKD stage 3a: Cr is 1.7/ Was 1.46 on admission, baseline not known. Will trend 10/31/2020: Creatinine up to 1.83, will continue with Lasix and monitor closely if continues to rise we will discontinue his Lasix 11/01/2020: Creatinine jumped to over 2, his Ancef dose was decreased by 50% this is potentially due to his acute blood loss anemia which will be transfused. 11/02/2020: We will continue to monitor renal function, creatinine has improved today. DVT: SCDs Charges/Coding Visit Charges Inpatient E&M: 56347 Subs Hosp L2
[2020-11-05 11:21] LABS: Bedside Glucose 164 mg/dL (70-110)
[2020-11-05] MEDS: Furosemide 20 MG/2 ML VIAL IV (13:52)
[2020-11-05] MEDS: Morphine 4 MG/ML Syringe IV (14:52)
[2020-11-05 18:01] LABS: Bedside Glucose 216 mg/dL (70-110)
--- NOTE | 2020-11-05 19:33 | PCM.PN.SRG ---
Subjective Subjective Postop #8, and postop #4, and postop #1. Patient is resting comfortably. Tolerating the dressing change a little easier. Still very painful. Still needs IV analgesia. Minimal blood staining on the dressing stable. No active bleeding seen with the dressing change. Objective Data Objective Data Vital Signs: Vital Signs Temp Pulse Resp BP Pulse Ox 97.8 F 92 16 114/64 96 11/05/20 14:56 11/05/20 15:03 11/05/20 14:56 11/05/20 14:56 11/05/20 14:56 Oxygen Flow Rate (L/min) 2 Oxygen Delivery Method Nasal Cannula Weight: 206 lb 9.17 oz Body Mass Index (BMI) 29.6 Intake & Output: Intake and Output for Last 24 Hours 11/03/20 11/04/20 11/05/20 23:59 23:59 23:59 Intake Total 3319.25 / 3439.25 3585.50 / 3825.50 2488.00 / 2488.00 Output Total 1150 / 1150 550 / 1170 2490 / 2490 Balance 2169.25 / 2289.25 3035.50 / 2655.50 -2.00 / -2.00 Lab / Micro Data Attestation: I reviewed the patient's lab results. Result Diagrams: 11/07/20 06:05 11/07/20 06:05 Labs: Laboratory Results - last 24 hr 11/04/20 11/04/20 11/05/20 14:18 21:31 06:48 WBC RBC Hgb Hct MCV MCH MCHC RDW Std Deviation RDW Coeff of Marquis Plt Count MPV Immature Gran % (Auto) Neut % (Auto) Lymph % (Auto) [place] % (Auto) Eos % (Auto) Baso % (Auto) Absolute Neuts (auto) Absolute Lymphs (auto) Nucleated RBC % Sodium Potassium Chloride Carbon Dioxide Anion Gap BUN Creatinine Estim Creat Clear Calc Est GFR (MDRD) Af Amer Est GFR (MDRD) Non-Af BUN/Creatinine Ratio Glucose Calcium POC Glucose 165 H 169 H Blood Type O POSITIVE Antibody Screen NEGATIVE Crossmatch See Detail 11/05/20 11/05/20 11/05/20 08:00 08:00 10:58 WBC 13.4 H RBC 2.49 L Hgb 7.8 L Hct 23.9 L MCV 96.0 H MCH 31.3 MCHC 32.6 RDW Std Deviation 48.0 H RDW Coeff of Marquis 14.9 H Plt Count 249 MPV 9.0 Immature Gran % (Auto) 3.900 H Neut % (Auto) 84.3 H Lymph % (Auto) 4.9 L [place] % (Auto) 6.0 Eos % (Auto) 0.7 Baso % (Auto) 0.2 Absolute Neuts (auto) 11.3 H Absolute Lymphs (auto) 0.65 L Nucleated RBC % 0 Sodium 140 Potassium 3.9 Chloride 110 H Carbon Dioxide 23.0 Anion Gap 7 BUN 25 H Creatinine 1.53 H Estim Creat Clear Calc 47.71 Est GFR (MDRD) Af Amer 58 L Est GFR (MDRD) Non-Af 48 L BUN/Creatinine Ratio 16.3 Glucose 158 H Calcium 7.9 L POC Glucose 164 H Blood Type Antibody Screen Crossmatch 11/05/20 17:53 WBC RBC Hgb Hct MCV MCH MCHC RDW Std Deviation RDW Coeff of Marquis Plt Count MPV Immature Gran % (Auto) Neut % (Auto) Lymph % (Auto) [place] % (Auto) Eos % (Auto) Baso % (Auto) Absolute Neuts (auto) Absolute Lymphs (auto) Nucleated RBC % Sodium Potassium Chloride Carbon Dioxide Anion Gap BUN Creatinine Estim Creat Clear Calc Est GFR (MDRD) Af Amer Est GFR (MDRD) Non-Af BUN/Creatinine Ratio Glucose Calcium POC Glucose 216 H Blood Type Antibody Screen Crossmatch Micro: Microbiology 11/04/20 12:15 Tissue - Arm Right Gram Stain - Final 11/04/20 12:15 Tissue - Arm Right Wound Culture - Preliminary No growth-Final to follow 11/01/20 Unknown Tissue - Arm Right Gram Stain - Final 11/01/20 Unknown Tissue - Arm Right Wound Culture - Final No growth aerobically. 11/01/20 Unknown Tissue - Arm Right Anaerobic Culture - Preliminary No growth in 48 hours. 10/28/20 14:20 Tissue - Arm Gram Stain - Final 10/28/20 14:20 Tissue - Arm Wound Culture - Final No growth aerobically. 10/28/20 14:20 Tissue - Arm Anaerobic Culture - Final Prevotella oralis 10/25/20 07:35 Blood Culture (Wb) - Anticubital Left Blood Culture - Final No growth in 5 days. 10/25/20 07:45 Blood Culture (Wb) - Left Wrist Blood Culture - Final No growth in 5 days. 10/25/20 07:30 Bite - Arm Gram Stain - Final 10/25/20 07:30 Bite - Arm Wound Culture - Final Pasteurella canis Staphylococcus aureus 10/27/20 18:00 Mucosa - Nose SARS-CoV-2 Antigen (Rapid) - Final Physical Exam Narrative General - Alert and Oriented. HEENT - PERRL. EOMI. Extremities - FROM left upper extremity. No axillary adenopathy. Radial pulses are palpable. Right forearm and wrist wounds are stable. No active bleeding noted. Some blood staining on the operative dressing. Muscles are viable. No evidence of persistent purulent drainage noted. Mild finger swelling. The wounds are tender to palpation. The dressing change was a little better but still painful. He still needs IV analgesia. Dakin's dressing change was painful. Able to passively flex the MP joints almost to 90 degrees at this time. Neuro - CN II-XII grossly intact. Psych - Normal mood and affect. Assessment & Plan Assessment/Plan (1) Dog bite: QUALIFIERS: Encounter type: initial encounter Qualified Code(s): W54.0XXA - Bitten by dog, initial encounter (2) Abscess of bursa of right forearm: (3) Extensor tenosynovitis of right wrist: (4) Necrotizing soft tissue infection: (5) Abscess of skin of right wrist: (6) Open wound of right forearm due to dog bite: (7) Open wound of right wrist due to dog bite: (8) Diabetes: (9) Acute blood loss anemia: (10) Former smoker: PLAN: Dressing change was a little easier but still painful. Still needs IV analgesia. Continue Dakin's dressing change. Wounds were clean with no further evidence of purulence. Muscles appear viable. No active bleeding seen. The dressing was minimally blood stained. Hgb dropped to 7.8 from 8.3. He received PRBC today. Continue Iron supplementation. He has acute postoperative anemia from expected blood loss. From the dressing changes, I anticipate approximately a unit since surgery. Patient was also on a heparin drip for his atrial fibrillation. Patient is on Unasyn. A PICC line is in place. Operative cultures from 11/01/20 surgery are pending thus far. Operative cultures from 10/28/20 showed Prevotella bivia. The dressing changes will be difficult at home initially. Discussed with the patient about going to an ECF for short term until the dressing changes can be tolerated at home. He was in agreement. TCU evaluation in process. Prealbumin was 8.8. Encourage nutritional supplementation with protein to help the healing process. Encourage range of motion exercises to minimize stiffness. He is at risk for developing stiffness. Will need OT after discharge for range of motion exercises, strengthening, and edema management. Instructed the patient on range of motion exercises. He will start with flexing the MP joints as close to 90 degrees as possible. He will have to use his other hand to assist in this endeavor. His MP joints almost flex to 90 degrees passively. Told him it will take several days to improve. His WBC has decreased from 19.7 to 16.0. Anticipate it going lower into the lower teens. With the continued improvement of the wounds, he may not need another incision and drainage and irrigation of his wounds.
[2020-11-05] MEDS: Pravastatin 80 MG Tablet PO (21:06)
[2020-11-05] MEDS: Tamsulosin HCl 0.4 MG Capsule 0.8 MG PO (21:06)
[2020-11-05 21:45] LABS: Bedside Glucose 201 mg/dL (70-110)
[2020-11-06] VITALS (21 sets, daily range): BP systolic 100–153; BP diastolic 67–129; PULSE 77–88; RESP 16–24; TEMP 36.4–36.7; O2SAT 94–97
[2020-11-06] MEDS: Ipratropium/Albuterol Sulfate 3 ML AMPUL.NEB INHALATION ×4 (02:19→17:37)
[2020-11-06] MEDS: HYDROmorphone 1 MG/ML Syringe IV ×5 (02:35→20:28)
[2020-11-06] MEDS: 0.9% Saline Lock 10 ML Syringe IV ×2 (02:37→20:29)
[2020-11-06 06:25] LABS: Absolute Neutrophil Count 9.9 X10^3/uL (2.0-7.7); Basophil# 0.05 X10^3/uL; Basophil% 0.4 % (0-1); Eosinophil# 0.07 X10^3/uL; Eosinophils% 0.6 % (0-5); Hematocrit 28.9 % (40-54); Hemoglobin 9.5 g/dL (13.0-16.5); Lymphocyte % 6.6 % (19-41); Mean Corp Hgb Conc 32.9 g/dL (32-36); Mean Corpuscular Hgb 31.5 pg (27.0-32.0); Mean Corpuscular Volume 95.7 fL (80-94); Mean Platelet Vol. 8.9 fl (6.2-12.0); Monocyte# 0.75 X10^3/uL; Monocyte% 6.2 % (0-10); NRBC Flagged by Analyzer 0 % (0-5); Neutrophil # 9.87 X10^3/uL (2.7-7.7); Neutrophil % 81.7 % (47-70); Platelet Count 226 K/mm3 (150-450); RBC Distribution Width CV 15.7 % (11.6-14.6); RBC Distribution Width SD 50.5 fl (35.1-43.9); Red Blood Count 3.02 M/mm3 (4.6-6.2); White Blood Count 12.1 K/mm3 (4.4-11.0)
[2020-11-06] MEDS: Pentoxifylline 400 MG Tablet PO ×3 (06:41→20:36)
[2020-11-06 07:00] LABS: Bedside Glucose 140 mg/dL (70-110)
[2020-11-06] MEDS: Aspirin 81 MG TAB.CHEW PO (08:48)
[2020-11-06] MEDS: Acetaminophen 325 MG Tablet 650 MG PO (08:48)
[2020-11-06] MEDS: Iron Polysaccharide Complex 150 MG CAPSULE PO (08:48)
[2020-11-06] MEDS: Metoprolol Tartrate 25 MG Tablet PO (08:49)
[2020-11-06] MEDS: Amiodarone 200 MG Tablet PO ×2 (08:49→20:33)
[2020-11-06] MEDS: Gabapentin 300 MG Capsule PO ×2 (08:49→16:35)
[2020-11-06] MEDS: Furosemide 20 MG Tablet PO (08:49)
[2020-11-06] MEDS: amLODIPine 10 MG Tablet PO (08:50)
[2020-11-06] MEDS: Pantoprazole Sodium 20 MG Tablet PO ×2 (08:50→20:36)
[2020-11-06] MEDS: Paroxetine 20 MG Tablet 40 MG PO (08:51)
--- NOTE | 2020-11-06 10:39 | PN.HOSP_ITS ---
Subjective Subjective States he feels okay today. Hemoglobin is stable at 9.5 and white count continues to trend down. Objective Data Objective Data Vital Signs: Vital Signs Temp Pulse Resp BP Pulse Ox 98.0 F 85 18 129/68 H 96 11/06/20 08:45 11/06/20 08:49 11/06/20 08:45 11/06/20 08:49 11/06/20 08:45 Oxygen Flow Rate (L/min) 2 Oxygen Delivery Method Nasal Cannula Weight: 206 lb 9.17 oz Body Mass Index (BMI) 29.6 Intake & Output: Intake and Output for Last 24 Hours 11/05/20 11/06/20 11/07/20 03:59 03:59 03:59 Intake Total 3959.25 / 3959.25 2874.25 / 2874.25 352 / 352 Output Total 1170 / 1170 2070 / 2070 Balance 2789.25 / 2789.25 804.25 / 804.25 352 / 352 Lab / Micro Data Result Diagrams: 11/06/20 06:15 11/05/20 08:00 Labs: Laboratory Results - last 24 hr 11/04/20 11/05/20 11/05/20 14:18 10:58 17:53 WBC RBC Hgb Hct MCV MCH MCHC RDW Std Deviation RDW Coeff of Marquis Plt Count MPV Immature Gran % (Auto) Neut % (Auto) Lymph % (Auto) [place] % (Auto) Eos % (Auto) Baso % (Auto) Absolute Neuts (auto) Absolute Lymphs (auto) Nucleated RBC % POC Glucose 164 H 216 H Blood Type O POSITIVE Antibody Screen NEGATIVE Crossmatch See Detail 11/05/20 11/06/20 11/06/20 21:03 06:15 06:41 WBC 12.1 H RBC 3.02 L Hgb 9.5 L Hct 28.9 L MCV 95.7 H MCH 31.5 MCHC 32.9 RDW Std Deviation 50.5 H RDW Coeff of Marquis 15.7 H Plt Count 226 MPV 8.9 Immature Gran % (Auto) 4.500 H Neut % (Auto) 81.7 H Lymph % (Auto) 6.6 L [place] % (Auto) 6.2 Eos % (Auto) 0.6 Baso % (Auto) 0.4 Absolute Neuts (auto) 9.9 H Absolute Lymphs (auto) 0.80 L Nucleated RBC % 0 POC Glucose 201 H 140 H Blood Type Antibody Screen Crossmatch Micro: Microbiology 11/04/20 12:15 Tissue - Arm Right Gram Stain - Final 11/04/20 12:15 Tissue - Arm Right Wound Culture - Preliminary No growth-Final to follow 11/01/20 Unknown Tissue - Arm Right Gram Stain - Final 11/01/20 Unknown Tissue - Arm Right Wound Culture - Final No growth aerobically. 11/01/20 Unknown Tissue - Arm Right Anaerobic Culture - Preliminary No growth in 48 hours. 10/28/20 14:20 Tissue - Arm Gram Stain - Final 10/28/20 14:20 Tissue - Arm Wound Culture - Final No growth aerobically. 10/28/20 14:20 Tissue - Arm Anaerobic Culture - Final Prevotella oralis 10/25/20 07:35 Blood Culture (Wb) - Anticubital Left Blood Culture - Final No growth in 5 days. 10/25/20 07:45 Blood Culture (Wb) - Left Wrist Blood Culture - Final No growth in 5 days. 10/25/20 07:30 Bite - Arm Gram Stain - Final 10/25/20 07:30 Bite - Arm Wound Culture - Final Pasteurella canis Staphylococcus aureus 10/27/20 18:00 Mucosa - Nose SARS-CoV-2 Antigen (Rapid) - Final Physical Exam Const alert, oriented x3 and no apparent distress General Appearance: cooperative Exam Limitations: no limitations HEENT normocephalic and moist oral mucous membranes Eyes PERRL, EOMs intact bilaterally and conjunctivae normal Neck no lymphadenopathy, supple and no JVD Resp normal respiratory effort, normal air movement, no retractions, no use of accessory muscles and clear to auscultation bilaterally Auscultation: diminished lung sounds; Negative for crackles, rales, rhonchi or wheezes Cardio regular rate, regular rhythm, S1 normal heart sound, S2 normal heart sound and no murmurs GI soft to palpation, non-tender and non-distended; Negative for hepatosplenomegaly Extremity no clubbing, cyanosis or edema Extremity Narrative: RUE wrapped in bandage Skin no rashes or lesions noted Skin Narrative: Right upper extremity wrapped, and reinforced Neuro no focal motor deficits and no sensory deficits noted Sensorium / Orientation: awake and alert Psych affect normal Appearance: appropriate Assessment & Plan Assessment/Plan (1) Dog bite: QUALIFIERS: Encounter type: initial encounter Qualified Code(s): W54.0XXA - Bitten by dog, initial encounter (2) Cellulitis of forearm, right: (3) Open wound of right wrist due to dog bite: (4) Non-STEMI (non-ST elevated myocardial infarction): (5) CHF (congestive heart failure): QUALIFIERS: Heart failure type: systolic Heart failure chronicity: acute on chronic Qualified Code(s): I50.23 - Acute on chronic systolic (congestive) heart failure (6) Acute respiratory failure: QUALIFIERS: Respiratory failure complication: hypoxia Qualified Code(s): J96.01 - Acute respiratory failure with hypoxia (7) Acute blood loss anemia: PLAN: #nonstemi s/p cardiac cath which showed elevated left ventricular end-diastolic pressure and mild to moderate left ventricular systolic dysfunction with EF of 40% and algaaciq multivessel CAD with THRASHER to the LAD patent and occluded grafts to of the obtuse marginal arteries with left to right collateral flows and left to left collateral flows. cardiology on board. medical management advised 2D echo: EF of 55% 10/29/2020: Remains stable #Afib still remains tachycardic per cardiology, to be weaned off amiodarone drip and transitioned to PO amiodarone today on heparin drip Cardiology on board. 10/29/2020: With A. fib continue with beta-blockers and amiodarone was been transitioned to p.o. 10/31/2020: Remains stable 11/01/2020: He did have an unresponsive episode as well as hypotension overnight. He was given some IV fluids likely due to his acute blood loss anemia, will be transfused 2 units and may need to be given Lasix in between. Metoprolol and Lasix have been discontinued 11/02/2020: Metoprolol was added back to his regimen since he has been transfused 11/04/2020: Remains in A. fib however heart rate is controlled #Acute heart failure with reduced EF/HTN BNP was over 600. Been diuresed with IV Lasix. 2D echo pending. Cardiac cath showed EF of 40% Monitor intake and output. Fluid restriction 1500 cc daily. Patient counseled to use his breathing treatments as needed. 10/29/2020: Down to 2 to 3 L nasal cannula continue with fluid restriction 10/31/2020: Oxygen stable on room air continue with fluid restriction and Lasix 11/01/2020: Lasix has been discontinued secondary to his worsening creatinine as well as his unresponsive episode and hypotension overnight. 11/02/2020: Continue to hold Lasix 11/03/2020: With the improvement in his creatinine, his oral Lasix is restarted 11/06/2020: He is back on oxygen just 2 L, will continue to monitor and continue with his Lasix hopefully with no more surgeries indicated we will need to transfuse again #Acute respiratory failure due to heart failure non-STEMI As above. Patient currently on 5 L of oxygen. Titrate oxygen to maintain saturation above 90%. On breathing treatments of bronchodilators. 11/03/2020: Respiratory failure has resolved, he is back on room air #RUE cellulitis due to dog bite/acute blood loss anemia on IV cefazolin. plastic surgery on board wound cultures growing Pasteurella amd Staphylococcus species. which is rare blood cultures show no growth ovr 48 hours. wound care on board for debridement by plastic surgery today wbc elevated today at 24.6 10/29/2020: For some reason was discontinued from his Ancef and placed on Zosyn however his white count continued to climb therefore we will do both in consult infectious disease on Saturday10/31/2020: White count is improving now that he is on Ancef and Zosyn, will plan for ID tomorrow. He did have significant blood loss from a hemoglobin of 13.1- 9.9 down to 8.7 yesterday. It does appear to have been stabilized with reinforce dressings. 11/01/2020: Hemoglobin is continued to drop down to 7.7 overnight. We will transfuse 2 units given his cardiac history as well as the fact that he needs surgery today. 11/02/2020: Hemoglobin up to 9.4, will recheck in the morning. Infectious disease consulted and recommended transitioning to Unasyn 11/03/2020: Hemoglobin dropped again we will transfuse 2 units, will also place a PICC line for easy access and and blood draws, Likely OR tomorrow 11/04/2020: With all the transfusions and has had his hemoglobin continues to drop therefore today we'll plan for transfusion of 1 unit PRBCs as well as 1 unit of FFP to help with clotting. We'll repeat hemoglobin at around noon and treat accordingly. Leukocytosis continues to improve with the Unasyn 11/05/2020: Status post surgery yesterday. He did receive a unit of FFP and will be transfused 2 units today of PRBC secondary to a hemoglobin of 7.8 given his cardiac history. Hopefully this in the last surgical intervention he will need and we can allow him to start healing. White count is also improving significantly down to 13.4, continue with Unasyn. Appreciate infectious disease input and assistance. 11/06/2020: White count continues to trend down, hemoglobin is stable at 9.5, will follow in the morning. Continue with Unasyn #Type 2 diabetes mellitus on glipizide 10mg daily. ISS. Accuchecks ACHS 11/03/2020: Continue with sliding scale insulin, will place him on long-acting insulin for better control to assist with wound healing #CKD stage 3a: Cr is 1.7/ Was 1.46 on admission, baseline not known. Will trend 10/31/2020: Creatinine up to 1.83, will continue with Lasix and monitor closely if continues to rise we will discontinue his Lasix 11/01/2020: Creatinine jumped to over 2, his Ancef dose was decreased by 50% this is potentially due to his acute blood loss anemia which will be transfused. 11/02/2020: We will continue to monitor renal function, creatinine has improved today. DVT: SCDs Charges/Coding Visit Charges Inpatient E&M: 91942 Subs Hosp L2
[2020-11-06] MEDS: DAKIN'S SOL HALF STRENGTH (=0.25%) 1 APPLIC TOPICAL (10:49)
[2020-11-06] MEDS: Insulin Lispro 100 UNIT/ML INSULN.PEN SC (11:25)
[2020-11-06 11:35] LABS: Bedside Glucose 161 mg/dL (70-110)
[2020-11-06 16:41] LABS: Bedside Glucose 91 mg/dL (70-110)
[2020-11-06] MEDS: Acetaminophen/Codeine #3 Tablet 1 TABLET PO ×2 (18:14→23:41)
[2020-11-06] MEDS: Tamsulosin HCl 0.4 MG Capsule 0.8 MG PO (20:33)
[2020-11-06] MEDS: Pravastatin 80 MG Tablet PO (20:36)
[2020-11-06 20:56] LABS: Bedside Glucose 132 mg/dL (70-110)
[2020-11-07] VITALS (20 sets, daily range): BP systolic 97–122; BP diastolic 54–87; PULSE 86–98; RESP 16–24; TEMP 36.3–36.7; O2SAT 90–97
--- NOTE | 2020-11-07 00:18 | PN.SURG_ITS ---
Subjective Subjective THIS IS A PROGRESS NOTE DATED 11/06/20 Postop #9, and postop #5, and postop #2 Patient is resting comfortably. Tolerating the dressing change a little easier. Still very painful. Still needs IV analgesia. Minimal blood staining on the dressing stable. No active bleeding seen with the dressing change. Objective Data Objective Data Vital Signs: Vital Signs Temp Pulse Resp BP Pulse Ox 97.6 F L 86 17 105/67 96 11/06/20 20:23 11/06/20 23:00 11/06/20 20:23 11/06/20 20:23 11/06/20 20:23 Oxygen Flow Rate (L/min) 2 Oxygen Delivery Method Nasal Cannula Weight: 206 lb 9.17 oz Body Mass Index (BMI) 29.6 Intake & Output: Intake and Output for Last 24 Hours 11/05/20 11/06/20 11/07/20 23:59 23:59 23:59 Intake Total 3368.00 / 3368.00 908 / 908 Output Total 2690 / 2690 450 / 450 Balance 678.00 / 678.00 458 / 458 Lab / Micro Data Attestation: I reviewed the patient's lab results. Result Diagrams: 11/09/20 06:14 11/09/20 20:10 Labs: Laboratory Results - last 24 hr 11/06/20 11/06/20 11/06/20 06:15 06:41 11:24 WBC 12.1 H RBC 3.02 L Hgb 9.5 L Hct 28.9 L MCV 95.7 H MCH 31.5 MCHC 32.9 RDW Std Deviation 50.5 H RDW Coeff of Marquis 15.7 H Plt Count 226 MPV 8.9 Immature Gran % (Auto) 4.500 H Neut % (Auto) 81.7 H Lymph % (Auto) 6.6 L [place] % (Auto) 6.2 Eos % (Auto) 0.6 Baso % (Auto) 0.4 Absolute Neuts (auto) 9.9 H Absolute Lymphs (auto) 0.80 L Nucleated RBC % 0 POC Glucose 140 H 161 H 11/06/20 11/06/20 16:34 20:44 WBC RBC Hgb Hct MCV MCH MCHC RDW Std Deviation RDW Coeff of Marquis Plt Count MPV Immature Gran % (Auto) Neut % (Auto) Lymph % (Auto) [place] % (Auto) Eos % (Auto) Baso % (Auto) Absolute Neuts (auto) Absolute Lymphs (auto) Nucleated RBC % POC Glucose 91 132 H Micro: Microbiology 10/28/20 Unknown Tissue - Arm Fungal Smear - Final 11/04/20 12:15 Tissue - Arm Right Gram Stain - Final 11/04/20 12:15 Tissue - Arm Right Wound Culture - Preliminary No growth-Final to follow 11/01/20 Unknown Tissue - Arm Right Gram Stain - Final 11/01/20 Unknown Tissue - Arm Right Wound Culture - Final No growth aerobically. 11/01/20 Unknown Tissue - Arm Right Anaerobic Culture - Preliminary No growth in 48 hours. 10/28/20 14:20 Tissue - Arm Gram Stain - Final 10/28/20 14:20 Tissue - Arm Wound Culture - Final No growth aerobically. 10/28/20 14:20 Tissue - Arm Anaerobic Culture - Final Prevotella oralis 10/25/20 07:35 Blood Culture (Wb) - Anticubital Left Blood Culture - Final No growth in 5 days. 10/25/20 07:45 Blood Culture (Wb) - Left Wrist Blood Culture - Final No growth in 5 days. 10/25/20 07:30 Bite - Arm Gram Stain - Final 10/25/20 07:30 Bite - Arm Wound Culture - Final Pasteurella canis Staphylococcus aureus 10/27/20 18:00 Mucosa - Nose SARS-CoV-2 Antigen (Rapid) - Final Physical Exam Narrative General - Alert and Oriented. HEENT - PERRL. EOMI. Extremities - FROM left upper extremity. No axillary adenopathy. Radial pulses are palpable. Right forearm and wrist wounds are stable. No active bleeding noted. Some blood staining on the operative dressing. Muscles are viable. No evidence of persistent purulent drainage noted. Mild finger swelling. The wounds are tender to palpation. The dressing change was a little better but still painful. He still needs IV analgesia. Dakin's dressing change still painful painful. Able to passively flex the MP joints almost to 90 degrees at this time. Neuro - CN II-XII grossly intact. Psych - Normal mood and affect. Assessment & Plan Assessment/Plan (1) Dog bite: QUALIFIERS: Encounter type: initial encounter Qualified Code(s): W54.0XXA - Bitten by dog, initial encounter (2) Extensor tenosynovitis of right wrist: (3) Abscess of bursa of right forearm: (4) Necrotizing soft tissue infection: (5) Abscess of skin of right wrist: (6) Open wound of right forearm due to dog bite: (7) Open wound of right wrist due to dog bite: (8) Diabetes: (9) Acute blood loss anemia: (10) Former smoker: PLAN: Dressing change was a little easier but still painful. Still needs IV analgesia. Continue Dakin's dressing change. Wounds were clean with no f urther evidence of purulence. Muscles appear viable. No active bleeding seen. The dressing was minimally blood stained. Hgb improved to 9.5 from 7.8. He received PRBC. Continue Iron supplementation. He has acute postoperative anemia from expected blood loss. From the dressing changes, I anticipate approximately a unit since surgery. Patient was also on a heparin drip for his atrial fibrillation. Patient is on Unasyn. A PICC line is in place. Operative cultures from 11/01/20 surgery are pending thus far. Operative cultures from 10/28/20 showed Prevotella bivia. The dressing changes will be difficult at home initially. Discussed with the patient about going to an ECF for short term until the dressing changes can be tolerated at home. He was in agreement. TCU evaluation in process. Prealbumin was 8.8. Encourage nutritional supplementation with protein to help the healing process. Encourage range of motion exercises to minimize stiffness. He is at risk for developing stiffness. Will need OT after discharge for range of motion exercises, strengthening, and edema management. Instructed the patient on range of motion exercises. He will start with flexing the MP joints as close to 90 degrees as possible. He will have to use his other hand to assist in this endeavor. His MP joints almost flex to 90 degrees passively. Told him it will take several days to improve. His WBC continues to decrease from 13.4 to 12.2. With the continued improvement of the wounds, he may not need another incision and drainage and irrigation of his wounds.
[2020-11-07] MEDS: Ipratropium/Albuterol Sulfate 3 ML AMPUL.NEB INHALATION ×5 (00:55→18:43)
[2020-11-07] MEDS: HYDROmorphone 1 MG/ML Syringe IV ×3 (02:02→16:28)
[2020-11-07] MEDS: 0.9% Saline Lock 10 ML Syringe IV ×6 (02:03→17:44)
[2020-11-07] MEDS: Pentoxifylline 400 MG Tablet PO ×3 (06:10→21:06)
[2020-11-07 06:13] LABS: Absolute Lymphocyte Count 0.38 X10^3/uL (0.83-4.51); Absolute Neutrophil Count 13.8 X10^3/uL (2.0-7.7); Basophil# 0.05 X10^3/uL; Basophil% 0.3 % (0-1); Eosinophil# 0.01 X10^3/uL; Eosinophils% 0.1 % (0-5); Hemoglobin 9.6 g/dL (13.0-16.5); Lymphocyte # 0.38 X10^3/ul (0.83-4.51); Lymphocyte % 2.5 % (19-41); Mean Corpuscular Hgb 31.1 pg (27.0-32.0); Mean Corpuscular Volume 97.1 fL (80-94); Mean Platelet Vol. 8.8 fl (6.2-12.0); Monocyte# 0.58 X10^3/uL; Monocyte% 3.8 % (0-10); NRBC Flagged by Analyzer 0 % (0-5); Neutrophil # 13.81 X10^3/uL (2.7-7.7); Neutrophil % 90.7 % (47-70); POSITIVE DIFFERENTIAL YES; Platelet Count 215 K/mm3 (150-450); RBC Distribution Width CV 15.9 % (11.6-14.6); RBC Distribution Width SD 50.7 fl (35.1-43.9); Red Blood Count 3.09 M/mm3 (4.6-6.2); White Blood Count 15.2 K/mm3 (4.4-11.0)
[2020-11-07 06:14] LABS: Differential Indicated SCAN CRITERIA MET
[2020-11-07 06:21] LABS: Bedside Glucose 146 mg/dL (70-110)
[2020-11-07 06:36] LABS: Anion Gap 12 (5-15); BUN 28 mg/dL (7-18); BUN/Creat Ratio 14.1 RATIO (10-20); Calcium,Total 7.9 mg/dL (8.5-10.1); Chloride 107 mmol/L (98-107); Creatinine, Serum 1.98 mg/dL (0.70-1.30); EST Glomerular Filtration Rate 36 mL/min (>60); Est Glom Filt Rate - Afr Amer 43 mL/min (>60); Estimated Creatinine Clearance 36.87 ml/min; Glucose 133 mg/dL (74-106); Sodium Level 139 mmol/L (136-145)
[2020-11-07] MEDS: Iron Polysaccharide Complex 150 MG CAPSULE PO (09:27)
[2020-11-07] MEDS: Aspirin 81 MG TAB.CHEW PO (09:27)
[2020-11-07] MEDS: Paroxetine 20 MG Tablet 40 MG PO (09:28)
[2020-11-07] MEDS: Amiodarone 200 MG Tablet PO ×2 (09:28→21:06)
[2020-11-07] MEDS: Pantoprazole Sodium 20 MG Tablet PO ×2 (09:28→21:06)
[2020-11-07] MEDS: Acetaminophen/Codeine #3 Tablet 1 TABLET PO ×3 (09:28→21:11)
[2020-11-07] MEDS: Furosemide 40 MG/4 ML Vial IV (09:28)
[2020-11-07] MEDS: Gabapentin 300 MG Capsule PO ×2 (09:30→16:28)
--- NOTE | 2020-11-07 09:41 | PN.CARD_ITS ---
Subjective Subjective The patient is awake and alert. He denies any ongoing chest discomfort. He denies any acute shortness of breath. However, he has now required supplemental oxygen therapy. Objective Data Vital Signs: Vital Signs Temp Pulse Resp BP Pulse Ox 97.9 F 95 18 100/79 94 11/07/20 09:25 11/07/20 09:25 11/07/20 09:25 11/07/20 09:25 11/07/20 09:25 Oxygen Flow Rate (L/min) 2 Oxygen Delivery Method Nasal Cannula Weight: 206 lb 9.17 oz Body Mass Index (BMI) 29.6 Intake & Output: Intake and Output for Last 24 Hours 11/05/20 11/06/20 11/07/20 23:59 23:59 23:59 Intake Total 3368.00 / 3368.00 908 / 1058 374 / 374 Output Total 2690 / 2690 450 / 800 650 / 650 Balance 678.00 / 678.00 458 / 258 -276 / -276 Lab / Micro Data Result Diagrams: 11/07/20 06:05 11/07/20 06:05 Labs: Laboratory Results - last 24 hr 11/06/20 11:24: POC Glucose 161 H 11/06/20 16:34: POC Glucose 91 11/06/20 20:44: POC Glucose 132 H 11/07/20 06:05: WBC 15.2 H, RBC 3.09 L, Hgb 9.6 L, Hct 30.0 L, MCV 97.1 H, MCH 31.1, MCHC 32.0, RDW Std Deviation 50.7 H, RDW Coeff of Marquis 15.9 H, Plt Count 215, MPV 8.8, Immature Gran % (Auto) 2.600 H, Neut % (Auto) 90.7 H, Lymph % (Auto) 2.5 L, [place] % (Auto) 3.8, Eos % (Auto) 0.1, Baso % (Auto) 0.3, Absolute Neuts (auto) 13.8 H, Absolute Lymphs (auto) 0.38 L, Nucleated RBC % 0 11/07/20 06:05: Sodium 139, Potassium 4.0, Chloride 107, Carbon Dioxide 20.0 L, Anion Gap 12, BUN 28 H, Creatinine 1.98 H, Estim Creat Clear Calc 36.87, Est GFR (MDRD) Af Amer 43 L, Est GFR (MDRD) Non-Af 36 L, BUN/Creatinine Ratio 14.1, Glucose 133 H, Calcium 7.9 L 11/07/20 06:12: POC Glucose 146 H Micro: Microbiology 11/04/20 12:15 Tissue - Arm Right Gram Stain - Final 11/04/20 12:15 Tissue - Arm Right Wound Culture - Preliminary No growth-Final to follow 11/04/20 12:15 Tissue - Arm Right Anaerobic Culture - Preliminary No growth in 48 hours. 10/28/20 Unknown Tissue - Arm Fungal Smear - Final Cardiology Labs/Tests 11/07/20 06:05: WBC 15.2 H, RBC 3.09 L, Hgb 9.6 L, Hct 30.0 L, MCV 97.1 H, MCH 31.1, MCHC 32.0, Plt Count 215, MPV 8.8, Immature Gran % (Auto) 2.600 H, Neut % (Auto) 90.7 H, Lymph % (Auto) 2.5 L, [place] % (Auto) 3.8, Eos % (Auto) 0.1, Baso % (Auto) 0.3, Absolute Neuts (auto) 13.8 H, Nucleated RBC % 0 11/07/20 06:05: Sodium 139, Potassium 4.0, Chloride 107, Carbon Dioxide 20.0 L, Anion Gap 12, BUN 28 H, Creatinine 1.98 H, Est GFR (MDRD) Af Amer 43 L, Est GFR (MDRD) Non-Af 36 L, BUN/Creatinine Ratio 14.1, Glucose 133 H, Calcium 7.9 L Rhythm: Sinus rhythm with paroxysmal atrial fibrillation Physical Exam Const alert, oriented x3 and no apparent distress Orientation / Consciousness: awake HEENT normocephalic, head/scalp atraumatic and hearing grossly normal bilaterally Eyes PERRL, EOMs intact bilaterally and conjunctivae normal Neck full ROM, supple and no JVD Chest Chest: midline sternotomy incision Resp clear to auscultation bilaterally Auscultation: diminished lung sounds bilateral lower Cardio regular rate, regular rhythm, S1 normal heart sound and S2 normal heart sound Heart Sounds: S1 normal and S2 normal GI normal to inspection, nondistended, normoactive bowel sounds Extremity no pedal edema Extremity Narrative: Right upper extremity: Positive surgical dressing and Alfa wrap Neuro oriented x3, moves all extremities, no focal motor deficits and no sensory deficits noted Psych mental status grossly normal Assessment & Plan Assessment/Plan (1) Atherosclerotic heart disease of [place] coronary artery without angina pectoris: PLAN: At the present time the patient appears to be without any acute symptoms or adverse events. He will continue medical management with adjustment as needed. His beta-alma delia has been reinitiated. He appears to be tolerating this at this time. Over time, depending upon his clinical course and his hemodynamics, consideration can be given to additional medical therapy with nitrates. As noted before he is not considered a candidate for further percutaneous or surgical based revascularization therapy. (2) S/P CABG (coronary artery bypass graft): PLAN: The patient did undergo evaluation in the cardiac catheterization laboratory as previously noted. He has extensive [place] vessel disease with a patent THRASHER to the LAD and an occluded SVG to OM1 and SVG to OM 2. He will continue medical management. (3) CHF (congestive heart failure): QUALIFIERS: Heart failure type: systolic Heart failure chronicity: acute on chronic Qualified Code(s): I50.23 - Acute on chronic systolic (congestive) heart failure PLAN: The patient does have findings compatible with an underlying ischemic mediated cardiomyopathy based upon his left ventriculogram with an estimated LVEF 40%. The patient has been started back on low-dose diuretic therapy. He does appear to have an element of diminished breath sounds in the bilateral bases. He will receive an additional dose of IV diuretics at this time. You may need adjustment of his oral diuretic dose to assist in managing his volume status. Hopefully this will help with any respiratory concerns and oxygenation status. (4) Atrial fibrillation: QUALIFIERS: Atrial fibrillation type: unspecified Qualified Code(s): I48.91 - Unspecified atrial fibrillation PLAN: The patient's cardiac rate and rhythm will be monitored. It appears he has had episodes, based upon his cardiac rhythm strips, of sinus rhythm and paroxysmal atrial fibrillation. He will continue rate control therapy as tolerated, antiarrhythmic therapy, and eventually when stable from his right upper extremity surgical site anticoagulant therapy (not on antiplatelet in the way of agents such as clopidogrel/Plavix or anticoagulant therapy at this time secondary to his right upper extremity surgical procedures). (5) HLD (hyperlipidemia): QUALIFIERS: Hyperlipidemia type: unspecified Qualified Code(s): E78.5 - Hyperlipidemia, unspecified PLAN: The patient should continue risk factor evaluation care as tolerated. (6) Benign essential HTN: PLAN: The patient's blood pressure is being followed. His medications can be readjusted as needed. (7) Cellulitis of forearm, right: PLAN: He will continue further evaluation care per internal medicine, infectious disease, and plastic surgery. (8) Anemia: PLAN: The patient has received additional PRBCs. His hemoglobin has increased. He is not on antiplatelet therapy in the way of agent such as clopidogrel/Plavix or anticoagulant therapy in a systemic manner at this time. His H&H may need to be supplemented with additional PRBCs to assist with his O2 carrying capacity to assist with his cardiovascular status as his clinical course progresses. Addt'l Comments This note was generated using a voice recognition system and there may be incorrect words, spelling or punctuation that were not noted when reviewing the office note prior to saving.
[2020-11-07 11:26] LABS: Bedside Glucose 146 mg/dL (70-110)
[2020-11-07] MEDS: DAKIN'S SOL HALF STRENGTH (=0.25%) 1 APPLIC TOPICAL (11:29)
[2020-11-07] MEDS: Acetaminophen 325 MG Tablet 650 MG PO (12:10)
--- NOTE | 2020-11-07 13:10 | PCM.PN.ID ---
Physical Exam Narrative C/o significant dyspnea, some cough with clear sputum. No chest pain, no fever, arm improving. Const alert General Appearance: cooperative Resp Auscultation: wheezes and diminished lung sounds Cardio regular rate and regular rhythm GI normal to inspection, nondistended, normoactive bowel sounds Skin Skin Narrative: RUE wrapped ID ID: Route of nutrition/ use of supplements: [] Nutritional Intake: [] IV Site: [] Reed Catheter: [] Assessment & Plan Assessment/Plan (1) Necrotizing soft tissue infection: PLAN: On unasyn. Most recent I&D 11/04/[address] William. Past few cxs with prevotella, pasteurella, mssa. Plan on po augmentin at discharge. With dyspnea, worsened hypoxia, and wheezing, would consider pulm eval. will follow
--- NOTE | 2020-11-07 14:23 | PN.HOSP_ITS ---
Subjective Subjective Continues to state that he feels fine. He is able to move his fingers on the right and has sensation. He is little bit more short of breath today and is back on 2 to 3 L nasal cannula. He was given a dose of Lasix by cardiology this morning and his hemoglobin has remained stable at 9.6 Objective Data Objective Data Vital Signs: Vital Signs Temp Pulse Resp BP Pulse Ox 98.0 F 97 18 107/62 95 11/07/20 13:20 11/07/20 13:20 11/07/20 13:20 11/07/20 13:20 11/07/20 13:20 Oxygen Flow Rate (L/min) 2.5 Oxygen Delivery Method Nasal Cannula Weight: 206 lb 9.17 oz Body Mass Index (BMI) 29.6 Intake & Output: Intake and Output for Last 24 Hours 11/06/20 11/07/20 11/08/20 03:59 03:59 03:59 Intake Total 2874.25 / 2874.25 1058 / 1058 284 / 284 Output Total 2070 / 2070 800 / 800 400 / 400 Balance 804.25 / 804.25 258 / 258 -116 / -116 Lab / Micro Data Result Diagrams: 11/07/20 06:05 11/07/20 06:05 Labs: Laboratory Results - last 24 hr 11/06/20 16:34: POC Glucose 91 11/06/20 20:44: POC Glucose 132 H 11/07/20 06:05: WBC 15.2 H, RBC 3.09 L, Hgb 9.6 L, Hct 30.0 L, MCV 97.1 H, MCH 31.1, MCHC 32.0, RDW Std Deviation 50.7 H, RDW Coeff of [place]quis 15.9 H, Plt Count 215, MPV 8.8, Immature Gran % (Auto) 2.600 H, Neut % (Auto) 90.7 H, Lymph % (Auto) 2.5 L, [place] % (Auto) 3.8, Eos % (Auto) 0.1, Baso % (Auto) 0.3, Absolute Neuts (auto) 13.8 H, Absolute Lymphs (auto) 0.38 L, Nucleated RBC % 0 11/07/20 06:05: Sodium 139, Potassium 4.0, Chloride 107, Carbon Dioxide 20.0 L, Anion Gap 12, BUN 28 H, Creatinine 1.98 H, Estim Creat Clear Calc 36.87, Est GFR (MDRD) Af Amer 43 L, Est GFR (MDRD) Non-Af 36 L, BUN/Creatinine Ratio 14.1, Glucose 133 H, Calcium 7.9 L 11/07/20 06:12: POC Glucose 146 H 11/07/20 11:18: POC Glucose 146 H Micro: Microbiology 11/01/20 Unknown Tissue - Arm Right Gram Stain - Final 11/01/20 Unknown Tissue - Arm Right Wound Culture - Final No growth aerobically. 11/01/20 Unknown Tissue - Arm Right Anaerobic Culture - Final No anaerobic bacteria isolated. 11/04/20 12:15 Tissue - Arm Right Gram Stain - Final 11/04/20 12:15 Tissue - Arm Right Wound Culture - Preliminary No growth-Final to follow 11/04/20 12:15 Tissue - Arm Right Anaerobic Culture - Preliminary No growth in 48 hours. 10/28/20 Unknown Tissue - Arm Fungal Smear - Final 10/28/20 14:20 Tissue - Arm Gram Stain - Final 10/28/20 14:20 Tissue - Arm Wound Culture - Final No growth aerobically. 10/28/20 14:20 Tissue - Arm Anaerobic Culture - Final Prevotella oralis 10/25/20 07:35 Blood Culture (Wb) - Anticubital Left Blood Culture - Final No growth in 5 days. 10/25/20 07:45 Blood Culture (Wb) - Left Wrist Blood Culture - Final No growth in 5 days. 10/25/20 07:30 Bite - Arm Gram Stain - Final 10/25/20 07:30 Bite - Arm Wound Culture - Final Pasteurella canis Staphylococcus aureus 10/27/20 18:00 Mucosa - Nose SARS-CoV-2 Antigen (Rapid) - Final Physical Exam Const alert, oriented x3 and no apparent distress General Appearance: cooperative HEENT normocephalic and moist oral mucous membranes Eyes PERRL, EOMs intact bilaterally and conjunctivae normal Neck no lymphadenopathy, supple and no JVD Resp normal respiratory effort, normal air movement, no retractions, no use of accessory muscles and clear to auscultation bilaterally Auscultation: diminished lung sounds; Negative for crackles, rales, rhonchi or wheezes Cardio regular rate, regular rhythm, S1 normal heart sound, S2 normal heart sound and no murmurs GI soft to palpation, non-tender and non-distended; Negative for hepatosplenomegaly Extremity no clubbing, cyanosis or edema Extremity Narrative: RUE wrapped in bandage Skin no rashes or lesions noted Neuro no focal motor deficits and no sensory deficits noted Psych Appearance: appropriate Mood & Affect: flat affect Assessment & Plan Assessment/Plan (1) Dog bite: QUALIFIERS: Encounter type: initial encounter Qualified Code(s): W54.0XXA - Bitten by dog, initial encounter (2) Cellulitis of forearm, right: (3) Open wound of right wrist due to dog bite: (4) Non-STEMI (non-ST elevated myocardial infarction): (5) CHF (congestive heart failure): QUALIFIERS: Heart failure type: systolic Heart failure chronicity: acute on chronic Qualified Code(s): I50.23 - Acute on chronic systolic (congestive) heart failure (6) Acute respiratory failure: QUALIFIERS: Respiratory failure complication: hypoxia Qualified Code(s): J96.01 - Acute respiratory failure with hypoxia (7) Acute blood loss anemia: PLAN: #nonstemi s/p cardiac cath which showed elevated left ventricular end-diastolic pressure and mild to moderate left ventricular systolic dysfunction with EF of 40% and [place] multivessel CAD with THRASHER to the LAD patent and occluded grafts to of the obtuse marginal arteries with left to right collateral flows and left to left collateral flows. cardiology on board. medical management advised 2D echo: EF of 55% 10/29/2020: Remains stable #Afib still remains tachycardic per cardiology, to be weaned off amiodarone drip and transitioned to PO amiodarone today on heparin drip Cardiology on board. 10/29/2020: With A. fib continue with beta-blockers and amiodarone was been transitioned to p.o. 10/31/2020: Remains stable 11/01/2020: He did have an unresponsive episode as well as hypotension overnight. He was given some IV fluids likely due to his acute blood loss anemia, will be transfused 2 units and may need to be given Lasix in between. Metoprolol and Lasix have been discontinued 11/02/2020: Metoprolol was added back to his regimen since he has been transfused 11/04/2020: Remains in A. fib however heart rate is controlled #Acute heart failure with reduced EF/HTN BNP was over 600. Been diuresed with IV Lasix. 2D echo pending. Cardiac cath showed EF of 40% Monitor intake and output. Fluid restriction 1500 cc daily. Patient counseled to use his breathing treatments as needed. 10/29/2020: Down to 2 to 3 L nasal cannula continue with fluid restriction 10/31/2020: Oxygen stable on room air continue with fluid restriction and Lasix 11/01/2020: Lasix has been discontinued secondary to his worsening creatinine as well as his unresponsive episode and hypotension overnight. 11/02/2020: Continue to hold Lasix 11/03/2020: With the improvement in his creatinine, his oral Lasix is restarted 11/06/2020: He is back on oxygen just 2 L, will continue to monitor and continue with his Lasix hopefully with no more surgeries indicated we will need to transfuse again 11/07/2020: He was given extra dose of IV Lasix today, monitor his renal function and if stable can increase his oral Lasix in the morning #Acute respiratory failure due to heart failure non-STEMI As above. Patient currently on 5 L of oxygen. Titrate oxygen to maintain saturation above 90%. On breathing treatments of bronchodilators. 11/03/2020: Respiratory failure has resolved, he is back on room air 11/07/2020: He is back on oxygen around 2 to 3 L. In discussion with the nurse he seems a little bit apathetic at this time about his care and does not want to get out of bed so this may be a component of atelectasis. #RUE cellulitis due to dog bite/acute blood loss anemia on IV cefazolin. plastic surgery on board wound cultures growing Pasteurella amd Staphylococcus species. which is rare blood cultures show no growth ovr 48 hours. wound care on board for debridement by plastic surgery today wbc elevated today at 24.6 10/29/2020: For some reason was discontinued from his Ancef and placed on Zosyn however his white count continued to climb therefore we will do both in consult infectious disease on Saturday10/31/2020: White count is improving now that he is on Ancef and Zosyn, will plan for ID tomorrow. He did have significant blood loss from a hemoglobin of 13.1- 9.9 down to 8.7 yesterday. It does appear to have been stabilized with reinforce dressings. 11/01/2020: Hemoglobin is continued to drop down to 7.7 overnight. We will transfuse 2 units given his cardiac history as well as the fact that he needs surgery today. 11/02/2020: Hemoglobin up to 9.4, will recheck in the morning. Infectious disease consulted and recommended transitioning to Unasyn 11/03/2020: Hemoglobin dropped again we will transfuse 2 units, will also place a PICC line for easy access and and blood draws, Likely OR tomorrow 11/04/2020: With all the transfusions and has had his hemoglobin continues to drop therefore today we'll plan for transfusion of 1 unit PRBCs as well as 1 unit of FFP to help with clotting. We'll repeat hemoglobin at around noon and treat accordingly. Leukocytosis continues to improve with the Unasyn 11/05/2020: Status post surgery yesterday. He did receive a unit of FFP and will be transfused 2 units today of PRBC secondary to a hemoglobin of 7.8 given his cardiac history. Hopefully this in the last surgical intervention he will need and we can allow him to start healing. White count is also improving significan tly down to 13.4, continue with Unasyn. Appreciate infectious disease input and assistance. 11/06/2020: White count continues to trend down, hemoglobin is stable at 9.5, will follow in the morning. Continue with Unasyn 11/07/2020: White count elevated to 15, hemoglobin is stable. We will continue w ith Unasyn, and infectious disease is recommending Augmentin on discharge #Type 2 diabetes mellitus on glipizide 10mg daily. ISS. Accuchecks ACHS 11/03/2020: Continue with sliding scale insulin, will place him on long-acting insulin for better control to assist with wound healing #CKD stage 3a: Cr is 1.7/ Was 1.46 on admission, baseline not known. Will trend 10/31/2020: Creatinine up to 1.83, will continue with Lasix and monitor closely if continues to rise we will discontinue his Lasix 11/01/2020: Creatinine jumped to over 2, his Ancef dose was decreased by 50% this is potentially due to his acute blood loss anemia which will be transfused. 11/02/2020: We will continue to monitor renal function, creatinine has improved today. #Depression 11/15/2020: He is already on Paxil this is a significant challenge to overcome and given his lack of motivation. We will add Wellbutrin at a low dose and see if this helps DVT: SCDs Charges/Coding Visit Charges Inpatient E&M: 55705 Subs Hosp L2
[2020-11-07] MEDS: Insulin Lispro 100 UNIT/ML INSULN.PEN SC ×2 (16:28→21:06)
[2020-11-07 16:51] LABS: Bedside Glucose 170 mg/dL (70-110)
[2020-11-07] MEDS: Tamsulosin HCl 0.4 MG Capsule 0.8 MG PO (21:06)
[2020-11-07] MEDS: Pravastatin 80 MG Tablet PO (21:06)
[2020-11-07] MEDS: buPROPion 75 MG Tablet PO (21:06)
[2020-11-07 21:25] LABS: Bedside Glucose 156 mg/dL (70-110)
[2020-11-08] VITALS (25 sets, daily range): BP systolic 82–132; BP diastolic 58–99; PULSE 71–111; RESP 12–31; TEMP 35.8–36.6; O2SAT 91–100
[2020-11-08] MEDS: Acetaminophen/Codeine #3 Tablet 1 TABLET PO ×2 (03:19→12:00)
[2020-11-08] MEDS: Pentoxifylline 400 MG Tablet PO ×3 (05:41→20:57)
[2020-11-08] MEDS: Menthol/Lanolin/Calamine/Znox 113 GM Tube 1 APPLIC TOPICAL ×2 (05:42→21:00)
[2020-11-08 05:58] LABS: Absolute Lymphocyte Count 0.37 X10^3/uL (0.83-4.51); Absolute Neutrophil Count 16.7 X10^3/uL (2.0-7.7); Basophil# 0.04 X10^3/uL; Basophil% 0.2 % (0-1); Eosinophil# 0.01 X10^3/uL; Eosinophils% 0.1 % (0-5); Hematocrit 29.6 % (40-54); Hemoglobin 9.5 g/dL (13.0-16.5); Lymphocyte # 0.37 X10^3/ul (0.83-4.51); Mean Corp Hgb Conc 32.1 g/dL (32-36); Mean Corpuscular Hgb 31.7 pg (27.0-32.0); Mean Corpuscular Volume 98.7 fL (80-94); Mean Platelet Vol. 9.1 fl (6.2-12.0); Monocyte# 0.66 X10^3/uL; Monocyte% 3.7 % (0-10); NRBC Flagged by Analyzer 0.1 % (0-5); Neutrophil # 16.68 X10^3/uL (2.7-7.7); Neutrophil % 92.2 % (47-70); POSITIVE DIFFERENTIAL YES; Platelet Count 224 K/mm3 (150-450); RBC Distribution Width CV 16.9 % (11.6-14.6); RBC Distribution Width SD 53.7 fl (35.1-43.9); White Blood Count 18.1 K/mm3 (4.4-11.0)
[2020-11-08 05:59] LABS: Differential Indicated SCAN CRITERIA MET
[2020-11-08] MEDS: Insulin Lispro 100 UNIT/ML INSULN.PEN SC ×3 (06:28→16:46)
[2020-11-08 06:35] LABS: Bedside Glucose 187 mg/dL (70-110)
[2020-11-08 06:56] LABS: Anion Gap 15 (5-15); BUN 31 mg/dL (7-18); BUN/Creat Ratio 12.4 RATIO (10-20); Chloride 105 mmol/L (98-107); Creatinine, Serum 2.49 mg/dL (0.70-1.30); EST Glomerular Filtration Rate 28 mL/min (>60); Est Glom Filt Rate - Afr Amer 33 mL/min (>60); Estimated Creatinine Clearance 29.32 ml/min; Glucose 176 mg/dL (74-106); Potassium 3.9 mmol/L (3.5-5.1); Sodium Level 139 mmol/L (136-145)
[2020-11-08] MEDS: Ipratropium/Albuterol Sulfate 3 ML AMPUL.NEB INHALATION ×5 (07:08→19:22)
--- NOTE | 2020-11-08 08:09 | PN.CARD_ITS ---
Subjective Subjective The patient is awake and alert. He has been up and back to the bathroom. He did not complain of any chest discomfort with his activity. He did complain of becoming short of breath and dyspneic. He is also noted that he has had an intermittent cough and states that he has lost his sense of smell and taste. He states overall at this time his breathing is more concerning to him than his right upper extremity. Objective Data Vital Signs: Vital Signs Temp Pulse Resp BP Pulse Ox 97.9 F 88 20 H 109/60 92 11/08/20 03:00 11/08/20 07:39 11/08/20 07:39 11/08/20 03:00 11/08/20 07:39 Oxygen Flow Rate (L/min) 5 Oxygen Delivery Method Nasal Cannula Weight: 206 lb 9.17 oz Body Mass Index (BMI) 29.6 Intake & Output: Intake and Output for Last 24 Hours 11/06/20 11/07/20 11/08/20 23:59 23:59 23:59 Intake Total 908 / 1058 918 / 918 344 / 344 Output Total 450 / 800 750 / 950 200 / 200 Balance 458 / 258 168 / -32 144 / 144 Lab / Micro Data Result Diagrams: 11/08/20 05:50 11/08/20 05:50 Labs: Laboratory Results - last 24 hr 11/07/20 11:18: POC Glucose 146 H 11/07/20 16:24: POC Glucose 170 H 11/07/20 21:03: POC Glucose 156 H 11/08/20 05:50: WBC 18.1 H, RBC 3.00 L, Hgb 9.5 L, Hct 29.6 L, MCV 98.7 H, MCH 31.7, MCHC 32.1, RDW Std Deviation 53.7 H, RDW Coeff of Marquis 16.9 H, Plt Count 224, MPV 9.1, Immature Gran % (Auto) 1.800 H, Neut % (Auto) 92.2 H, Lymph % (Auto) 2.0 L, [place] % (Auto) 3.7, Eos % (Auto) 0.1, Baso % (Auto) 0.2, Absolute Neuts (auto) 16.7 H, Absolute Lymphs (auto) 0.37 L, Nucleated RBC % 0.1 11/08/20 05:50: Sodium 139, Potassium 3.9, Chloride 105, Carbon Dioxide 19.0 L, Anion Gap 15, BUN 31 H, Creatinine 2.49 H, Estim Creat Clear Calc 29.32, Est GFR (MDRD) Af Amer 33 L, Est GFR (MDRD) Non-Af 28 L, BUN/Creatinine Ratio 12.4, Glucose 176 H, Calcium 8.0 L 11/08/20 06:27: POC Glucose 187 H Micro: Microbiology 11/04/20 12:15 Tissue - Arm Right Gram Stain - Final 11/04/20 12:15 Tissue - Arm Right Wound Culture - Final No growth aerobically. 11/04/20 12:15 Tissue - Arm Right Anaerobic Culture - Preliminary No growth in 48 hours. 11/07/20 15:35 Nasal Secretion SARS-CoV-2 Antigen (Rapid) - Final 11/01/20 Unknown Tissue - Arm Right Gram Stain - Final 11/01/20 Unknown Tissue - Arm Right Wound Culture - Final No growth aerobically. 11/01/20 Unknown Tissue - Arm Right Anaerobic Culture - Final No anaerobic bacteria isolated. Cardiology Labs/Tests 11/08/20 05:50: WBC 18.1 H, RBC 3.00 L, Hgb 9.5 L, Hct 29.6 L, MCV 98.7 H, MCH 31.7, MCHC 32.1, Plt Count 224, MPV 9.1, Immature Gran % (Auto) 1.800 H, Neut % (Auto) 92.2 H, Lymph % (Auto) 2.0 L, [place] % (Auto) 3.7, Eos % (Auto) 0.1, Baso % (Auto) 0.2, Absolute Neuts (auto) 16.7 H, Nucleated RBC % 0.1 11/08/20 05:50: Sodium 139, Potassium 3.9, Chloride 105, Carbon Dioxide 19.0 L, Anion Gap 15, BUN 31 H, Creatinine 2.49 H, Est GFR (MDRD) Af Amer 33 L, Est GFR (MDRD) Non-Af 28 L, BUN/Creatinine Ratio 12.4, Glucose 176 H, Calcium 8.0 L Rhythm: Sinus rhythm with episodes of paroxysmal atrial fibrillation Physical Exam Narrative Short of breath appearing Const alert and oriented x3 Orientation / Consciousness: awake HEENT normocephalic, head/scalp atraumatic and hearing grossly normal bilaterally Eyes PERRL, EOMs intact bilaterally and conjunctivae normal Neck full ROM, supple and no JVD Chest Chest: midline sternotomy incision Resp Auscultation: wheezes scattered wheezes Cardio regular rate, regular rhythm, S1 normal heart sound and S2 normal heart sound Heart Sounds: S1 normal and S2 normal GI normal to inspection, nondistended, normoactive bowel sounds Extremity no pedal edema Extremity Narrative: Right upper extremity: Positive surgical dressing and Alfa wrap Neuro oriented x3, moves all extremities, no focal motor deficits and no sensory deficits noted Psych mental status grossly normal Assessment & Plan Assessment/Plan (1) Atherosclerotic heart disease of [place] coronary artery without angina pectoris: PLAN: At the present time the patient appears to be without any acute symptoms or adverse events. He will continue medical management with adjustment as needed. Over time, depending upon his clinical course and his hemodynamics, consideration can be given to additional medical therapy with nitrates. As noted before he is not considered a candidate for further percutaneous or surgical based revascularization therapy. (2) S/P CABG (coronary artery bypass graft): PLAN: The patient did undergo evaluation in the cardiac catheterization laboratory as previously noted. He has extensive [place] vessel disease with a patent THRASHER to the LAD and an occluded SVG to OM1 and SVG to OM 2. He will continue medical management. (3) CHF (congestive heart failure): QUALIFIERS: Heart failure type: systolic Heart failure chronicity: acute on chronic Qualified Code(s): I50.23 - Acute on chronic systolic (congestive) heart failure PLAN: The patient does have findings compatible with an underlying ischemic mediated cardiomyopathy based upon his left ventriculogram with an estimated LVEF 40%. The patient has been started back on low-dose diuretic therapy. He did receive additional diuretic yesterday. On examination today, while sitting up, his lungs do sound clearer with the exception of a scattered wheeze. However he still complains of a sensation of shortness of breath and dyspnea especially with activity. (4) Atrial fibrillation: QUALIFIERS: Atrial fibrillation type: unspecified Qualified Code(s): I48.91 - Unspecified atrial fibrillation PLAN: The patient's cardiac rate and rhythm will be monitored. It appears he has had episodes, based upon his cardiac rhythm strips, of sinus rhythm and paroxysmal atrial fibrillation. He will continue rate control therapy as tolerated, antiarrhythmic therapy, and eventually when stable from his right upper extremity surgical site anticoagulant therapy (not on antiplatelet in the way of agents such as clopidogrel/Plavix or anticoagulant therapy at this time secondary to his right upper extremity surgical procedures). (5) HLD (hyperlipidemia): QUALIFIERS: Hyperlipidemia type: unspecified Qualified Code(s): E 78.5 - Hyperlipidemia, unspecified PLAN: The patient should continue risk factor evaluation care as tolerated. (6) Benign essential HTN: PLAN: The patient's blood pressure is being followed. His medications can be readjusted as needed. (7) Cellulitis of forearm, right: PLAN: He will continue further evaluation care per internal medicine, infectious disease, and plastic surgery. (8) Anemia: PLAN: The patient has received additional PRBCs. His hemoglobin has increased. He is not on antiplatelet therapy in the way of agent such as clopidogrel/Plavix or anticoagulant therapy in a systemic manner at this time. His H&H may need to be supplemented with additional PRBCs to assist with his O2 carrying capacity to assist with his cardiovascular status as his clinical course progresses. (9) Shortness of breath: PLAN: He does appear to be short of breath and dyspneic with activity. His volume status overall appears to be improved. His creatinine level has increased. His hemoglobin appears to be holding at this time. At the present time his medicines were reviewed. As his volume status appears to be improved and his creatinine has increased his diuretic therapy will be placed on temporary hold. Based upon his respiratory concerns he may need further evaluation by internal medicine for other etiologies of his shortness of breath and dyspnea such as the possibility of underlying infectious related etiologies or thromboembolic disease. Addt'l Comments The above was discussed with the patient and the aforementioned information was conveyed to the [facility] staff caring for the patient. This note was generated using a voice recognition system and there may be incorrect words, spelling or punctuation that were not noted when reviewing the office note prior to saving.
--- NOTE | 2020-11-08 08:30 | RAD_ITS ---
STUDY: X-RAY CHEST REASON FOR EXAM: Male, 70 years old. SOB TECHNIQUE: AP and lateral views of the chest. COMPARISON: Comparison is made with prior study 10/28/2020. FINDINGS: EKG electrodes are seen. Blunting of both cosmetic angles. Stable thickening of the lateral aspect of the left pleural space with scarring in the left upper lobe. Mild degree of increased markings at the lung bases suggestive of atelectasis. Sternal cerclage wires and vascular clips are present from a prior sternotomy and coronary artery bypass graft procedure (CABG). Normal mediastinum and stephen. Normal visualized pulmonary arteries. There is atherosclerotic calcification of the aortic arch with tortuosity. There are diffuse degenerative changes of the visualized thoracic spine. Normal visualized ribs, clavicles, and shoulders. There is no demonstrated abnormality of the visualized soft tissue structures of the upper abdomen. RAD/Chest PA and Lateral IMPRESSION: Blunting of both cost phrenic angles with the findings suggestive of atelectasis and/or scarring at the lung bases. Stable scarring along the lateral aspect of the left pleural surface. Electronically Signed: Gómez Phelps MD at 9:56 EDT , Service support ,
[2020-11-08] MEDS: Pantoprazole Sodium 20 MG Tablet PO ×2 (09:40→20:59)
[2020-11-08] MEDS: Amiodarone 200 MG Tablet PO ×2 (09:41→20:59)
[2020-11-08] MEDS: buPROPion 75 MG Tablet PO ×2 (09:41→20:57)
[2020-11-08] MEDS: Aspirin 81 MG TAB.CHEW PO (09:41)
[2020-11-08] MEDS: Iron Polysaccharide Complex 150 MG CAPSULE PO (09:41)
[2020-11-08] MEDS: Paroxetine 20 MG Tablet 40 MG PO (09:42)
[2020-11-08] MEDS: DAKIN'S SOL HALF STRENGTH (=0.25%) 1 APPLIC TOPICAL (12:13)
--- NOTE | 2020-11-08 12:15 | PN.HOSP_ITS ---
Documented by User: Stephon PRYOR 11/08/20 12:44 Subjective Subjective resting in bed, alert and oriented x2 .Patient is a 70-year-old male Patient is obviously short of breath and appears overall ill and weak. Patient unable to provide much insight into his review of systems as he is just very fatigued. Objective Data Objective Data Vital Signs: Vital Signs Temp Pulse Resp BP Pulse Ox 97.2 F L 81 20 H 111/99 H 96 11/08/20 10:00 11/08/20 11:00 11/08/20 11:00 11/08/20 10:00 11/08/20 10:00 Oxygen Flow Rate (L/min) 3 Oxygen Delivery Method Nasal Cannula Weight: 206 lb 9.17 oz Body Mass Index (BMI) 29.6 Intake & Output: Intake and Output for Last 24 Hours 11/06/20 11/07/20 11/08/20 23:59 23:59 23:59 Intake Total 908 / 1058 918 / 918 344 / 344 Output Total 450 / 800 750 / 950 200 / 200 Balance 458 / 258 168 / -32 144 / 144 Lab / Micro Data Result Diagrams: 11/08/20 05:50 11/08/20 05:50 Labs: Laboratory Results - last 24 hr 11/07/20 16:24: POC Glucose 170 H 11/07/20 21:03: POC Glucose 156 H 11/08/20 05:50: WBC 18.1 H, RBC 3.00 L, Hgb 9.5 L, Hct 29.6 L, MCV 98.7 H, MCH 3 1.7, MCHC 32.1, RDW Std Deviation 53.7 H, RDW Coeff of Marquis 16.9 H, Plt Count 224, MPV 9.1, Immature Gran % (Auto) 1.800 H, Neut % (Auto) 92.2 H, Lymph % (Auto) 2.0 L, [place] % (Auto) 3.7, Eos % (Auto) 0.1, Baso % (Auto) 0.2, Absolute Neuts (auto) 16.7 H, Absolute Lymphs (auto) 0.37 L, Nucleated RBC % 0.1 11/08/20 05:50: Sodium 139, Potassium 3.9, Chloride 105, Carbon Dioxide 19.0 L, Anion Gap 15, BUN 31 H, Creatinine 2.49 H, Estim Creat Clear Calc 29.32, Est GFR (MDRD) Af Amer 33 L, Est GFR (MDRD) Non-Af 28 L, BUN/Creatinine Ratio 12.4, Glucose 176 H, Calcium 8.0 L 11/08/20 06:27: POC Glucose 187 H Micro: Microbiology 11/04/20 12:15 Tissue - Arm Right Gram Stain - Final 11/04/20 12:15 Tissue - Arm Right Wound Culture - Final No growth aerobically. 11/04/20 12:15 Tissue - Arm Right Anaerobic Culture - Preliminary No growth in 48 hours. 11/07/20 15:35 Nasal Secretion SARS-CoV-2 Antigen (Rapid) - Final 11/01/20 Unknown Tissue - Arm Right Gram Stain - Final 11/01/20 Unknown Tissue - Arm Right Wound Culture - Final No growth aerobically. 11/01/20 Unknown Tissue - Arm Right Anaerobic Culture - Final No anaerobic bacteria isolated. 10/28/20 Unknown Tissue - Arm Fungal Smear - Final 10/28/20 14:20 Tissue - Arm Gram Stain - Final 10/28/20 14:20 Tissue - Arm Wound Culture - Final No growth aerobically. 10/28/20 14:20 Tissue - Arm Anaerobic Culture - Final Prevotella oralis 10/25/20 07:35 Blood Culture (Wb) - Anticubital Left Blood Culture - Final No growth in 5 days. 10/25/20 07:45 Blood Culture (Wb) - Left Wrist Blood Culture - Final No growth in 5 days. 10/25/20 07:30 Bite - Arm Gram Stain - Final 10/25/20 07:30 Bite - Arm Wound Culture - Final Pasteurella canis Staphylococcus aureus 10/27/20 18:00 Mucosa - Nose SARS-CoV-2 Antigen (Rapid) - Final Radiography Diagnostic Testing: Radiology Impression Chest X-Ray 11/08/20 08:30 IMPRESSION: Blunting of both cost phrenic angles with the findings suggestive of atelectasis and/or scarring at the lung bases. Stable scarring along the lateral aspect of the left pleural surface. Electronically Signed: Gómez Phelps MD at 9:56 EDT , Service support , Physical Exam Const alert Orientation / Consciousness: confused and lethargic HEENT head/scalp atraumatic, moist oral mucous membranes and oropharynx normal Head and Scalp: normocephalic Eyes EOMs intact bilaterally and conjunctivae normal Neck no lymphadenopathy, supple and no JVD Resp Effort and Inspection: tachypneic, respiratory distress and labored Auscultation: diminished lung sounds Cardio Rate: tachycardic GI normal to inspection, nondistended, normoactive bowel sounds, soft to palpation and non-tender Extremity normal to inspection, full ROM and no clubbing, cyanosis or edema Skin no rashes or lesions noted, no wounds and skin turgor normal Neuro Sensorium / Orientation: awake and alert Psych affect normal Assessment & Plan Assessment/Plan (1) Dog bite: QUALIFIERS: Encounter type: initial encounter Qualified Code(s): W54.0XXA - Bitten by dog, initial encounter (2) Cellulitis of forearm, right: (3) Open wound of right forearm due to dog bite: (4) Open wound of right wrist due to dog bite: (5) CHF (congestive heart failure): QUALIFIERS: Heart failure chronicity: acute on chronic Heart failure type: systolic Qualified Code(s): I50.23 - Acute on chronic systolic (congestive) heart failure (6) Atrial fibrillation: QUALIFIERS: Atrial fibrillation type: unspecified Qualified Code(s): I48.91 - Unspecified atrial fibrillation (7) Acute respiratory failure: QUALIFIERS: Respiratory failure complication: hypoxia Qualified Code(s): J96.01 - Acute respiratory failure with hypoxia PLAN: Day 15: See subjective. Discharge plan: Patient to go to TCU at discharge when medically ready. 1) Acute respiratory failure of unclear etiology Upon examination patient was still acutely short of breath and appears ill, despite ongoing therapy. Patient's respiratory elevated in between 20-25 breaths/min, although patient is satting at 96% on 3 L via nasal cannula. PA and lateral chest x-ray obtained on 11/08 and demonstrated atelectasis and/or scarring of the lung bases bilaterally. CXR more or less unchanged from admission. ID, cardiology and pulmonology now consulted. Plan; continue Unasyn per ID, continue Toprol, pulmonology contacted and will follow patient. 2) NSTEMI S/P cardiac catheterization: elevated left ventricular end-diastolic pressure and mild to moderate left ventricular systolic dysfunction with EF of 40% and n ative multivessel CAD with THRASHER to the LAD patent and occluded grafts to of the obtuse marginal arteries with left to right collateral flows and left to left collateral flows. Echocardiogram demonstrated an EF of 55%. Cardiology following plan; continue amlodipine, aspirin, statin, metoprolol and amiodarone. 3) A. fib Patient on metoprolol for rate control, not on any anticoagulation at home ho wever patient has been on heparin drip since admitted. [id number] score 5. Plan; continue medical management. 4) CHF Echocardiogram from 6 yesterday demonstrated normal LV size and systolic funct ion, an estimated EF of 55, moderate concentric LVH, and indeterminate RVSP and abnormal diastolic dysfunction. Lasix discontinued, per cardiology. Plan; continue metoprolol 5) RUE cellulitis due to dog bite ID and plastics following. Rapid Covid negative. Initial culture of wound demonstrated Prevotella Oralis. Repeat wound cultures demonstrate no growth. Plan: Continue Unasyn per ID, Augmentin at discharge, fungal cultures pending 6) DM2 Hemoglobin A1c as of 10/28 was 7.7. Continue Lantus 10 units, Accu-Cheks with sliding scale insulin. 7) CKD stage IIIa Creatinine is currently 2.5, up from admission. Possibly due to diuresis relative to #4. Plan; diuretics discontinued as above. 8) depression Continue Paxil DVT: SCDs Patient seen by Stephon Goldstein PA-C, under the supervision of Dr. Nuñez. Documented by User: Dr. Alberto Zheng DO 11/08/20 17:29 Objective Data Lab / Micro Data Result Diagrams: 11/08/20 05:50 11/08/20 05:50 Charges/Coding Addendum Addendum: Patient was seen and examined independently of Stephon Goldstein, I talked briefly with his today, I also talked with cardiology, pulmonary medicine, and plastic surgery. Patient was placed on BiPAP this afternoon due to increase respiratory effort, I have ordered an ABG on the patient which is pending at this time. Pulmonary medicine placed the patient on a heparin drip. Venous Dopplers of the lower extremities were ordered, patient cannot undergo a CTA of his chest at this time due to elevated creatinine. On examination he appeared alert, he appeared unwell and short of breath. Vital signs as documented. Skin warm and dry, right forearm was not examined due to surgical dressing in place. Neck without JVD, neck was supple, trachea midline, thyroid was normal. Lungs-decreased breath sounds bilaterally. Heart exam notable for regular rhythm, normal sounds and absence of murmurs, rubs or gallops. Abdomen unremarkable and without evidence of organomegaly, masses, or a bdominal aortic enlargement. Bowel sounds are present, abdomen is not distended. Extremities-patient's right forearm was wrapped with surgical dressing, this was not removed for examination no cyanosis was noted, no clubbing was noted. Neuro: Cranial nerves II through XII are grossly intact, no focal motor deficits were noted, sensation to light touch and pinprick intact, motor exam 5/5 throughout. Psych: Patient is alert, he appears unwell, he answers simple questions appropriately. Patient will continue to be monitored on telemetry on stepdown, I have reviewed Stephon Goldstein's progress note including his medical assessment and plan of care and endorse it with the above additions. Visit Charges Inpatient E&M: 31643 Subs Hosp L2
[2020-11-08 12:16] LABS: Bedside Glucose 192 mg/dL (70-110)
--- NOTE | 2020-11-08 12:20 | PCM.PN.SRG ---
Subjective Subjective Postop #11, and postop #7, and postop #4 Patient is having some respiratory issues and is on BIPAP. Tolerated the dressing change a little easier. Has pain mostly in one spot where the superficial sensory branch of the radial nerve is located. Minimal blood staining noted on the dressing. No active bleeding seen with the dressing change. Objective Data Objective Data Vital Signs: Vital Signs Temp Pulse Resp BP Pulse Ox 97.2 F L 81 20 H 111/99 H 96 11/08/20 10:00 11/08/20 11:00 11/08/20 11:00 11/08/20 10:00 11/08/20 10:00 Oxygen Flow Rate (L/min) 3 Oxygen Delivery Method Nasal Cannula Weight: 206 lb 9.17 oz Body Mass Index (BMI) 29.6 Intake & Output: Intake and Output for Last 24 Hours 11/06/20 11/07/20 11/08/20 23:59 23:59 23:59 Intake Total 908 / 1058 918 / 918 344 / 344 Output Total 450 / 800 750 / 950 200 / 200 Balance 458 / 258 168 / -32 144 / 144 Lab / Micro Data Attestation: I reviewed the patient's lab results. Result Diagrams: 11/10/20 04:20 11/10/20 04:20 Labs: Laboratory Results - last 24 hr 11/07/20 16:24: POC Glucose 170 H 11/07/20 21:03: POC Glucose 156 H 11/08/20 05:50: WBC 18.1 H, RBC 3.00 L, Hgb 9.5 L, Hct 29.6 L, MCV 98.7 H, MCH 31.7, MCHC 32.1, RDW Std Deviation 53.7 H, RDW Coeff of Marquis 16.9 H, Plt Count 224, MPV 9.1, Immature Gran % (Auto) 1.800 H, Neut % (Auto) 92.2 H, Lymph % (Auto) 2.0 L, [place] % (Auto) 3.7, Eos % (Auto) 0.1, Baso % (Auto) 0.2, Absolute Neuts (auto) 16.7 H, Absolute Lymphs (auto) 0.37 L, Nucleated RBC % 0.1 11/08/20 05:50: Sodium 139, Potassium 3.9, Chloride 105, Carbon Dioxide 19.0 L, Anion Gap 15, BUN 31 H, Creatinine 2.49 H, Estim Creat Clear Calc 29.32, Est GFR (MDRD) Af Amer 33 L, Est GFR (MDRD) Non-Af 28 L, BUN/Creatinine Ratio 12.4, Glucose 176 H, Calcium 8.0 L 11/08/20 06:27: POC Glucose 187 H 11/08/20 11:59: POC Glucose 192 H Micro: Microbiology 11/04/20 12:15 Tissue - Arm Right Gram Stain - Final 11/04/20 12:15 Tissue - Arm Right Wound Culture - Final No growth aerobically. 11/04/20 12:15 Tissue - Arm Right Anaerobic Culture - Preliminary No growth in 48 hours. 11/07/20 15:35 Nasal Secretion SARS-CoV-2 Antigen (Rapid) - Final 11/01/20 Unknown Tissue - Arm Right Gram Stain - Final 11/01/20 Unknown Tissue - Arm Right Wound Culture - Final No growth aerobically. 11/01/20 Unknown Tissue - Arm Right Anaerobic Culture - Final No anaerobic bacteria isolated. 10/28/20 Unknown Tissue - Arm Fungal Smear - Final 10/28/20 14:20 Tissue - Arm Gram Stain - Final 10/28/20 14:20 Tissue - Arm Wound Culture - Final No growth aerobically. 10/28/20 14:20 Tissue - Arm Anaerobic Culture - Final Prevotella oralis 10/25/20 07:35 Blood Culture (Wb) - Anticubital Left Blood Culture - Final No growth in 5 days. 10/25/20 07:45 Blood Culture (Wb) - Left Wrist Blood Culture - Final No growth in 5 days. 10/25/20 07:30 Bite - Arm Gram Stain - Final 10/25/20 07:30 Bite - Arm Wound Culture - Final Pasteurella canis Staphylococcus aureus 10/27/20 18:00 Mucosa - Nose SARS-CoV-2 Antigen (Rapid) - Final Radiography Diagnostic Testing: Radiology Impression Chest X-Ray 11/08/20 08:30 IMPRESSION: Blunting of both cost phrenic angles with the findings suggestive of atelectasis and/or scarring at the lung bases. Stable scarring along the lateral aspect of the left pleural surface. Electronically Signed: Gómez Phelps MD at 9:56 EDT , Service support , Physical Exam Narrative Extremities - FROM left upper extremity. No axillary adenopathy. Radial pulses are palpable. Right forearm and wrist wounds are stable. No active bleeding noted. Muscles are viable. Some of the exposed tendons are showing some signs of dessication. Will monitor at this time. No evidence of persistent purulent drainage noted. Mild finger swelling. The wounds are tender to palpation. The Dakin's dressing change was a little easier but still painful. I am able to passively flex the MP joints almost to 90 degrees at this time. Assessment & Plan Assessment/Plan (1) Dog bite: QUALIFIERS: Encounter type: initial encounter Qualified Code(s): W54.0XXA - Bitten by dog, initial encounter (2) Extensor tenosynovitis of right wrist: (3) Abscess of bursa of right forearm: (4) Necrotizing soft tissue infection: (5) Abscess of skin of right wrist: (6) Open wound of right forearm due to dog bite: (7) Open wound of right wrist due to dog bite: (8) Diabetes: (9) Acute blood loss anemia: (10) Former smoker: PLAN: Dressing change was a little easier but still painful. Continue Dakin's dressing change. Wounds were clean with no further evidence of purulence. Muscles appear viable. Some of the exposed tendons are showing some signs of dessication. Will monitor at this time. The severity of the infection has contributed to compromised blood supply to the tendons involved. No active bleeding seen. The dressing was minimally blood stained. Hgb at 9.5 which is stable from 9.6 yesterday. Continue Iron supplementation. He has acute postoperative anemia from expected blood loss. From the dressing changes, I anticipate approximately a unit since surgery. Patient was also on a heparin drip for his atrial fibrillation. Patient is on Unasyn. A PICC line is in place. Operative cultures from 11/01/20 surgery and 11/04/20 surgery are negative. Operative cultures from 10/28/20 showed Prevotella bivia. The dressing changes will be difficult at home initially. Discussed with the patient about going to an ECF for short term until the dressing changes can be tolerated at home. He was in agreement. TCU evaluation in process. Prealbumin was 8.8. Encourage nutritional supplementation with protein to help the healing process. Encourage range of motion exercises to minimize stiffness. He is at risk for developing stiffness. Will need OT after discharge for range of motion exercises, strengthening, and edema management. Instructed the patient on range of motion exercises. He will start with flexing the MP joints as close to 90 degrees as possible. He will have to use his other hand to assist in this endeavor. His MP joints almost flex to 90 degrees passively. Told him it will take several days to improve. His WBC has started to increase again from 15.2 up to 18.1. We will proceed with another trip to the operating room tomorrow for another incision and drainage and irrigation of his wounds. Patient was informed of the risks and complications of the procedure including alternatives to surgery. These were discussed with the patient personally. Patient voices understanding and wishes to proceed. Some of the risks and complications that were discussed included but were not inclusive of failure to diagnose including symptom relief, pain, infection, numbness, stiffness, loss of digit, RSD (CRPS), need for further surgery, contracture, and wound healing problems.
--- NOTE | 2020-11-08 13:22 | EX.PCM.CONCC ---
Assessment & Plan Assessment/Plan (1) Acute hypoxemic respiratory failure: PLAN: RECOMMENDATIONS: 1. Check BNP and lactic acid. 2. Start patient on continuous heparin infusion. 3. Obtain lower extremity Doppler studies. 4. Given increased work of breathing, orders for BiPAP have been placed. 5. Continue antimicrobials per ID recommendations. 6. Low threshold for transfer to ICU. IMPRESSIONS: 1. Acute hypoxemic respiratory failure Unclear etiology. However, radiographically, it does appear that the patient still has residual effusions and atelectasis, likely contributing to his hypoxemia. In addition, the patient has been rather sedentary and has not been on any DVT prophylaxis. Therefore, venous thromboembolic disease is a possibility. However, given the patient's renal insufficiency, CTA chest cannot be obtained at this time. Alternatively, will obtain lower extremity Doppler study and place the patient empirically on a continuous heparin infusion. Given the patient's increased work of breathing, orders for BiPAP have been placed. Continue bronchodilator therapy as ordered. Wean supplemental oxygen to maintain saturations at or above 90%. I would strongly advise against any consideration for surgical intervention tomorrow if the patient appears as clinically unstable as he does at the current time. 2. Coronary artery disease status post CABG/ischemic cardiomyopathy/atrial fibrillation Continue medical management per cardiology recommendations. Recommend holding diuretics completely given worsening renal insufficiency. 3. 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 Strongly recommend against further consideration for surgical intervention given clinical instability at the present time. 4. Acute on chronic kidney disease Potentially related to overdiuresis. Recommend holding Lasix. If creatinine continues to worsen, obtain nephrology consultation. 5. Diabetes mellitus/depression/hypertension/GERD/hyperlipidemia Complicates care, management, recovery and prognosis. Continue home medications as indicated. This note was generated with In[employer] Pupp[employer] software. It may contain incorrect words, spelling, and punctuation that were not noted in checking the note before signing. HPI Consult Data Date of Consult: 11/09/20 HPI Narrative Reason for Consultation: Acute hypoxemic respiratory failure HPI Narrative: The patient is a 70-year-old male, with a history as outlined below, who initially presented to the hospital back on October 25 after presenting with a soft tissue wound due to a recent dog bite. The patient does have a history of coronary artery disease status post CABG. As part of his initial work-up, the patient was found to have an elevated troponin. Cardiology was subsequently consulted and has been following the patient throughout this hospitalization. Cardiac catheterization was performed on October 27 and revealed segmental systolic dysfunction with an ejection fraction of 40%, tuscarora multivessel coronary disease and occluded SVG grafts. The patient was also evaluated by Dr. William of plastic surgery and subsequently taken to the OR on October 28 where he underwent surgical I&D along with excisional debridement of the aforementioned dog bite. It does appear that throughout his hospitalization, the patient has been on varying amounts of supplemental oxygen from 2 to 6 L/min via nasal cannula. Additionally, the patient has been transfused on 2 separate occasions on November 01 and again on November 04. The patient's hemoglobin was noted to be 9.5 g/dL this morning. His white count is elevated to 18,000. Chemistry profile was notable for a bicarbonate of 19 and creatinine of 2.49. CTA chest dated October 26 revealed no evidence for pulmonary embolism. Small bilateral pleural effusions with associated compressive atelectasis were noted. Surface echocardiogram completed on October 28 revealed normal LV size with an ejection fraction of 55%. Right ventricular systolic pressure was unable to be obtained. The patient did report a prior tobacco abuse history, having quit 15 years ago. The patient denies a history of venous thromboembolic disease. He denies utilizing supplemental oxygen at his baseline. He has never been evaluated by a dope firer. He has never been diagnosed with obstructive sleep apnea. Of note, it does appear that the patient has not been on any form of pharmacologic DVT prophylaxis since his admission. [facility] Medical History (Updated 11/08/20 @ 13:[address] Mando Valenzuela, ) Abnormal cardiac enzyme level Abscess of bursa of right forearm Abscess of right forearm Abscess of skin of right wrist Anemia Atherosclerotic heart disease of t[place]car[place] coronary artery without angina pectoris Atrial fibrillation Benign essential HTN CAD (coronary artery disease) Cellulitis of forearm, right CHF (congestive heart failure) Chronic pain Congestive heart failure (CHF) Depression Diabetes Extensor tenosynovitis of right wrist Former smoker History of left heart catheterization (LHC) (~10/27/20) HLD (hyperlipidemia) Hypertension Myocardial infarct Necrotizing soft tissue infection Open wound of right forearm due to dog bite Open wound of right wrist due to dog bite Substance abuse Home Medications amlodipine 10 mg PO DAILY 10/25/20 [History Last Taken Unknown] furosemide [Lasix] 40 mg PO BID 10/25/20 [History Last Taken Unknown] glipizide 10 mg PO DAILY 10/25/20 [History Last Taken Unknown] metoprolol succinate 200 mg PO DAILY 10/25/20 [History Last Taken Unknown] niacin 1,000 mg PO BID 10/25/20 [History Last Taken Unknown] omeprazole 20 mg PO BID 10/25/20 [History Last Taken Unknown] paroxetine HCl [Paxil] 40 mg PO DAILY 10/25/20 [History Last Taken Unknown] pentoxifylline 400 mg PO TID 10/25/20 [History Last Taken Unknown] aspirin 325 mg PO DAILY 11/03/20 [History Last Taken Unknown] pravastatin 80 mg PO QHS 11/03/20 [History Last Taken Unknown] tamsulosin 0.8 mg PO QHS 11/03/20 [History Last Taken Unknown] Allergy/AdvReac Type Severity Reaction Status Date / Time No Known Allergies Allergy Verified 10/25/20 07:14 Family History Brother CAD (coronary artery disease) Age of CAD diagnosis: 50s Surgical History History of appendectomy Hx of CABG S/P CABG (coronary artery bypass graft) Social History Smoking Status: Former smoker how long ago did patient quit smoking: approximately 15 years ago ROS Constitutional Constitutional: Reports fatigue Eyes Eyes: Denies blurry vision or change in vision ENT HEENT: Denies headache(s) or hoarseness Cardiovascular Cardiovascular: Reports dyspnea and edema Respiratory/Chest Respiratory/Chest: Reports dyspnea and wheezing Gastrointestinal Gastrointestinal: Denies diarrhea, nausea or vomiting Genitourinary Genitourinary: Denies difficulty urinating Musculoskeletal Musculoskeletal: Denies arthralgias or back pain Integumentary Integumentary: Reports lesions and wounds Neurologic Neurologic: Denies abnormal gait, abnormal speech or confusion Psychiatric Psychiatric: Denies anxiety or depression Endocrine Endocrinology: Reports fatigue Hematologic/Lymphatic Hematologic/Lymphatic: Denies easy bleeding or easy bruising Physical Exam Const alert General Appearance: cooperative and ill appearing Positive for acutely HEENT normocephalic and head/scalp atraumatic Eyes PERRL, EOMs intact bilaterally and conjunctivae normal Neck supple General: trachea midline Resp Effort and Inspection: tachypneic Auscultation: wheezes and diminished lung sounds Cardio S1 normal heart sound and S2 normal heart sound Rate: tachycardic GI normal to inspection, nondistended, normoactive bowel sounds Extremity General Extremity: edema bilateral lower extremity Skin Wound Narrative: Upper extremity wound currently wrapped Neuro no focal motor deficits Psych cooperative and affect normal Lab / Micro Data Result Diagrams: 11/09/20 06:14 11/09/20 06:14 Labs: Laboratory Results - last 24 hr 11/07/20 16:24: POC Glucose 170 H 11/07/20 21:03: POC Glucose 156 H 11/08/20 05:50: WBC 18.1 H, RBC 3.00 L, Hgb 9.5 L, Hct 29.6 L, MCV 98.7 H, MCH 31.7, MCHC 32.1, RDW Std Deviation 53.7 H, RDW Coeff of Marquis 16.9 H, Plt Count 224, MPV 9.1, Immature Gran % (Auto) 1.800 H, Neut % (Auto) 92.2 H, Lymph % (Auto) 2.0 L, [place] % (Auto) 3.7, Eos % (Auto) 0.1, Baso % (Auto) 0.2, Absolute Neuts (auto) 16.7 H, Absolute Lymphs (auto) 0.37 L, Nucleated RBC % 0.1 11/08/20 05:50: Sodium 139, Potassium 3.9, Chloride 105, Carbon Dioxide 19.0 L, Anion Gap 15, BUN 31 H, Creatinine 2.49 H, Estim Creat Clear Calc 29.32, Est GFR (MDRD) Af Amer 33 L, Est GFR (MDRD) Non-Af 28 L, BUN/Creatinine Ratio 12.4, Glucose 176 H, Calcium 8.0 L 11/08/20 06:27: POC Glucose 187 H 11/08/20 11:59: POC Glucose 192 H Micro: Microbiology 11/04/20 12:15 Tissue - Arm Right Gram Stain - Final 11/04/20 12:15 Tissue - Arm Right Wound Culture - Final No growth aerobically. 11/04/20 12:15 Tissue - Arm Right Anaerobic Culture - Preliminary No growth in 48 hours. 11/07/20 15:35 Nasal Secretion SARS-CoV-2 Antigen (Rapid) - Final 11/01/20 Unknown Tissue - Arm Right Gram Stain - Final 11/01/20 Unknown Tissue - Arm Right Wound Culture - Final No growth aerobically. 11/01/20 Unknown Tissue - Arm Right Anaerobic Culture - Final No anaerobic bacteria isolated. Radiology Impression Chest X-Ray 11/08/20 08:30 IMPRESSION: Blunting of both cost phrenic angles with the findings suggestive of atelectasis and/or scarring at the lung bases. Stable scarring along the lateral aspect of the left pleural surface. Electronically Signed: Gómez Phelps MD at 9:56 EDT , Service support , Charges/Coding Visit Charges Inpatient E&M: 88952 Init Hosp L3
--- NOTE | 2020-11-08 13:37 | NURSING ---
Gave report to Cici CORONEL
--- NOTE | 2020-11-08 13:43 | NURSING ---
wound photo: right lateral wrist/forearm
--- NOTE | 2020-11-08 13:43 | NURSING ---
wound photo: right forearm
--- NOTE | 2020-11-08 13:44 | NURSING ---
wound photo: right forearm
--- NOTE | 2020-11-08 14:13 | VDLE_ITS ---
Reason For Study: SOB RIGHT LEFT GSV is normal. GSV is normal. CFV is compressible, spontaneous, phasic, CFV is compressible, spontaneous, phasic, competent and demonstrates normal competent, and demonstrates normal augmentation. augmentation. FV is compressible, spontaneous, phasic, FV is compressible, spontaneous, phasic, competent and demonstrates normal competent and demonstrates normal augmentation. augmentation. POP V is compressible, spontaneous, phasic, POP V is compressible, spontaneous, phasic, competent and demonstrates normal competent and demonstrates normal augmentation. augmentation. T/P Trunk is compressible. T/P Trunk is compressible. PTV is compressible. PTV is compressible. RT PerV is compressible. LT PerV is compressible. Procedure This is a venous duplex using B-mode, color flow and spectral Doppler. Exam performed portable in patient room. The exam was diagnostic. A preliminary report was called and/or faxed to [facility]. VL/Venous Duplex US - Bert Extrem Interpretation Summary No evidence for acute deep venous thrombosis bilateral lower extremities with p atent and compressible bilateral great saphenous veins. Ordering Physician: Mando Valenzuela Referring Physician: [facility] Performed By: Pati Torres, TAYLER, RVT
[2020-11-08] MEDS: 0.9% Saline Lock 10 ML Syringe IV (15:10)
[2020-11-08 16:28] LABS: International Normalized Ratio 2.4; Prothrombin Time (Protime)PT. 25.7 SECONDS (11.7-14.9)
[2020-11-08 16:29] LABS: Partial Thromboplast Time 56.1 Seconds (24.1-36.2)
[2020-11-08] MEDS: Gabapentin 300 MG Capsule PO (16:48)
[2020-11-08 16:56] LABS: Bedside Glucose 160 mg/dL (70-110)
[2020-11-08] MEDS: HEPARIN/D5w 25,000 UNITS 25,000 UNITS/250 ML IV.SOLN. 14 UNITS IV (16:58)
[2020-11-08] MEDS: Heparin Injection (Vial) 5,000 UNIT/ML VIAL 7500 UNIT IV (16:58)
[2020-11-08 17:25] LABS: Allen Test Positive; Base Excess -11 mmol/L (-2 to +2); Bicarbonate 15.2 mmol/L (22-26); Blood Gas Specimen Type ART; FI02 40; Mode BiLevel; PEEP 6; PO2 112 mmHG (75-100); PS 14; SITE L Radial; SO2 98 % (95-99); Total Carbon Dioxide 16 mmol/L; pCO2 30.5 mmHg (35-45)
[2020-11-08] MEDS: Metoprolol Tartrate 25 MG Tablet PO (20:57)
[2020-11-08] MEDS: Pravastatin 80 MG Tablet PO (20:57)
[2020-11-08] MEDS: Tamsulosin HCl 0.4 MG Capsule 0.8 MG PO (20:59)
[2020-11-08 21:15] LABS: Bedside Glucose 146 mg/dL (70-110)
[2020-11-08 22:18] LABS: Partial Thromboplast Time > 250.0 Seconds (24.1-36.2)
[2020-11-08] MEDS: Acetaminophen 325 MG Tablet 650 MG PO (23:03)
[2020-11-09] VITALS (49 sets, daily range): BP systolic 72–150; BP diastolic 41–106; PULSE 81–99; RESP 12–31; TEMP 35.4–37.3; O2SAT 90–100
[2020-11-09] MEDS: Acetaminophen/Codeine #3 Tablet 1 TABLET PO (02:45)
[2020-11-09] MEDS: Ipratropium/Albuterol Sulfate 3 ML AMPUL.NEB INHALATION ×5 (03:07→19:04)
[2020-11-09] MEDS: Menthol/Lanolin/Calamine/Znox 113 GM Tube 1 APPLIC TOPICAL (05:04)
[2020-11-09] MEDS: Pentoxifylline 400 MG Tablet PO (05:05)
[2020-11-09 06:30] LABS: Absolute Neutrophil Count 16.5 X10^3/uL (2.0-7.7); Basophil# 0.03 X10^3/uL; Basophil% 0.2 % (0-1); Hematocrit 28.8 % (40-54); Hemoglobin 9.1 g/dL (13.0-16.5); Lymphocyte % 1.7 % (19-41); Mean Corp Hgb Conc 31.6 g/dL (32-36); Mean Corpuscular Hgb 32.2 pg (27.0-32.0); Mean Corpuscular Volume 101.8 fL (80-94); Mean Platelet Vol. 9.5 fl (6.2-12.0); Monocyte# 0.45 X10^3/uL; Monocyte% 2.6 % (0-10); NRBC Flagged by Analyzer 0.1 % (0-5); Neutrophil # 16.54 X10^3/uL (2.7-7.7); Neutrophil % 94.2 % (47-70); POSITIVE DIFFERENTIAL YES; Platelet Count 208 K/mm3 (150-450); RBC Distribution Width CV 17.7 % (11.6-14.6); RBC Distribution Width SD 58.8 fl (35.1-43.9); Red Blood Count 2.83 M/mm3 (4.6-6.2); White Blood Count 17.5 K/mm3 (4.4-11.0)
[2020-11-09 06:37] LABS: Differential Indicated SCAN CRITERIA MET
[2020-11-09 06:46] LABS: Anion Gap 16 (5-15); BUN 38 mg/dL (7-18); BUN/Creat Ratio 12.3 RATIO (10-20); Calcium,Total 7.7 mg/dL (8.5-10.1); Chloride 107 mmol/L (98-107); Creatinine, Serum 3.09 mg/dL (0.70-1.30); EST Glomerular Filtration Rate 22 mL/min (>60); Est Glom Filt Rate - Afr Amer 26 mL/min (>60); Estimated Creatinine Clearance 23.62 ml/min; Glucose 152 mg/dL (74-106); Potassium 4.1 mmol/L (3.5-5.1); Sodium Level 138 mmol/L (136-145)
[2020-11-09 06:50] LABS: Partial Thromboplast Time 233.7 Seconds (24.1-36.2)
[2020-11-09] MEDS: Insulin Lispro 100 UNIT/ML INSULN.PEN SC (07:00)
--- NOTE | 2020-11-09 07:01 | PN.CC_ITS ---
Assessment & Plan Assessment/Plan (1) Acute hypoxemic respiratory failure: PLAN: RECOMMENDATIONS: 1. Continue patient on BiPAP therapy, with breaks as tolerated. 2. Obtain nephrology consultation. 3. Broaden antimicrobials. 4. Obtain blood and urine cultures. 5. Hold all sedating medications. 6. Hold antihypertensives, given hemodynamic instability. 7. Low threshold for intubation if respiratory status continues to worsen. IMPRESSIONS: 1. Acute hypoxemic respiratory failure Unclear etiology. However, radiographically, it does appear that the patient still has residual effusions and atelectasis, likely contributing to his hyp oxemia. In addition, the patient has been rather sedentary and has not been on any DVT prophylaxis. Therefore, venous thromboembolic disease is a possibility. However, given the patient's renal insufficiency, CTA chest cannot be obtained at this time. Lower extremity Dopplers were obtained and found to be negative. Nevertheless, I would plan to continue the patient on a heparin infusion given his tenuous respiratory status until the time comes that a PE can be definitively ruled out.In the interim, continue the patient on BiPAP and wean as tolerated. 2. Severe sepsis The patient has demonstrated perturbations in his vital signs over the last 24 hours including hypothermia and tachypnea. Additionally, the patient has been hemodynamically tenuous. His white blood cell count remains elevated and he is now on BiPAP due to respiratory failure. Therefore, the patient technically meets severe sepsis criteria with a known necrotizing soft tissue infection. However, I am concerned that in light of his clinical decompensation, that he may have a secondary source of infection as well. Will obtain blood and urine cultures. I am going to broaden his antibiotics this morning. Infectious diseases has been updated. 3. Coronary artery disease status post CABG/ischemic cardiomyopathy/atrial fibrillation Continue medical management per cardiology recommendations. Recommend holding diuretics completely given worsening renal insufficiency. 4. 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 Strongly recommend against further consideration for surgical intervention given clinical instability at the present time. 5. Acute on chronic kidney disease Potentially related to overdiuresis. Recommend holding Lasix. If creatinine continues to worsen, obtain nephrology consultation. 6. Diabetes mellitus/depression/hypertension/GERD/hyperlipidemia Complicates care, management, recovery and prognosis. Continue home medications as indicated. TIME: 78 minutes of critical care time, independent of procedures, was spent addressing the patient's acute hypoxemic respiratory failure, severe sepsis, coronary artery disease, necrotizing soft tissue infection, acute on chronic kidney disease, review of all data and collaboration with the care team. ([id number], [id number]) Subjective Subjective The patient was seen and examined at the bedside this morning. Events from the last 24 hours have been reviewed. The patient was transferred to the medical intensive care unit early this morning after I was notified that the patient was altered on BiPAP and was now hypotensive. According to nursing, the patient had been maintained on BiPAP therapy since the order was placed yesterday afternoon. He is currently documented to be overall net +13.2 L for the hospital adm ission. White count remains elevated at 17,000. Hemoglobin is stable at 9.1 g/dL. Creatinine has worsened to 3.09 this morning. Bicarbonate is low at 15. BNP was elevated to 1972. Over the course of the afternoon, the patient continued to decompensate from a respiratory perspective. He has remained on continuous BiPAP support and is now requiring an FiO2 of 90% with borderline oxygen saturation. He remains tachypneic and confused. The decision was made this afternoon to proceed with intubation, over concerns for further decline in the patient's respiratory status. Intubation Indication: Respiratory failure Consent was obtained from: Patient The patient was placed in the appropriate sniffing position. Preoxygenated sedation via [id number] was provided for a minimum of 3 minutes. The patient had continuous cardiac as well as pulse oximetry monitoring during the procedure. Procedure sedation was provided by the administration of 4 mg of Versed and 20 mg of etomidate. Direct laryngoscopy was then performed using a number 4 MAC blade, which revealed a grade 1 view. A 7.5 mm endotracheal tube was visualized advancing between the cords to the level of 23 cm at the lip. The stylette was then removed and discarded. Tube placement was confirmed by fogging in the tube along with equal and bilateral breath sounds. Colorimetric change was visualized on the CO2 meter. The cuff was then inflated and the tube secured using a commercially available device. A good pulse oximetry waveform was seen on the monitor throughout the procedure. A portable chest x-ray has been ordered to confirm appropriate placement. The patient tolerated the pro cedure well. Objective Data Objective Data The patient's most recent lab work, culture data and imaging studies have all been personally reviewed. CTA chest dated October 26 revealed no evidence for pulmonary embolism. Small bilateral pleural effusions with associated compressive atelectasis were noted. Surface echocardiogram completed on October 28 revealed normal LV size with an ejection fraction of 55%. Right ventricular systolic pressure was unable to be obtained. Rapid coronavirus antigen testing was negative. Wound culture was positive for Pasteurella and staph aureus. Vital Signs: Vital Signs Temp Pulse Resp BP Pulse Ox 96.5 F L 92 21 H 89/73 L 97 11/09/20 06:00 11/09/20 06:00 11/09/20 06:00 11/09/20 06:00 11/09/20 06:00 Oxygen Flow Rate (L/min) 6 Oxygen Delivery Method Bi-pap Weight: 206 lb 9.17 oz Body Mass Index (BMI) 29.6 Intake & Output: Intake and Output for Last 24 Hours 11/07/20 11/08/20 11/09/20 23:59 23:59 23:59 Intake Total 918 / 918 1051.97 / 1251.97 1094.58 / 1094.58 Output Total 750 / 950 550 / 550 0 / 0 Balance 168 / -32 501.97 / 701.97 1094.58 / 1094.58 Lab / Micro Data Attestation: I reviewed the patient's lab results. Result Diagrams: 11/09/20 06:14 11/09/20 06:14 Labs: Laboratory Results - last 24 hr 11/08/20 11:59: POC Glucose 192 H 11/08/20 15:00: B-Natriuretic Peptide 1972.0 H 11/08/20 15:00: Lactic Acid 1.0 11/08/20 15:10: PT 25.7 H, INR 2.4, APTT 56.1 H 11/08/20 16:42: POC Glucose 160 H 11/08/20 20:56: POC Glucose 146 H 11/08/20 21:00: APTT > 250.0 H* 11/09/20 06:14: WBC 17.5 H, RBC 2.83 L, Hgb 9.1 L, Hct 28.8 L, MCV 101.8 H, MCH 32.2 H, MCHC 31.6 L, RDW Std Deviation 58.8 H, RDW Coeff of Marquis 17.7 H, Plt Count 208, MPV 9.5, Immature Gran % (Auto) 1.300 H, Neut % (Auto) 94.2 H, Lymph % (Auto) 1.7 L, [place] % (Auto) 2.6, Eos % (Auto) 0.0, Baso % (Auto) 0.2, Absolute Neuts (auto) 16.5 H, Absolute Lymphs (auto) 0.30 L, Nucleated RBC % 0.1 11/09/20 06:14: Sodium 138, Potassium 4.1, Chloride 107, Carbon Dioxide 15.0 L, Anion Gap 16 H, BUN 38 H, Creatinine 3.09 H, Estim Creat Clear Calc 23.62, Est GFR (MDRD) Af Amer 26 L, Est GFR (MDRD) Non-Af 22 L, BUN/Creatinine Ratio 12.3, Glucose 152 H, Calcium 7.7 L 11/09/20 06:14: APTT 233.7 H* Micro: Microbiology 11/04/20 12:15 Tissue - Arm Right Gram Stain - Final 11/04/20 12:15 Tissue - Arm Right Wound Culture - Final No growth aerobically. 11/04/20 12:15 Tissue - Arm Right Anaerobic Culture - Preliminary No growth in 48 hours. 11/07/20 15:35 Nasal Secretion SARS-CoV-2 Antigen (Rapid) - Final 11/01/20 Unknown Tissue - Arm Right Gram Stain - Final 11/01/20 Unknown Tissue - Arm Right Wound Culture - Final No growth aerobically. 11/01/20 Unknown Tissue - Arm Right Anaerobic Culture - Final No anaerobic bacteria isolated. 10/28/20 Unknown Tissue - Arm Fungal Smear - Final 10/28/20 14:20 Tissue - Arm Gram Stain - Final 10/28/20 14:20 Tissue - Arm Wound Culture - Final No growth aerobically. 10/28/20 14:20 Tissue - Arm Anaerobic Culture - Final Prevotella oralis 10/25/20 07:35 Blood Culture (Wb) - Anticubital Left Blood Culture - Final No growth in 5 days. 10/25/20 07:45 Blood Culture (Wb) - Left Wrist Blood Culture - Final No growth in 5 days. 10/25/20 07:30 Bite - Arm Gram Stain - Final 10/25/20 07:30 Bite - Arm Wound Culture - Final Pasteurella canis Staphylococcus aureus 10/27/20 18:00 Mucosa - Nose SARS-CoV-2 Antigen (Rapid) - Final ABG Data ABG results: ABG 11/08/20 17:21 Specimen Type ART Sample Site L Radial pH 7.30 L Bicarbonate Actual 15.2 L Total CO2 16 Base Excess -11 L O2 Saturation 98 O2 % 40 ABG pCO2 30.5 L ABG pO2 112 H Vasquez Test Positive Vent Mode BiLevel POC PEEP 6 POC Pressure Suppt 14 Radiography Diagnostic Testing: Radiology Impression Chest X-Ray 11/08/20 08:30 IMPRESSION: Blunting of both cost phrenic angles with the findings suggestive of atelectasis and/or scarring at the lung bases. Stable scarring along the lateral aspect of the left pleural surface. Electronically Signed: Gómez Phelps MD at 9:56 EDT , Service support , Venous Doppler Study 11/08/20 14:13 Interpretation Summary No evidence for acute deep venous thrombosis bilateral lower extremities with patent and compressible bilateral great saphenous veins. Ordering Physician: Mando Valenzuela Referring Physician: [facility] Performed By: Pati Torres RDCS, RVT Physical Exam Const alert General Appearance: cooperative, ill appearing and on BiPAP Orientation / Consciousness: confused HEENT normocephalic and head/scalp atraumatic Mouth: dry mucous membranes Eyes PERRL, EOMs intact bilaterally and conjunctivae normal Neck supple General: trachea midline Resp Effort and Inspection: tachypneic Auscultation: wheezes and diminished lung sounds Cardio regular rate and regular rhythm GI normal to inspection, nondistended, normoactive bowel sounds Extremity General Extremity: edema; Negative for clubbing Skin Wound Narrative: Wrapped upper extremity wound Neuro no focal motor deficits Psych Mood & Affect: flat affect Charges/Coding Procedures Hospitalists Procedures: 51823 Critial Care 1st Hr Multi Select Codes Hospitalists' Procedures Procedures: 21971 Critial Care Addl 30 Min
[2020-11-09 07:21] LABS: Blood Gas Specimen Type VEN; O2 Delivery Device BiPAP; SITE L Brach; VBG BASE EXCESS -12 mmol/L (-1.0-3.5); VBG Bicarbonate 16 mmol/L (22-26); VBG PO2 23 mmHg (25-40); VBG SO2 32 % (50-70); VBG TCO2 17 mmol/L (23-33); VBG pCO2 34.6 mmHg (41-51); VBG pH 7.26 (7.32-7.42)
--- NOTE | 2020-11-09 07:23 | NURSING ---
Pt transferred from [facility] to [id number], report given to HOMER Musa. Pt's daughter Sue called and updated. She is the person to notify and she will contact the rest of her family to let them know about his transfer. HOMER Frausto.
--- NOTE | 2020-11-09 09:25 | NURSING ---
Will leave dressing in place at this time. unsure if patient will be returning to the OR for a washout this afternoon as scheduled. will discuss with Dr William.
--- NOTE | 2020-11-09 09:29 | CASEMGMT ---
Social Work SW attended ICU rounds. SW spoke with Dyana in TCU and confirmed a bed remains available for pt when pt is ready for discharge. Update on pt condition and disposition provided to Dyana. Skilled level of care for wound care and IV ATB when pt is medically ready for discharge. Plan: TCU, when medically ready. YANDEL Moya
--- NOTE | 2020-11-09 09:52 | CON.PCM.RE_ITS ---
Assessment & Plan Assessment/Plan (1) LETY (acute kidney injury): PLAN: LETY ATN multifactorial with hemodynamic pertubation, JOSÉ (contrast October 27 and ?AIN with prerenal state now ATN with marked FO creatinine peaked 3 DONNA classIII and progressive CKD I will hold Alfa Hold IV contrast Hold NSAIDS Urien studies dose anbx e GFR 15 excessive FO start bumex drip with albumin to increase oncotic pressure expect creatinine to be worsened I will check C3C4 r/o syninfectious GN assess UO (2) CKD (chronic kidney disease) stage 3, GFR 30-59 ml/min: PLAN: Now e GFR 15 but moving target contorl DM with BS 110 Need SSI (3) Acute hypoxemic respiratory failure: PLAN: FO with CRS-2 addded bumex drip may need MORTAR MAKER soon (4) Necrotizing soft tissue infection: PLAN: on anbx dose withe GFR 15 (5) Diabetes: PLAN: keep strict control (6) Acute blood loss anemia: PLAN: transfse as needed HPI Consult Data Date of Consult: 11/09/20 HPI Narrative HPI Narrative: DIANA SNYDER, is a 70 M who presents with 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 The patient does have a history of coronary artery disease status post CABG. As part of his initial work-up, the patient was found to have an elevated troponin. Cardiac catheterization was performed on October 27 and revealed segmental systolic dysfunction with an ejection fraction of 40%, [place] multivessel coronary disease and occluded SVG grafts. The patient was also evaluated by Dr. William of plastic surgery and subsequently taken to the OR on October 28 where he underwent surgical I&D along with excisional debridement of the aforementioned dog bite. During this admission his creatinine was ranging with 1.5-1.6 icreased to 2.5 in 48 hrs now 3.02 with FO and on BiPAP, we were consultedfor LETY.The patient did report a prior tobacco abuse history, having quit 15 years ago. The patient denies a history of venous thromboembolic disease. He denies utilizing supplemental oxygen at his baseline. He has never been evaluated by a chaplain. He has never been diagnosed with obstructive sleep apnea. Of not e, it does appear that the patient has not been on any form of pharmacologic DVT prophylaxis since his admiss [facility] Medical History (Updated 11/09/20 @ 10:[address] José Manuel Venegas MD) Abnormal cardiac enzyme level Abscess of bursa of right forearm Abscess of right forearm Abscess of skin of right wrist Anemia Atherosclerotic heart disease of [place] coronary artery without angina pectoris Atrial fibrillation Benign essential HTN CAD (coronary artery disease) Cellulitis of forearm, right CHF (congestive heart failure) Chronic pain Congestive heart failure (CHF) Depression Diabetes Extensor tenosynovitis of right wrist Former smoker History of left heart catheterization (LHC) (~10/27/20) HLD (hyperlipidemia) Hypertension Myocardial infarct Necrotizing soft tissue infection Open wound of right forearm due to dog bite Open wound of right wrist due to dog bite Substance abuse Home Medications amlodipine 10 mg PO DAILY 10/25/20 [History Last Taken Unknown] furosemide [Lasix] 40 mg PO BID 10/25/20 [History Last Taken Unknown] glipizide 10 mg PO DAILY 10/25/20 [History Last Taken Unknown] metoprolol succinate 200 mg PO DAILY 10/25/20 [History Last Taken Unknown] niacin 1,000 mg PO BID 10/25/20 [History Last Taken Unknown] omeprazole 20 mg PO BID 10/25/20 [History Last Taken Unknown] paroxetine HCl [Paxil] 40 mg PO DAILY 10/25/20 [History Last Taken Unknown] pentoxifylline 400 mg PO TID 10/25/20 [History Last Taken Unknown] aspirin 325 mg PO DAILY 11/03/20 [History Last Taken Unknown] pravastatin 80 mg PO QHS 11/03/20 [History Last Taken Unknown] tamsulosin 0.8 mg PO QHS 11/03/20 [History Last Taken Unknown] Allergy/AdvReac Type Severity Reaction Status Date / Time No Known Allergies Allergy Verified 10/25/20 07:14 Family History Brother CAD (coronary artery disease) Age of CAD diagnosis: 50s Surgical History History of appendectomy Hx of CABG S/P CABG (coronary artery bypass graft) Social History Smoking Status: Former smoker how long ago did patient quit smoking: approximately 15 years ago ROS Review of Systems ROS Unobtainable: due to endotracheal tube Physical Exam Const Constitutional Narrative: ON BIPAP General Appearance: in distress Orientation / Consciousness: confused Exam Limitations: altered mental status Nutritional Appearance: obese HEENT normocephalic Head and Scalp: normal to inspection Mouth: tongue normal Eyes PERRL Neck no lymphadenopathy Chest Chest Narrative: CRACKLES b/l Resp Resp Narrative: crackles Effort and Inspection: abnormal respiratory pattern Cardio no murmurs and peripheral pulses 2+ throughout Jugular Venous Distention: JVD to the level of the angle of the jaw GI normal to inspection, nondistended, normoactive bowel sounds Lab / Micro Data Result Diagrams: 11/09/20 06:14 11/09/20 06:14 Labs: Laboratory Results - last 24 hr 11/08/20 11:59: POC Glucose 192 H 11/08/20 15:00: B-Natriuretic Peptide 1972.0 H 11/08/20 15:00: Lactic Acid 1.0 11/08/20 15:10: PT 25.7 H, INR 2.4, APTT 56.1 H 11/08/20 16:42: POC Glucose 160 H 11/08/20 20:56: POC Glucose 146 H 11/08/20 21:00: APTT > 250.0 H* 11/09/20 06:14: WBC 17.5 H, RBC 2.83 L, Hgb 9.1 L, Hct 28.8 L, MCV 101.8 H, MCH 32.2 H, MCHC 31.6 L, RDW Std Deviation 58.8 H, RDW Coeff of Marquis 17.7 H, Plt Count 208, MPV 9.5, Immature Gran % (Auto) 1.300 H, Neut % (Auto) 94.2 H, Lymph % (Auto) 1.7 L, [place] % (Auto) 2.6, Eos % (Auto) 0.0, Baso % (Auto) 0.2, Absolute Neuts (auto) 16.5 H, Absolute Lymphs (auto) 0.30 L, Nucleated RBC % 0.1 11/09/20 06:14: Sodium 138, Potassium 4.1, Chloride 107, Carbon Dioxide 15.0 L, Anion Gap 16 H, BUN 38 H, Creatinine 3.09 H, Estim Creat Clear Calc 23.62, Est GFR (MDRD) Af Amer 26 L, Est GFR (MDRD) Non-Af 22 L, BUN/Creatinine Ratio 12.3, Glucose 152 H, Calcium 7.7 L 11/09/20 06:14: APTT 233.7 H* Micro: Microbiology 11/04/20 12:15 Tissue - Arm Right Gram Stain - Final 11/04/20 12:15 Tissue - Arm Right Wound Culture - Final No growth aerobically. 11/04/20 12:15 Tissue - Arm Right Anaerobic Culture - Preliminary No growth in 48 hours. ABG Data ABG results: ABG 11/08/20 11/09/20 17:21 07:15 Specimen Type ART MAGDALENA Sample Site L Radial L Brach pH 7.30 L Bicarbonate Actual 15.2 L Total CO2 16 Base Excess -11 L O2 Saturation 98 O2 % 40 ABG pCO2 30.5 L ABG pO2 112 H Vasquez Test Positive VBG pH 7.26 L VBG pO2 23 L VBG HCO3 16 L VBG Total CO2 17 L VBG O2 Sat (Calc) 32 L VBG Base Excess -12 L POC Mix VBG pCO2 Pt Tmp 34.6 L O2 Delivery Device BiPAP Vent Mode BiLevel POC PEEP 6 POC Pressure Suppt 14 Clinical Comments 15/6 bipap Radiology Impression Chest X-Ray 11/08/20 08:30 IMPRESSION: Blunting of both cost phrenic angles with the findings suggestive of atelectasis and/or scarring at the lung bases. Stable scarring along the lateral aspect of the left pleural surface. Electronically Signed: Gómez Phelps MD at 9:56 EDT , Service support , Venous Doppler Study 11/08/20 14:13 Interpretation Summary No evidence for acute deep venous thrombosis bilateral lower extremities with patent and compressible bilateral great saphenous veins. Ordering Physician: Mando Valenzuela Referring Physician: [facility] Performed By: Pati Torres RDCS, RVT
[2020-11-09 09:53] LABS: Bacteria 0 SEEN /hpf (None Seen); Mucous, Urine 0 SEEN /hpf (<or=2+); Squamous Epithelial Cells - UA 0 SEEN /hpf (0-5); White Blood Cells 0 SEEN /hpf (0-5)
[2020-11-09 09:58] LABS: Color, Urine Yellow (Yellow); Glucose, Dipstick Normal (Normal); Ketone-Dipstick 5 mg/dl (Negative); Leukocyte Esterase-Dipstick Negative /ul (Negative); Nitrite-Dipstick Negative (Negative); Occult Blood-Urine 10 /ul (Negative); Protein-Dipstick 30 mg/dl (Negative); Urine Bilirubin Dipstick Negative (Negative); Urine Clarity Clear (Clear); Urine Urobilinogen Normal (Normal)
[2020-11-09 10:10] LABS: Red Blood Cells-Urine 0-5 SEEN /hpf (0-5)
[2020-11-09 10:28] LABS: Urea Nitrogen, Urine 267 mg/dL (NO RANGE EST.)
[2020-11-09] MEDS: Bumetanide 25 MG in CONTAINER,EMPTY 1 BAG 8 MG CONT INF ×2 (10:43→20:15)
--- NOTE | 2020-11-09 11:40 | PN.HOSP_ITS ---
Documented by User: Stephon PRYOR 11/09/20 14:24 Subjective Subjective Patient is a 70-year-old male sitting off to the side of the bed with a BiPAP mask on, unclear how alert and oriented patient is. It is difficult to assess how patient condition is doing as he is acutely short of breath and appears se verely ill. Unable to answer any questions related to his current status. Objective Data Objective Data Vital Signs: Vital Signs Temp Pulse Resp BP Pulse Ox 96.3 F L 93 24 H 86/70 L 90 11/09/20 11:00 11/09/20 11:36 11/09/20 11:00 11/09/20 11:00 11/09/20 11:00 Oxygen Flow Rate (L/min) 6 Oxygen Delivery Method Bi-pap Weight: 206 lb 9.17 oz Body Mass Index (BMI) 29.6 Intake & Output: Intake and Output for Last 24 Hours 11/07/20 11/08/20 11/09/20 23:59 23:59 23:59 Intake Total 918 / 918 1051.97 / 1251.97 1094.58 / 1094.58 Output Total 750 / 950 550 / 550 270 / 270 Balance 168 / -32 501.97 / 701.97 824.58 / 824.58 Lab / Micro Data Result Diagrams: 11/09/20 06:14 11/09/20 06:14 Labs: Laboratory Results - last 24 hr 11/08/20 11:59: POC Glucose 192 H 11/08/20 15:00: B-Natriuretic Peptide 1972.0 H 11/08/20 15:00: Lactic Acid 1.0 11/08/20 15:10: PT 25.7 H, INR 2.4, APTT 56.1 H 11/08/20 16:42: POC Glucose 160 H 11/08/20 20:56: POC Glucose 146 H 11/08/20 21:00: APTT > 250.0 H* 11/09/20 06:14: WBC 17.5 H, RBC 2.83 L, Hgb 9.1 L, Hct 28.8 L, MCV 101.8 H, MCH 32.2 H, MCHC 31.6 L, RDW Std Deviation 58.8 H, RDW Coeff of Marquis 17.7 H, Plt Count 208, MPV 9.5, Immature Gran % (Auto) 1.300 H, Neut % (Auto) 94.2 H, Lymph % (Auto) 1.7 L, [place] % (Auto) 2.6, Eos % (Auto) 0.0, Baso % (Auto) 0.2, Absolute Neuts (auto) 16.5 H, Absolute Lymphs (auto) 0.30 L, Nucleated RBC % 0.1 11/09/20 06:14: Sodium 138, Potassium 4.1, Chloride 107, Carbon Dioxide 15.0 L, Anion Gap 16 H, BUN 38 H, Creatinine 3.09 H, Estim Creat Clear Calc 23.62, Est GFR (MDRD) Af Amer 26 L, Est GFR (MDRD) Non-Af 22 L, BUN/Creatinine Ratio 12.3, Glucose 152 H, Calcium 7.7 L 11/09/20 06:14: APTT 233.7 H* 11/09/20 09:48: Urine Color Yellow, Urine Clarity Clear, Urine pH 5.0, Ur Specific [place] 1.020, Urine Protein 30 H, Urine Glucose (UA) Normal, Urine Ket ones 5 H, Urine Occult Blood 10 H, Urine Nitrite Negative, Urine Bilirubin Negative, Urine Urobilinogen Normal, Ur Leukocyte Esterase Negative, Urine RBC 0-5 SEEN, Urine WBC 0 SEEN, Ur Squamous Epith Cells 0 SEEN, Urine Bacteria 0 SEEN, Urine Mucus 0 SEEN 11/09/20 09:48: Urine Urea Nitrogen 267 11/09/20 09:48: Urine Creatinine 121.00 Micro: Microbiology 11/04/20 12:15 Tissue - Arm Right Gram Stain - Final 11/04/20 12:15 Tissue - Arm Right Wound Culture - Final No growth aerobically. 11/04/20 12:15 Tissue - Arm Right Anaerobic Culture - Preliminary No growth in 48 hours. 11/07/20 15:35 Nasal Secretion SARS-CoV-2 Antigen (Rapid) - Final 11/01/20 Unknown Tissue - Arm Right Gram Stain - Final 11/01/20 Unknown Tissue - Arm Right Wound Culture - Final No growth aerobically. 11/01/20 Unknown Tissue - Arm Right Anaerobic Culture - Final No anaerobic bacteria isolated. 10/28/20 Unknown Tissue - Arm Fungal Smear - Final 10/28/20 14:20 Tissue - Arm Gram Stain - Final 10/28/20 14:20 Tissue - Arm Wound Culture - Final No growth aerobically. 10/28/20 14:20 Tissue - Arm Anaerobic Culture - Final Prevotella oralis 10/25/20 07:35 Blood Culture (Wb) - Anticubital Left Blood Culture - Final No growth in 5 days. 10/25/20 07:45 Blood Culture (Wb) - Left Wrist Blood Culture - Final No growth in 5 days. 10/25/20 07:30 Bite - Arm Gram Stain - Final 10/25/20 07:30 Bite - Arm Wound Culture - Final Pasteurella canis Staphylococcus aureus 10/27/20 18:00 Mucosa - Nose SARS-CoV-2 Antigen (Rapid) - Final ABG Data ABG results: ABG 11/08/20 11/09/20 17:21 07:15 Specimen Type ART MAGDALENA Sample Site L Radial L Brach pH 7.30 L Bicarbonate Actual 15.2 L Total CO2 16 Base Excess -11 L O2 Saturation 98 O2 % 40 ABG pCO2 30.5 L ABG pO2 112 H Vasquez Test Positive VBG pH 7.26 L VBG pO2 23 L VBG HCO3 16 L VBG Total CO2 17 L VBG O2 Sat (Calc) 32 L VBG Base Excess -12 L POC Mix VBG pCO2 Pt Tmp 34.6 L O2 Delivery Device BiPAP Vent Mode BiLevel POC PEEP 6 POC Pressure Suppt 14 Clinical Comments 15/6 bipap Radiography Diagnostic Testing: Radiology Impression Venous Doppler Study 11/08/20 14:13 Interpretation Summary No evidence for acute deep venous thrombosis bilateral lower extremities with patent and compressible bilateral great saphenous veins. Ordering Physician: Mando Valenzuela Referring Physician: [facility] Performed By: Pati Torres, TAYLER, RVT Physical Exam Const alert General Appearance: uncooperative and on BiPAP Orientation / Consciousness: lethargic Exam Limitations: other limitations Nutritional Appearance: obese HEENT head/scalp atraumatic and moist oral mucous membranes Head and Scalp: normocephalic Eyes EOMs intact bilaterally and conjunctivae normal Neck no lymphadenopathy, supple and no JVD Resp Resp Narrative: On BiPAP at 30 FIO2 Effort and Inspection: abnormal respiratory pattern, tachypneic and labored Auscultation: diminished lung sounds Cardio regular rate, regular rhythm, no murmurs and no JVD GI normal to inspection, nondistended, normoactive bowel sounds, soft to palpation and non-tender Extremity normal to inspection, full ROM and no clubbing, cyanosis or edema Skin no rashes or lesions noted, no wounds, skin turgor normal and no jaundice Neuro Neuro Narrative: Unable to assess due to patient being acutely short of breath. Psych Mood & Affect: anxious Assessment & Plan Assessment/Plan (1) Dog bite: QUALIFIERS: Encounter type: initial encounter Qualified Code(s): W54.0XXA - Bitten by dog, initial encounter (2) Open wound of right wrist due to dog bite: (3) Open wound of right forearm due to dog bite: (4) CKD (chronic kidney disease) stage 3, GFR 30-59 ml/min: (5) LETY (acute kidney injury): (6) Acute hypoxemic respiratory failure: (7) Shortness of breath: PLAN: Day 15: See subjective. Discharge plan: Patient to go to TCU at discharge when medically ready. 1) Acute hypoxic respiratory failure of unlcear etiology Patient has been moved to ICU from PCU due to being acutely short of breath and acidotic on venous blood gas despite ongoing therapy. Patient's respiratory elevated in between 20-25 breaths/min, although patient is satting at 90% on BiP ap with a FIO2.. PA and lateral chest x-ray obtained on 11/08 and demonstrated atelectasis and/or scarring of the lung bases bilaterally. CXR more or less unchanged from admission. Repeat blood cultures pending, Fungal culture pending, Rapid COVID negative. Chest CT-A cannot be obtained at this time due to patient's ongoing renal insufficiency, although lower extremity Dopplers were found to be negative. Plan; initiate vancomycin and Zosyn, discontinue Unasyn, Bumex initiated, continue Toprol, pulmonology following, cardiology following, ID following, nephrology following, plastics following 2) NSTEMI S/P cardiac catheterization: elevated left ventricular end-diastolic pressure and mild to moderate left ventricular systolic dysfunction with EF of 40% and [place] multivessel CAD with THRASHER to the LAD patent and occluded grafts to of the obtuse marginal arteries with left to right collateral flows and left to left collateral flows. Echocardiogram demonstrated an EF of 55%. Cardiology following plan; continue amlodipine, aspirin, statin, metoprolol and amiodarone. 3) A. fib Patient on metoprolol for rate control, not on any anticoagulation at home however patient has been on heparin drip since admitted. [id number] score 5. Plan; continue medical management. 4) CHF Echocardiogram from 6 yesterday demonstrated normal LV size and systolic function, an estimated EF of 55, moderate concentric LVH, and indeterminate RVSP and abnormal diastolic dysfunction. Lasix discontinued, per cardiology. Plan; continue metoprolol, Bumex initiated 5) RUE cellulitis due to dog bite ID and plastics following. Rapid Covid negative. Initial culture of wound demonstrated Prevotella Oralis. Repeat wound cultures demonstrate no growth. Do not recommend initiation of surgical intervention at this time, due to patient's poor overall condition. Plan: Continue Unasyn per ID, Augmentin at discharge, fungal cultures pending 6) DM2 Hemoglobin A1c as of 10/28 was 7.7. Continue Lantus 10 units, Accu-Cheks with sliding scale insulin. 7) CKD stage IIIa Creatinine is currently 2.5, up from admission. Possibly due to diuresis relative to #4. Plan; diuretics discontinued as above. 8) depression Continue Paxil DVT: SCDs Patient seen by Stephon Goldstein PA-C, under the supervision of Dr. Nuñez. Documented by User: Dr. Alberto Zheng DO 11/09/20 18:34 Objective Data Lab / Micro Data Result Diagrams: 11/09/20 06:14 11/09/20 06:14 Charges/Coding Addendum Addendum: Patient was seen and examined earlier this morning independently of Stephon Goldstein, he was somnolent and on BiPAP at the time of my examination. Patient was transferred into the ICU due to worsening respiratory status. On examination he appeared somnolent, he responded to painful stimuli. Vital signs as documented. Skin warm and dry and without overt rashes. Neck without JVD, neck was supple, trachea midline, thyroid was normal. Lungs-expiratory rhonchi were noted bilaterally, respirations are rapid and shallow. Heart exam notable for regular rhythm, normal sounds and absence of murmurs, rubs or gallops. Abdomen unremarkable and without evidence of organomegaly, masses, or abdominal aortic enlargement. Bowel sounds are present, abdomen is not distended. Extremities nonedematous, no cyanosis was noted, no clubbing was noted. Neuro: Cranial nerves II through XII are grossly intact, no focal motor deficits were noted, sensation to light touch and pinprick intact, motor exam 5 /5 throughout. Psych: Patient is alert and oriented x3, he does not appear anxious or depressed, he does not appear agitated. I have reviewed Stephon Goldstein's progress note including his medical assessment and plan of care and with the above additions endorse it. Visit Charges Inpatient E&M: 85073 Subs Hosp L2
[2020-11-09 13:15] LABS: Bedside Glucose 127 mg/dL (70-110)
--- NOTE | 2020-11-09 13:45 | PCM.PN.ID ---
Physical Exam Narrative Moved to icu. Breathing a little better with nippv. No fever. Some cough. Const alert General Appearance: cooperative Resp Auscultation: rhonchi and wheezes Cardio regular rate and regular rhythm GI normal to inspection, nondistended, normoactive bowel sounds Extremity General Extremity: edema Skin Skin Narrative: RUE wrapped ID ID: Route of nutrition/ use of supplements: [] Nutritional Intake: [] IV Site: [] Reed Catheter: [] Assessment & Plan Assessment/Plan (1) Necrotizing soft tissue infection: PLAN: Has been on unasyn. Most recent I&D 11/04/[address] William. Past few cxs with prevotella, pasteurella, mssa. Now with worsened hypoxia, pulm following, moved to icu today. Seen by neph for LETY. Agree with broadening abx to vanc/zosyn, adjusted zosyn to q12h based on gfr. will follow, d/w Dr. Valenzuela
[2020-11-09] MEDS: Midazolam 5 MG/ML Syringe 4 MG IV (13:57)
[2020-11-09] MEDS: Etomidate 20 MG/10 ML Vial IV (13:58)
--- NOTE | 2020-11-09 14:03 | RAD_ITS ---
STUDY: X-RAY CHEST REASON FOR EXAM: Male, 70 years old. Respiratory Failure s/p Intubation TECHNIQUE: Single AP portable view of the chest. COMPARISON: Comparison is made with prior examination dated 11/08/2020. FINDINGS: An endotracheal tube is in situ. The tip is at 5.8 cm proximal to the aldo. An oral gastric tube is seen with the tip in the body of the stomach. EKG electrodes are seen. A left-sided PICC line catheter is seen with the tip at the junction of the superior vena cava and right atrium. Progressive infiltrates in both lungs. Blunting of both constant angles. Sternal cerclage wires and vascular clips are present from a prior sternotomy and coronary artery bypass graft procedure (CABG). Normal mediastinum and stephen. Normal visualized pulmonary arteries. There is atherosclerotic calcification of the aortic arch with tortuosity. Normal visualized thoracic spine. Normal visualized ribs, clavicles, and shoulders. There is no demonstrated abnormality of the visualized soft tissue structures of the upper abdomen. RAD/Chest 1 View (Portable) IMPRESSION: Progressive bilateral infiltrates. The tip of the endotracheal tube is at 5.8 cm proximal to the aldo. Electronically Signed: Gómez Phelps MD at 15:08 EDT , Service support ,
[2020-11-09] MEDS: Propofol 10MG/Ml 1,000 MG/100 ML Bottle 5.6 MG CONT INF (14:05)
--- NOTE | 2020-11-09 14:05 | RAD_ITS ---
STUDY: X-RAY CHEST REASON FOR EXAM: Male, 70 years old. Intubation and OG tube placement #2 TECHNIQUE: Single AP portable view of the chest. COMPARISON: Comparison is made with prior study done earlier in the day at 2:06 PM.. FINDINGS: An endotracheal tube is in situ. The tip is at 4.9 cm proximal to the aldo. An orogastric tube is in situ with the tip in the fundal portion of the stomach. A left-sided PICC line catheter is seen with the tip at the junction of the superior vena cava and right atrium. Persistent infiltrate in the right upper lobe. Progressive infiltrates in both lower lobes. Stable left upper lobe infiltrate. Blunting of the proximal phrenic angle slightly worse on the left side. Sternal cerclage wires and vascular clips are present from a prior sternotomy and coronary artery bypass graft procedure (CABG). Normal mediastinum and stephen. Normal visualized pulmonary arteries. Normal visualized aortic arch and descending thoracic aorta. There are diffuse degenerative changes of the visualized thoracic spine. Normal visualized ribs, clavicles, and shoulders. There is no demonstrated abnormality of the visualized soft tissue structures of the upper abdomen. RAD/Chest 1 View (Portable) IMPRESSION: The tip of the endotracheal tube is at 4.9 cm proximal to the aldo. The tip of the nasogastric tube is in the fundal portion of the stomach. Mild progression of the bilateral pulmonary infiltrates. Electronically Signed: Gómez Phelps MD at 15:06 EDT , Service support ,
[2020-11-09 14:15] LABS: Partial Thromboplast Time 59.1 Seconds (24.1-36.2)
[2020-11-09] MEDS: DAKIN'S SOL HALF STRENGTH (=0.25%) 1 APPLIC TOPICAL (14:33)
--- NOTE | 2020-11-09 14:45 | NURSING ---
11/09/20 1340 decision made to intubate pt per dr. shultz 1357 versed given per jun 1357 etomidate given per jun 1404 ett 23 at the lip 1410 og placed 1415 xray obtained 1420 ett tube advanced to 24 1422 xray obtained for og placement-placement confirmed per dr. shultz 1425 ett tube advanced to [address] shultz
[2020-11-09] MEDS: Albumin Human 25% (100 mL) 25 GM/100 ML BAG IV ×2 (15:31→22:47)
[2020-11-09 15:41] LABS: Allen Test Positive; Base Excess -9 mmol/L (-2 to +2); Bicarbonate 18.3 mmol/L (22-26); Blood Gas Specimen Type ART; FI02 100; Mode AC; O2 Delivery Device Adult Vent; PEEP 5; PO2 271 mmHG (75-100); RR 14; SITE L Brach; SO2 100 % (95-99); Total Carbon Dioxide 20 mmol/L; Vt 450; pCO2 44.8 mmHg (35-45); pH 7.22 (7.35-7.45)
--- NOTE | 2020-11-09 16:30 | PCM.RX.CS ---
Consult Pharmacy has been consulted to manage selected antiobiotic: Vancomycin Type of Consult: New start Suspected Infection: Sepsis, Skin/Soft tissue Labs: Sodium 138 mmol/L (136-145) 11/09/20 06:14 Potassium 4.1 mmol/L (3.5-5.1) 11/09/20 06:14 Chloride 107 mmol/L (98-107) 11/09/20 06:14 Carbon Dioxide 15.0 mmol/L (21.0-32.0) L 11/09/20 06:14 Anion Gap 16 (5-15) H 11/09/20 06:14 BUN 38 mg/dL (7-18) H 11/09/20 06:14 Creatinine 3.09 mg/dL (0.70-1.30) H 11/09/20 06:14 Est GFR (MDRD) Af Amer 26 mL/min (>60) L 11/09/20 06:14 Est GFR (MDRD) Non-Af 22 mL/min (>60) L 11/09/20 06:14 BUN/Creatinine Ratio 12.3 RATIO (10-20) 11/09/20 06:14 Glucose 152 mg/dL (74-106) H 11/09/20 06:14 Microbiology: Microbiology 11/04/20 12:15 Tissue - Arm Right Gram Stain - Final 11/04/20 12:15 Tissue - Arm Right Wound Culture - Final No growth aerobically. 11/04/20 12:15 Tissue - Arm Right Anaerobic Culture - Preliminary No growth in 48 hours. 11/07/20 15:35 Nasal Secretion SARS-CoV-2 Antigen (Rapid) - Final 11/01/20 Unknown Tissue - Arm Right Gram Stain - Final 11/01/20 Unknown Tissue - Arm Right Wound Culture - Final No growth aerobically. 11/01/20 Unknown Tissue - Arm Right Anaerobic Culture - Final No anaerobic bacteria isolated. 10/28/20 Unknown Tissue - Arm Fungal Smear - Final 10/28/20 14:20 Tissue - Arm Gram Stain - Final 10/28/20 14:20 Tissue - Arm Wound Culture - Final No growth aerobically. 10/28/20 14:20 Tissue - Arm Anaerobic Culture - Final Prevotella oralis 10/25/20 07:35 Blood Culture (Wb) - Anticubital Left Blood Culture - Final No growth in 5 days. 10/25/20 07:45 Blood Culture (Wb) - Left Wrist Blood Culture - Final No growth in 5 days. 10/25/20 07:30 Bite - Arm Gram Stain - Final 10/25/20 07:30 Bite - Arm Wound Culture - Final Pasteurella canis Staphylococcus aureus 10/27/20 18:00 Mucosa - Nose SARS-CoV-2 Antigen (Rapid) - Final Goal Trough: 15-20 mcg/mL Pharmacy Plan for Drug Dosing: NEW START IV VANCOMYCIN Consulting Physician: HIGINIO Indication: CELLULITIS/SEPSIS Goal Trough: 15-20 MG/DL SrCr: 3.09 MG/DL CrCl: 23.6 ML/MIN Comments: LOADING DOSE OF 2000MG GIVEN 11/09 @ 1037 Vancomcyin Dose: PATIENT'S SCR HAS BEEN INCREASING OVER THE PAST COUPLE OF DAYS. I AM HESITANT TO START A SCHEDULED REGIMEN AT THIS POINT. PATIENT RECEIVED A LOADING DOSE TODAY SO WILL TREAT LIKE CRCL <20ML/MIN AND GET A RANDOM LEVEL IN ~48 HOURS. Pending Level: RANDOM LEVEL 11/11 @ 0600 Pharmacy Service will continue to monitor and adjust dosing as required.
--- NOTE | 2020-11-09 16:43 | PCM.PN.CARD ---
Subjective Subjective The is currently in the ICU. His mental status is reported as waxing and waning. He has been requiring BiPAP therapy. Objective Data Vital Signs: Vital Signs Temp Pulse Resp BP Pulse Ox 95.9 F L 83 14 97/69 100 11/09/20 14:05 11/09/20 16:00 11/09/20 15:11 11/09/20 15:00 11/09/20 15:11 Oxygen Flow Rate (L/min) 6 Oxygen Delivery Method Mechanical Ventilator Weight: 206 lb 9.17 oz Body Mass Index (BMI) 29.6 Intake & Output: Intake and Output for Last 24 Hours 11/07/20 11/08/20 11/09/20 23:59 23:59 23:59 Intake Total 918 / 918 1051.97 / 1251.97 1659.32 / 1659.32 Output Total 750 / 950 550 / 550 385 / 385 Balance 168 / -32 501.97 / 701.97 1274.32 / 1274.32 Lab / Micro Data Result Diagrams: 11/09/20 06:14 11/09/20 06:14 Labs: Laboratory Results - last 24 hr 11/08/20 16:42: POC Glucose 160 H 11/08/20 20:56: POC Glucose 146 H 11/08/20 21:00: APTT > 250.0 H* 11/09/20 06:14: WBC 17.5 H, RBC 2.83 L, Hgb 9.1 L, Hct 28.8 L, MCV 101.8 H, MCH 32.2 H, MCHC 31.6 L, RDW Std Deviation 58.8 H, RDW Coeff of Marquis 17.7 H, Plt Count 208, MPV 9.5, Immature Gran % (Auto) 1.300 H, Neut % (Auto) 94.2 H, Lymph % (Auto) 1.7 L, [place] % (Auto) 2.6, Eos % (Auto) 0.0, Baso % (Auto) 0.2, Absolute Neuts (auto) 16.5 H, Absolute Lymphs (auto) 0.30 L, Nucleated RBC % 0.1 11/09/20 06:14: Sodium 138, Potassium 4.1, Chloride 107, Carbon Dioxide 15.0 L, Anion Gap 16 H, BUN 38 H, Creatinine 3.09 H, Estim Creat Clear Calc 23.62, Est GFR (MDRD) Af Amer 26 L, Est GFR (MDRD) Non-Af 22 L, BUN/Creatinine Ratio 12.3, Glucose 152 H, Calcium 7.7 L 11/09/20 06:14: APTT 233.7 H* 11/09/20 09:48: Urine Color Yellow, Urine Clarity Clear, Urine pH 5.0, Ur Specific [place] 1.020, Urine Protein 30 H, Urine Glucose (UA) Normal, Urine Ketones 5 H, Urine Occult Blood 10 H, Urine Nitrite Negative, Urine Bilirubin Negative, Urine Urobilinogen Normal, Ur Leukocyte Esterase Negative, Urine RBC 0-5 SEEN, Urine WBC 0 SEEN, Ur Squamous Epith Cells 0 SEEN, Urine Bacteria 0 SEEN, Urine Mucus 0 SEEN 11/09/20 09:48: Urine Urea Nitrogen 267 11/09/20 09:48: Urine Creatinine 121.00 11/09/20 11:39: POC Glucose 127 H 11/09/20 13:40: APTT 59.1 H ABG Data ABG results: ABG 11/08/20 11/09/20 11/09/20 17:21 07:15 15:33 Specimen Type ART MAGDALENA ART Sample Site L Radial L Brach L Brach pH 7.30 L 7.22 L Bicarbonate Actual 15.2 L 18.3 L Total CO2 16 20 Base Excess -11 L -9 L O2 Saturation 98 100 H O2 % 40 100 ABG pCO2 30.5 L 44.8 ABG pO2 112 H 271 H Vasquez Test Positive Positive VBG pH 7.26 L VBG pO2 23 L VBG HCO3 16 L VBG Total CO2 17 L VBG O2 Sat (Calc) 32 L VBG Base Excess -12 L POC Mix VBG pCO2 Pt Tmp 34.6 L Respiration Rate 14 O2 Delivery Device BiPAP Adult Vent Vent Mode BiLevel AC Tidal Volume 450 POC PEEP 6 5 POC Pressure Suppt 14 Clinical Comments 15/6 bipap Cardiology Labs/Tests 11/08/20 17:21: pH 7.30 L, Bicarbonate Actual 15.2 L, Base Excess -11 L, O2 Saturation 98, ABG pCO2 30.5 L, ABG pO2 112 H, Vasquez Test Positive 11/08/20 21:00: APTT > 250.0 H* 11/09/20 06:14: WBC 17.5 H, RBC 2.83 L, Hgb 9.1 L, Hct 28.8 L, MCV 101.8 H, MCH 32.2 H, MCHC 31.6 L, Plt Count 208, MPV 9.5, Immature Gran % (Auto) 1.300 H, Neut % (Auto) 94.2 H, Lymph % (Auto) 1.7 L, [place] % (Auto) 2.6, Eos % (Auto) 0.0, Baso % (Auto) 0.2, Absolute Neuts (auto) 16.5 H, Nucleated RBC % 0.1 11/09/20 06:14: Sodium 138, Potassium 4.1, Chloride 107, Carbon Dioxide 15.0 L, Anion Gap 16 H, BUN 38 H, Creatinine 3.09 H, Est GFR (MDRD) Af Amer 26 L, Est GFR (MDRD) Non-Af 22 L, BUN/Creatinine Ratio 12.3, Glucose 152 H, Calcium 7.7 L 11/09/20 06:14: APTT 233.7 H* 11/09/20 07:15: VBG pH 7.26 L, VBG pO2 23 L, VBG HCO3 16 L, VBG O2 Sat (Calc) 32 L, VBG Base Excess -12 L 11/09/20 09:48: Urine Color Yellow, Urine Clarity Clear, Urine pH 5.0, Ur Specific [place] 1.020, Urine Protein 30 H, Urine Glucose (UA) Normal, Urine Ketones 5 H, Urine Occult Blood 10 H, Urine Nitrite Negative, Urine Bilirubin Negative, Urine Urobilinogen Normal, Ur Leukocyte Esterase Negative, Urine RBC 0-5 SEEN, Urine WBC 0 SEEN 11/09/20 13:40: APTT 59.1 H 11/09/20 15:33: pH 7.22 L, Bicarbonate Actual 18.3 L, Base Excess -9 L, O2 Saturation 100 H, ABG pCO2 44.8, ABG pO2 271 H, Vasquez Test Positive Rhythm: Sinus rhythm/PAF Radiography Diagnostic Testing: Radiology Impression Venous Doppler Study 11/08/20 14:13 Interpretation Summary No evidence for acute deep venous thrombosis bilateral lower extremities with patent and compressible bilateral great saphenous veins. Ordering Physician: Mando Valenzuela Referring Physician: [facility] Performed By: Pati Torres, TAYLER, RVT Chest X-Ray 11/09/20 14:03 IMPRESSION: Progressive bilateral infiltrates. The tip of the endotracheal tube is at 5.8 cm proximal to the aldo. Electronically Signed: Gómez Phelps MD at 15:08 EDT , Service support , Chest X-Ray 11/09/20 14:05 IMPRESSION: The tip of the endotracheal tube is at 4.9 cm proximal to the aldo. The tip of the nasogastric tube is in the fundal portion of the stomach. Mild progression of the bilateral pulmonary infiltrates. Electronically Signed: Gómez Phelps MD at 15:06 EDT , Service support , Physical Exam Narrative Currently wearing BiPAP therapy device HEENT normocephalic, head/scalp atraumatic and hearing grossly normal bilaterally Eyes PERRL, EOMs intact bilaterally and conjunctivae normal Neck full ROM, supple and no JVD Chest Chest: midline sternotomy incision Resp Auscultation: wheezes scattered wheezes Cardio regular rate, regular rhythm, S1 normal heart sound and S2 normal heart sound GI normal to inspection, nondistended, normoactive bowel sounds Extremity Extremity Narrative: Right upper extremity: Positive surgical dressing and Alfa wrap General Extremity: edema bilateral lower extremity Details: mild Neuro oriented x3, moves all extremities, no focal motor deficits and no sensory deficits noted Assessment & Plan Assessment/Plan (1) Atherosclerotic heart disease of [place] coronary artery without angina pectoris: PLAN: At the present time the patient appears to be without any acute symptoms or adverse events. He will continue medical management with adjustment as needed. As noted before he is not considered a candidate for further percutaneous or surgical based revascularization therapy. (2) S/P CABG (coronary artery bypass graft): PLAN: The patient did undergo evaluation in the cardiac catheterization laboratory as previously noted. He has extensive [place] vessel disease with a patent THRASHER to the LAD and an occluded SVG to OM1 and SVG to OM 2. He will continue medical management. (3) CHF (congestive heart failure): QUALIFIERS: Heart failure type: systolic Heart failure chronicity: acute on chronic Qualified Code(s): I50.23 - Acute on chronic systolic (congestive) heart failure PLAN: The patient does have findings compatible with an underlying ischemic mediated cardiomyopathy based upon his left ventriculogram with an estimated LVEF 40%. The patient's diuretics were placed on hold based upon concerns of diminished intravascular volume and increasing creatinine level. He is being evaluated by nephrology as well for their input on his diuretic therapy. (4) Atrial fibrillation: QUALIFIERS: Atrial fibrillation type: unspecified Qualified Code(s): I48.91 - Unspecified atrial fibrillation PLAN: The patient's cardiac rate and rhythm will be monitored. It appears he has had episodes, based upon his cardiac rhythm strips, of sinus rhythm and paroxysmal atrial fibrillation. At the present time based upon ongoing concerns as to whether or not the patient may have had any thromboembolic disease related events to explain his worsening pulmonary function he has been placed on IV heparin. He will need to be followed with respect any obvious adverse events especially with his surgical wound. (5) HLD (hyperlipidemia): QUALIFIERS: Hyperlipidemia type: unspecified Qualified Code(s): E78.5 - Hyperlipidemia, unspecified PLAN: The patient should continue risk factor evaluation care as tolerated. (6) Benign essential HTN: PLAN: The patient's blood pressure is being followed. His medications can be readjusted as needed. (7) Cellulitis of forearm, right: PLAN: He will continue further evaluation care per internal medicine, infectious disease, and plastic surgery. (8) Anemia: PLAN: The patient has received additional PRBCs. His hemoglobin will need to be followed as he is now anticoagulated for any obvious decline. (9) Shortness of breath: PLAN: He does appear to be short of breath and dyspneic with activity. At the present time based upon his worsening shortness of breath/dyspnea he was moved to the ICU. He is requiring BiPAP therapy. He is undergoing multispecialty evaluation including pulmonary/critical care medicine and nephrology. Addt'l Comments The patient's case has been previously discussed with Dr. Zheng and Dr. Valenzuela. This note was generated using a voice recognition system and there may be incorrect words, spelling or punctuation that were not noted when reviewing the office note prior to saving.
[2020-11-09 17:11] LABS: Bedside Glucose 147 mg/dL (70-110)
[2020-11-09 17:12] LABS: CPK Total, Creatine Kinase 124 U/L (39-308); Triglycerides 2257 mg/dL
[2020-11-09] MEDS: Propofol 10MG/Ml 1,000 MG/100 ML Bottle 16.9 MG CONT INF (18:19)
[2020-11-09] MEDS: HEPARIN/D5w 25,000 UNITS 25,000 UNITS/250 ML IV.SOLN. 8 UNITS IV (18:20)
[2020-11-09] MEDS: 0.9% Saline Lock 10 ML Syringe IV (20:15)
[2020-11-09 20:30] LABS: Partial Thromboplast Time 71.7 Seconds (24.1-36.2)
[2020-11-09 20:34] LABS: Albumin, Serum 2.2 g/dL (3.2-5.0); BUN 40 mg/dL (7-18); BUN/Creat Ratio 12.2 RATIO (10-20); Calcium,Total 7.1 mg/dL (8.5-10.1); Chloride 105 mmol/L (98-107); Creatinine, Serum 3.28 mg/dL (0.70-1.30); EST Glomerular Filtration Rate 20 mL/min (>60); Est Glom Filt Rate - Afr Amer 24 mL/min (>60); Estimated Creatinine Clearance 22.26 ml/min; Glucose 147 mg/dL (74-106); Phosphorus 5.2 mg/dL (2.5-4.9); Potassium 3.6 mmol/L (3.5-5.1); Sodium Level 138 mmol/L (136-145)
--- NOTE | 2020-11-09 22:01 | PCM.PN.SRG ---
Subjective Subjective Postop #12, and postop #8, and postop #5 Patient has been transferred to the ICU with breathing difficulties. Has been intubated. Another incision and drainage and irrigation of the forearm dog bite wounds was planned for today. It was cancelled secondary to his respiratory difficulties. Objective Data Objective Data Vital Signs: Vital Signs Temp Pulse Resp BP Pulse Ox 96 F L 86 15 100/66 97 11/09/20 18:00 11/09/20 20:24 11/09/20 20:24 11/09/20 18:00 11/09/20 20:24 Oxygen Flow Rate (L/min) 6 Oxygen Delivery Method Mechanical Ventilator Weight: 206 lb 9.17 oz Body Mass Index (BMI) 29.6 Intake & Output: Intake and Output for Last 24 Hours 11/07/20 11/08/20 11/09/20 23:59 23:59 23:59 Intake Total 918 / 918 1051.97 / 1251.97 2048.99 / 2048.99 Output Total 750 / 950 550 / 550 485 / 485 Balance 168 / -32 501.97 / 701.97 1563.99 / 1563.99 Lab / Micro Data Attestation: I reviewed the patient's lab results. Result Diagrams: 11/10/20 04:20 11/10/20 04:20 Labs: Laboratory Results - last 24 hr 11/08/20 21:00: APTT > 250.0 H* 11/09/20 06:14: WBC 17.5 H, RBC 2.83 L, Hgb 9.1 L, Hct 28.8 L, MCV 101.8 H, MCH 32.2 H, MCHC 31.6 L, RDW Std Deviation 58.8 H, RDW Coeff of Marquis 17.7 H, Plt Count 208, MPV 9.5, Immature Gran % (Auto) 1.300 H, Neut % (Auto) 94.2 H, Lymph % (Auto) 1.7 L, [place] % (Auto) 2.6, Eos % (Auto) 0.0, Baso % (Auto) 0.2, Absolute Neuts (auto) 16.5 H, Absolute Lymphs (auto) 0.30 L, Nucleated RBC % 0.1 11/09/20 06:14: Sodium 138, Potassium 4.1, Chloride 107, Carbon Dioxide 15.0 L, Anion Gap 16 H, BUN 38 H, Creatinine 3.09 H, Estim Creat Clear Calc 23.62, Est GFR (MDRD) Af Amer 26 L, Est GFR (MDRD) Non-Af 22 L, BUN/Creatinine Ratio 12.3, Glucose 152 H, Calcium 7.7 L 11/09/20 06:14: APTT 233.7 H* 11/09/20 09:48: Urine Color Yellow, Urine Clarity Clear, Urine pH 5.0, Ur Specific [place] 1.020, Urine Protein 30 H, Urine Glucose (UA) Normal, Urine Ketones 5 H, Urine Occult Blood 10 H, Urine Nitrite Negative, Urine Bilirubin Negative, Urine Urobilinogen Normal, Ur Leukocyte Esterase Negative, Urine RBC 0-5 SEEN, Urine WBC 0 SEEN, Ur Squamous Epith Cells 0 SEEN, Urine Bacteria 0 SEEN, Urine Mucus 0 SEEN 11/09/20 09:48: Urine Urea Nitrogen 267 11/09/20 09:48: Urine Creatinine 121.00 11/09/20 11:39: POC Glucose 127 H 11/09/20 13:40: APTT 59.1 H 11/09/20 16:11: Total Creatine Kinase 124, Triglycerides 2257 H 11/09/20 17:07: POC Glucose 147 H 11/09/20 20:10: APTT 71.7 H 11/09/20 20:10: Sodium 138, Potassium 3.6, Chloride 105, Carbon Dioxide 18.0 L, BUN 40 H, Creatinine 3.28 H, Estim Creat Clear Calc 22.26, Est GFR (MDRD) Af Amer 24 L, Est GFR (MDRD) Non-Af 20 L, BUN/Creatinine Ratio 12.2, Glucose 147 H, Calcium 7.1 L, Phosphorus 5.2 H, Albumin 2.2 L Micro: Microbiology 11/04/20 12:15 Tissue - Arm Right Gram Stain - Final 11/04/20 12:15 Tissue - Arm Right Wound Culture - Final No growth aerobically. 11/04/20 12:15 Tissue - Arm Right Anaerobic Culture - Preliminary No growth in 48 hours. 11/07/20 15:35 Nasal Secretion SARS-CoV-2 Antigen (Rapid) - Final 11/01/20 Unknown Tissue - Arm Right Gram Stain - Final 11/01/20 Unknown Tissue - Arm Right Wound Culture - Final No growth aerobically. 11/01/20 Unknown Tissue - Arm Right Anaerobic Culture - Final No anaerobic bacteria isolated. 10/28/20 Unknown Tissue - Arm Fungal Smear - Final 10/28/20 14:20 Tissue - Arm Gram Stain - Final 10/28/20 14:20 Tissue - Arm Wound Culture - Final No growth aerobically. 10/28/20 14:20 Tissue - Arm Anaerobic Culture - Final Prevotella oralis 10/25/20 07:35 Blood Culture (Wb) - Anticubital Left Blood Culture - Final No growth in 5 days. 10/25/20 07:45 Blood Culture (Wb) - Left Wrist Blood Culture - Final No growth in 5 days. 10/25/20 07:30 Bite - Arm Gram Stain - Final 10/25/20 07:30 Bite - Arm Wound Culture - Final Pasteurella canis Staphylococcus aureus 10/27/20 18:00 Mucosa - Nose SARS-CoV-2 Antigen (Rapid) - Final ABG Data ABG results: ABG 11/09/20 11/09/20 07:15 15:33 Specimen Type MAGDALENA ART Sample Site L Brach L Brach pH 7.22 L Bicarbonate Actual 18.3 L Total CO2 20 Base Excess -9 L O2 Saturation 100 H O2 % 100 ABG pCO2 44.8 ABG pO2 271 H Vasquez Test Positive VBG pH 7.26 L VBG pO2 23 L VBG HCO3 16 L VBG Total CO2 17 L VBG O2 Sat (Calc) 32 L VBG Base Excess -12 L POC Mix VBG pCO2 Pt Tmp 34.6 L Respiration Rate 14 O2 Delivery Device BiPAP Adult Vent Vent Mode AC Tidal Volume 450 POC PEEP 5 Clinical Comments 15/6 bipap Radiography Diagnostic Testing: Radiology Impression Chest X-Ray 11/09/20 14:03 IMPRESSION: Progressive bilateral infiltrates. The tip of the endotracheal tube is at 5.8 cm proximal to the aldo. Electronically Signed: Gómez Phelps MD at 15:08 EDT , Service support , Chest X-Ray 11/09/20 14:05 IMPRESSION: The tip of the endotracheal tube is at 4.9 cm proximal to the aldo. The tip of the nasogastric tube is in the fundal portion of the stomach. Mild progression of the bilateral pulmonary infiltrates. Electronically Signed: Gómez Phelps MD at 15:06 EDT , Service support , Physical Exam Narrative Extremities - No axillary adenopathy. Radial pulses are palpable. Right forearm and wrist wounds are stable. No active bleeding noted. Muscles are viable. Some of the exposed tendons are showing some signs of dessication. Will monitor at this time. No evidence of persistent purulent drainage noted. Mild finger swelling. I am able to passively flex the MP joints almost to 90 degrees at this time. Since the patient was intubated so the dressing change went well. Assessment & Plan Assessment/Plan (1) Dog bite: QUALIFIERS: Encounter type: initial encounter Qualified Code(s): W54.0XXA - Bitten by dog, initial encounter (2) Extensor tenosynovitis of right wrist: (3) Abscess of bursa of right forearm: (4) Necrotizing soft tissue infection: (5) Abscess of skin of right wrist: (6) Open wound of right forearm due to dog bite: (7) Open wound of right wrist due to dog bite: (8) Diabetes: (9) Acute blood loss anemia: (10) Former smoker: PLAN: Since the patient is intubated, the dressing change went well with no problems. Continue Dakin's dressing change. Wounds were clean with no further evidence of purulence. Muscles appear viable. Some of the exposed tendons are showing some signs of dessication. Will monitor at this time. The severity of the infection has contributed to compromised blood supply to the tendons involved. No active bleeding seen. The dressing was minimally blood stained. Hgb today is 9.1 which is slightly decreased from yesterday at 9.5. Continue Iron supplementation. He has acute postoperative anemia from expected blood loss. From the dressing changes, I anticipate approximately a unit since surgery. Patient was also on a heparin drip for his atrial fibrillation. Patient was on Unasyn. Since his intubation, the Unasyn was stopped and he was started on Vancomycin and Zosyn. Operative cultures from 11/01/20 surgery and 11/04/20 surgery are negative. Operative cultures from 10/28/20 showed Prevotella bivia. The dressing changes will be difficult at home initially. Discussed with the patient about going to an ECF for short term until the dressing changes can be tolerated at home. He was in agreement. TCU evaluation in process. Prealbumin was 8.8. Encourage nutritional supplementation with protein to help the healing process. Encourage range of motion exercises to minimize stiffness. He is at risk for developing stiffness. Will need OT after discharge for range of motion exercises, strengthening, and edema management. Instructed the patient on range of motion exercises. He will start with flexing the MP joints as close to 90 degrees as possible. He will have to use his other hand to assist in this endeavor. His MP joints almost flex to 90 degrees passively. Told him it will take several days to improve. His WBC has decreased slightly from 18.1 down to 17.5. When he is medically stable, will consider another trip to the operating room for another incision and drainage and irrigation of his wounds.
[2020-11-09] MEDS: Pravastatin 80 MG Tablet PO (22:46)
[2020-11-09] MEDS: buPROPion 75 MG Tablet PO (22:46)
[2020-11-09] MEDS: Lansoprazole 15 MG Capsule.DR NG (22:46)
[2020-11-09 23:20] LABS: Bedside Glucose 141 mg/dL (70-110)
[2020-11-09] MEDS: Propofol 10MG/Ml 1,000 MG/100 ML Bottle 11.2 MG CONT INF (23:27)
--- NOTE | 2020-11-09 23:41 | NURSING ---
torey. gtt running at 50 mcg/hr when this RN arrived.
[2020-11-10] VITALS (39 sets, daily range): BP systolic 90–114; BP diastolic 58–87; PULSE 85–110; RESP 14–23; TEMP 35.6–36.2; O2SAT 90–99
[2020-11-10] MEDS: CHLORHEXIDINE GLUC 2% CLOTH 1 EACH TOWELETTE TOPICAL (02:00)
[2020-11-10] MEDS: Menthol/Lanolin/Calamine/Znox 113 GM Tube 1 APPLIC TOPICAL ×3 (02:00→21:36)
[2020-11-10 02:40] LABS: Partial Thromboplast Time 51.2 Seconds (24.1-36.2)
[2020-11-10] MEDS: Heparin Injection (Vial) 5,000 UNIT/ML VIAL IV ×2 (03:15→09:19)
[2020-11-10] MEDS: 0.9% Saline Lock 10 ML Syringe IV ×3 (03:16→13:13)
--- NOTE | 2020-11-10 05:51 | PN.CC_ITS ---
Assessment & Plan Assessment/Plan (1) Acute hypoxemic respiratory failure: PLAN: RECOMMENDATIONS: 1. Continue patient on assist control mode of mechanical ventilation and wean FiO2 to maintain saturations at or above 90%. 2. Place temporary HD line today. 3. Tentative plans to initiate renal replacement therapy today. 4. Vasopressor support, if needed, to maintain hemodynamic stability. 5. Continue broad-spectrum antimicrobials. 6. Attempt to obtain CTA chest to rule out PE prior to initiation of dialysis. 7. Nutrition following, will likely initiate tube feeds tomorrow. 8. Continue heparin drip for now. 9. Continue appropriate GI prophylaxis. IMPRESSIONS: 1. Acute hypoxemic respiratory failure Unclear etiology. However, radiographically, it does appear that the patient still has residual effusions, atelectasis and potential pneumonia contributing to his hypoxemia. In addition, the patient has been rather sedentary and had not been on any DVT prophylaxis. Therefore, venous thromboembolic disease is a possibility. However, CTA chest cannot be obtained due to the patient's underlying renal function. Lower extremity Doppler studies were negative. The patient was started on a heparin drip empirically. Despite the use of noninvasive positive pressure ventilatory support, the patient continued to decompensate from a respiratory perspective and did require intubation on November 09. We will plan to continue broad-spectrum antimicrobials for now. The patient will be continued on assist control mode of mechanical ventilation with a goal to wean FiO2 to maintain saturations at or above 90%. 2. Severe sepsis The patient has a known necrotizing soft tissue infection, along with concern for an underlying pulmonary infectious etiology. The patient's antimicrobials were subsequently broadened. Cultures are currently pending. Infectious diseases is following. 3. Coronary artery disease status post CABG/ischemic cardiomyopathy/atrial fibrillation Continue medical management per cardiology recommendations. Continue to hold diuretics and antihypertensives given hemodynamic instability. 4. 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 Strongly recommend against further consideration for surgical intervention given clinical instability at the present time. 5. Acute on chronic kidney disease Potentially related to overdiuresis, with concern for ischemic ATN. Diuretics remain on hold. However, the patient remains tenuous from a hemodynamic perspective. Nephrology is considering renal replacement therapy. Will place temporary dialysis line accordingly. 6. Diabetes mellitus/depression/hypertension/GERD/hyperlipidemia Complicates care, management, recovery and prognosis. Continue home medications as indicated. TIME: 42 minutes of critical care time, independent of procedures, was spent addressing the patient's acute hypoxemic respiratory failure, severe sepsis, coronary artery disease, necrotizing soft tissue infection, acute on chronic kidney disease, review of all data and collaboration with the care team. ([id number]) Subjective Subjective The patient was seen and examined at the bedside this morning. Events from the last 24 hours have been reviewed. The patient is currently afebrile, hemodynamically stable and maintaining appropriate oxygen saturations on assist control mode of mechanical ventilation with an FiO2 requirement of 40%. The patient is currently documented to be overall net +13.8 L for the hospital admission. Fortunately, the patient never had to be started on Levophed yesterday. He remains on a continuous Bumex infusion along with a heparin drip. He remains sedated on propofol and fentanyl. I did speak briefly with nephrology this morning, who indicated that the patient was going to need renal replacement therapy. Objective Data Objective Data The patient's most recent lab work, culture data and imaging studies have all been personally reviewed. CTA chest dated October 26 revealed no evidence for pulmonary embolism. Small bilateral pleural effusions with associated compressive atelectasis were noted. Surface echocardiogram completed on October 28 revealed normal LV size with an ejection fraction of 55%. Right ventricular systolic pressure was unable to be obtained. Rapid coronavirus antigen testing was negative. Wound culture was positive for Pasteurella and staph aureus. Vital Signs: Vital Signs Temp Pulse Resp BP Pulse Ox 96.7 F L 102 H 22 H 94/80 90 11/10/20 05:00 11/10/20 05:03 11/10/20 05:03 11/10/20 05:00 11/10/20 05:03 Oxygen Flow Rate (L/min) 6 Oxygen Delivery Method Mechanical Ventilator Weight: 206 lb 9.17 oz Body Mass Index (BMI) 29.6 Intake & Output: Intake and Output for Last 24 Hours 11/08/20 11/09/20 11/10/20 23:59 23:59 23:59 Intake Total 1051.97 / 1251.97 2197.27 / 2235.07 331.43 / 331.43 Output Total 550 / 550 560 / 560 220 / 220 Balance 501.97 / 701.97 1637.27 / 1675.07 111.43 / 111.43 Lab / Micro Data Result Diagrams: 11/10/20 04:20 11/10/20 04:20 Labs: Laboratory Results - last 24 hr 11/09/20 06:14: WBC 17.5 H, RBC 2.83 L, Hgb 9.1 L, Hct 28.8 L, MCV 101.8 H, MCH 32.2 H, MCHC 31.6 L, RDW Std Deviation 58.8 H, RDW Coeff of Marquis 17.7 H, Plt Cou nt 208, MPV 9.5, Immature Gran % (Auto) 1.300 H, Neut % (Auto) 94.2 H, Lymph % (Auto) 1.7 L, [place] % (Auto) 2.6, Eos % (Auto) 0.0, Baso % (Auto) 0.2, Absolute Neuts (auto) 16.5 H, Absolute Lymphs (auto) 0.30 L, Nucleated RBC % 0.1 11/09/20 06:14: Sodium 138, Potassium 4.1, Chloride 107, Carbon Dioxide 15.0 L, Anion Gap 16 H, BUN 38 H, Creatinine 3.09 H, Estim Creat Clear Calc 23.62, Est GFR (MDRD) Af Amer 26 L, Est GFR (MDRD) Non-Af 22 L, BUN/Creatinine Ratio 12.3, Glucose 152 H, Calcium 7.7 L 11/09/20 06:14: APTT 233.7 H* 11/09/20 09:48: Urine Color Yellow, Urine Clarity Clear, Urine pH 5.0, Ur Specific [place] 1.020, Urine Protein 30 H, Urine Glucose (UA) Normal, Urine Ketones 5 H, Urine Occult Blood 10 H, Urine Nitrite Negative, Urine Bilirubin Negative, Urine Urobilinogen Normal, Ur Leukocyte Esterase Negative, Urine RBC 0-5 SEEN, Urine WBC 0 SEEN, Ur Squamous Epith Cells 0 SEEN, Urine Bacteria 0 SEEN, Urine Mucus 0 SEEN 11/09/20 09:48: Urine Urea Nitrogen 267 11/09/20 09:48: Urine Creatinine 121.00 11/09/20 11:39: POC Glucose 127 H 11/09/20 13:40: APTT 59.1 H 11/09/20 16:11: Total Creatine Kinase 124, Triglycerides 2257 H 11/09/20 17:07: POC Glucose 147 H 11/09/20 20:10: APTT 71.7 H 11/09/20 20:10: Sodium 138, Potassium 3.6, Chloride 105, Carbon Dioxide 18.0 L, BUN 40 H, Creatinine 3.28 H, Estim Creat Clear Calc 22.26, Est GFR (MDRD) Af Amer 24 L, Est GFR (MDRD) Non-Af 20 L, BUN/Creatinine Ratio 12.2, Glucose 147 H, Calcium 7.1 L, Phosphorus 5.2 H, Albumin 2.2 L 11/09/20 22:33: POC Glucose 141 H 11/10/20 02:18: APTT 51.2 H Micro: Microbiology 11/04/20 12:15 Tissue - Arm Right Gram Stain - Final 11/04/20 12:15 Tissue - Arm Right Wound Culture - Final No growth aerobically. 11/04/20 12:15 Tissue - Arm Right Anaerobic Culture - Preliminary No growth in 48 hours. 11/07/20 15:35 Nasal Secretion SARS-CoV-2 Antigen (Rapid) - Final 11/01/20 Unknown Tissue - Arm Right Gram Stain - Final 11/01/20 Unknown Tissue - Arm Right Wound Culture - Final No growth aerobically. 11/01/20 Unknown Tissue - Arm Right Anaerobic Culture - Final No anaerobic bacteria isolated. 10/28/20 Unknown Tissue - Arm Fungal Smear - Final 10/28/20 14:20 Tissue - Arm Gram Stain - Final 10/28/20 14:20 Tissue - Arm Wound Culture - Final No growth aerobically. 10/28/20 14:20 Tissue - Arm Anaerobic Culture - Final Prevotella oralis 10/25/20 07:35 Blood Culture (Wb) - Anticubital Left Blood Culture - Final No growth in 5 days. 10/25/20 07:45 Blood Culture (Wb) - Left Wrist Blood Culture - Final No growth in 5 days. 10/25/20 07:30 Bite - Arm Gram Stain - Final 10/25/20 07:30 Bite - Arm Wound Culture - Final Pasteurella canis Staphylococcus aureus 10/27/20 18:00 Mucosa - Nose SARS-CoV-2 Antigen (Rapid) - Final ABG Data ABG results: ABG 11/09/20 11/09/20 07:15 15:33 Specimen Type MAGDALENA ART Sample Site L Brach L Brach pH 7.22 L Bicarbonate Actual 18.3 L Total CO2 20 Base Excess -9 L O2 Saturation 100 H O2 % 100 ABG pCO2 44.8 ABG pO2 271 H Vasquez Test Positive VBG pH 7.26 L VBG pO2 23 L VBG HCO3 16 L VBG Total CO2 17 L VBG O2 Sat (Calc) 32 L VBG Base Excess -12 L POC Mix VBG pCO2 Pt Tmp 34.6 L Respiration Rate 14 O2 Delivery Device BiPAP Adult Vent Vent Mode AC Tidal Volume 450 POC PEEP 5 Clinical Comments 15/6 bipap Radiography Diagnostic Testing: Radiology Impression Chest X-Ray 11/09/20 14:03 IMPRESSION: Progressive bilateral infiltrates. The tip of the endotracheal tube is at 5.8 cm proximal to the aldo. Electronically Signed: Gómez Phelps MD at 15:08 EDT , Service support , Chest X-Ray 11/09/20 14:05 IMPRESSION: The tip of the endotracheal tube is at 4.9 cm proximal to the aldo. The tip of the nasogastric tube is in the fundal portion of the stomach. Mild progression of the bilateral pulmonary infiltrates. Electronically Signed: Gómez Phelps MD at 15:06 EDT , Service support , Physical Exam Const General Appearance: ill appearing, intubated and patient mechanically ventilated HEENT normocephalic and head/scalp atraumatic Mouth: endotracheal tube in place and OG tube in place Teeth and Gingiva: poor dentition Eyes PERRL and EOMs intact bilaterally Neck supple General: trachea midline Resp Auscultation: rhonchi, wheezes and diminished lung sounds Cardio regular rate and regular rhythm GI normal to inspection, nondistended, normoactive bowel sounds Extremity General Extremity: edema; Negative for clubbing Skin Wound Narrative: No significant change in the patient's upper extremity wound Charges/Coding Procedures Hospitalists Procedures: [id number] [facility] 1st Hr
[2020-11-10 06:09] LABS: Absolute Lymphocyte Count 0.68 X10^3/uL (0.83-4.51); Absolute Neutrophil Count 13.9 X10^3/uL (2.0-7.7); Basophil# 0.02 X10^3/uL; Basophil% 0.1 % (0-1); Eosinophil# 0.01 X10^3/uL; Eosinophils% 0.1 % (0-5); Hematocrit 27.5 % (40-54); Hemoglobin 8.7 g/dL (13.0-16.5); Lymphocyte # 0.68 X10^3/ul (0.83-4.51); Lymphocyte % 4.4 % (19-41); Mean Corp Hgb Conc 31.6 g/dL (32-36); Mean Corpuscular Hgb 31.6 pg (27.0-32.0); Mean Platelet Vol. 9.9 fl (6.2-12.0); Monocyte% 5.1 % (0-10); NRBC Flagged by Analyzer 0.2 % (0-5); Neutrophil # 13.88 X10^3/uL (2.7-7.7); Neutrophil % 88.8 % (47-70); Platelet Count 176 K/mm3 (150-450); RBC Distribution Width CV 17.8 % (11.6-14.6); RBC Distribution Width SD 61.6 fl (35.1-43.9); Red Blood Count 2.75 M/mm3 (4.6-6.2); White Blood Count 15.6 K/mm3 (4.4-11.0)
[2020-11-10] MEDS: Albumin Human 25% (100 mL) 25 GM/100 ML BAG IV ×3 (06:17→21:11)
[2020-11-10 06:49] LABS: International Normalized Ratio 1.7; Prothrombin Time (Protime)PT. 19.2 SECONDS (11.7-14.9)
[2020-11-10 07:10] LABS: Anion Gap 14 (5-15); BUN 42 mg/dL (7-18); BUN/Creat Ratio 11.7 RATIO (10-20); Calcium,Total 7.4 mg/dL (8.5-10.1); Chloride 108 mmol/L (98-107); Creatinine, Serum 3.59 mg/dL (0.70-1.30); EST Glomerular Filtration Rate 18 mL/min (>60); Est Glom Filt Rate - Afr Amer 22 mL/min (>60); Estimated Creatinine Clearance 20.33 ml/min; Glucose 142 mg/dL (74-106); Magnesium 2.3 mg/dL (1.6-2.6); Potassium 3.4 mmol/L (3.5-5.1); Sodium Level 140 mmol/L (136-145)
[2020-11-10] MEDS: Ipratropium/Albuterol Sulfate 3 ML AMPUL.NEB INHALATION ×5 (07:32→22:45)
[2020-11-10] MEDS: Bumetanide 25 MG in CONTAINER,EMPTY 1 BAG 8 MG CONT INF (08:44)
[2020-11-10] MEDS: Chlorhexidine 15 ML PO ×2 (08:57→21:36)
--- NOTE | 2020-11-10 09:13 | PN.CARD_ITS ---
Subjective Subjective The patient remains in the ICU. He is now mechanically intubated/ventilated/sedated. Objective Data Vital Signs: Vital Signs Temp Pulse Resp BP Pulse Ox 96.8 F L 92 17 97/64 92 11/10/20 07:00 11/10/20 07:41 11/10/20 07:31 11/10/20 07:00 11/10/20 07:31 Oxygen Flow Rate (L/min) 6 Oxygen Delivery Method Mechanical Ventilator Weight: 235 lb 0.204 oz Body Mass Index (BMI) 29.6 Intake & Output: Intake and Output for Last 24 Hours 11/08/20 11/09/20 11/10/20 23:59 23:59 23:59 Intake Total 1051.97 / 1251.97 2197.27 / 2235.07 578.57 / 578.57 Output Total 550 / 550 560 / 560 390 / 390 Balance 501.97 / 701.97 1637.27 / 1675.07 188.57 / 188.57 Lab / Micro Data Result Diagrams: 11/10/20 04:20 11/10/20 04:20 Labs: Laboratory Results - last 24 hr 11/04/20 14:18: Crossmatch See Detail 11/09/20 09:48: Urine Color Yellow, Urine Clarity Clear, Urine pH 5.0, Ur Specific [place] 1.020, Urine Protein 30 H, Urine Glucose (UA) Normal, Urine Ketones 5 H, Urine Occult Blood 10 H, Urine Nitrite Negative, Urine Bilirubin Negative, Urine Urobilinogen Normal, Ur Leukocyte Esterase Negative, Urine RBC 0-5 SEEN, Urine WBC 0 SEEN, Ur Squamous Epith Cells 0 SEEN, Urine Bacteria 0 SEEN, Urine Mucus 0 SEEN 11/09/20 09:48: Urine Urea Nitrogen 267 11/09/20 09:48: Urine Creatinine 121.00 11/09/20 11:39: POC Glucose 127 H 11/09/20 13:40: APTT 59.1 H 11/09/20 16:11: Total Creatine Kinase 124, Triglycerides 2257 H 11/09/20 17:07: POC Glucose 147 H 11/09/20 20:10: APTT 71.7 H 11/09/20 20:10: Sodium 138, Potassium 3.6, Chloride 105, Carbon Dioxide 18.0 L, BUN 40 H, Creatinine 3.28 H, Estim Creat Clear Calc 22.26, Est GFR (MDRD) Af Amer 24 L, Est GFR (MDRD) Non-Af 20 L, BUN/Creatinine Ratio 12.2, Glucose 147 H, Calcium 7.1 L, Phosphorus 5.2 H, Albumin 2.2 L 11/09/20 22:33: POC Glucose 141 H 11/10/20 02:18: APTT 51.2 H 11/10/20 04:20: WBC 15.6 H, RBC 2.75 L, Hgb 8.7 L, Hct 27.5 L, MCV 100.0 H, MCH 31.6, MCHC 31.6 L, RDW Std Deviation 61.6 H, RDW Coeff of Marquis 17.8 H, Plt Count 176, MPV 9.9, Immature Gran % (Auto) 1.500 H, Neut % (Auto) 88.8 H, Lymph % (Auto) 4.4 L, [place] % (Auto) 5.1, Eos % (Auto) 0.1, Baso % (Auto) 0.1, Absolute Neuts (auto) 13.9 H, Absolute Lymphs (auto) 0.68 L, Nucleated RBC % 0.2 11/10/20 04:20: Sodium 140, Potassium 3.4 L, Chloride 108 H, Carbon Dioxide 18.0 L, Anion Gap 14, BUN 42 H, Creatinine 3.59 H, Estim Creat Clear Calc 20.33, Est GFR (MDRD) Af Amer 22 L, Est GFR (MDRD) Non-Af 18 L, BUN/Creatinine Ratio 11.7, Glucose 142 H, Calcium 7.4 L, Phosphorus 5.0 H, Magnesium 2.3 11/10/20 06:30: PT 19.2 H, INR 1.7 Micro: Microbiology 11/04/20 12:15 Tissue - Arm Right Gram Stain - Final 11/04/20 12:15 Tissue - Arm Right Wound Culture - Final No growth aerobically. 11/04/20 12:15 Tissue - Arm Right Anaerobic Culture - Final No growth in 5 days. ABG Data ABG results: ABG 11/09/20 15:33 Specimen Type ART Sample Site L Brach pH 7.22 L Bicarbonate Actual 18.3 L Total CO2 20 Base Excess -9 L O2 Saturation 100 H O2 % 100 ABG pCO2 44.8 ABG pO2 271 H Vasquez Test Positive Respiration Rate 14 O2 Delivery Device Adult Vent Vent Mode AC Tidal Volume 450 POC PEEP 5 Cardiology Labs/Tests 11/09/20 09:48: Urine Color Yellow, Urine Clarity Clear, Urine pH 5.0, Ur Speci fic [place] 1.020, Urine Protein 30 H, Urine Glucose (UA) Normal, Urine Ketones 5 H, Urine Occult Blood 10 H, Urine Nitrite Negative, Urine Bilirubin Negative, Urine Urobilinogen Normal, Ur Leukocyte Esterase Negative, Urine RBC 0-5 SEEN, Urine WBC 0 SEEN 11/09/20 13:40: APTT 59.1 H 11/09/20 15:33: pH 7.22 L, Bicarbonate Actual 18.3 L, Base Excess -9 L, O2 Saturation 100 H, ABG pCO2 44.8, ABG pO2 271 H, Vasquez Test Positive 11/09/20 16:11: Triglycerides 2257 H 11/09/20 20:10: APTT 71.7 H 11/09/20 20:10: Sodium 138, Potassium 3.6, Chloride 105, Carbon Dioxide 18.0 L, BUN 40 H, Creatinine 3.28 H, Est GFR (MDRD) Af Amer 24 L, Est GFR (MDRD) Non-Af 20 L, BUN/Creatinine Ratio 12.2, Glucose 147 H, Calcium 7.1 L, Phosphorus 5.2 H 11/10/20 02:18: APTT 51.2 H 11/10/20 04:20: WBC 15.6 H, RBC 2.75 L, Hgb 8.7 L, Hct 27.5 L, MCV 100.0 H, MCH 31.6, MCHC 31.6 L, Plt Count 176, MPV 9.9, Immature Gran % (Auto) 1.500 H, Neut % (Auto) 88.8 H, Lymph % (Auto) 4.4 L, [place] % (Auto) 5.1, Eos % (Auto) 0.1, Baso % (Auto) 0.1, Absolute Neuts (auto) 13.9 H, Nucleated RBC % 0.2 11/10/20 04:20: Sodium 140, Potassium 3.4 L, Chloride 108 H, Carbon Dioxide 18.0 L, Anion Gap 14, BUN 42 H, Creatinine 3.59 H, Est GFR (MDRD) Af Amer 22 L, Est GFR (MDRD) Non-Af 18 L, BUN/Creatinine Ratio 11.7, Glucose 142 H, Calcium 7.4 L, Phosphorus 5.0 H, Magnesium 2.3 11/10/20 06:30: PT 19.2 H, INR 1.7 Rhythm: Sinus rhythm; paroxysmal atrial fibrillation Radiography Diagnostic Testing: Radiology Impression Chest X-Ray 11/09/20 14:03 IMPRESSION: Progressive bilateral infiltrates. The tip of the endotracheal tube is at 5.8 cm proximal to the aldo. Electronically Signed: Gómez Phelps MD at 15:08 EDT , Service support , Chest X-Ray 11/09/20 14:05 IMPRESSION: The tip of the endotracheal tube is at 4.9 cm proximal to the aldo. The tip of the nasogastric tube is in the fundal portion of the stomach. Mild progression of the bilateral pulmonary infiltrates. Electronically Signed: Gómez Phelps MD at 15:06 EDT , Service support , Physical Exam Narrative The patient is currently mechanically intubated/ventilated. HEENT normocephalic and head/scalp atraumatic Neck supple and no JVD Chest Chest: midline sternotomy incision Resp Resp Narrative: Scattered upper airway sounds Cardio regular rate, regular rhythm, S1 normal heart sound and S2 normal heart sound GI normal to inspection, nondistended, normoactive bowel sounds Extremity Extremity Narrative: Right upper extremity: Positive surgical dressing and Alfa wrap General Extremity: edema bilateral lower extremity Details: mild Neuro oriented x3, moves all extremities, no focal motor deficits and no sensory deficits noted Assessment & Plan Assessment/Plan (1) Atherosclerotic heart disease of [place] coronary artery without angina pectoris: PLAN: The patient will continue medical management/support as he is able. As noted before he is not considered a candidate for further percutaneous or surgical based revascularization therapy. (2) S/P CABG (coronary artery bypass graft): PLAN: The patient did undergo evaluation in the cardiac catheterization laboratory as previously noted. He has extensive [place] vessel disease with a patent THRASHER to the LAD and an occluded SVG to OM1 and SVG to OM 2. He will continue medical management. (3) CHF (congestive heart failure): QUALIFIERS: Heart failure type: systolic Heart failure c hronicity: acute on chronic Qualified Code(s): I50.23 - Acute on chronic systolic (congestive) heart failure PLAN: Per nephrology the placement has been placed on an IV diuretic infusion. His creatinine level has increased. Nephrology follow-up is pending at this time. (4) Atrial fibrillation: QUALIFIERS: Atrial fibrillation type: unspecified Qualified Code(s): I48.91 - Unspecified atrial fibrillation PLAN: The patient's cardiac rate and rhythm will be monitored. It appears he has had episodes, based upon his cardiac rhythm strips, of sinus rhythm and paroxysmal atrial fibrillation. He can receive additional rate limiting therapy as needed. He is currently on IV heparin infusion. (5) HLD (hyperlipidemia): QUALIFIERS: Hyperlipidemia type: unspecified Qualified Code(s): E78.5 - Hyperlipidemia, unspecified PLAN: The patient should continue risk factor evaluation care as tolerated. (6) Benign essential HTN: PLAN: The patient's blood pressure is being followed. His medications can be readjusted as needed. (7) Cellulitis of forearm, right: PLAN: He will continue further evaluation care per internal medicine, infectious disease, and plastic surgery. (8) Anemia: PLAN: The patient has received additional PRBCs. His hemoglobin will need to be followed as he is now anticoagulated for any obvious decline. (9) Shortness of breath: PLAN: The etiology of the patient's shortness of breath may be multifactorial. From a cardiac standpoint he will continue to receive supportive medical therapy as best as possible and tolerated. He is undergoing further evaluation by internal medicine and pulmonology/critical care medicine. He is being treated for the possibility of thromboembolic disease/PE with IV anticoagulant therapy at this time. Addt'l Comments This note was generated using a voice recognition system and there may be incorrect words, spelling or punctuation that were not noted when reviewing the office note prior to saving.
--- NOTE | 2020-11-10 09:14 | NURSING ---
While doing oral care, found tooth in mouth not longer attached. Removed tooth and discarded. Noted to have another severely loose tooth in the front lower mouth, remains attached at this time.
[2020-11-10 09:15] LABS: Partial Thromboplast Time 45.1 Seconds (24.1-36.2)
--- NOTE | 2020-11-10 09:27 | CASEMGMT ---
Addendum entered by Cindy Harris 11/10/20 11:42: SW placed a call to pt's significant other Viry and provided support. Viry states it has been rough. SW offered support. Viry states that between her family and pt's family she feels well supported. SW informed Viry that SW will remain available to assist and provide support as needed. Viry states understanding, denied additional needs or concerns at this time. Original Note: Social Work Note SW attended ICU Rounds. Pt remains intubated. AMBER placed a call to Dyana with TCU and updated her. Plan: TCU once medically cleared Cindy Harris [employer] POWERPLANT MECHANIC HELPER, [employer] FINAL INSPECTOR
[2020-11-10] MEDS: Propofol 10MG/Ml 1,000 MG/100 ML Bottle 9.6 MG CONT INF (09:33)
--- NOTE | 2020-11-10 10:21 | PCM.PN.ID ---
Physical Exam Narrative On vent, no fever overnight Const no apparent distress Resp Auscultation: rhonchi and diminished lung sounds Cardio regular rate and regular rhythm GI normal to inspection, nondistended, normoactive bowel sounds Extremity General Extremity: edema Skin no rashes or lesions noted ID ID: Route of nutrition/ use of supplements: [] Nutritional Intake: [] IV Site: [] Reed Catheter: [] Assessment & Plan Assessment/Plan (1) Necrotizing soft tissue infection: PLAN: Has been on unasyn. Most recent I&D 11/04/[address] William. Past few cxs with prevotella, pasteurella, mssa. Now with worsened hypoxia, pulm following, on vent. Seen by neph for LETY. 11/09 broadened abx to vanc/zosyn, wbc improved today. will follow
[2020-11-10] MEDS: buPROPion 75 MG Tablet NG ×2 (10:26→21:26)
[2020-11-10] MEDS: Lansoprazole 15 MG Capsule.DR NG ×2 (10:26→21:26)
[2020-11-10] MEDS: Paroxetine 20 MG Tablet 40 MG GT (10:27)
[2020-11-10 11:30] LABS: Bedside Glucose 143 mg/dL (70-110)
[2020-11-10] MEDS: Heparin 10,000 UNITS/10 ML Vial 1300 UNITS IV (12:03)
--- NOTE | 2020-11-10 12:10 | RAD_ITS ---
STUDY: X-RAY CHEST REASON FOR EXAM: Male, 70 years old. Line placement TECHNIQUE: Single AP portable view of the chest. COMPARISON: Comparison is made with prior study dated 11/09/2020. FINDINGS: A right-sided central line has been placed. The tip is in the distal portion of the superior vena cava. A left-sided PICC line catheter is seen with the tip at the junction of the superior vena cava and right atrium. Nasogastric tube is seen with the tip in the body of the stomach. EKG electrodes are seen. And endotracheal tube is in situ and the tip is at 5.2 cm proximal to the aldo. Persistent infiltrates in both lungs worse in the right upper lobe. There has been a mild degree of improved aeration. Normal size heart. Normal mediastinum and stephen. Normal visualized pulmonary arteries. Normal visualized aortic arch and descending thoracic aorta. There are diffuse degenerative changes of the visualized thoracic spine. Normal visualized ribs, clavicles, and shoulders. There is no demonstrated abnormality of the visualized soft tissue structures of the upper abdomen. RAD/Chest 1 View (Portable) IMPRESSION: Status post right internal jugular venous catheter placement with the tip in the proximal portion of the superior vena cava. All the support tubes are in good position. Persistent bilateral infiltrates although there has been improvement as compared to prior study. Electronically Signed: Gómez Phelps MD at 12:30 EDT , Service support ,
--- NOTE | 2020-11-10 12:30 | CT_ITS ---
STUDY: CTA CHEST REASON FOR EXAM: Male, 70 years old. Shortness of breath. Possible pulmonary arterial embolism. RADIATION DOSAGE (If Supplied By Facility): CTDIvol = ( 12.36 ) mGy, DLP = ( 526.54 ) mGycm TECHNIQUE: The examination was performed with the intravenous administration of IV 100mL Isovue-370. Post-processing of the angiographic images was performed, with multiplanar reformation and 3D reconstruction. Individualized dose optimization techniques were used for this CT. COMPARISON: Comparison is made with prior examination dated 10/26/2020. FINDINGS: Normal enhancement of the main pulmonary artery and right and left pulmonary arteries. Normal enhancement of the bilateral peripheral pulmonary arteries. There is no demonstrated pulmonary embolism. There is atherosclerotic calcification of the aortic arch with tortuosity. There is no demonstrated aortic dissection. There are calcifications of the coronary arteries. Sternal cerclage wires and vascular clips are present from a prior sternotomy and coronary artery bypass graft procedure (CABG). Normal mediastinum. Normal hilar regions. Normal visualized trachea and bronchi. The lungs are well expanded. Small bilateral pleural effusions right greater than left. Diffuse bilateral groundglass appearance involving both lungs. There is evidence of atelectasis and/or infiltrates at both lung bases slightly worse on the right side. Normal chest wall structures. There are degenerative changes of thoracic spine. There are multiple small layering gallstones in the gallbladder lumen. An oral gastric tube is seen within the stomach. CT/CTA Chest W/WO Contrast IMPRESSION: No evidence of pulmonary embolism. Bilateral pleural effusions right greater than left. Diffuse bilateral groundglass appearance involving both lungs worse in the right hemithorax with atelectasis and/or infiltrates at both lung bases worse on the right side. Electronically Signed: Gómez Phelps MD at 13:12 EDT , Service support ,
--- NOTE | 2020-11-10 13:03 | PCM.OP.BLANK ---
Operative Report Date of Procedure: 11/10/20 Temporary dialysis catheter placement procedure note Indication: Hemodialysis Procedure: A time-out was completed to verify correct patient, indication, medication allergies, procedure, coagulation studies, informed consent signed, and equipment needed. The patient was placed in the supine position for a central line placement to the rt IJ vein. The patients rt neck was prepped using chlorhexidine and a full body sterile drape was applied. 1% lidocaine was used to anesthetize the surrounding skin. A 12fr 16 cm temporary hemodialysis catheter introduced into the internal jugular vein using the modified Seldinger technique with the assistance of ultrasound. The site was dilated twice up in a stepwise fashion. The catheter was threaded smoothly over the guidewire, the guidewire was removed easily, nonpulsatile blood returned. All ports were aspirated of air and flushed with sterile saline and blocked with you 1000 heparin. The catheter was sutured in place and covered with an occlusive dressing impregnated with chlorhexidine. Post-procedure: The patient tolerated the procedure well. Vital signs remained stable. EBL 7 cc. No complications. Chest X Ray ordered to confirm tip placement and the absence of pneumothorax. Procedures Hospitalists Procedures: [id number] Insert Non-tunnel CV Cath
[2020-11-10] MEDS: DAKIN'S SOL HALF STRENGTH (=0.25%) 1 APPLIC TOPICAL (13:09)
[2020-11-10] MEDS: Propofol 10MG/Ml 1,000 MG/100 ML Bottle 19.2 MG CONT INF ×2 (15:47→20:57)
[2020-11-10 15:54] LABS: Hepatitis B Surface Antibody Non-Reactive
--- NOTE | 2020-11-10 16:27 | PCM.PN.SRG ---
Subjective Subjective Postop #13, and postop #9, and postop #6 Patient is intubated. Objective Data Objective Data Vital Signs: Vital Signs Temp Pulse Resp BP Pulse Ox 96.7 F L 92 15 101/74 94 11/10/20 14:00 11/10/20 15:54 11/10/20 15:00 11/10/20 15:00 11/10/20 15:00 Oxygen Flow Rate (L/min) 6 Oxygen Delivery Method Mechanical Ventilator Weight: 235 lb 0.204 oz Body Mass Index (BMI) 29.6 Intake & Output: Intake and Output for Last 24 Hours 11/08/20 11/09/20 11/10/20 23:59 23:59 23:59 Intake Total 1051.97 / 1251.97 2197.27 / 2235.07 1153.48 / 1153.48 Output Total 550 / 550 560 / 560 515 / 515 Balance 501.97 / 701.97 1637.27 / 1675.07 638.48 / 638.48 Lab / Micro Data Attestation: I reviewed the patient's lab results. Result Diagrams: 11/12/20 04:20 11/12/20 04:20 Labs: Laboratory Results - last 24 hr 11/04/20 14:18: Crossmatch See Detail 11/09/20 10:20: Complement C4 11/09/20 16:11: Total Creatine Kinase 124, Triglycerides 2257 H 11/09/20 17:07: POC Glucose 147 H 11/09/20 20:10: APTT 71.7 H 11/09/20 20:10: Sodium 138, Potassium 3.6, Chloride 105, Carbon Dioxide 18.0 L, BUN 40 H, Creatinine 3.28 H, Estim Creat Clear Calc 22.26, Est GFR (MDRD) Af Amer 24 L, Est GFR (MDRD) Non-Af 20 L, BUN/Creatinine Ratio 12.2, Glucose 147 H, Calcium 7.1 L, Phosphorus 5.2 H, Albumin 2.2 L 11/09/20 22:33: POC Glucose 141 H 11/10/20 02:18: APTT 51.2 H 11/10/20 04:20: WBC 15.6 H, RBC 2.75 L, Hgb 8.7 L, Hct 27.5 L, MCV 100.0 H, MCH 31.6, MCHC 31.6 L, RDW Std Deviation 61.6 H, RDW Coeff of Marquis 17.8 H, Plt Count 176, MPV 9.9, Immature Gran % (Auto) 1.500 H, Neut % (Auto) 88.8 H, Lymph % (Auto) 4.4 L, [place] % (Auto) 5.1, Eos % (Auto) 0.1, Baso % (Auto) 0.1, Absolute Neuts (auto) 13.9 H, Absolute Lymphs (auto) 0.68 L, Nucleated RBC % 0.2 11/10/20 04:20: Sodium 140, Potassium 3.4 L, Chloride 108 H, Carbon Dioxide 18.0 L, Anion Gap 14, BUN 42 H, Creatinine 3.59 H, Estim Creat Clear Calc 20.33, Est GFR (MDRD) Af Amer 22 L, Est GFR (MDRD) Non-Af 18 L, BUN/Creatinine Ratio 11.7, Glucose 142 H, Calcium 7.4 L, Phosphorus 5.0 H, Magnesium 2.3 11/10/20 06:30: PT 19.2 H, INR 1.7 11/10/20 08:55: APTT 45.1 H 11/10/20 11:25: POC Glucose 143 H 11/10/20 14:46: Hep Bs Antibody Non-Reactive Micro: Microbiology 11/09/20 14:05 Sputum, Induced/Lukens Gram Stain - Final 11/09/20 14:05 Sputum, Induced/Lukens Respiratory Culture - Preliminary Gram negative farida 11/04/20 12:15 Tissue - Arm Right Gram Stain - Final 11/04/20 12:15 Tissue - Arm Right Wound Culture - Final No growth aerobically. 11/04/20 12:15 Tissue - Arm Right Anaerobic Culture - Final No growth in 5 days. 11/07/20 15:35 Nasal Secretion SARS-CoV-2 Antigen (Rapid) - Final 11/01/20 Unknown Tissue - Arm Right Gram Stain - Final 11/01/20 Unknown Tissue - Arm Right Wound Culture - Final No growth aerobically. 11/01/20 Unknown Tissue - Arm Right Anaerobic Culture - Final No anaerobic bacteria isolated. 10/28/20 Unknown Tissue - Arm Fungal Smear - Final 10/28/20 14:20 Tissue - Arm Gram Stain - Final 10/28/20 14:20 Tissue - Arm Wound Culture - Final No growth aerobically. 10/28/20 14:20 Tissue - Arm Anaerobic Culture - Final Prevotella oralis 10/25/20 07:35 Blood Culture (Wb) - Anticubital Left Blood Culture - Final No growth in 5 days. 10/25/20 07:45 Blood Culture (Wb) - Left Wrist Blood Culture - Final No growth in 5 days. 10/25/20 07:30 Bite - Arm Gram Stain - Final 10/25/20 07:30 Bite - Arm Wound Culture - Final Pasteurella canis Staphylococcus aureus 10/27/20 18:00 Mucosa - Nose SARS-CoV-2 Antigen (Rapid) - Final Radiography Diagnostic Testing: Radiology Impression Chest X-Ray 11/10/20 12:10 IMPRESSION: Status post right internal jugular venous catheter placement with the tip in the proximal portion of the superior vena cava. All the support tubes are in good position. Persistent bilateral infiltrates although there has been improvement as compared to prior study. Electronically Signed: Gómez Phelps MD at 12:30 EDT , Service support , Chest CTA 11/10/20 12:30 IMPRESSION: No evidence of pulmonary embolism. Bilateral pleural effusions right greater than left. Diffuse bilateral groundglass appearance involving both lungs worse in the right hemithorax with atelectasis and/or infiltrates at both lung bases worse on the right side. Electronically Signed: Gómez Phelps MD at 13:12 EDT , Service support , Physical Exam Narrative Extremities - No axillary adenopathy. Radial pulses are palpable. Right forearm and wrist wounds are stable. No active bleeding noted. Muscles are viable. Some of the exposed tendons are showing some signs of dessication. Will monitor at this time. No evidence of persistent purulent drainage noted. Mild finger swelling. I am able to passively flex the MP joints almost to 90 degrees at this time. Dakin's dressing change done today. Assessment & Plan Assessment/Plan (1) Dog bite: QUALIFIERS: Encounter type: initial encounter Qualified Code(s): W54.0XXA - Bitten by dog, initial encounter (2) Abscess of bursa of right forearm: (3) Necrotizing soft tissue infection: (4) Abscess of skin of right wrist: (5) Extensor tenosynovitis of right wrist: (6) Open wound of right forearm due to dog bite: (7) Open wound of right wrist due to dog bite: (8) Diabetes: (9) Acute blood loss anemia: (10) Former smoker: PLAN: Dakin's dressing change done today without problem. Wounds were clean with no further evidence of purulence. Muscles appear viable. Some of the exposed tendons are showing some signs of dessication. Will monitor at this time. The severity of the infection has contributed to compromised blood supply to the tendons involved. No active bleeding seen. The dressing showed no blood staining. Hgb today is 8.7 today which is slightly decreased from yesterday at 9.1. Continue Iron supplementation. He has acute postoperative anemia from expected blood loss. From the dressing changes, I anticipate approximately a unit since surgery. Patient was also on a heparin drip for his atrial fibrillation. Continue Vancomycin and Zosyn. Operative cultures from 11/01/20 surgery and 11/04/20 surgery are negative. Operative cultures from 10/28/20 showed Prevotella bivia. The dressing changes will be difficult at home initially. Discussed with the patient about going to an ECF for short term until the dressing changes can be tolerated at home. He was in agreement. TCU evaluation is on hold while the patient is intubated in the ICU. Prealbumin was 8.8. Encourage nutritional supplementation with protein to help the healing process. Encourage range of motion exercises to minimize stiffness. He is at risk for developing stiffness. Will need OT after discharge for range of motion exercises, strengthening, and edema management. When he is medically stable and extubated, will continue range of motion exercises. His WBC has decreased slightly from 17.5 down to 15.6. When he is medically stable, will consider another trip to the operating room for another incision and drainage and irrigation of his wounds.
[2020-11-10 17:16] LABS: Bedside Glucose 129 mg/dL (70-110)
--- NOTE | 2020-11-10 17:16 | DIALYSIS ---
Tolerated first HD tx very well. UF of 1000ml. Ran on 3k bath. Used right temporary IJ dialysis catheter. Lumens closed with heparin per fill volume. Caps placed. Dressing changed post tx. See tx sheet for more details. Report was given to HOMER Adhikari.
[2020-11-10] MEDS: Heparin 10,000 UNITS/10 ML Vial IV (17:34)
[2020-11-10] MEDS: Gabapentin 300 MG Capsule NG (17:35)
[2020-11-10] MEDS: Furosemide 100 MG/10 ML Vial 80 MG IV (17:35)
--- NOTE | 2020-11-10 19:15 | PN.HOSP_ITS ---
Subjective Subjective Patient was seen and examined today, he remains on the ventilator and he underwent dialysis today. I talked briefly with nephrology today about his care. Objective Data Objective Data Vital Signs: Vital Signs Temp Pulse Resp BP Pulse Ox 96.8 F L 86 14 97/65 97 11/10/20 18:00 11/10/20 18:49 11/10/20 18:49 11/10/20 18:00 11/10/20 18:49 Oxygen Flow Rate (L/min) 6 Oxygen Delivery Method Mechanical Ventilator Weight: 106.6 kg Body Mass Index (BMI) 29.6 Intake & Output: Intake and Output for Last 24 Hours 11/08/20 11/09/20 11/10/20 23:59 23:59 23:59 Intake Total 1051.97 / 1251.97 2197.27 / 2235.07 1211.88 / 1211.88 Output Total 550 / 550 560 / 560 2265 / 2265 Balance 501.97 / 701.97 1637.27 / 1675.07 -1053.12 / -1053.12 Lab / Micro Data Result Diagrams: 11/10/20 04:20 11/10/20 04:20 Labs: Laboratory Results - last 24 hr 11/04/20 14:18: Crossmatch See Detail 11/09/20 10:20: Complement C4 11/09/20 20:10: APTT 71.7 H 11/09/20 20:10: Sodium 138, Potassium 3.6, Chloride 105, Carbon Dioxide 18.0 L, BUN 40 H, Creatinine 3.28 H, Estim Creat Clear Calc 22.26, Est GFR (MDRD) Af Amer 24 L, Est GFR (MDRD) Non-Af 20 L, BUN/Creatinine Ratio 12.2, Glucose 147 H, Calcium 7.1 L, Phosphorus 5.2 H, Albumin 2.2 L 11/09/20 22:33: POC Glucose 141 H 11/10/20 02:18: APTT 51.2 H 11/10/20 04:20: WBC 15.6 H, RBC 2.75 L, Hgb 8.7 L, Hct 27.5 L, MCV 100.0 H, MCH 31.6, MCHC 31.6 L, RDW Std Deviation 61.6 H, RDW Coeff of Marquis 17.8 H, Plt Count 176, MPV 9.9, Immature Gran % (Auto) 1.500 H, Neut % (Auto) 88.8 H, Lymph % (Auto) 4.4 L, [place] % (Auto) 5.1, Eos % (Auto) 0.1, Baso % (Auto) 0.1, Absolute Neuts (auto) 13.9 H, Absolute Lymphs (auto) 0.68 L, Nucleated RBC % 0.2 11/10/20 04:20: Sodium 140, Potassium 3.4 L, Chloride 108 H, Carbon Dioxide 18.0 L, Anion Gap 14, BUN 42 H, Creatinine 3.59 H, Estim Creat Clear Calc 20.33, Est GFR (MDRD) Af Amer 22 L, Est GFR (MDRD) Non-Af 18 L, BUN/Creatinine Ratio 11.7, Glucose 142 H, Calcium 7.4 L, Phosphorus 5.0 H, Magnesium 2.3 11/10/20 06:30: PT 19.2 H, INR 1.7 11/10/20 08:55: APTT 45.1 H 11/10/20 11:25: POC Glucose 143 H 11/10/20 14:46: Hep Bs Antibody Non-Reactive 11/10/20 17:13: POC Glucose 129 H Micro: Microbiology 11/09/20 14:05 Sputum, Induced/Lukens Gram Stain - Final 11/09/20 14:05 Sputum, Induced/Lukens Respiratory Culture - Preliminary Gram negative farida 11/04/20 12:15 Tissue - Arm Right Gram Stain - Final 11/04/20 12:15 Tissue - Arm Right Wound Culture - Final No growth aerobically. 11/04/20 12:15 Tissue - Arm Right Anaerobic Culture - Final No growth in 5 days. 11/07/20 15:35 Nasal Secretion SARS-CoV-2 Antigen (Rapid) - Final 11/01/20 Unknown Tissue - Arm Right Gram Stain - Final 11/01/20 Unknown Tissue - Arm Right Wound Culture - Final No growth aerobically. 11/01/20 Unknown Tissue - Arm Right Anaerobic Culture - Final No anaerobic bacteria isolated. 10/28/20 Unknown Tissue - Arm Fungal Smear - Final 10/28/20 14:20 Tissue - Arm Gram Stain - Final 10/28/20 14:20 Tissue - Arm Wound Culture - Final No growth aerobically. 10/28/20 14:20 Tissue - Arm Anaerobic Culture - Final Prevotella oralis 10/25/20 07:35 Blood Culture (Wb) - Anticubital Left Blood Culture - Final No growth in 5 days. 10/25/20 07:45 Blood Culture (Wb) - Left Wrist Blood Culture - Final No growth in 5 days. 10/25/20 07:30 Bite - Arm Gram Stain - Final 10/25/20 07:30 Bite - Arm Wound Culture - Final Pasteurella canis Staphylococcus aureus 10/27/20 18:00 Mucosa - Nose SARS-CoV-2 Antigen (Rapid) - Final Radiography Diagnostic Testing: Radiology Impression Chest X-Ray 11/10/20 12:10 IMPRESSION: Status post right internal jugular venous catheter placement with the tip in the proximal portion of the superior vena cava. All the support tubes are in good position. Persistent bilateral infiltrates although there has been improvement as compared to prior study. Electronically Signed: Gómez Phelps MD at 12:30 EDT , Service support , Chest CTA 11/10/20 12:30 IMPRESSION: No evidence of pulmonary embolism. Bilateral pleural effusions right greater than left. Diffuse bilateral groundglass appearance involving both lungs worse in the right hemithorax with atelectasis and/or infiltrates at both lung bases worse on the right side. Electronically Signed: Gómez Phelps MD at 13:12 EDT , Service support , Physical Exam Const Constitutional Narrative: Patient is under sedation on the ventilator at this time HEENT Head and Scalp: normocephalic Resp normal respiratory effort, no retractions and clear to auscultation bilaterally Cardio regular rate, regular rhythm, S1 normal heart sound, S2 normal heart sound, no gallops and no clicks GI normal to inspection, nondistended, normoactive bowel sounds, soft to palpation and non-tender Extremity Extremity Narrative: Patient's right lower arm is wrapped with surgical dressing, this was not removed for examination Neuro Neuro Narrative: Patient is sedated on the ventilator Psych Psych Narrative: Patient is sedated on the ventilator Assessment & Plan Assessment/Plan (1) Acute hypoxemic respiratory failure: PLAN: 1. Acute hypoxic respiratory failure-etiology unclear at this time, CTA of the patient's chest did not show evidence of PE #2 severe sepsis secondary to cellulitis of the right forearm, continue antibiotics per ID and critical care, plastic surgery is participating in his care #3 acute renal failure on a backdrop of chronic kidney disease stage IIIa- nephrology is participating in his care, patient had dialysis today #4 possible hospital-acquired pneumonia-patient sputum was positive for gram- negative farida, antibiotic coverage per critical care and ID #5 non-STEMI #6 paroxysmal atrial fib #7 ischemic cardiomyopathy #8 type 2 diabetes #9 hyperlipidemia Charges/Coding Visit Charges Inpatient E&M: 17990 Subs Hosp L2
[2020-11-10 19:24] LABS: Hepatitis B Surface Antigen Non-Reactive (Nonreactive)
--- NOTE | 2020-11-10 21:25 | PN.RENAL_ITS ---
Subjective Subjective Following for acute kidney injury on chronic kidney disease. The patient is intubated. Cannot do ROS because he is on ventilator. I supervised the dialysis procedure today. Objective Data Objective Data Vital Signs: Vital Signs Temp Pulse Resp BP Pulse Ox 96.8 F L 90 14 100/64 93 11/10/20 20:00 11/10/20 20:00 11/10/20 20:00 11/10/20 20:00 11/10/20 20:00 Oxygen Flow Rate (L/min) 6 Oxygen Delivery Method Mechanical Ventilator Weight: 106.6 kg Body Mass Index (BMI) 29.6 Intake & Output: Intake and Output for Last 24 Hours 11/08/20 11/09/20 11/10/20 23:59 23:59 23:59 Intake Total 1051.97 / 1251.97 2197.27 / 2235.07 1287.26 / 1287.26 Output Total 550 / 550 560 / 560 2310 / 2310 Balance 501.97 / 701.97 1637.27 / 1675.07 -1022.74 / -1022.74 Lab / Micro Data Result Diagrams: 11/10/20 04:20 11/10/20 04:20 Labs: Laboratory Results - last 24 hr 11/04/20 14:18: Crossmatch See Detail 11/09/20 10:20: Complement C4 11/09/20 22:33: POC Glucose 141 H 11/10/20 02:18: APTT 51.2 H 11/10/20 04:20: WBC 15.6 H, RBC 2.75 L, Hgb 8.7 L, Hct 27.5 L, MCV 100.0 H, MCH 31.6, MCHC 31.6 L, RDW Std Deviation 61.6 H, RDW Coeff of Marquis 17.8 H, Plt Count 176, MPV 9.9, Immature Gran % (Auto) 1.500 H, Neut % (Auto) 88.8 H, Lymph % (Aut o) 4.4 L, [place] % (Auto) 5.1, Eos % (Auto) 0.1, Baso % (Auto) 0.1, Absolute Neuts (auto) 13.9 H, Absolute Lymphs (auto) 0.68 L, Nucleated RBC % 0.2 11/10/20 04:20: Sodium 140, Potassium 3.4 L, Chloride 108 H, Carbon Dioxide 18.0 L, Anion Gap 14, BUN 42 H, Creatinine 3.59 H, Estim Creat Clear Calc 20.33, Est GFR (MDRD) Af Amer 22 L, Est GFR (MDRD) Non-Af 18 L, BUN/Creatinine Ratio 11.7, Glucose 142 H, Calcium 7.4 L, Phosphorus 5.0 H, Magnesium 2.3 11/10/20 06:30: PT 19.2 H, INR 1.7 11/10/20 08:55: APTT 45.1 H 11/10/20 11:25: POC Glucose 143 H 11/10/20 14:46: Hep Bs Antigen Non-Reactive 11/10/20 14:46: Hep Bs Antibody Non-Reactive 11/10/20 17:13: POC Glucose 129 H Micro: Microbiology 11/09/20 14:05 Sputum, Induced/Lukens Gram Stain - Final 11/09/20 14:05 Sputum, Induced/Lukens Respiratory Culture - Preliminary Gram negative farida 11/04/20 12:15 Tissue - Arm Right Gram Stain - Final 11/04/20 12:15 Tissue - Arm Right Wound Culture - Final No growth aerobically. 11/04/20 12:15 Tissue - Arm Right Anaerobic Culture - Final No growth in 5 days. 11/07/20 15:35 Nasal Secretion SARS-CoV-2 Antigen (Rapid) - Final 11/01/20 Unknown Tissue - Arm Right Gram Stain - Final 11/01/20 Unknown Tissue - Arm Right Wound Culture - Final No growth aerobically. 11/01/20 Unknown Tissue - Arm Right Anaerobic Culture - Final No anaerobic bacteria isolated. 10/28/20 Unknown Tissue - Arm Fungal Smear - Final 10/28/20 14:20 Tissue - Arm Gram Stain - Final 10/28/20 14:20 Tissue - Arm Wound Culture - Final No growth aerobically. 10/28/20 14:20 Tissue - Arm Anaerobic Culture - Final Prevotella oralis 10/25/20 07:35 Blood Culture (Wb) - Anticubital Left Blood Culture - Final No growth in 5 days. 10/25/20 07:45 Blood Culture (Wb) - Left Wrist Blood Culture - Final No growth in 5 days. 10/25/20 07:30 Bite - Arm Gram Stain - Final 10/25/20 07:30 Bite - Arm Wound Culture - Final Pasteurella canis Staphylococcus aureus 10/27/20 18:00 Mucosa - Nose SARS-CoV-2 Antigen (Rapid) - Final Radiography Diagnostic Testing: Radiology Impression Chest X-Ray 11/10/20 12:10 IMPRESSION: Status post right internal jugular venous catheter placement with the tip in the proximal portion of the superior vena cava. All the support tubes are in good position. Persistent bilateral infiltrates although there has been improvement as compared to prior study. Electronically Signed: Gómez Phelps MD at 12:30 EDT , Service support , Chest CTA 11/10/20 12:30 IMPRESSION: No evidence of pulmonary embolism. Bilateral pleural effusions right greater than left. Diffuse bilateral groundglass appearance involving both lungs worse in the right hemithorax with atelectasis and/or infiltrates at both lung bases worse on the right side. Electronically Signed: Gómez Phelps MD at 13:12 EDT , Service support , Physical Exam Narrative General: On ventilator, does not follow command. HEENT: Intubated, mucous membrane moist. Neck: Supple. Heart: Normal S1, S2. No rubs or murmurs. Lungs: Coarse breath sounds bilaterally. Abdomen: Normal bowel sound, soft, nontender. Extremity: 3+ upper extremity edema, 2+ lower extremity edema. Assessment & Plan Assessment/Plan (1) LETY (acute kidney injury): PLAN: LETY is secondary to either cardiorenal (FEUrea is 18% on 11/09/20) or from ischemic ATN. I suspect that LETY is more likely due to ATN at this point. I have low suspicion for LETY from contrast associated nephropathy since cardiac catheterization was done on 10/27/2020. Serum creatinine did not start to increase until 11/07/2020. Unfortunately, the patient did not respond to bumetanide drip. He actually gained weight over the last 24 hours despite bumetanide drip. Given ongoing acute respiratory failure, volume overload and marginal urine output despite bumetanide drip, I will start the patient on dialysis today. We will try to remove fluid on dialysis. The amount of ultrafiltration will depend on his blood pressure. Nephrology plan was discussed with Dr. Valenzuela and Dr. Zheng. (2) CKD (chronic kidney disease) stage 3, GFR 30-59 ml/min: PLAN: Baseline serum creatinine is around 1.4 to 1.6 mg/dL. Possible underlying diabetic kidney disease. (3) Acute hypoxemic respiratory failure: PLAN: The patient remains on the ventilator. Chest x-ray shows perivascular congestion. The patient is being treated for pneumonia. He also likely has pulmonary edema from fluid overload. Therefore, we will ultrafilter the patient with dialysis. I will stop the bumetanide drip to limit ototoxicity since the patient has sherita nal response to it. However, since the patient is not completely oliguric, I will leave the patient on intermittent IV furosemide. (4) Necrotizing soft tissue infection: PLAN: The patient is on Zosyn. Dose is appropriate for the current IHD plan. (5) Diabetes: PLAN: Glycemic control as per hospital medicine and intensive care plan. (6) Anemia: PLAN: Follow hemoglobin. Since the patient has LETY, there is no indications for MARY.
[2020-11-10] MEDS: Pravastatin 80 MG Tablet NG (21:26)
[2020-11-10] MEDS: Heparin Injection (Vial) 5,000 UNIT/ML VIAL 5000 UNIT SC (21:27)
[2020-11-10] MEDS: Amiodarone 200 MG Tablet GT (21:27)
[2020-11-10 23:01] LABS: Bedside Glucose 127 mg/dL (70-110)
[2020-11-11] VITALS (35 sets, daily range): BP systolic 81–101; BP diastolic 58–71; PULSE 14–109; RESP 14–24; TEMP 36.1–37.7; O2SAT 90–100; BMI 33.4
[2020-11-11] MEDS: Propofol 10MG/Ml 1,000 MG/100 ML Bottle 19.2 MG CONT INF (01:43)
[2020-11-11 03:58] LABS: Vancomycin, Random Level 12.5 ug/mL (0.0-15.0)
[2020-11-11 04:02] LABS: BUN 28 mg/dL (7-18); BUN/Creat Ratio 8.8 RATIO (10-20); Calcium,Total 7.7 mg/dL (8.5-10.1); Chloride 104 mmol/L (98-107); EST Glomerular Filtration Rate 21 mL/min (>60); Est Glom Filt Rate - Afr Amer 25 mL/min (>60); Estimated Creatinine Clearance 22.81 ml/min; Glucose 124 mg/dL (74-106); Phosphorus 4.6 mg/dL (2.5-4.9); Potassium 3.5 mmol/L (3.5-5.1); Sodium Level 140 mmol/L (136-145)
[2020-11-11] MEDS: TITRATION PARAMETER CHANGE 1 EACH IV (04:38)
[2020-11-11] MEDS: Menthol/Lanolin/Calamine/Znox 113 GM Tube 1 APPLIC TOPICAL ×3 (05:20→23:11)
[2020-11-11] MEDS: Heparin Injection (Vial) 5,000 UNIT/ML VIAL 5000 UNIT SC ×3 (05:21→21:55)
[2020-11-11] MEDS: Albumin Human 25% (100 mL) 25 GM/100 ML BAG IV ×3 (05:21→22:47)
[2020-11-11] MEDS: Propofol 10MG/Ml 1,000 MG/100 ML Bottle 19 MG CONT INF ×2 (06:17→11:50)
[2020-11-11] MEDS: Ipratropium/Albuterol Sulfate 3 ML AMPUL.NEB INHALATION ×3 (06:37→19:05)
--- NOTE | 2020-11-11 06:37 | PN.CC_ITS ---
Assessment & Plan Assessment/Plan (1) Acute hypoxemic respiratory failure: PLAN: RECOMMENDATIONS: 1. Continue patient on assist control mode of mechanical ventilation and wean FiO2 to maintain saturations at or above 90%. 2. Continue hemodialysis support with volume removal as tolerated. 3. Continue antimicrobials per ID recommendations. 4. Vasopressor support, if needed, to maintain hemodynamic stability. 5. Okay to initiate tube feeds today. 6. Continue appropriate GI and DVT prophylaxis. IMPRESSIONS: 1. Acute hypoxemic respiratory failure Likely multifactorial in etiology. Radiographically, it does appear that the patient still has residual effusions, atelectasis and potential pneumonia contributing to his hypoxemia. PE has been ruled out by CTA chest. Despite the use of noninvasive positive pressure ventilatory support, the patient continued to decompensate from a respiratory perspective and did require intubation on November 09. We will plan to continue broad-spectrum antimicrobials for now. The patient will be continued on assist control mode of mechanical ventilation with a goal to wean FiO2 to maintain saturations at or above 90%. 2. Severe sepsis The patient has a known necrotizing soft tissue infection, along with gram- negative pneumonia. Plan to continue antimicrobials per ID recommendations. 3. Coronary artery disease status post CABG/ischemic cardiomyopathy/atrial fibrillation Continue medical management per cardiology recommendations. 4. 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 Strongly recommend against further consideration for surgical intervention given clinical instability at the present time. 5. Acute on chronic kidney disease Potentially related to overdiuresis, with concern for ischemic ATN. Plan to continue dialysis support per nephrology recommendations with additional volume removal as tolerated. Vasopressor support can be needed if the patient becomes hemodynamically unstable. 6. Diabetes mellitus/depression/hypertension/GERD/hyperlipidemia Complicates care, management, recovery and prognosis. Continue home medications as indicated. TIME: 36 minutes of critical care time, independent of procedures, was spent ad dressing the patient's acute hypoxemic respiratory failure, severe sepsis, coronary artery disease, necrotizing soft tissue infection, acute on chronic kidney disease, review of all data and collaboration with the care team. ([id number]) Subjective Subjective The patient was seen and examined at the bedside this morning. Events from the last 24 hours have been reviewed. The patient is currently afebrile, hemodynamically stable and maintaining appropriate oxygen saturations on assist control mode of mechanical ventilation with an FiO2 requirement of 50%. The patient did tolerate dialysis yesterday with 1 L of fluid removed. He never had to be started on vasopressor support. Nevertheless, the patient's hemodynamics still remain quite tenuous. The patient failed his spontaneous awakening trial this morning, as he developed agitation and subsequently desaturated. The patient is currently documented to be overall net +12.7 L for the hospital admission. The patient did complete his CTA chest yesterday which did not demonstrate any PE. Therefore, the patient's continuous heparin infusion was discontinued and he was placed on routine DVT prophylaxis. Objective Data Objective Data The patient's most recent lab work, culture data and imaging studies have all been personally reviewed. CTA chest dated October 26 revealed no evidence for pulmonary embolism. Small bilateral pleural effusions with associated compressive atelectasis were noted. Surface echocardiogram completed on October 28 revealed normal LV size with an ejection fraction of 55%. Right ventricular systolic pressure was unable to be obtained. Rapid coronavirus antigen testing was negative. Wound culture was positive for Pasteurella and staph aureus. Sputum Gram stain was positive for a gram-negative farida. Vital Signs: Vital Signs Temp Pulse Resp BP Pulse Ox 97.3 F L 98 14 82/58 L 98 11/11/20 06:00 11/11/20 06:00 11/11/20 06:35 11/11/20 06:00 11/11/20 06:00 Oxygen Flow Rate (L/min) 6 Oxygen Delivery Method Mechanical Ventilator Weight: 105.7 kg Body Mass Index (BMI) 29.6 Intake & Output: Intake and Output for Last 24 Hours 11/09/20 11/10/20 11/11/20 23:59 23:59 23:59 Intake Total 2197.27 / 2235.07 1606.45 / 1635.65 240.46 / 240.46 Output Total 560 / 560 2330 / 2340 560 / 560 Balance 1637.27 / 1675.07 -723.55 / -704.35 -319.54 / -319.54 Lab / Micro Data Attestation: I reviewed the patient's lab results. Result Diagrams: 11/10/20 04:20 11/11/20 03:15 Labs: Laboratory Results - last 24 hr 11/04/20 14:18: Crossmatch See Detail 11/09/20 10:20: Complement C4 11/10/20 04:20: Sodium 140, Potassium 3.4 L, Chloride 108 H, Carbon Dioxide 18.0 L, Anion Gap 14, BUN 42 H, Creatinine 3.59 H, Estim Creat Clear Calc 20.33, Est GFR (MDRD) Af Amer 22 L, Est GFR (MDRD) Non-Af 18 L, BUN/Creatinine Ratio 11.7, Glucose 142 H, Calcium 7.4 L, Phosphorus 5.0 H, Magnesium 2.3 11/10/20 06:30: PT 19.2 H, INR 1.7 11/10/20 08:55: APTT 45.1 H 11/10/20 11:25: POC Glucose 143 H 11/10/20 14:46: Hep Bs Antigen Non-Reactive 11/10/20 14:46: Hep Bs Antibody Non-Reactive 11/10/20 17:13: POC Glucose 129 H 11/10/20 22:57: POC Glucose 127 H 11/11/20 03:15: Random Vancomycin 12.5 11/11/20 03:15: Sodium 140, Potassium 3.5, Chloride 104, Carbon Dioxide 22.0, BUN 28 H, Creatinine 3.20 H, Estim Creat Clear Calc 22.81, Est GFR (MDRD) Af Amer 25 L, Est GFR (MDRD) Non-Af 21 L, BUN/Creatinine Ratio 8.8 L, Glucose 124 H , Calcium 7.7 L, Phosphorus 4.6, Albumin 3.0 L Micro: Microbiology 11/09/20 14:05 Sputum, Induced/Lukens Gram Stain - Final 11/09/20 14:05 Sputum, Induced/Lukens Respiratory Culture - Preliminary Gram negative farida 11/04/20 12:15 Tissue - Arm Right Gram Stain - Final 11/04/20 12:15 Tissue - Arm Right Wound Culture - Final No growth aerobically. 11/04/20 12:15 Tissue - Arm Right Anaerobic Culture - Final No growth in 5 days. 11/07/20 15:35 Nasal Secretion SARS-CoV-2 Antigen (Rapid) - Final 11/01/20 Unknown Tissue - Arm Right Gram Stain - Final 11/01/20 Unknown Tissue - Arm Right Wound Culture - Final No growth aerobically. 11/01/20 Unknown Tissue - Arm Right Anaerobic Culture - Final No anaerobic bacteria isolated. 10/28/20 Unknown Tissue - Arm Fungal Smear - Final 10/28/20 14:20 Tissue - Arm Gram Stain - Final 10/28/20 14:20 Tissue - Arm Wound Culture - Final No growth aerobically. 10/28/20 14:20 Tissue - Arm Anaerobic Culture - Final Prevotella oralis 10/25/20 07:35 Blood Culture (Wb) - Anticubital Left Blood Culture - Final No growth in 5 days. 10/25/20 07:45 Blood Culture (Wb) - Left Wrist Blood Culture - Final No growth in 5 days. 10/25/20 07:30 Bite - Arm Gram Stain - Final 10/25/20 07:30 Bite - Arm Wound Culture - Final Pasteurella canis Staphylococcus aureus 10/27/20 18:00 Mucosa - Nose SARS-CoV-2 Antigen (Rapid) - Final Radiography Diagnostic Testing: Radiology Impression Chest X-Ray 11/10/20 12:10 IMPRESSION: Status post right internal jugular venous catheter placement with the tip in the proximal portion of the superior vena cava. All the support tubes are in good position. Persistent bilateral infiltrates although there has been improvement as compared to prior study. Electronically Signed: Gómez Phelps MD at 12:30 EDT , Service support , Chest CTA 11/10/20 12:30 IMPRESSION: No evidence of pulmonary embolism. Bilateral pleural effusions right greater than left. Diffuse bilateral groundglass appearance involving both lungs worse in the right hemithorax with atelectasis and/or infiltrates at both lung bases worse on the right side. Electronically Signed: Gómez Phelps MD at 13:12 EDT , Service support , Physical Exam Const General Appearance: ill appearing, intubated and patient mechanically ventilated HEENT normocephalic and head/scalp atraumatic Mouth: endotracheal tube in place and OG tube in place Teeth and Gingiva: poor dentition Eyes PERRL and EOMs intact bilaterally Neck supple General: trachea midline Resp Auscultation: rhonchi, wheezes and diminished lung sounds Cardio regular rate and regular rhythm GI normal to inspection, nondistended, normoactive bowel sounds Extremity General Extremity: edema; Negative for clubbing Skin Wound Narrative: No significant change in the patient's upper extremity wound Neuro Sensorium / Orientation: sedated on vent Charges/Coding Procedures Hospitalists Procedures: [id number] Critial Care 1st Hr
--- NOTE | 2020-11-11 08:21 | PCM.PN.CARD ---
Subjective Subjective The patient remained in the ICU mechanically intubated/ventilated/sedated. He is now receiving hemodialysis therapy. Objective Data Vital Signs: Vital Signs Temp Pulse Resp BP Pulse Ox 97.2 F L 97 14 86/65 L 97 11/11/20 07:00 11/11/20 08:00 11/11/20 07:00 11/11/20 07:00 11/11/20 07:00 Oxygen Flow Rate (L/min) 6 Oxygen Delivery Method Mechanical Ventilator Weight: 233 lb 0.458 oz Body Mass Index (BMI) 29.6 Intake & Output: Intake and Output for Last 24 Hours 11/09/20 11/10/20 11/11/20 23:59 23:59 23:59 Intake Total 2197.27 / 2235.07 1606.45 / 1635.65 361.25 / 361.25 Output Total 560 / 560 2330 / 2340 580 / 580 Balance 1637.27 / 1675.07 -723.55 / -704.35 -218.75 / -218.75 Lab / Micro Data Result Diagrams: 11/10/20 04:20 11/11/20 03:15 Labs: Laboratory Results - last 24 hr 11/04/20 14:18: Crossmatch See Detail 11/09/20 10:20: Complement C4 11/10/20 08:55: APTT 45.1 H 11/10/20 11:25: POC Glucose 143 H 11/10/20 14:46: Hep Bs Antigen Non-Reactive 11/10/20 14:46: Hep Bs Antibody Non-Reactive 11/10/20 17:13: POC Glucose 129 H 11/10/20 22:57: POC Glucose 127 H 11/11/20 03:15: Random Vancomycin 12.5 11/11/20 03:15: Sodium 140, Potassium 3.5, Chloride 104, Carbon Dioxide 22.0, BUN 28 H, Creatinine 3.20 H, Estim Creat Clear Calc 22.81, Est GFR (MDRD) Af Amer 25 L, Est GFR (MDRD) Non-Af 21 L, BUN/Creatinine Ratio 8.8 L, Glucose 124 H, Calcium 7.7 L, Phosphorus 4.6, Albumin 3.0 L Micro: Microbiology 11/09/20 09:35 Blood Culture (Wb) - Arm Left Blood Culture - Preliminary No growth in 48 hours. 07/14/21 14:05 Sputum, Induced/Lukens Gram Stain - Final 11/09/20 14:05 Sputum, Induced/Lukens Respiratory Culture - Final Stenotrophomonas maltophilia 11/04/20 12:15 Tissue - Arm Right Gram Stain - Final 11/04/20 12:15 Tissue - Arm Right Wound Culture - Final No growth aerobically. 11/04/20 12:15 Tissue - Arm Right Anaerobic Culture - Final No growth in 5 days. Cardiology Labs/Tests 11/10/20 08:55: APTT 45.1 H 11/11/20 03:15: Sodium 140, Potassium 3.5, Chloride 104, Carbon Dioxide 22.0, BUN 28 H, Creatinine 3.20 H, Est GFR (MDRD) Af Amer 25 L, Est GFR (MDRD) Non-Af 21 L, BUN/Creatinine Ratio 8.8 L, Glucose 124 H, Calcium 7.7 L, Phosphorus 4.6 Rhythm: Sinus rhythm; PVCs Radiography Diagnostic Testing: Radiology Impression Chest X-Ray 11/10/20 12:10 IMPRESSION: Status post right internal jugular venous catheter placement with the tip in the proximal portion of the superior vena cava. All the support tubes are in good position. Persistent bilateral infiltrates although there has been improvement as compared to prior study. Electronically Signed: Gómez Phelps MD at 12:30 EDT , Service support , Chest CTA 11/10/20 12:30 IMPRESSION: No evidence of pulmonary embolism. Bilateral pleural effusions right greater than left. Diffuse bilateral groundglass appearance involving both lungs worse in the right hemithorax with atelectasis and/or infiltrates at both lung bases worse on the right side. Electronically Signed: Gómez Phelps MD at 13:12 EDT , Service support , Physical Exam Narrative The patient is currently mechanically intubated/ventilated. Const alert and oriented x3 Orientation / Consciousness: awake HEENT normocephalic and head/scalp atraumatic Neck supple and no JVD Chest Chest: midline sternotomy incision Resp Resp Narrative: Scattered upper airway sounds Auscultation: rhonchi throughout Cardio regular rate, regular rhythm, S1 normal heart sound and S2 normal heart sound Cardio Narrative: Ectopic complexes GI normal to inspection, nondistended, normoactive bowel sounds Extremity Extremity Narrative: Right upper extremity: Positive surgical dressing and Alfa wrap General Extremity: edema bilateral lower extremity Details: mild Neuro oriented x3, moves all extremities, no focal motor deficits and no sensory deficits noted Assessment & Plan Assessment/Plan (1) Atherosclerotic heart disease of [place] coronary artery without angina pectoris: PLAN: The patient will continue medical management/support as he is able. As noted before he is not considered a candidate for further percutaneous or surgical based revascularization therapy. (2) S/P CABG (coronary artery bypass graft): PLAN: The patient did undergo evaluation in the cardiac catheterization laboratory as previously noted. He has extensive [place] vessel disease with a patent THRASHER to the LAD and an occluded SVG to OM1 and SVG to OM 2. He will continue medical management. (3) CHF (congestive heart failure): QUALIFIERS: Heart failure type: systolic Heart failure chronicity: acute on chronic Qualified Code(s): I50.23 - Acute on chronic systolic (congestive) heart failure PLAN: Per nephrology orders from Dr. Paz he is currently on IV diuretic therapy. He is also receiving hemodialysis. Hopefully these medicines will help with his volume status with respect to his CHF. (4) Atrial fibrillation: QUALIFIERS: Atrial fibrillation type: unspecified Qualified Code(s): I48.91 - Unspecified atrial fibrillation PLAN: The patient's cardiac rate and rhythm will be monitored. It appears he has had episodes, based upon his cardiac rhythm strips, of sinus rhythm and paroxysmal atrial fibrillation. He can receive additional rate limiting therapy as needed and as tolerated. He is continuing to receive amiodarone therapy. As he is demonstrated no evidence of thromboembolic disease by his chest CT scan his IV heparin has been discontinued. (5) HLD (hyperlipidemia): QUALIFIERS: Hyperlipidemia type: unspecified Qualified Code(s): E78.5 - Hyperlipidemia, unspecified PLAN: The patient should continue risk factor evaluation care as tolerated. (6) Benign essential HTN: PLAN: The patient's blood pressure is being followed. His medications can be readjusted as needed. (7) Cellulitis of forearm, right: PLAN: He will continue further evaluation care per internal medicine, infectious disease, and plastic surgery. (8) Anemia: PLAN: The patient has received additional PRBCs. His hemoglobin will need to be followed as he is now anticoagulated for any obvious decline. (9) Shortness of breath: PLAN: The etiology of the patient's shortness of breath may be multifactorial. According to Dr. Valenzuela they are concerned that he has an underlying pneumonitis and a sepsis syndrome. From a cardiac standpoint he will continue to receive supportive medical therapy as best as possible and tolerated. Addt'l Comments The patient's case was discussed and reviewed with Dr. Zheng and Dr. Valenzuela. This note was generated using a voice recognition system and there may be incorrect words, spelling or punctuation that were not noted when reviewing the office note prior to saving.
--- NOTE | 2020-11-11 09:44 | PCM.RX.CS ---
Consult Pharmacy has been consulted to manage selected antiobiotic: Vancomycin Type of Consult: Follow-up Suspected Infection: Sepsis Prior Doses of Antibiotics Received/Current Regimen: Medications Vancomycin HCl 750 mg/ Sodium (Chloride) 265 mls @ 250 mls/hr IV X1 ONE Stop: 11/11/20 15:03 Discontinued Medications Vancomycin HCl 2,000 mg/ (Sodium Chloride) 540 mls @ 250 mls/hr IV X1 ONE Stop: 11/09/20 12:09 Labs: Sodium 140 mmol/L (136-145) 11/11/20 03:15 Potassium 3.5 mmol/L (3.5-5.1) 11/11/20 03:15 Chloride 104 mmol/L (98-107) 11/11/20 03:15 Carbon Dioxide 22.0 mmol/L (21.0-32.0) 11/11/20 03:15 Anion Gap 14 (5-15) 11/10/20 04:20 BUN 28 mg/dL (7-18) H 11/11/20 03:15 Creatinine 3.20 mg/dL (0.70-1.30) H 11/11/20 03:15 Est GFR (MDRD) Af Amer 25 mL/min (>60) L 11/11/20 03:15 Est GFR (MDRD) Non-Af 21 mL/min (>60) L 11/11/20 03:15 BUN/Creatinine Ratio 8.8 RATIO (10-20) L 11/11/20 03:15 Glucose 124 mg/dL (74-106) H 11/11/20 03:15 Random Vancomycin 12.5 ug/mL (0.0-15.0) 11/11/20 03:15 Microbiology: Microbiology 11/09/20 09:35 Blood Culture (Wb) - Arm Left Blood Culture - Preliminary No growth in 48 hours. 11/09/20 14:05 Sputum, Induced/Lukens Gram Stain - Final 11/09/20 14:05 Sputum, Induced/Lukens Respiratory Culture - Final Stenotrophomonas maltophilia 11/04/20 12:15 Tissue - Arm Right Gram Stain - Final 11/04/20 12:15 Tissue - Arm Right Wound Culture - Final No growth aerobically. 11/04/20 12:15 Tissue - Arm Right Anaerobic Culture - Final No growth in 5 days. 11/07/20 15:35 Nasal Secretion SARS-CoV-2 Antigen (Rapid) - Final 11/01/20 Unknown Tissue - Arm Right Gram Stain - Final 11/01/20 Unknown Tissue - Arm Right Wound Culture - Final No growth aerobically. 11/01/20 Unknown Tissue - Arm Right Anaerobic Culture - Final No anaerobic bacteria isolated. 10/28/20 Unknown Tissue - Arm Fungal Smear - Final 10/28/20 14:20 Tissue - Arm Gram Stain - Final 10/28/20 14:20 Tissue - Arm Wound Culture - Final No growth aerobically. 10/28/20 14:20 Tissue - Arm Anaerobic Culture - Final Prevotella oralis 10/25/20 07:35 Blood Culture (Wb) - Anticubital Left Blood Culture - Final No growth in 5 days. 10/25/20 07:45 Blood Culture (Wb) - Left Wrist Blood Culture - Final No growth in 5 days. 10/25/20 07:30 Bite - Arm Gram Stain - Final 10/25/20 07:30 Bite - Arm Wound Culture - Final Pasteurella canis Staphylococcus aureus 10/27/20 18:00 Mucosa - Nose SARS-CoV-2 Antigen (Rapid) - Final Weight used for dosin.7 kg Estimated Creatinine Clearance: 22.81 Goal Trough: 15-20 mcg/mL Pharmacy Plan for Drug Dosing: Pharmacy Service will continue to monitor and adjust dosing as required. Vancomycin random level returned at 12.5mg/L. Patient received dialysis on 11/10/20. Patient is receiving dialysis again this morning and will be dosed based on a pre-dialysis level per policy nomogram. A one time dose of 750mg IV will be ordered for post-dialysis today. Follow-Up Labs: Trough Vancomycin - random level 24 hours after post-dialysis dose Labs to be done on [date and time ordered]: 11/12/20 1400
--- NOTE | 2020-11-11 10:08 | EX.NTREPO ---
Medical Nutrition Therapy - History Nutrition Services has been consulted to:: Manage enteral nutrition Current diet/nutrition support order:: NPO - Anthropometric Measurements Height:: 5 ft 10 in Weight:: 105.7 kg Body Mass Index (BMI):: 33.4 - Relevant Labs Relevant Labs:: WBC 15.6 K/mm3 (4.4-11.0) H 11/10/20 04:20 RBC 2.75 M/mm3 (4.6-6.2) L 11/10/20 04:20 Hgb 8.7 g/dL (13.0-16.5) L 11/10/20 04:20 Hct 27.5 % (40-54) L 11/10/20 04:20 MCV 100.0 fL (80-94) H 11/10/20 04:20 MCH 32.2 pg (27.0-32.0) H 11/09/20 06:14 MCHC 31.6 g/dL (32-36) L 11/10/20 04:20 RDW Std Deviation 61.6 fl (35.1-43.9) H 11/10/20 04:20 RDW Coeff of Marquis 17.8 % (11.6-14.6) H 11/10/20 04:20 Immature Gran % (Auto) 1.500 % (0.0-0.9) H 11/10/20 04:20 Neut % (Auto) 88.8 % (47-70) H 11/10/20 04:20 Lymph % (Auto) 4.4 % (19-41) L 11/10/20 04:20 Eos % (Auto) 6.2 % (0-5) H 10/26/20 02:45 Absolute Neuts (auto) 13.9 X10^3/uL (2.0-7.7) H 11/10/20 04:20 Absolute Lymphs (auto) 0.68 X10^3/uL (0.83-4.51) L 11/10/20 04:20 PT 19.2 SECONDS (11.7-14.9) H 11/10/20 06:30 APTT 45.1 Seconds (24.1-36.2) H 11/10/20 08:55 D-Dimer Quant (PE/DVT) 1.24 FEU/ug/m (0.27-0.49) H* 10/25/20 18:22 Sodium 135 mmol/L (136-145) L 10/29/20 05:38 Potassium 3.4 mmol/L (3.5-5.1) L 11/10/20 04:20 Chloride 108 mmol/L (98-107) H 11/10/20 04:20 Carbon Dioxide 18.0 mmol/L (21.0-32.0) L 11/10/20 04:20 Anion Gap 16 (5-15) H 11/09/20 06:14 BUN 28 mg/dL (7-18) H 11/11/20 03:15 Creatinine 3.20 mg/dL (0.70-1.30) H 11/11/20 03:15 Est GFR (MDRD) Af Amer 25 mL/min (>60) L 11/11/20 03:15 Est GFR (MDRD) Non-Af 21 mL/min (>60) L 11/11/20 03:15 BUN/Creatinine Ratio 8.8 RATIO (10-20) L 11/11/20 03:15 Glucose 124 mg/dL (74-106) H 11/11/20 03:15 Hemoglobin A1c 7.7 % (3.8-5.6) H 10/28/20 04:30 Lactic Acid 2.4 mmol/L (0.4-1.9) H* 10/31/20 23:15 Calcium 7.7 mg/dL (8.5-10.1) L 11/11/20 03:15 Phosphorus 5.0 mg/dL (2.5-4.9) H 11/10/20 04:20 Alkaline Phosphatase 189 U/L (45-117) H 10/25/20 07:35 Troponin I High Sens 494.5 pg/mL (3.0-78.5) H* 10/26/20 20:00 B-Natriuretic Peptide 1972.0 pg/mL (0-100) H 11/08/20 15:00 Albumin 3.0 g/dL (3.2-5.0) L 11/11/20 03:15 Globulin 4.6 g/dL (2.2-4.2) H 10/25/20 07:35 Albumin/Globulin Ratio 0.5 RATIO (0.9-2.4) L 10/25/20 07:35 Prealbumin 8.8 mg/dL (20.0-40.0) L 10/29/20 05:38 Triglycerides 2257 mg/dL (-199) H 11/09/20 16:11 - Assessment Food and Nutrient Intake: Pt remains intubated. Had dialysis yesterday w/ 1L fluid removed. Plans for dialysis again this date. Wt loss of 0.9 kg since last review. Per rounds, pt having significant output from OGT but has also been having BMs. Okay to start enteral nutrition support via OGT per Dr. Valenzuela. - Nutrition Diagnosis: Intake Problem Increased Nutrient Needs (specify) Intake Problem - Etiology: (protein) r/t increased protein needs d/t wounds, sepsis Intake Problem - Signs/Symptoms: as evidenced by RFA open surgical wound Status: Active Problem Inadequate Oral Intake Intake Problem - Etiology: related to decreased appetite w/ acute illness, inadequate energy intake d/t resp. failure requiring mechanical intubation Intake Problem - Signs/Symptoms: as evidenced by ~50% intake of meals over past 3-4 days; no PO intake x3 days Status: Active Problem - Nutrition Diagnosis: Clinical Problem Unintended Weight Gain Clinical Problem - Etiology: r/t fluid retention, sepsis, impaired renal function Clinical Problem - Signs/Symptoms: as evidenced by wt gain of 12.9 kg since 10/25/20 admission, significant edema Status: Active Problem - Nutrition Diagnosis: Behavioral Problem Limited Adherence to Nutrition-Related Recommendations Behavioral-Environmental Problem - Etiology: - Behavioral-Enviornmental Problem - Signs/Symptoms: - Status: Inactive Problem - Protein Calorie Malnutrition Evidence of Malnutrition Exists: No - Nutrition Intervention Nutrition Prescription: [id number] calories/day (22-25 calories/kg IBW). 117-127 g protein/day (1.2g/kg). 1800mL fluid/day (1mL/calorie) - Food / Nutrient Delivery Interventions Nutrition support ordered as / adjusted to:: While intubated, recommend Vital AF 1.2 via OGT at 25mL/hour w/ 30mL H2O flush every 4 hours to provide 720 calories, 45 g protein, and 667mL fluid/day. Once tolerance of enteral nutrition support is established, recommend advancing by 10mL/hour every 8-12 hours to goal rate of 65mL/hour w/ 100mL H2O flush every 4 hours to provide 1872 calories, 117 g protein, and 1865mL total fluid/day. - MNT Monitoring Active Nutrition Patient: Yes Nutrition Status: Requires Follow Up in 1-2 Days
[2020-11-11] MEDS: CHLORHEXIDINE GLUC 2% CLOTH 1 EACH TOWELETTE TOPICAL (10:42)
[2020-11-11] MEDS: Chlorhexidine 15 ML PO ×2 (10:42→20:38)
--- NOTE | 2020-11-11 11:23 | PN.RENAL_ITS ---
Subjective Subjective The patient remained in the ICU mechanically intubated/ventilated/sedated. s/p hemodialysis therapy. Objective Data Objective Data Vital Signs: Vital Signs Temp Pulse Resp BP Pulse Ox 97.2 F L 88 14 88/61 L 100 11/11/20 10:00 11/11/20 11:00 11/11/20 11:00 11/11/20 11:00 11/11/20 11:00 Oxygen Flow Rate (L/min) 6 Oxygen Delivery Method Mechanical Ventilator Weight: 105.7 kg Body Mass Index (BMI) 33.4 Intake & Output: Intake and Output for Last 24 Hours 11/09/20 11/10/20 11/11/20 23:59 23:59 23:59 Intake Total 2197.27 / 2235.07 1606.45 / 1635.65 477.25 / 477.25 Output Total 560 / 560 2330 / 2340 580 / 580 Balance 1637.27 / 1675.07 -723.55 / -704.35 -102.75 / -102.75 Lab / Micro Data Result Diagrams: 11/10/20 04:20 11/11/20 03:15 Labs: Laboratory Results - last 24 hr 11/09/20 10:20: Complement C4 11/10/20 11:25: POC Glucose 143 H 11/10/20 14:46: Hep Bs Antigen Non-Reactive 11/10/20 14:46: Hep Bs Antibody Non-Reactive 11/10/20 17:13: POC Glucose 129 H 11/10/20 22:57: POC Glucose 127 H 11/11/20 03:15: Random Vancomycin 12.5 11/11/20 03:15: Sodium 140, Potassium 3.5, Chloride 104, Carbon Dioxide 22.0, BUN 28 H, Creatinine 3.20 H, Estim Creat Clear Calc 22.81, Est GFR (MDRD) Af Amer 25 L, Est GFR (MDRD) Non-Af 21 L, BUN/Creatinine Ratio 8.8 L, Glucose 124 H , Calcium 7.7 L, Phosphorus 4.6, Albumin 3.0 L Micro: Microbiology 11/09/20 09:35 Blood Culture (Wb) - Arm Left Blood Culture - Preliminary No growth in 48 hours. 11/09/20 14:05 Sputum, Induced/Lukens Gram Stain - Final 11/09/20 14:05 Sputum, Induced/Lukens Respiratory Culture - Final Stenotrophomonas maltophilia 11/04/20 12:15 Tissue - Arm Right Gram Stain - Final 11/04/20 12:15 Tissue - Arm Right Wound Culture - Final No growth aerobically. 11/04/20 12:15 Tissue - Arm Right Anaerobic Culture - Final No growth in 5 days. 11/07/20 15:35 Nasal Secretion SARS-CoV-2 Antigen (Rapid) - Final 11/01/20 Unknown Tissue - Arm Right Gram Stain - Final 11/01/20 Unknown Tissue - Arm Right Wound Culture - Final No growth aerobically. 11/01/20 Unknown Tissue - Arm Right Anaerobic Culture - Final No anaerobic bacteria isolated. 10/28/20 Unknown Tissue - Arm Fungal Smear - Final 10/28/20 14:20 Tissue - Arm Gram Stain - Final 10/28/20 14:20 Tissue - Arm Wound Culture - Final No growth aerobically. 10/28/20 14:20 Tissue - Arm Anaerobic Culture - Final Prevotella oralis 10/25/20 07:35 Blood Culture (Wb) - Anticubital Left Blood Culture - Final No growth in 5 days. 10/25/20 07:45 Blood Culture (Wb) - Left Wrist Blood Culture - Final No growth in 5 days. 10/25/20 07:30 Bite - Arm Gram Stain - Final 10/25/20 07:30 Bite - Arm Wound Culture - Final Pasteurella canis Staphylococcus aureus 10/27/20 18:00 Mucosa - Nose SARS-CoV-2 Antigen (Rapid) - Final Radiography Diagnostic Testing: Radiology Impression Chest X-Ray 11/10/20 12:10 IMPRESSION: Status post right internal jugular venous catheter placement with the tip in the proximal portion of the superior vena cava. All the support tubes are in good position. Persistent bilateral infiltrates although there has been improvement as compared to prior study. Electronically Signed: Gómez Phelps MD at 12:30 EDT , Service support , Chest CTA 11/10/20 12:30 IMPRESSION: No evidence of pulmonary embolism. Bilateral pleural effusions right greater than left. Diffuse bilateral groundglass appearance involving both lungs worse in the right hemithorax with atelectasis and/or infiltrates at both lung bases worse on the right side. Electronically Signed: Gómez Phelps MD at 13:12 EDT , Service support , Physical Exam Narrative General: On ventilator, does not follow command. HEENT: Intubated, mucous membrane moist. Neck: Supple. Heart: Normal S1, S2. No rubs or murmurs. Lungs: Coarse breath sounds bilaterally. Abdomen: Normal bowel sound, soft, nontender. Extremity: 3+ upper extremity edema, 2+ lower extremity edema. Const Constitutional Narrative: ON BIPAP General Appearance: in distress Orientation / Consciousness: confused Exam Limitations: altered mental status Nutritional Appearance: obese HEENT normocephalic Eyes PERRL Neck no lymphadenopathy Chest Chest Narrative: CRACKLES b/l Resp Resp Narrative: crackles Effort and Inspection: abnormal respiratory pattern Cardio no murmurs and peripheral pulses 2+ throughout Jugular Venous Distention: JVD to the level of the angle of the jaw GI normal to inspection, nondistended, normoactive bowel sounds Assessment & Plan Assessment/Plan (1) LETY (acute kidney injury): PLAN: LETY is secondary to either cardiorenal (FEUrea is 18% on 11/09/20) or from ischemic ATN. I suspect that LETY is more likely due to ATN at this point. I have low suspicion for LETY from contrast associated nephropathy since cardiac catheterization was done on 10/27/2020. Serum creatinine did not start to increase until 11/07/2020. Unfortunately, the patient did not respond to bumetanide drip. He actually gained weight over the last 24 hours despite bumetanide drip. Given ongoing acute respiratory failure, volume overload and marginal urine output despite bumetanide drip, he was started on patient on dialysis yesterday. HD today -We will try to remove fluid on dialysis. The amount of ultrafiltration will depend on his blood pressure. . (2) CKD (chronic kidney disease) stage 3, GFR 30-59 ml/min: PLAN: Baseline serum creatinine is around 1.4 to 1.6 mg/dL. Possible underlying diabetic kidney disease. (3) Acute hypoxemic respiratory failure: PLAN: The patient remains on the ventilator. Chest x-ray shows perivascular congestion. The patient is being treated for pneumonia. He also likely has pulmonary edema from fluid overload. Therefore, we will ultrafilter the patient with dialysis. I will stop the bumetanide drip to limit ototoxicity since the patient has marginal response to it. However, since the patient is not completely oliguric, I will leave the patient on intermittent IV furosemide. (4) Necrotizing soft tissue infection: PLAN: The patient is on Zosyn. Dose is appropriate for the current IHD plan. (5) Diabetes: PLAN: Glycemic control as per hospital medicine and intensive care plan. (6) Anemia: PLAN: Follow hemoglobin. Since the patient has LETY, there is no indications for MARY.
[2020-11-11] MEDS: Gabapentin 300 MG Capsule NG ×2 (12:14→16:01)
[2020-11-11] MEDS: Lansoprazole 15 MG Capsule.DR NG ×2 (12:15→21:53)
[2020-11-11] MEDS: Aspirin 81 MG TAB.CHEW NG (12:15)
[2020-11-11] MEDS: Amiodarone 200 MG Tablet GT ×2 (12:15→21:52)
[2020-11-11 12:16] LABS: Bedside Glucose 113 mg/dL (70-110)
[2020-11-11] MEDS: Furosemide 100 MG/10 ML Vial 80 MG IV ×2 (12:16→17:20)
[2020-11-11] MEDS: Paroxetine 20 MG Tablet 40 MG GT (12:16)
[2020-11-11] MEDS: buPROPion 75 MG Tablet NG ×2 (12:17→21:54)
[2020-11-11] MEDS: Senna/Docusate Sodium 1 Tablet 2 TABLET GT (12:21)
[2020-11-11] MEDS: Vital AF 1.2 Cal Liquid 1,000 ML 25 ML GT (12:31)
--- NOTE | 2020-11-11 12:49 | PCM.PN.ID ---
Physical Exam Narrative On vent, HD this AM, no fever Const no apparent distress Resp Auscultation: rhonchi, wheezes and diminished lung sounds Cardio regular rate and regular rhythm GI normal to inspection, nondistended, normoactive bowel sounds Skin no rashes or lesions noted ID ID: Route of nutrition/ use of supplements: [] Nutritional Intake: [] IV Site: [] Reed Catheter: [] Assessment & Plan Assessment/Plan (1) Necrotizing soft tissue infection: PLAN: Had been on unasyn. Most recent I&D 11/04/[address] William. Past few cxs with prevotella, pasteurella, mssa. Now with worsened hypoxia, pulm following, on vent. Seen by neph for LETY. 11/09 broadened abx to vanc/zosyn. Sputum with steno, will stop vanc, add levaquin. will follow, d/w Dr. Valenzuela
--- NOTE | 2020-11-11 12:55 | DIALYSIS ---
Hemodialysis completed 3 hours using a 3 K bath. Fluid removed was 3500 ml. Patient tolerated well, maintaining a MAP of at least 60 throughout the treatment. Next HD will be tomorrow for increased time and most likely more fluid removal. See flow sheet in paper chart for more details.
[2020-11-11] MEDS: Heparin 10,000 UNITS/10 ML Vial IV (13:03)
[2020-11-11] MEDS: DAKIN'S SOL HALF STRENGTH (=0.25%) 1 APPLIC TOPICAL (13:26)
[2020-11-11] MEDS: levoFLOXacin IV 500 MG/100 ML BAG 100 MG IV (13:26)
--- NOTE | 2020-11-11 14:36 | NURSING ---
wound photo: right lateral forearm
--- NOTE | 2020-11-11 14:37 | NURSING ---
wound photo: right dorsal forearm
--- NOTE | 2020-11-11 14:39 | NURSING ---
wound photo: right medial forearm
[2020-11-11] MEDS: Propofol 10MG/Ml 1,000 MG/100 ML Bottle 15.9 MG CONT INF ×2 (16:37→22:26)
--- NOTE | 2020-11-11 17:11 | PN.SURG_ITS ---
Subjective Subjective Postop #14, and postop #10, and postop #7 Patient is intubated. Patient is receiving dialysis. Objective Data Objective Data Vital Signs: Vital Signs Temp Pulse Resp BP Pulse Ox 97.1 F L 98 14 88/59 L 97 11/11/20 12:00 11/11/20 16:22 11/11/20 16:22 11/11/20 13:00 11/11/20 16:22 Oxygen Flow Rate (L/min) 6 Oxygen Delivery Method Mechanical Ventilator Weight: 233 lb 0.458 oz Body Mass Index (BMI) 33.4 Intake & Output: Intake and Output for Last 24 Hours 11/09/20 11/10/20 11/11/20 23:59 23:59 23:59 Intake Total 2197.27 / 2235.07 1606.45 / 1635.65 875.59 / 875.59 Output Total 560 / 560 2330 / 2340 4515 / 4515 Balance 1637.27 / 1675.07 -723.55 / -704.35 -3639.41 / -3639.41 Lab / Micro Data Attestation: I reviewed the patient's lab results. Result Diagrams: 11/12/20 04:20 11/12/20 04:20 Labs: Laboratory Results - last 24 hr 11/10/20 14:46: Hep Bs Antigen Non-Reactive 11/10/20 17:13: POC Glucose 129 H 11/10/20 22:57: POC Glucose 127 H 11/11/20 03:15: Random Vancomycin 12.5 11/11/20 03:15: Sodium 140, Potassium 3.5, Chloride 104, Carbon Dioxide 22.0, BUN 28 H, Creatinine 3.20 H, Estim Creat Clear Calc 22.81, Est GFR (MDRD) Af Amer 25 L, Est GFR (MDRD) Non-Af 21 L, BUN/Creatinine Ratio 8.8 L, Glucose 124 H , Calcium 7.7 L, Phosphorus 4.6, Albumin 3.0 L 11/11/20 12:07: POC Glucose 113 H Micro: Microbiology 11/09/20 09:35 Blood Culture (Wb) - Arm Left Blood Culture - Preliminary No growth in 48 hours. 11/09/20 14:05 Sputum, Induced/Lukens Gram Stain - Final 11/09/20 14:05 Sputum, Induced/Lukens Respiratory Culture - Final Stenotrophomonas maltophilia 11/04/20 12:15 Tissue - Arm Right Gram Stain - Final 11/04/20 12:15 Tissue - Arm Right Wound Culture - Final No growth aerobically. 11/04/20 12:15 Tissue - Arm Right Anaerobic Culture - Final No growth in 5 days. 11/07/20 15:35 Nasal Secretion SARS-CoV-2 Antigen (Rapid) - Final 11/01/20 Unknown Tissue - Arm Right Gram Stain - Final 11/01/20 Unknown Tissue - Arm Right Wound Culture - Final No growth aerobically. 11/01/20 Unknown Tissue - Arm Right Anaerobic Culture - Final No anaerobic bacteria isolated. 10/28/20 Unknown Tissue - Arm Fungal Smear - Final 10/28/20 14:20 Tissue - Arm Gram Stain - Final 10/28/20 14:20 Tissue - Arm Wound Culture - Final No growth aerobically. 10/28/20 14:20 Tissue - Arm Anaerobic Culture - Final Prevotella oralis 10/25/20 07:35 Blood Culture (Wb) - Anticubital Left Blood Culture - Final No growth in 5 days. 10/25/20 07:45 Blood Culture (Wb) - Left Wrist Blood Culture - Final No growth in 5 days. 10/25/20 07:30 Bite - Arm Gram Stain - Final 10/25/20 07:30 Bite - Arm Wound Culture - Final Pasteurella canis Staphylococcus aureus 10/27/20 18:00 Mucosa - Nose SARS-CoV-2 Antigen (Rapid) - Final Physical Exam Narrative Extremities - No axillary adenopathy. Radial pulses are palpable. Right forearm and wrist wounds are stable. No active bleeding noted. Muscles are viable. Some of the exposed tendons are showing some signs of dessication. Will monitor at this time. No evidence of persistent purulent drainage noted. Mild finger swelling. I am able to passively flex the MP joints almost to 90 degrees at this time. Dakin's dressing change done today. Assessment & Plan Assessment/Plan (1) Dog bite: QUALIFIERS: Encounter type: initial encounter Qualified Code(s): W54.0XXA - Bitten by dog, initial encounter (2) Abscess of bursa of right forearm: (3) Necrotizing soft tissue infection: (4) Extensor tenosynovitis of right wrist: (5) Abscess of skin of right wrist: (6) Open wound of right forearm due to dog bite: (7) Open wound of right wrist due to dog bite: (8) Diabetes: (9) Acute blood loss anemia: (10) Former smoker: PLAN: Dakin's dressing change done today without problem. Wounds were clean with no further evidence of purulence. Muscles appear viable. Some of the exposed tendons are showing some signs of dessication. Will monitor at this time. The severity of the infection has contributed to compromised blood supply to the tendons involved. No active bleeding seen. The dressing showed no blood staining. Hgb is 8.7 which is slightly decreased from previous value at 9.1. Continue Iron supplementation. He has acute postoperative anemia from expected blood loss. From the dressing changes, I anticipate approximately a unit since surgery. Patient was also on a heparin drip for his atrial fibrillation. Continue Vancomycin and Zosyn. Operative cultures from 11/01/20 surgery and 11/04/20 surgery are negative. Operative cultures from 10/28/20 showed Prevotella bivia. The dressing changes will be difficult at home initially. Discussed with the patient about going to an ECF for short term until the dressing changes can be tolerated at home. He was in agreement. TCU evaluation is on hold while the patient is intubated in the ICU. Prealbumin was 8.8. Encourage nutritional supplementation with protein to help the healing process. Encourage range of motion exercises to minimize stiffness. He is at risk for developing stiffness. Will need OT after discharge for range of motion exercises, strengthening, and edema management. When he is medically stable and extubated, will continue range of motion exercises. His WBC has decreased down to 15.6. When he is medically stable, will consider another trip to the operating room for another incision and drainage and irrigation of his wounds.
[2020-11-11] MEDS: 0.9% Saline Lock 10 ML Syringe IV (17:20)
[2020-11-11 17:21] LABS: Bedside Glucose 126 mg/dL (70-110)
--- NOTE | 2020-11-11 18:33 | PN.HOSP_ITS ---
Subjective Subjective Patient was seen and examined today, he remains sedated on the ventilator. He underwent dialysis today Objective Data Objective Data Vital Signs: Vital Signs Temp Pulse Resp BP Pulse Ox 98.0 F 98 14 93/62 97 11/11/20 18:00 11/11/20 18:00 11/11/20 18:00 11/11/20 18:00 11/11/20 18:00 Oxygen Flow Rate (L/min) 6 Oxygen Delivery Method Mechanical Ventilator Weight: 105.7 kg Body Mass Index (BMI) 33.4 Intake & Output: Intake and Output for Last 24 Hours 11/09/20 11/10/20 11/11/20 23:59 23:59 23:59 Intake Total 2197.27 / 2235.07 1606.45 / 1635.65 1202.91 / 1202.91 Output Total 560 / 560 2330 / 2340 4520 / 4520 Balance 1637.27 / 1675.07 -723.55 / -704.35 -3317.09 / -3317.09 Lab / Micro Data Result Diagrams: 11/10/20 04:20 11/11/20 03:15 Labs: Laboratory Results - last 24 hr 11/10/20 14:46: Hep Bs Antigen Non-Reactive 11/10/20 22:57: POC Glucose 127 H 11/11/20 03:15: Random Vancomycin 12.5 11/11/20 03:15: Sodium 140, Potassium 3.5, Chloride 104, Carbon Dioxide 22.0, BUN 28 H, Creatinine 3.20 H, Estim Creat Clear Calc 22.81, Est GFR (MDRD) Af Amer 25 L, Est GFR (MDRD) Non-Af 21 L, BUN/Creatinine Ratio 8.8 L, Glucose 124 H , Calcium 7.7 L, Phosphorus 4.6, Albumin 3.0 L 11/11/20 12:07: POC Glucose 113 H 11/11/20 17:17: POC Glucose 126 H Micro: Microbiology 11/09/20 09:35 Blood Culture (Wb) - Arm Left Blood Culture - Preliminary No growth in 48 hours. 11/09/20 14:05 Sputum, Induced/Lukens Gram Stain - Final 11/09/20 14:05 Sputum, Induced/Lukens Respiratory Culture - Final Stenotrophomonas maltophilia 11/04/20 12:15 Tissue - Arm Right Gram Stain - Final 11/04/20 12:15 Tissue - Arm Right Wound Culture - Final No growth aerobically. 11/04/20 12:15 Tissue - Arm Right Anaerobic Culture - Final No growth in 5 days. 11/07/20 15:35 Nasal Secretion SARS-CoV-2 Antigen (Rapid) - Final 11/01/20 Unknown Tissue - Arm Right Gram Stain - Final 11/01/20 Unknown Tissue - Arm Right Wound Culture - Final No growth aerobically. 11/01/20 Unknown Tissue - Arm Right Anaerobic Culture - Final No anaerobic bacteria isolated. 10/28/20 Unknown Tissue - Arm Fungal Smear - Final 10/28/20 14:20 Tissue - Arm Gram Stain - Final 10/28/20 14:20 Tissue - Arm Wound Culture - Final No growth aerobically. 10/28/20 14:20 Tissue - Arm Anaerobic Culture - Final Prevotella oralis 10/25/20 07:35 Blood Culture (Wb) - Anticubital Left Blood Culture - Final No growth in 5 days. 10/25/20 07:45 Blood Culture (Wb) - Left Wrist Blood Culture - Final No growth in 5 days. 10/25/20 07:30 Bite - Arm Gram Stain - Final 10/25/20 07:30 Bite - Arm Wound Culture - Final Pasteurella canis Staphylococcus aureus 10/27/20 18:00 Mucosa - Nose SARS-CoV-2 Antigen (Rapid) - Final Physical Exam Narrative Const: Constitutional Narrative: Patient is under sedation on the ventilator at this time HEENT Head and Scalp: normocephalic Resp normal respiratory effort, no retractions and clear to auscultation bilaterally Cardio regular rate, regular rhythm, S1 normal heart sound, S2 normal heart sound, no gallops and no clicks GI normal to inspection, nondistended, normoactive bowel sounds, soft to palpation and non-tender Extremity Extremity Narrative: Patient's right lower arm is wrapped with surgical dressing, this was not removed for examination Neuro Neuro Narrative: Patient is sedated on the ventilator Psych Psych Narrative: Patient is sedated on the ventilator Assessment & Plan Assessment/Plan (1) Acute respiratory failure: QUALIFIERS: Respiratory failure complication: hypoxia Qualified Code(s): J96.01 - Acute respiratory failure with hypoxia PLAN: (1) Acute hypoxemic respiratory failure: PLAN: 1. Acute hypoxic respiratory failure-etiology unclear at this time, CTA of the patient's chest did not show evidence of PE yesterday, continue vent management per critical care #2 severe sepsis secondary to cellulitis of the right forearm, continue antibiotics per ID and critical care, plastic surgery is participating in his care #3 acute renal failure on a backdrop of chronic kidney disease stage IIIa- nephrology is participating in his care, patient had dialysis today #4 possible hospital-acquired pneumonia-patient sputum was positive for gram- negative farida, antibiotic coverage per critical care and ID #5 non-STEMI #6 paroxysmal atrial fib #7 ischemic cardiomyopathy #8 type 2 diabetes #9 hyperlipidemia Charges/Coding Visit Charges Inpatient E&M: 21604 Subs Hosp L2
[2020-11-11] MEDS: Pravastatin 80 MG Tablet NG (21:53)
[2020-11-11 23:26] LABS: Bedside Glucose 126 mg/dL (70-110)
[2020-11-12] VITALS (27 sets, daily range): BP systolic 90–118; BP diastolic 51–77; PULSE 94–110; RESP 12–26; TEMP 37.5–37.9; O2SAT 90–99
[2020-11-12] MEDS: Propofol 10MG/Ml 1,000 MG/100 ML Bottle 15.9 MG CONT INF ×3 (03:11→15:59)
[2020-11-12 04:26] LABS: Absolute Lymphocyte Count 0.41 X10^3/uL (0.83-4.51); Absolute Neutrophil Count 12.9 X10^3/uL (2.0-7.7); Basophil# 0.02 X10^3/uL; Basophil% 0.1 % (0-1); Eosinophil# 0.01 X10^3/uL; Eosinophils% 0.1 % (0-5); Hematocrit 24.9 % (40-54); Lymphocyte # 0.41 X10^3/ul (0.83-4.51); Lymphocyte % 2.8 % (19-41); Mean Corp Hgb Conc 32.1 g/dL (32-36); Mean Corpuscular Hgb 31.9 pg (27.0-32.0); Mean Corpuscular Volume 99.2 fL (80-94); Mean Platelet Vol. 9.5 fl (6.2-12.0); Monocyte# 0.93 X10^3/uL; Monocyte% 6.5 % (0-10); NRBC Flagged by Analyzer 0 % (0-5); Neutrophil # 12.92 X10^3/uL (2.7-7.7); Neutrophil % 89.8 % (47-70); POSITIVE DIFFERENTIAL YES; Platelet Count 107 K/mm3 (150-450); RBC Distribution Width SD 64.4 fl (35.1-43.9); Red Blood Count 2.51 M/mm3 (4.6-6.2); White Blood Count 14.4 K/mm3 (4.4-11.0)
[2020-11-12 04:48] LABS: Differential Indicated SCAN CRITERIA MET
[2020-11-12 05:26] LABS: ALB/GLOB Ratio 1.2 RATIO (0.9-2.4); AST(SGOT) 12 U/L (15-37); Alanine Aminotransfer ALT/SGPT < 6 U/L (16-61); Alkaline Phosphatase 66 U/L (45-117); Anion Gap 11 (5-15); BUN 22 mg/dL (7-18); BUN/Creat Ratio 6.6 RATIO (10-20); Calcium,Total 7.7 mg/dL (8.5-10.1); Chloride 101 mmol/L (98-107); Creatinine, Serum 3.31 mg/dL (0.70-1.30); EST Glomerular Filtration Rate 20 mL/min (>60); Est Glom Filt Rate - Afr Amer 24 mL/min (>60); Estimated Creatinine Clearance 22.05 ml/min; Globulin 2.6 g/dL (2.2-4.2); Glucose 131 mg/dL (74-106); Potassium 3.2 mmol/L (3.5-5.1); Protein, Total 5.6 g/dL (6.4-8.2); Sodium Level 139 mmol/L (136-145)
--- NOTE | 2020-11-12 05:33 | PN.CC_ITS ---
Assessment & Plan Assessment/Plan (1) Acute hypoxemic respiratory failure: PLAN: RECOMMENDATIONS: 1. Continue patient on assist control mode of mechanical ventilation and wean FiO2 to maintain saturations at or above 90%. 2. Continue hemodialysis support with volume removal as tolerated. 3. Continue antimicrobials per ID recommendations. 4. Vasopressor support, if needed, to maintain hemodynamic stability. 5. Potassium repletion. 6. Continue appropriate GI and DVT prophylaxis. IMPRESSIONS: 1. Acute hypoxemic respiratory failure Likely multifactorial in etiology. Radiographically, it does appear that the patient had residual effusions, atelectasis and potential pneumonia contributing to his hypoxemia. PE has been ruled out by CTA chest. Despite the use of noninvasive positive pressure ventilatory support, the patient continued to decompensate from a respiratory perspective and did require intubation on November 09. His respiratory decompensation was likely the consequence of hypervolemia and gram-negative pneumonia. We will plan to continue broad-spectrum antimicrobials, per ID recommendations. The patient will be continued on assist control mode of mechanical ventilation with a goal to wean FiO2 to maintain saturations at or above 90%. 2. Severe sepsis The patient has a known necrotizing soft tissue infection, along with gram- negative pneumonia. Plan to continue antimicrobials per ID recommendations. 3. Coronary artery disease status post CABG/ischemic cardiomyopathy/atrial fibrillation Continue medical management per cardiology recommendations. 4. 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 Strongly recommend against further consideration for surgical intervention given clinical instability at the present time. 5. Acute on chronic kidney disease Potentially related to overdiuresis, with concern for ischemic ATN. Plan to continue dialysis support per nephrology recommendations with additional volume removal as tolerated. Vasopressor support can be needed if the patient becomes hemodynamically unstable. 6. Diabetes mellitus/depression/hypertension/GERD/hyperlipidemia Complicates care, management, recovery and prognosis. Continue home medications as indicated. TIME: 35 minutes of critical care time, independent of procedures, was spent ad dressing the patient's acute hypoxemic respiratory failure, severe sepsis, coronary artery disease, necrotizing soft tissue infection, acute on chronic kidney disease, review of all data and collaboration with the care team. ([id number] [phone]) Subjective Subjective The patient was seen and examined at the bedside this morning. Events from the last 24 hours have been reviewed. The patient has had some low-grade fevers overnight, but otherwise remains hemodynamically stable on assist control mode of mechanical ventilation with an FiO2 requirement of 40%. The patient tolerated dialysis yesterday for 3 hours with 3.5 L of fluid removed. He is now documented to be overall net +10.3 L for the hospital admission. Potassium is low this morning at 3.2. Nursing staff did report that the patient failed his spontaneous breathing trial. Tube feeds are currently on hold due to high residuals. Objective Data Objective Data The patient's most recent lab work, culture data and imaging studies have all been personally reviewed. CTA chest dated October 26 revealed no evidence for pulmonary embolism. Small bilateral pleural effusions with associated co mpressive atelectasis were noted. Surface echocardiogram completed on October 28 revealed normal LV size with an ejection fraction of 55%. Right ventricular systolic pressure was unable to be obtained. Rapid coronavirus antigen testing was negative. Wound culture was positive for Pasteurella and staph aureus. Sputum Gram stain was positive for a gram-negative farida. Vital Signs: Vital Signs Temp Pulse Resp BP Pulse Ox 100.2 F H 97 14 118/70 99 11/12/20 05:00 11/12/20 05:00 11/12/20 05:00 11/12/20 05:00 11/12/20 05:00 Oxygen Flow Rate (L/min) 6 Oxygen Delivery Method Mechanical Ventilator Weight: 105.7 kg Body Mass Index (BMI) 33.4 Intake & Output: Intake and Output for Last 24 Hours 11/10/20 11/11/20 11/12/20 23:59 23:59 23:59 Intake Total 1606.45 / 1635.65 1325.52 / 1510.42 535.32 / 535.32 Output Total 2330 / 2340 4566 / 4566 Balance -723.55 / -704.35 -3240.48 / -3055.58 515.32 / 515.32 Lab / Micro Data Attestation: I reviewed the patient's lab results. Result Diagrams: 11/12/20 04:20 11/12/20 04:20 Labs: Laboratory Results - last 24 hr 11/11/20 12:07: POC Glucose 113 H 11/11/20 17:17: POC Glucose 126 H 11/11/20 22:55: POC Glucose 126 H 11/12/20 04:20: WBC 14.4 H, RBC 2.51 L, Hgb 8.0 L, Hct 24.9 L, MCV 99.2 H, MCH 31.9, MCHC 32.1, RDW Std Deviation 64.4 H, RDW Coeff of Marquis 18.0 H, Plt Count 107 L, MPV 9.5, Immature Gran % (Auto) 0.700, Neut % (Auto) 89.8 H, Lymph % (Auto) 2.8 L, [place] % (Auto) 6.5, Eos % (Auto) 0.1, Baso % (Auto) 0.1, Absolute Neuts (auto) 12.9 H, Absolute Lymphs (auto) 0.41 L, Nucleated RBC % 0 11/12/20 04:20: Sodium 139, Potassium 3.2 L, Chloride 101, Carbon Dioxide 27.0, Anion Gap 11, BUN 22 H, Creatinine 3.31 H, Estim Creat Clear Calc 22.05, Est GFR (MDRD) Af Amer 24 L, Est GFR (MDRD) Non-Af 20 L, BUN/Creatinine Ratio 6.6 L, Glucose 131 H, Calcium 7.7 L, Total Bilirubin 0.70, AST 12 L, ALT < 6 L, Alkaline Phosphatase 66, Total Protein 5.6 L, Albumin 3.0 L, Globulin 2.6, Albumin/Globulin Ratio 1.2 Micro: Microbiology 11/09/20 09:35 Blood Culture (Wb) - Arm Left Blood Culture - Preliminary No growth in 48 hours. 11/09/20 14:05 Sputum, Induced/Lukens Gram Stain - Final 11/09/20 14:05 Sputum, Induced/Lukens Respiratory Culture - Final Stenotrophomonas maltophilia 11/04/20 12:15 Tissue - Arm Right Gram Stain - Final 11/04/20 12:15 Tissue - Arm Right Wound Culture - Final No growth aerobically. 11/04/20 12:15 Tissue - Arm Right Anaerobic Culture - Final No growth in 5 days. 11/07/20 15:35 Nasal Secretion SARS-CoV-2 Antigen (Rapid) - Final 11/01/20 Unknown Tissue - Arm Right Gram Stain - Final 11/01/20 Unknown Tissue - Arm Right Wound Culture - Final No growth aerobically. 11/01/20 Unknown Tissue - Arm Right Anaerobic Culture - Final No anaerobic bacteria isolated. 10/28/20 Unknown Tissue - Arm Fungal Smear - Final 10/28/20 14:20 Tissue - Arm Gram Stain - Final 10/28/20 14:20 Tissue - Arm Wound Culture - Final No growth aerobically. 10/28/20 14:20 Tissue - Arm Anaerobic Culture - Final Prevotella oralis 10/25/20 07:35 Blood Culture (Wb) - Anticubital Left Blood Culture - Final No growth in 5 days. 10/25/20 07:45 Blood Culture (Wb) - Left Wrist Blood Culture - Final No growth in 5 days. 10/25/20 07:30 Bite - Arm Gram Stain - Final 10/25/20 07:30 Bite - Arm Wound Culture - Final Pasteurella canis Staphylococcus aureus 10/27/20 18:00 Mucosa - Nose SARS-CoV-2 Antigen (Rapid) - Final Physical Exam Const General Appearance: ill appearing, intubated and patient mechanically ventilated HEENT normocephalic and head/scalp atraumatic Mouth: dry mucous membranes, endotracheal tube in place and OG tube in place Teeth and Gingiva: poor dentition Eyes PERRL and EOMs intact bilaterally Neck supple General: trachea midline and CVC in place Resp Auscultation: rhonchi and diminished lung sounds; Negative for rales or wheezes Cardio regular rate, regular rhythm, S1 normal heart sound and S2 normal heart sound GI normal to inspection, nondistended, normoactive bowel sounds Extremity General Extremity: edema; Negative for clubbing Skin Wound Narrative: No significant change in the patient's upper extremity wound Neuro Sensorium / Orientation: sedated on vent Charges/Coding Procedures Hospitalists Procedures: 11865 Critial Care 1st Hr
[2020-11-12] MEDS: Albumin Human 25% (100 mL) 25 GM/100 ML BAG IV ×3 (05:56→16:00)
[2020-11-12] MEDS: Heparin Injection (Vial) 5,000 UNIT/ML VIAL 5000 UNIT SC ×2 (06:00→13:03)
[2020-11-12] MEDS: Menthol/Lanolin/Calamine/Znox 113 GM Tube 1 APPLIC TOPICAL ×2 (06:26→13:02)
[2020-11-12] MEDS: Ipratropium/Albuterol Sulfate 3 ML AMPUL.NEB INHALATION ×3 (06:40→14:17)
[2020-11-12 07:00] LABS: Bedside Glucose 119 mg/dL (70-110)
--- NOTE | 2020-11-12 10:03 | NURSING ---
AM dose of albumin not infusing, changed tubing, changed IV pump, called pharmacy, new bottle sent up and hung.
--- NOTE | 2020-11-12 10:10 | PCM.PN.REN ---
Subjective Subjective Patient remains intubated. seen while on HD Objective Data Objective Data Vital Signs: Vital Signs Temp Pulse Resp BP Pulse Ox 99.9 F H 98 14 118/75 99 11/12/20 09:00 11/12/20 09:00 11/12/20 09:00 11/12/20 09:00 11/12/20 09:00 Oxygen Flow Rate (L/min) 6 Oxygen Delivery Method Mechanical Ventilator Weight: 103.1 kg Body Mass Index (BMI) 33.4 Intake & Output: Intake and Output for Last 24 Hours 11/10/20 11/11/20 11/12/20 23:59 23:59 23:59 Intake Total 1606.45 / 1635.65 1325.52 / 1510.42 776.13 / 776.13 Output Total 2330 / 2340 4566 / 4566 Balance -723.55 / -704.35 -3240.48 / -3055.58 751.13 / 751.13 Lab / Micro Data Result Diagrams: 11/12/20 04:20 11/12/20 04:20 Labs: Laboratory Results - last 24 hr 11/11/20 12:07: POC Glucose 113 H 11/11/20 17:17: POC Glucose 126 H 11/11/20 22:55: POC Glucose 126 H 11/12/20 04:20: WBC 14.4 H, RBC 2.51 L, Hgb 8.0 L, Hct 24.9 L, MCV 99.2 H, MCH 31.9, MCHC 32.1, RDW Std Deviation 64.4 H, RDW Coeff of Marquis 18.0 H, Plt Count 107 L, MPV 9.5, Immature Gran % (Auto) 0.700, Neut % (Auto) 89.8 H, Lymph % (Auto) 2.8 L, [place] % (Auto) 6.5, Eos % (Auto) 0.1, Baso % (Auto) 0.1, Absolute Neuts (auto) 12.9 H, Absolute Lymphs (auto) 0.41 L, Nucleated RBC % 0 11/12/20 04:20: Sodium 139, Potassium 3.2 L, Chloride 101, Carbon Dioxide 27.0, Anion Gap 11, BUN 22 H, Creatinine 3.31 H, Estim Creat Clear Calc 22.05, Est GFR (MDRD) Af Amer 24 L, Est GFR (MDRD) Non-Af 20 L, BUN/Creatinine Ratio 6.6 L, Glucose 131 H, Calcium 7.7 L, Total Bilirubin 0.70, AST 12 L, ALT < 6 L, Alkaline Phosphatase 66, Total Protein 5.6 L, Albumin 3.0 L, Globulin 2.6, Albumin/Globulin Ratio 1.2 11/12/20 06:30: POC Glucose 119 H Micro: Microbiology 11/09/20 09:35 Blood Culture (Wb) - Arm Left Blood Culture - Preliminary No growth in 48 hours. 11/09/20 14:05 Sputum, Induced/Lukens Gram Stain - Final 11/09/20 14:05 Sputum, Induced/Lukens Respiratory Culture - Final Stenotrophomonas maltophilia 11/04/20 12:15 Tissue - Arm Right Gram Stain - Final 11/04/20 12:15 Tissue - Arm Right Wound Culture - Final No growth aerobically. 11/04/20 12:15 Tissue - Arm Right Anaerobic Culture - Final No growth in 5 days. 11/07/20 15:35 Nasal Secretion SARS-CoV-2 Antigen (Rapid) - Final 11/01/20 Unknown Tissue - Arm Right Gram Stain - Final 11/01/20 Unknown Tissue - Arm Right Wound Culture - Final No growth aerobically. 11/01/20 Unknown Tissue - Arm Right Anaerobic Culture - Final No anaerobic bacteria isolated. 10/28/20 Unknown Tissue - Arm Fungal Smear - Final 10/28/20 14:20 Tissue - Arm Gram Stain - Final 10/28/20 14:20 Tissue - Arm Wound Culture - Final No growth aerobically. 10/28/20 14:20 Tissue - Arm Anaerobic Culture - Final Prevotella oralis 10/25/20 07:35 Blood Culture (Wb) - Anticubital Left Blood Culture - Final No growth in 5 days. 10/25/20 07:45 Blood Culture (Wb) - Left Wrist Blood Culture - Final No growth in 5 days. 10/25/20 07:30 Bite - Arm Gram Stain - Final 10/25/20 07:30 Bite - Arm Wound Culture - Final Pasteurella canis Staphylococcus aureus 10/27/20 18:00 Mucosa - Nose SARS-CoV-2 Antigen (Rapid) - Final Physical Exam Narrative General: On ventilator, does not follow command. HEENT: Intubated, mucous membrane moist. Neck: Supple. Heart: Normal S1, S2. No rubs or murmurs. Lungs: Coarse breath sounds bilaterally. Abdomen: Normal bowel sound, soft, nontender. Extremity: 3+ upper extremity edema, 2+ lower extremity edema. Assessment & Plan Assessment/Plan (1) LETY (acute kidney injury): PLAN: LETY is secondary to ATN Started on HD 11/10 Today 3rd HD session : BQ 350 DQ 600 UF 4.5 L Will evaluate the need for HD tomorrow Keep MAP > 65 Continue to monitor for kidney funciton recovery. . (2) CKD (chronic kidney disease) stage 3, GFR 30-59 ml/min: PLAN: Baseline serum creatinine is around 1.4 to 1.6 mg/dL. Possible underlying diabetic kidney disease. (3) Acute hypoxemic respiratory failure: PLAN: The patient remains on the ventilator. Chest x-ray shows perivascular congestion. The patient is being treated for pneumonia. He also likely has pulmonary edema from fluid overload. Therefore, we will ultrafilter the patient with dialysis.aiming for 4.5L today . (4) Necrotizing soft tissue infection: PLAN: The patient is on Zosyn. Dose is appropriate for the current IHD plan. (5) Diabetes: PLAN: Glycemic control as per hospital medicine and intensive care plan. (6) Anemia: PLAN: Follow hemoglobin. Since the patient has LETY, there is no indications for MARY. RBC transfusion as per the primary service
[2020-11-12] MEDS: Aspirin 81 MG TAB.CHEW NG (12:27)
[2020-11-12] MEDS: Senna/Docusate Sodium 1 Tablet 2 TABLET GT (12:27)
[2020-11-12] MEDS: Amiodarone 200 MG Tablet GT (12:28)
[2020-11-12] MEDS: Gabapentin 300 MG Capsule NG ×2 (12:28→16:01)
[2020-11-12] MEDS: Chlorhexidine 15 ML PO (12:28)
[2020-11-12] MEDS: Furosemide 100 MG/10 ML Vial 80 MG IV ×2 (12:28→17:46)
[2020-11-12] MEDS: Lansoprazole 15 MG Capsule.DR NG (12:28)
[2020-11-12] MEDS: Paroxetine 20 MG Tablet 40 MG GT (12:29)
[2020-11-12] MEDS: Heparin 10,000 UNITS/10 ML Vial IV (12:29)
[2020-11-12] MEDS: DAKIN'S SOL HALF STRENGTH (=0.25%) 1 APPLIC TOPICAL (12:31)
[2020-11-12] MEDS: buPROPion 75 MG Tablet NG (12:31)
--- NOTE | 2020-11-12 12:43 | DIALYSIS ---
HD x 4 hours complete. Tolerated tx well. UF of 4500ml. Used right temporary IJ dialysis catheter. Lumens closed with heparin. Caps placed. Dressing is intact. See tx sheet for more details. Report was given to HOMER Nesbitt.
[2020-11-12] MEDS: CHLORHEXIDINE GLUC 2% CLOTH 1 EACH TOWELETTE TOPICAL (12:59)
[2020-11-12 13:06] LABS: Bedside Glucose 120 mg/dL (70-110)
--- NOTE | 2020-11-12 14:20 | NURSING ---
Stewart at bedside, performed dressing change.
--- NOTE | 2020-11-12 14:22 | PN.HOSP_ITS ---
Subjective Subjective Patient was seen and examined today, he remains sedated on the ventilator, he is undergoing dialysis at this time. Objective Data Objective Data Vital Signs: Vital Signs Temp Pulse Resp BP Pulse Ox 100.1 F H 106 H 21 H 104/68 90 11/12/20 14:00 11/12/20 14:00 11/12/20 14:00 11/12/20 14:00 11/12/20 14:00 Oxygen Flow Rate (L/min) 6 Oxygen Delivery Method Mechanical Ventilator Weight: 103.1 kg Body Mass Index (BMI) 33.4 Intake & Output: Intake and Output for Last 24 Hours 11/10/20 11/11/20 11/12/20 23:59 23:59 23:59 Intake Total 1606.45 / 1635.65 1325.52 / 1510.42 1089.46 / 1089.46 Output Total 2330 / 2340 4566 / 4566 95 / 95 Balance -723.55 / -704.35 -3240.48 / -3055.58 994.46 / 994.46 Lab / Micro Data Result Diagrams: 11/12/20 04:20 11/12/20 04:20 Labs: Laboratory Results - last 24 hr 11/11/20 17:17: POC Glucose 126 H 11/11/20 22:55: POC Glucose 126 H 11/12/20 04:20: WBC 14.4 H, RBC 2.51 L, Hgb 8.0 L, Hct 24.9 L, MCV 99.2 H, MCH 31.9, MCHC 32.1, RDW Std Deviation 64.4 H, RDW Coeff of Marquis 18.0 H, Plt Count 107 L, MPV 9.5, Immature Gran % (Auto) 0.700, Neut % (Auto) 89.8 H, Lymph % (Auto) 2.8 L, [place] % (Auto) 6.5, Eos % (Auto) 0.1, Baso % (Auto) 0.1, Absolute Neuts (auto) 12.9 H, Absolute Lymphs (auto) 0.41 L, Nucleated RBC % 0 11/12/20 04:20: Sodium 139, Potassium 3.2 L, Chloride 101, Carbon Dioxide 27.0, Anion Gap 11, BUN 22 H, Creatinine 3.31 H, Estim Creat Clear Calc 22.05, Est GFR (MDRD) Af Amer 24 L, Est GFR (MDRD) Non-Af 20 L, BUN/Creatinine Ratio 6.6 L, Glucose 131 H, Calcium 7.7 L, Total Bilirubin 0.70, AST 12 L, ALT < 6 L, Alkaline Phosphatase 66, Total Protein 5.6 L, Albumin 3.0 L, Globulin 2.6, Album in/Globulin Ratio 1.2 11/12/20 06:30: POC Glucose 119 H 11/12/20 13:02: POC Glucose 120 H Micro: Microbiology 11/09/20 09:35 Blood Culture (Wb) - Arm Left Blood Culture - Preliminary No growth in 48 hours. 11/09/20 14:05 Sputum, Induced/Lukens Gram Stain - Final 11/09/20 14:05 Sputum, Induced/Lukens Respiratory Culture - Final Stenotrophomonas maltophilia 11/04/20 12:15 Tissue - Arm Right Gram Stain - Final 11/04/20 12:15 Tissue - Arm Right Wound Culture - Final No growth aerobically. 11/04/20 12:15 Tissue - Arm Right Anaerobic Culture - Final No growth in 5 days. 11/07/20 15:35 Nasal Secretion SARS-CoV-2 Antigen (Rapid) - Final 11/01/20 Unknown Tissue - Arm Right Gram Stain - Final 11/01/20 Unknown Tissue - Arm Right Wound Culture - Final No growth aerobically. 11/01/20 Unknown Tissue - Arm Right Anaerobic Culture - Final No anaerobic bacteria isolated. 10/28/20 Unknown Tissue - Arm Fungal Smear - Final 10/28/20 14:20 Tissue - Arm Gram Stain - Final 10/28/20 14:20 Tissue - Arm Wound Culture - Final No growth aerobically. 10/28/20 14:20 Tissue - Arm Anaerobic Culture - Final Prevotella oralis 10/25/20 07:35 Blood Culture (Wb) - Anticubital Left Blood Culture - Final No growth in 5 days. 10/25/20 07:45 Blood Culture (Wb) - Left Wrist Blood Culture - Final No growth in 5 days. 10/25/20 07:30 Bite - Arm Gram Stain - Final 10/25/20 07:30 Bite - Arm Wound Culture - Final Pasteurella canis Staphylococcus aureus 10/27/20 18:00 Mucosa - Nose SARS-CoV-2 Antigen (Rapid) - Final Physical Exam Narrative Physical Exam Narrative Const: Constitutional Narrative: Patient is under sedation on the ventilator at this time HEENT Head and Scalp: normocephalic Resp normal respiratory effort, no retractions and clear to auscultation bilaterally Cardio regular rate, regular rhythm, S1 normal heart sound, S2 normal heart sound, no gallops and no clicks GI normal to inspection, nondistended, normoactive bowel sounds, soft to palpation and non-tender Extremity Extremity Narrative: Patient's right lower arm is wrapped with surgical dressi ng, this was not removed for examination Neuro Neuro Narrative: Patient is sedated on the ventilator Psych Psych Narrative: Patient is sedated on the ventilator Assessment & Plan Assessment/Plan (1) Acute hypoxemic respiratory failure: PLAN: Assessment & Plan Assessment/Plan (1) Acute respiratory failure: QUALIFIERS: Respiratory failure complication: hypoxia Qualified Code(s): J96.01 - Acute respiratory failure with hypoxia PLAN: (1) Acute hypoxemic respiratory failure: PLAN: 1. Acute hypoxic respiratory failure-etiology unclear at this time #2 severe sepsis secondary to cellulitis of the right forearm, continue antibiotics per ID and critical care, plastic surgery is participating in his care #3 acute renal failure on a backdrop of chronic kidney disease stage IIIa- nephrology is participating in his care, patient had dialysis today #4 possible hospital-acquired pneumonia-patient sputum was positive for gram- negative farida, antibiotic coverage per critical care and ID #5 non-STEMI #6 paroxysmal atrial fib #7 ischemic cardiomyopathy #8 type 2 diabetes #9 hyperlipidemia #10 chronic anemia-probably secondary to blood loss secondary to multiple right arm surgeries and lab draws, labs will be rechecked tomorrow Charges/Coding Visit Charges Inpatient E&M: 12293 Subs Hosp L2
--- NOTE | 2020-11-12 16:59 | PCM.PN.SRG ---
Subjective Subjective Postop #15, and postop #11, and postop #8 Patient is intubated. Patient is receiving dialysis. Objective Data Objective Data Vital Signs: Vital Signs Temp Pulse Resp BP Pulse Ox 100.1 F H 106 H 26 H 90/67 93 11/12/20 16:00 11/12/20 16:00 11/12/20 16:00 11/12/20 16:00 11/12/20 16:00 Oxygen Flow Rate (L/min) 6 Oxygen Delivery Method Mechanical Ventilator Weight: 227 lb 4.745 oz Body Mass Index (BMI) 33.4 Intake & Output: Intake and Output for Last 24 Hours 11/10/20 11/11/20 11/12/20 23:59 23:59 23:59 Intake Total 1606.45 / 1635.65 1325.52 / 1510.42 1128.49 / 1128.49 Output Total 2330 / 2340 4566 / 4566 95 / 95 Balance -723.55 / -704.35 -3240.48 / -3055.58 1033.49 / 1033.49 Lab / Micro Data Attestation: I reviewed the patient's lab results. Result Diagrams: 11/12/20 04:20 11/12/20 04:20 Labs: Laboratory Results - last 24 hr 11/11/20 17:17: POC Glucose 126 H 11/11/20 22:55: POC Glucose 126 H 11/12/20 04:20: WBC 14.4 H, RBC 2.51 L, Hgb 8.0 L, Hct 24.9 L, MCV 99.2 H, MCH 31.9, MCHC 32.1, RDW Std Deviation 64.4 H, RDW Coeff of Marquis 18.0 H, Plt Count 107 L, MPV 9.5, Immature Gran % (Auto) 0.700, Neut % (Auto) 89.8 H, Lymph % (Auto) 2.8 L, [place] % (Auto) 6.5, Eos % (Auto) 0.1, Baso % (Auto) 0.1, Absolute Neuts (auto) 12.9 H, Absolute Lymphs (auto) 0.41 L, Nucleated RBC % 0 11/12/20 04:20: Sodium 139, Potassium 3.2 L, Chloride 101, Carbon Dioxide 27.0, Anion Gap 11, BUN 22 H, Creatinine 3.31 H, Estim Creat Clear Calc 22.05, Est GFR (MDRD) Af Amer 24 L, Est GFR (MDRD) Non-Af 20 L, BUN/Creatinine Ratio 6.6 L, Glucose 131 H, Calcium 7.7 L, Total Bilirubin 0.70, AST 12 L, ALT < 6 L, Alkaline Phosphatase 66, Total Protein 5.6 L, Albumin 3.0 L, Globulin 2.6, Albumin/Globulin Ratio 1.2 11/12/20 06:30: POC Glucose 119 H 11/12/20 13:02: POC Glucose 120 H Micro: Microbiology 11/09/20 09:35 Blood Culture (Wb) - Arm Left Blood Culture - Preliminary No growth in 48 hours. 11/09/20 14:05 Sputum, Induced/Lukens Gram Stain - Final 11/09/20 14:05 Sputum, Induced/Lukens Respiratory Culture - Final Stenotrophomonas maltophilia 11/04/20 12:15 Tissue - Arm Right Gram Stain - Final 11/04/20 12:15 Tissue - Arm Right Wound Culture - Final No growth aerobically. 11/04/20 12:15 Tissue - Arm Right Anaerobic Culture - Final No growth in 5 days. 11/07/20 15:35 Nasal Secretion SARS-CoV-2 Antigen (Rapid) - Final 11/01/20 Unknown Tissue - Arm Right Gram Stain - Final 11/01/20 Unknown Tissue - Arm Right Wound Culture - Final No growth aerobically. 11/01/20 Unknown Tissue - Arm Right Anaerobic Culture - Final No anaerobic bacteria isolated. 10/28/20 Unknown Tissue - Arm Fungal Smear - Final 10/28/20 14:20 Tissue - Arm Gram Stain - Final 10/28/20 14:20 Tissue - Arm Wound Culture - Final No growth aerobically. 10/28/20 14:20 Tissue - Arm Anaerobic Culture - Final Prevotella oralis 10/25/20 07:35 Blood Culture (Wb) - Anticubital Left Blood Culture - Final No growth in 5 days. 10/25/20 07:45 Blood Culture (Wb) - Left Wrist Blood Culture - Final No growth in 5 days. 10/25/20 07:30 Bite - Arm Gram Stain - Final 10/25/20 07:30 Bite - Arm Wound Culture - Final Pasteurella canis Staphylococcus aureus 10/27/20 18:00 Mucosa - Nose SARS-CoV-2 Antigen (Rapid) - Final Physical Exam Narrative Extremities - No axillary adenopathy. Radial pulses are palpable. Right forearm and wrist wounds are stable. No active bleeding noted. Muscles are viable. Some of the exposed tendons are showing some signs of dessication. Will monitor at this time. No evidence of persistent purulent drainage noted. Mild finger swelling. I am able to passively flex the MP joints almost to 90 degrees at this time. Dakin's dressing change done today. Assessment & Plan Assessment/Plan (1) Dog bite: QUALIFIERS: Encounter type: initial encounter Qualified Code(s): W54.0XXA - Bitten by dog, initial encounter (2) Abscess of bursa of right forearm: (3) Necrotizing soft tissue infection: (4) Extensor tenosynovitis of right wrist: (5) Abscess of skin of right wrist: (6) Open wound of right forearm due to dog bite: (7) Open wound of right wrist due to dog bite: (8) Diabetes: (9) Acute blood loss anemia: (10) Former smoker: PLAN: Dakin's dressing change done today without problem. Wounds were clean with no further evidence of purulence. Muscles appear viable. Some of the exposed tendons are showing some signs of dessication. Will monitor at this time. The severity of the infection has contributed to compromised blood supply to the tendons involved. No active bleeding seen. The dressing showed no blood staining. Hgb is 8.0 which is decreased from previous value of 8.7. Continue Iron supplementation. He has acute postoperative anemia from expected blood loss. From the dressing changes, I anticipate approximately a unit since surgery. Patient was also on a heparin drip for his atrial fibrillation. Continue Zosyn. Has stenotrophomonas in the sputum. Vancomycin was stopped and Levaquin was added. Operative cultures from 11/01/20 surgery and 11/04/20 surgery are negative. Operative cultures from 10/28/20 showed Prevotella bivia. The dressing changes will be difficult at home initially. Discussed with the patient about going to an ECF for short term until the dressing changes can be tolerated at home. He was in agreement. TCU evaluation is on hold while the patient is intubated in the ICU. Prealbumin was 8.8. Encourage nutritional supplementation with protein to help the healing process. Encourage range of motion exercises to minimize stiffness. He is at risk for developing stiffness. Will need OT after discharge for range of motion exercises, strengthening, and edema management. When he is medically stable and extubated, will continue range of motion exercises. His WBC has decreased down to 14.4 from previous value of 15.6. When he is medically stable, will consider another trip to the operating room for another incision and drainage and irrigation of his wounds.
[2020-11-12] MEDS: 0.9% Saline Lock 10 ML Syringe IV (17:46)
[2020-11-12 18:01] LABS: Bedside Glucose 127 mg/dL (70-110)
--- NOTE | 2020-11-12 19:12 | CB_ITS ---
Code Blue Report Code Blue Summary Code Blue Summary: Patient at approximately 1845 on 11/12/[address] reportedly having atypical bigeminy prior immediately to the event which patient went into [place] followed by cardiac arrest with immediate CODE BLUE call and epinephrine dosing per staff. Patient with evident V. fib on first rhythm check with immediate shock administered. Given arrhythmia amiodarone 150 mg x 1 administered. Patient per history per staff with dialysis (removal >4L) on day of presentation with electrolyte disturbance history with notable ongoing lasix diuresis in addition, therefore calcium and addition of bicarb administered. Labs reviewed with staff as well as recent history during CODE. Patient with continued CPR with serial repeat rhythm checks once appropriate all consistently with a V. fib with several shocks administered with rising joules without great effect with no pulse on pulse check. Patient administered an additional amiodarone 150 mg x 1. Patient received a total of escalating shocks and total of 5 rounds of epinephrine. Daughter, decision maker for the family was contacted and patient situation was relayed, she requested specifically 2 additional rounds of CPR be performed and following this requested we let him pass naturally. The patient on last check remained in VF, pulseless without respirations with time of then noted following on 11/12/20 at 1905. Patient oracle adf consultant physicians made aware. Procedures Hospitalists Procedures: 94250 Critial Care 1st Hr (Critical care time: 1) Multi Select Codes Hospitalists' Procedures Procedures: 65081 Critial Care 1st Hr (Critical care time 18:45-19:15, total 30 minutes.)
--- NOTE | 2020-11-12 19:19 | NURSING ---
1844 noted on monitor Vfib/Vtach, this RN right into patient's room, no pulse, CPR started, code blue called.
--- NOTE | 2020-11-12 20:11 | CASEMGMT ---
AMBER Note Referral Source: Code Blue Referral Reason: Danny Childress SW responded to Code Blue for patient. Patient had . SW provided support to patient's significant other and patient's significant other's daughter who were in the room. Significant other had contacted family and her sister came to support her. Significant other reports she plans to use [facility]. RN will continue to follow with patient's family needs but this appeals writer will remain available. SW remains available to provide support or assistance to family as needed. Plan: Patient . Carol Ann DONATO
--- NOTE | 2020-11-12 23:05 | NURSING ---
Employee from campaign advisor's office, Heriberto, came and took pictures of body for their report. Heriberto stated that it was alright to pull tubes from body and that he did not need any of the continuous IV medications that were running before time of . He also stated that body could be released to home.
--- NOTE | 2020-11-13 09:45 | PCM.DEATH ---
Preliminary Cause of Preliminary Cause of Preliminary Cause of : Asystole secondary to ventricular fibrillation as a result of coronary artery disease Date of Admission: 10/25/20 Date of : 11/12/20 Principle Diagnosis 1. Severe sepsis secondary to cellulitis of the right forearm with necrotizing soft tissue infection-due to Prevotella, Pasteurella, methicillin sensitive staph aureus -due to dog bite #2 acute hypoxic respiratory failure secondary to pneumonia and severe sepsis #3 acute renal failure on a backdrop of chronic kidney disease stage IIIa requiring dialysis #4 hospital-acquired pneumonia #5 non-STEMI #6 paroxysmal A. fib #7 ischemic cardiomyopathy #8 multivessel coronary artery disease #9 hyperlipidemia #10 acute anemia secondary to blood loss from multiple right arm surgeries and blood draws Problem List: Active and Suspected Problems (Updated 11/13/20 @ 09:[address] Alberto Zheng, DO) LETY (acute kidney injury) (Acute) Acute hypoxemic respiratory failure (Acute) Shortness of breath (Acute) Anemia (Acute) Necrotizing soft tissue infection (Acute) Acute blood loss anemia (Acute) Diabetes (Acute) Acute respiratory failure (Acute) Non-STEMI (non-ST elevated myocardial infarction) (Acute) Abscess of bursa of right forearm (Acute) deep space of [place] Extensor tenosynovitis of right wrist (Acute) compartment I (APL and EPB) compartment II (ECRL and ECRB) compartment III (EPL) compartment (ECU) Atherosclerotic heart disease of [place] coronary artery without angina pectoris (Acute) Cellulitis of forearm, right (Acute) Abscess of right forearm (Acute) Abscess of skin of right wrist (Acute) Open wound of right forearm due to dog bite (Acute) Open wound of right wrist due to dog bite (Acute) Diabetes (Acute) CHF (congestive heart failure) (Acute) Atrial fibrillation (Acute) Abnormal cardiac enzyme level (Acute) Benign essential HTN (Acute) HLD (hyperlipidemia) (Acute) S/P CABG (coronary artery bypass graft) (Acute) CAD (coronary artery disease) (Acute) Dog bite (Acute) History of diabetes mellitus (Acute) Hypokalemia (Acute) Hospital Course 70-year-old white male was admitted through the emergency room at [facility] with a chief complaint of right forearm redness and tenderness, he had been bitten by a dog which he owned while trying to break up a fight with another dog that he owned. He was not on any outpatient antibiotics. Work-up in the emergency room showed an elevated white blood cell count at 18.2, chemistry profile showed a sodium of 133 with a potassium of 2.8 and a creatinine of 1.64. CT of the right upper extremity showed skin thickening overlying the posterior aspect of the distal humerus but no focal fluid collection or abscess was seen. Patient was admitted for cellulitis of the right forearm and hypokalemia, he was started on IV antibiotics and given potassium supplementation. Later that day, it was noted that the patient had an increased respiratory rate and tachycardia, cardiac enzymes were obtained which were elevated, cardiology was consulted and an echo was performed. Echocardiogram showed a normal ejection fraction, cardiology recommended proceeding with a cardiac catheterization and felt that the patient had a non-STEMI. Cardiac catheterization was performed which showed a reduced ejection fraction of 40% and multivessel coronary artery disease. It was recommended that the patient be treated medically. Patient was seen in consultation by plastic surgery who recommended debridement of the right forearm cellulitis, he was also seen in consultation by infectious diseases and the wound nurse. Patient's wound cultures resulted positive for Prevotella, Pasteurella, and methicillin sensitive staph aureus. Patient's renal function declined during his hospitalization and he became dyspneic, initially diuresis was attempted but the patient's renal function worsened and ultimately diuresis had to be discontinued. Patient received transfusions of packed red blood cells due to acute anemia from blood loss. Patient's respiratory status declined further and he was transferred to ICU and seen by critical care. While in ICU, his respiratory status declined further and he was intubated. His renal functions also worsened and he underwent dialysis. On 11/11/2020, patient was seen and examined: Const: Constitutional Narrative: Patient is under sedation on the ventilator at this time HEENT Head and Scalp: normocephalic Resp normal respiratory effort, no retractions and clear to auscultation bilaterally Cardio regular rate, regular rhythm, S1 normal heart sound, S2 normal heart sound, no gallops and no clicks GI normal to inspection, nondistended, normoactive bowel sounds, soft to palpation and non-tender Extremity Extremity Narrative: Patient's right lower arm is wrapped with surgical dressing, this was not removed for examination Neuro Neuro Narrative: Patient is sedated on the ventilator Psych Psych Narrative: Patient is sedated on the ventilator On the evening of 11/11/2020, patient was noted to have malignant arrhythmias starting with frequent PVCs and transitioning into V. tach, a CODE BLUE was called, resuscitation attempts were carried out for approximately 20 minutes-these attempts included defibrillation, administration of amiodarone, and administration of epinephrine. Patient did not respond to these efforts, at 1905 on 11/11/2020, patient was pronounced . Family members were notified. Visit Charges Inpatient E&M: 65792 Disch Hosp
== END 2020-11-12 23:30 | DRG 570 ==
LOC: ED 07:59 → MS3 11:05 → PCU 20:07 → ICU 11-09 07:02
PROVIDERS: Anesthesiology; Family Medicine; Hospitalist; Internal Medicine Cardiovascular Disease; Internal Medicine Critical Care Medicine; Internal Medicine Nephrology; Pediatrics Pediatric Nephrology; Physician Assistant; Surgery; Admitting Provider Student in an Organized Health Care Education/Training Program; Emergency Provider Emergency Medicine; Visit Provider Internal Medicine
PROC: 0JBG0ZZ Excision of Right Lower Arm Subcutaneous Tissue and Fascia, Open Approach (ICD-10-PCS; principal; 2020-10-28 12:20)
PROC: 0LB50ZZ Excision of Right Lower Arm and Wrist Tendon, Open Approach (ICD-10-PCS; principal; 2020-11-01 13:35)
PROC: 0JBD0ZZ Excision of Right Upper Arm Subcutaneous Tissue and Fascia, Open Approach (ICD-10-PCS; principal; 2020-11-04 11:20)
DX: L03.113 Cellulitis of right upper limb (principal); I50.23 Acute on chronic systolic (congestive) heart failure; A41.9 Sepsis, unspecified organism; J96.01 Acute respiratory failure with hypoxia; R65.20 Severe sepsis without septic shock; I21.4 Non-ST elevation (NSTEMI) myocardial infarction; J15.6 Pneumonia due to other Gram-negative bacteria; N17.0 Acute kidney failure with tubular necrosis; D62 Acute posthemorrhagic anemia; I13.0 Hypertensive heart and chronic kidney disease with heart failure and stage 1 through stage 4 chronic kidney disease, or unspecified chronic kidney disease; E11.52 Type 2 diabetes mellitus with diabetic peripheral angiopathy with gangrene; J98.11 Atelectasis; I47.2 Ventricular tachycardia; S51.851A Open bite of right forearm, initial encounter; S61.551A Open bite of right wrist, initial encounter; W54.0XXA Bitten by dog, initial encounter; M71.031 Abscess of bursa, right wrist; L02.413 Cutaneous abscess of right upper limb; M65.831 Other synovitis and tenosynovitis, right forearm; I46.2 Cardiac arrest due to underlying cardiac condition; B95.61 Methicillin susceptible Staphylococcus aureus infection as the cause of diseases classified elsewhere; B96.89 Other specified bacterial agents as the cause of diseases classified elsewhere; Y95 Nosocomial condition; E87.6 Hypokalemia; I49.3 Ventricular premature depolarization; E11.22 Type 2 diabetes mellitus with diabetic chronic kidney disease; N18.31 Chronic kidney disease, stage 3a; E78.5 Hyperlipidemia, unspecified; F32.9 Major depressive disorder, single episode, unspecified; G89.29 Other chronic pain; I48.0 Paroxysmal atrial fibrillation; I25.10 Atherosclerotic heart disease of native coronary artery without angina pectoris; I25.5 Ischemic cardiomyopathy; I25.2 Old myocardial infarction; K21.9 Gastro-esophageal reflux disease without esophagitis; Z79.84 Long term (current) use of oral hypoglycemic drugs; Z87.891 Personal history of nicotine dependence; Z79.82 Long term (current) use of aspirin; Z79.899 Other long term (current) drug therapy; Z95.1 Presence of aortocoronary bypass graft
CPT/HCPCS: 31500; 31720; 36415; 36569; 36600; 71045; 71046; 71275; 73201; 80048; 80053; 80069; 80202; 80307; 81001; 82550; 82570; 82803; 82962; 83036; 83605; 83735; 83880; 84100; 84132; 84134; 84478; 84484; 84540; 85014; 85018; 85025; 85379; 85610; 85730; 86160; 86644; 86706; 86850; 86900; 86901; 86920; 86922; 87040; 87070; 87075; 87077; 87102; 87176; 87186; 87205; 87206; 87340; 87426; 87640; 88304; 88305; 90715; 90937; 93005; 93306; 93459; 93970; 94002; 94003; 94640; 94660; 94762; 97110; 97162; 97166; 97530; 97535; 97760; 97802; 97803; 99152; 99153; 99251; 99284; J7030; J7040; J7050; J7120; P9016; P9017; P9047; Q9957; Q9967; A4216; C1752; C1769; C1894; C8929; G0257; G0463; J0295; J1940; J2405; J3010; J3490